=== PATIENT | male | born 1945 | race Caucasian/White ===

== ENCOUNTER → 2020-04-02 12:32 | Outpatient (CLI) | payer MEDICARE, SELFPAY ==
--- NOTE | ~2020-04-02 | CT_ITS ---
EXAMINATION: CT chest wo con DATE: 04/02/2020 12:53 INDICATION: Solitary pulmonary nodule TECHNIQUE: Computed tomography (CT) of the chest was performed without intravenous contrast. The dose -length product (DLP) was 729.65 mGy-cm. Automated exposure control and iterative reconstruction tech nique were employed. COMPARISON: 03/24/2019 FINDINGS: Cystic bronchiectasis involving all lung zones persists without significant change. Chronic tree-in-bud nodules in the posterior segment of the right upper lobe are consistent with infection/i nflammation. No new or suspicious pulmonary nodules are identified. There is no pleural effusion or p neumothorax. There is an unchanged 4 mm subpleural nodule of the left lower lobe. Calcified right hil ar and subcarinal lymph nodes are consistent with old granulomatous disease. Also noted is mild chron ic mediastinal lymphadenopathy, unchanged and likely reactive. The heart size is stable. There is anny cified coronary artery atherosclerosis. There is mild thoracic spondylosis. An intraosseous lipoma i s again noted in the proximal right humerus. IMPRESSION: 1. Stable left lower lobe nodule, consistent with old granulomatous disease. 2. Persistent tree-in-bud opacities in the posterior segment of the right upper lobe, consistent with infection/inflammation. 3. Widespread cystic bronchiectasis, unchanged. Reviewed, dictated and finalized at location A.
== END ==
PROVIDERS: PCP Family Medicine; Visit Provider Internal Medicine Critical Care Medicine
DX: R91.1 Solitary pulmonary nodule (principal)
CPT/HCPCS: 71250

== ENCOUNTER 2021-06-19 12:00 | Outpatient (NON) | payer MEDICARE, SELFPAY | END 2021-06-19 12:01 | disposition home or self-care (01) | LOC: ANHLAB 06-24 12:30 | PROVIDERS: Visit Provider Nurse Practitioner | DX: L02.91 Cutaneous abscess, unspecified (principal) | CPT/HCPCS: 87070; 87075; 87205 ==

== ENCOUNTER 2021-07-03 14:17 | Emergency (ER) | payer MEDICARE, SELFPAY ==
--- NOTE | ~2021-07-03 | XR_ITS ---
EXAMINATION: XR chest 1V portable DATE: 07/03/2021 15:01 INDICATION: Cough. Congestion. Shortness of breath. TECHNIQUE: A single frontal view of the chest was obtained on 2 radiographs. COMPARISON: Chest 2 views 12/12/2015, chest CT 04/02/2020 FINDINGS: There are mild airspace opacities in the mid and lower lung zones. No pleural effusion or p neumothorax. The heart size is normal. IMPRESSION: 1. Mild airspace opacities in the mid and lower lung zones, consistent with atelectasis versus pneumo angie. Reviewed, dictated and finalized at location B. 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 Mild airspace opacities in the mid and lower lung zones, consistent with ate lectasis versus pneumonia.
[2021-07-03 14:37] VITALS: BP 174/71; PULSE 69; RESP 20; TEMP 36.6; O2SAT 97
--- NOTE | 2021-07-03 14:37 | ED.URI ---
HPI - URI/Sore Throat General Chief Complaint: Upper Respiratory Infection Stated Complaint: coughing/possible bronchitis Source: patient and RN notes reviewed Mode of arrival: ambulatory Limitations: no limitations History of Present Illness HPI Narrative: patient states he has been gradually getting worse from coughing. Feels short of breath after coughing and sometimes with more exertion than usual. He has had 2 vaccinations and a booster. He does not recall being around anybody that is positive for COVID. He says he has headaches he thinks from coughing but has no other symptoms. MD elicited complaint: cough and sore throat Onset (ago): week(s) (1) Consistency: constant and progressively worsening Severity: moderate Description of mucous: clear Able to tolerate fluids by mouth: Yes Exacerbating factors: exertion Associated symptoms: headache Treatments prior to arrival: none Related Data Home Medications Medication Instructions Recorded Confirmed amlodipine 5 mg tablet 5 mg PO DAILY 04/28/19 07/03/21 atorvastatin 10 mg tablet 10 mg PO DAILY 04/28/19 07/03/21 latanoprost 0.005 % eye drops 1 drop EACH EYE DAILY 04/28/19 07/03/21 aspirin 81 mg tablet,delayed 81 mg PO DAILY 11/25/19 07/03/21 release cholecalciferol (vitamin D3) 50 50 mcg PO DAILY 04/09/20 07/03/21 mcg (2,000 unit) capsule Allergies Allergy/AdvReac Type Severity Reaction Status Date / Time lanolin Allergy Severe ITCHEY RASH Verified 06/25/21 13:43 gramicidin D Allergy Mild RASH Verified 06/25/21 13:43 lisinopril Allergy Mild renal Verified 06/25/21 13:43 insufficiency Sulfa (Sulfonamide Allergy Mild renal Verified 06/25/21 13:43 Antibiotics) failure bacitracin Allergy Unknown Rash Verified 06/25/21 13:43 polymyxin B Allergy Unknown rash Verified 06/25/21 13:43 BACITRACIN ZINC Allergy Mild RASH Uncoded 04/03/21 17:03 NEOMYCIN SULFATE Allergy Mild RASH Uncoded 04/03/21 17:03 POLYMYXIN B SULFATE Allergy Mild RASH Uncoded 04/03/21 17:03 Review of Systems Review of Systems: All systems reviewed & are unremarkable except as noted in HPI and below Constitutional: Constitutional: Reports chills and Denies fever(s) ENT: Denies sore throat Cardiovascular: Cardiovascular: Denies chest pain Respiratory: Respiratory: Reports as per HPI, Reports cough and Reports dyspnea Gastrointestinal: Gastrointestinal: Denies diarrhea, Denies nausea and Denies vomiting PMFSH Past Medical History Medical History Atrial flutter Chronic renal insufficiency, stage III (moderate) Chronic venous insufficiency Encounter for immunization Glaucoma H/O: gout History of bronchiectasis Hypertension Hypothyroidism Mitral insufficiency Mixed hyperlipidemia Obesity BRAYDEN (obstructive sleep apnea) Skin neoplasm Venous stasis dermatitis of both lower extremities Vitamin D deficiency Surgical History Surgical History H/O cardiac radiofrequency ablation Family History Family History Mother Diabetes mellitus Family history of coronary artery disease Sibling Diabetes mellitus Father Family history of coronary artery disease Social History Social History Smoking status: Never smoker Second hand tobacco smoke exposure: No Alcohol intake: never Substance use: never Substance use type: does not use Gender identity (if verbalized by the patient): Male Exam Const: General: no acute distress, alert and ill appearing acutely Nutritional Appearance: well nourished and obese morbidly obese Orientation/consciousness: patient oriented x3 HENMT: Head: normal to inspection Ears: external ears normal Eyes: Conjunctivae: conjunctivae normal Pupils: Equal, round and reactive pupils present EOM: EOMs intact bilaterally Neck: Neck: normal
[2021-07-03 15:09] LABS: Basophils Absolute Auto 0.04 K/mm3 (0.00-0.10); Basophils Percent Auto 0.2 % (0.0-1.0); Eosinophils Absolute Auto 0.03 K/mm3 (0.02-0.50); Eosinophils Percent Auto 0.2 % (1.0-6.0); Hematocrit 35.3 % (37.0-46.0); Hemoglobin 11.6 g/dL (12.4-15.3); Immature Granulocyte Absolute 0.12 K/mm3 (0.00-0.00); Immature Granulocyte Percent A 0.7 % (0.0-0.0); Lymphocytes Absolute Auto 1.42 K/mm3 (1.10-4.50); Lymphocytes Percent Auto 8.7 % (18.0-42.0); Mean Corpuscular HGB Conc 32.9 g/dL (32.0-36.0); Mean Corpuscular Volume 106.6 fL (78.0-102.0); Mean Platelet Volume 10.3 fl (8.7-11.0); Monocytes Absolute Auto 0.66 K/mm3 (0.10-0.90); Monocytes Percent Auto 4.1 % (2.0-11.0); Neutrophils Percent Auto 86.1 % (50.0-70.0); Platelet Count Result 197 K/mm3 (150-420); Red Blood Count 3.31 M/mm3 (4.70-6.10); Red Cell Distribution Width 13.8 % (11.6-14.4); White Blood Count 16.3 K/mm3 (4.8-10.8)
[2021-07-03 15:22] LABS: Influenza A QL RT-PCR Negative (Negative); Influenza B QL RT-PCR Negative (Negative); SARS-CoV-2 RNA PCR Negative (Negative)
--- NOTE | 2021-07-03 15:23 | PC.NURSE ---
report given to Vickie
[2021-07-03 15:41] LABS: Alanine Aminotransferase 25 U/L (16-63); Albumin Level 3.2 g/dL (3.4-5.0); Alkaline Phosphatase 80 U/L (46-116); Anion Gap 10 mmol/L (8-16); Aspartate Amino Transferase 26 U/L (15-37); Bilirubin,Total 1.7 mg/dL (0.00-1.00); Blood Urea Nitrogen 30 mg/dL (7-18); Carbon Dioxide 27 mmol/L (21-32); Chloride 101 mmol/L (98-108); Estimated CRCL calculation 48 ml/min; Estimated Glomerular Filt Rate 40; Ferritin 903 ng/mL (26-388); Glucose 152 mg/dL (70-99); Magnesium 2.2 mg/dL (1.8-2.4); Osmolality Calculated 295 mOsm/kg (285-295); Potassium 4.3 mmol/L (3.5-5.1); Sodium 138 mmol/L (136-145); Total Protein 7.9 g/dL (6.4-8.2)
[2021-07-03 15:43] LABS: CRP > 25.0 mg/dL (0.0-0.9)
[2021-07-03 16:22] VITALS: BP 136/82; PULSE 79; RESP 18; O2SAT 96
== END 2021-07-03 16:33 | disposition home or self-care (01) ==
PROVIDERS: Emergency Provider Emergency Medicine; PCP Family Medicine
DX: J18.9 Pneumonia, unspecified organism (principal); Z79.899 Other long term (current) drug therapy; I10 Essential (primary) hypertension; E03.9 Hypothyroidism, unspecified; E78.2 Mixed hyperlipidemia; E55.9 Vitamin D deficiency, unspecified
CPT/HCPCS: 36415; 71045; 80053; 82728; 83605; 83735; 85025; 86140; 87502; 96372; 99283; C9803; J1100; U0003; U0005

== ENCOUNTER → 2021-07-16 09:49 | Outpatient (CLI) | payer MEDICARE, SELFPAY ==
--- NOTE | ~2021-07-16 | XR_ITS ---
XR chest 2V 07/16/2021 10:09 Indication: Unspecified acute lower respiratory infection Procedure: 2 view chest Comparison: 07/03/2021 Findings: Heart size normal. Patchy bilateral airspace disease, compatible with pneumonia. No pleural effusion. No pneumothorax. No acute osseous abnormality. Impression: 1: Patchy bilateral airspace disease, compatible with pneumonia. Reviewed, dictated and finalized at location B. AN Impression: 1: Patchy bilateral airspace disease, compatible with pneumonia.
== END ==
PROVIDERS: PCP Family Medicine; Visit Provider Family Medicine
DX: J22 Unspecified acute lower respiratory infection (principal); R91.8 Other nonspecific abnormal finding of lung field
CPT/HCPCS: 71046

== ENCOUNTER 2021-08-07 09:21 | Outpatient (CLI) | payer MEDICARE, SELFPAY ==
--- NOTE | ~2021-08-07 | XR_ITS ---
EXAMINATION: XR chest 2V DATE: 08/07/2021 09:47 INDICATION: Pneumonia, unspecified organism TECHNIQUE: PA and lateral views of the chest are obtained. COMPARISON: 07/16/2021 FINDINGS: Patchy bilateral airspace opacities persist but have decreased. There is no pleural effusio n or pneumothorax. The cardiomediastinal silhouette is normal. There are bridging osteophytes at mult iple levels in the spine, consistent with diffuse idiopathic skeletal hyperostosis (DISH). IMPRESSION: 1. Patchy bilateral airspace opacities with interval improvement, consistent with resolving pneumonia . Reviewed, dictated and finalized at location A. 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 Patchy bilateral airspace opacities with interval improvement, consistent wi th resolving pneumonia.
== END 2021-08-07 09:22 | disposition home or self-care (01) ==
LOC: CHSLAB 09:24 → CHSIMG 09:25
PROVIDERS: PCP Family Medicine; Visit Provider Family Medicine
DX: J18.9 Pneumonia, unspecified organism (principal)
CPT/HCPCS: 71046

== ENCOUNTER → 2021-08-28 12:11 | Outpatient (CLI) | payer MEDICARE, SELFPAY ==
--- NOTE | ~2021-08-28 | XR_ITS ---
EXAMINATION: XR chest 2V DATE: 08/28/2021 12:28 INDICATION: Pneumonia, unspecified organism. TECHNIQUE: Frontal and lateral views of the chest were obtained. COMPARISON: Chest 2 views 08/07/2021, chest CT 04/02/2020 FINDINGS: The chest demonstrates clear lungs without pneumonia, pleural effusion, or pneumothorax. Th e heart size is normal. There are prominent paracardial fat pads. IMPRESSION: 1. No acute cardiopulmonary disease. Reviewed, dictated and finalized at location A. TRUCKER
== END ==
PROVIDERS: PCP Family Medicine; Visit Provider Family Medicine
DX: J18.9 Pneumonia, unspecified organism (principal); M25.561 Pain in right knee
CPT/HCPCS: 71046

== ENCOUNTER 2021-11-16 20:22 | Emergency (ER) | payer MEDICARE, SELFPAY ==
--- NOTE | ~2021-11-16 | XR_ITS ---
XR chest 2V DATE: 11/16/2021 21:50 INDICATION: Chills for 2 days. History of COPD TECHNIQUE: PA and lateral views COMPARISON: 09/07/2021 2 view chest FINDINGS: Normal heart size. No hilar or mediastinal enlargement. No pulmonary infiltrate or consolid ation, pleural effusion or pulmonary vascular congestion or pneumothorax. Diffuse idiopathic skeletal hyperostosis of the thoracic spine. IMPRESSION: No active cardiopulmonary disease Reviewed, dictated and finalized at location A.
--- NOTE | 2021-11-16 20:39 | ED.FEVER ---
HPI - Fever General Chief Complaint: Fever Stated Complaint: chills Time Seen by Provider: 11/16/21 20:23 Source: patient and RN notes reviewed Mode of arrival: ambulatory Limitations: no limitations History of Present Illness MD elicited complaint: fever Onset (ago): hour(s) (1) Measured temperature: 101 C (tympanic) Exacerbating factors: nothing Relieving factors: acetaminophen Associated symptoms: chills, myalgias and headache Treatments prior to arrival fever: acetaminophen Related Data Home Medications Medication Instructions Recorded Confirmed amlodipine 5 mg tablet 5 mg PO DAILY 04/28/19 11/16/21 atorvastatin 10 mg tablet 10 mg PO DAILY 04/28/19 11/16/21 latanoprost 0.005 % eye drops 1 drop ophthalmic (eye) DAILY 04/28/19 11/16/21 (Xalatan) aspirin 81 mg tablet,delayed 81 mg PO DAILY 11/25/19 11/16/21 release (Adult Aspirin Regimen) cholecalciferol (vitamin D3) 50 50 mcg PO DAILY 04/09/20 11/16/21 mcg (2,000 unit) capsule Allergies Allergy/AdvReac Type Severity Reaction Status Date / Time lanolin Allergy Severe ITCHEY RASH Verified 11/16/21 20:56 gramicidin D Allergy Mild RASH Verified 11/16/21 20:56 lisinopril Allergy Mild renal Verified 11/16/21 20:56 insufficiency Sulfa (Sulfonamide Allergy Mild renal Verified 11/16/21 20:56 Antibiotics) failure bacitracin Allergy Unknown Rash Verified 11/16/21 20:56 polymyxin B Allergy Unknown rash Verified 11/16/21 20:56 BACITRACIN ZINC Allergy Mild RASH Uncoded 07/19/21 13:46 NEOMYCIN SULFATE Allergy Mild RASH Uncoded 07/19/21 13:46 POLYMYXIN B SULFATE Allergy Mild RASH Uncoded 07/19/21 13:46 Review of Systems Review of Systems: All systems reviewed & are unremarkable except as noted in HPI and below Constitutional: Constitutional: Reports as per HPI Respiratory: Respiratory: Denies cough and Denies dyspnea Gastrointestinal: Gastrointestinal: Denies constipation, Denies diarrhea, Denies nausea and Denies vomiting Musculoskeletal: Musculoskeletal: Reports myalgias PMFSH Past Medical History Medical History Atrial flutter Chronic renal insufficiency, stage III (moderate) Chronic venous insufficiency Encounter for immunization Glaucoma H/O: gout History of bronchiectasis Hypertension Hypothyroidism Mitral insufficiency Mixed hyperlipidemia Obesity BRAYDEN (obstructive sleep apnea) Skin neoplasm Venous stasis dermatitis of both lower extremities Vitamin D deficiency Surgical History Surgical History H/O cardiac radiofrequency ablation Family History Family History Mother Diabetes mellitus Family history of coronary artery disease Sibling Diabetes mellitus Father Family history of coronary artery disease Social History Social History Second hand tobacco smoke exposure: No Alcohol intake: never Substance use: never Substance use type: does not use Gender identity (if verbalized by the patient): Male Exam Const: General: healthy appearing and ill appearing chronically Nutritional Appearance: well nourished and obese morbidly obese Orientation/consciousness: patient oriented x3 Limitations: no limitations HENMT: Head: normal to inspection Ears: external ears normal General nose exam: Normal external nose present Mouth: Yes moist mucous membranes Eyes: Conjunctivae: conjunctivae normal Pupils: Equal, round and reactive pupils present EOM: EOMs intact bilaterally Neck: Neck: normal visual inspection Resp: Effort & Inspection: normal respiratory effort Auscultation: clear to auscultation bilaterally Cardio: Rate: regular rate Rhythm: regular rhythm GI: GI Palp: Yes Soft to palpation and No Tenderness to palpation present (GI) Auscultation: normal bowel sounds Back/Spine/Pelvis: Cervical Spine: cervi
--- NOTE | 2021-11-16 20:45 | PC.NURSE ---
nasal swab sent to lab
[2021-11-16 20:47] VITALS: BP 164/69; PULSE 94; RESP 22; TEMP 37.2; O2SAT 100
[2021-11-16 21:09] LABS: Basophils Absolute Auto 0.04 K/mm3 (0.00-0.10); Basophils Percent Auto 0.3 % (0.0-1.0); Eosinophils Absolute Auto 0.08 K/mm3 (0.02-0.50); Eosinophils Percent Auto 0.6 % (1.0-6.0); Hematocrit 42.6 % (37.0-46.0); Hemoglobin 14.1 g/dL (12.4-15.3); Immature Granulocyte Absolute 0.07 K/mm3 (0.00-0.00); Immature Granulocyte Percent A 0.5 % (0.0-0.0); Lymphocytes Percent Auto 9.8 % (18.0-42.0); Mean Corpuscular HGB Conc 33.1 g/dL (32.0-36.0); Mean Corpuscular Hemoglobin 32.1 pg (27.0-31.0); Mean Platelet Volume 10.2 fl (8.7-11.0); Monocytes Absolute Auto 0.79 K/mm3 (0.10-0.90); Monocytes Percent Auto 5.5 % (2.0-11.0); Neutrophils Absolute Auto 11.9 K/mm3 (1.7-7.2); Neutrophils Percent Auto 83.3 % (50.0-70.0); Platelet Count Result 197 K/mm3 (150-420); Red Blood Count 4.39 M/mm3 (4.70-6.10); Red Cell Distribution Width 13.7 % (11.6-14.4); White Blood Count 14.3 K/mm3 (4.8-10.8)
[2021-11-16 21:24] LABS: Influenza A QL RT-PCR Negative (Negative); Influenza B QL RT-PCR Negative (Negative); SARS-CoV-2 RNA PCR Negative (Negative)
[2021-11-16 21:35] LABS: Alanine Aminotransferase 28 U/L (16-63); Albumin Level 3.8 g/dL (3.4-5.0); Alkaline Phosphatase 89 U/L (46-116); Anion Gap 8 mmol/L (8-16); Aspartate Amino Transferase 25 U/L (15-37); Bilirubin,Total 1.1 mg/dL (0.00-1.00); Blood Urea Nitrogen 18 mg/dL (7-18); Calcium 10.4 mg/dL (8.5-10.1); Carbon Dioxide 28 mmol/L (21-32); Chloride 98 mmol/L (98-108); Estimated CRCL calculation 66 ml/min; Estimated Glomerular Filt Rate 58; Ferritin 608 ng/mL (26-388); Glucose 112 mg/dL (70-99); Magnesium 2.1 mg/dL (1.8-2.4); Osmolality Calculated 280 mOsm/kg (285-295); Potassium 3.6 mmol/L (3.5-5.1); Sodium 134 mmol/L (136-145); Total Protein 8.2 g/dL (6.4-8.2)
[2021-11-16 21:36] LABS: CRP > 10.6 mg/dL (0.0-0.9)
[2021-11-16 21:44] LABS: Lactic Acid Reflex 1.1 mmol/L (0.4-2.0)
[2021-11-16 22:06] VITALS: TEMP 37.7
[2021-11-16 22:12] LABS: Appearance Urine Clear (Clear); Bilirubin Urine Negative (Negative); Color Urine Light Yellow (Yellow); Glucose Urine UA Negative (Negative); Ketones Urine Negative (Negative); Leukocyte Esterase Ur Negative LEU/UL (Negative); Nitrate Urine Negative (Negative); Protein Urine 1+ (Negative); Urobilinogen Urine 0.2 mg/dL (0.2-1.0)
[2021-11-16 22:17] LABS: Add Urine Microscopic? YES; Blood Urine Trace-Intact (Negative); RBC Urine 0-2 /hpf (0-2)
[2021-11-16 23:03] VITALS: BP 154/67; PULSE 95; RESP 19; TEMP 37.8; O2SAT 100
== END 2021-11-16 23:13 | disposition home or self-care (01) ==
PROVIDERS: Emergency Provider Emergency Medicine; PCP Family Medicine
DX: B34.9 Viral infection, unspecified (principal); Z20.822 Contact with and (suspected) exposure to COVID-19; I10 Essential (primary) hypertension; E78.2 Mixed hyperlipidemia; E55.9 Vitamin D deficiency, unspecified; E03.9 Hypothyroidism, unspecified; I48.92 Unspecified atrial flutter
CPT/HCPCS: 36415; 71046; 80053; 81001; 82728; 83605; 83735; 85025; 86140; 87502; 99283; C9803; U0003; U0005

== ENCOUNTER 2022-04-21 11:00 | Outpatient (RCR) | payer MEDICARE, SELFPAY ==
--- NOTE | 2022-01-21 11:46 | PTOPEVAL ---
Thank you for referring Rigo Talley to [facility].? He scheduled to be seen for therapy? 3 x/week for 7 weeks. Please review, sign, date and return this plan of care JALEESA. I agree with and certify that the following plan of care is medically necessary. Referring Physician Date Attending Provider: Kiesha Reynolds MD Past Medical History Source of Past Medical History Recalled from Previous Visit, Confirmed with Patient/Family Neurological History Hx Neurological Disorders No Significant History Cardiovascular History Hx Atrial Fibrillation Yes: had ablation no issues since Hx Hypercholesterolemia Yes: meds Hx Hypertension Yes: meds Hx Other Cardiac Disorders Yes: ablation Respiratory History Hx Chronic Obstructive Pulmonary Disease Yes (COPD) Hx COVID-19 Yes Hx Sleep Apnea Yes: CPAP Gastrointestinal History Hx Appendectomy Yes Genitourinary History Hx Renal Disease Yes: stage 3 Musculoskeletal History Hx Arthritis Yes: knees and back Hematological History Hx Hematological Disorders No Significant History Endocrine History Hx Hypothyroidism Yes: meds HEENT History Hx HEENT Disorders No Significant History Integumentary History Hx Skin Disorders No Significant History Reproductive History Hx Reproductive Disorders No Significant History Psychosocial History Hx Psychiatric Disorders No Significant History Pain History History of Any Previous or Ongoing No Significant History Instance of Pain Anesthesia History Hx Anesthesia Reactions No Significant History Other History Hx Other Medical Conditions Yes: obesity 303# Evaluation Information Diagnosis B LE lymphedema Onset past few years worse Subjective Information had swelling in legs about 10 Query Text:As Reported By Patient/ yrs; recent ER due to Family cellulitis 5-28-22 Prior Level of Function Home Setting Home Type House Environmental Barriers Stairs, 2-4 Living Situation With Spouse Mobility Assistive Devices (Used Last 3 None Months) Comments Additional Prior Level of Function problems getting up from Comments sitting, especially the couch or lower seats; Pain Assessment Pain Scale Pain Scale Used Numeric (1 - 10) Self Report Pain Assessment Bilateral Leg(s) Reported Pain Level 4 Radicular Pain Location burn bottoms of feet; legs heavy and dull pain Pain Frequency Chronic,Continuous Lowest Pain Intensity 4
--- NOTE | 2022-01-21 11:48 | PCPTNOTE ---
pt signed consent and photo taken of his legs, entered into EMR;
--- NOTE | 2022-03-10 13:30 | PTOPPROG ---
Assessment and note entered by Bernice Ferraro, PT, CLT Evaluation Information Assessment Status Re-evaluation Subjective Information Rigo reports: compression garment is comfortable and was able to get them on OK; tops of his feet stay swollen; swelling of his legs is worse at end of the day; has been doing his leg exercises and is active during the day--walking and doing home things; Assessment PT Clinical Summary Rigo has received 16 PT sessions for B LE lymphedema. The circumferential measurement of his R leg increased by .2 cm and the L by 26.4 cm compared to the initial evaluation. The measurements have decreased during the treatment time frame and when he had the compression wraps applied. At best measurement, R decreased by 24.7 cm and L by 54.4 cm. The tissue has softened and papillomas have decreased, with decreased redness of his skin. He is doing his self MLD, leg exercises, elevating his legs and wearing the compression over the lower legs. He is awaiting insurance authorization for the home intermittent compression pump. Continue PT lymphedema treatment-- reduction of legs and further soften fibrotic tissue; determine appropriate compression garments to manage his lymphedema. Plan of Care Interventions Intermittent Compression,Lymphedema Compression Pump ,Manual Lymph Drainage,Manual Therapy,Patient/ Caregiver Education,Therapeutic Exercise,Self-Care/ Home Management PT Services Indicated Yes Treatment Frequency and 3x/wk for 4 weeks Duration These treatments will address the objective and functional deficits as defined above. The patient will be advanced safely and appropriately in order for the patient to progress towards his/her prior level of function. Additional exercises will be introduced and as well as a comprehensive home exercise program upon discharge, if needed, ?to ensure carryover of functional gains achieved in the clinic. This treatment plan has been reviewed and agreement upon by the patient.
--- NOTE | 2022-03-10 14:52 | PCPTNOTE ---
faxed pt reeval report to Humberto at [facility] for home compression pump insurance auth;
--- NOTE | 2022-03-19 16:41 | PCPTNOTE ---
pt called and gave info for his insurance for fax order for compression garments: [facility] fax [phone] and phone [phone]; faxed order for lower leg compression and foot pieces to them, along with dr skaggs.
--- NOTE | 2022-03-25 07:28 | PCPTNOTE ---
Patient called & cancelled scheduled appointment this date due to having COVID-19.
--- NOTE | 2022-03-31 09:06 | PTOPPROG ---
Assessment and note entered by Bernice Ferraro, PT, CLT Evaluation Information Assessment Status Progress Subjective Information Rigo reports: is using his home pump every day; is still recovering from COVID--weak and tired easily; no pain in legs; still waiting on insurance approval for garments; is doing leg exercises, prop legs up with sitting; Assessment PT Clinical Summary Rigo has received 22 PT sessions for B LE lymphedema. Compared to the last reevaluation: R LE increased by 17 cm and L decreased by 43.7 cm; skin integrity improved over L LE ankle and foot; continues to require more compression to manage his lymphedema. He does not want to use the compression wraps anymore and is going to order compression garments. He now has a home compression pump and compression socks, but needs the velcro for more compression. Continue PT treatment. Plan of Care Interventions Lymphedema Compression Pu,Manual Lymph Drainage, Manual Therapy,Patient/Caregiver Education, Therapeutic Activities,Therapeutic Exercise PT Services Indicated Yes Treatment Frequency and 0-2x/wk for 4 weeks Duration These treatments will address the objective and functional deficits as defined above. The patient will be advanced safely and appropriately in order for the patient to progress towards his/her prior level of function. Additional exercises will be introduced and as well as a comprehensive home exercise program upon discharge, if needed, ?to ensure carryover of functional gains achieved in the clinic. This treatment plan has been reviewed and agreement upon by the patient.
--- NOTE | 2022-04-22 12:42 | PCPTNOTE ---
This treatment is being continued on visit number [id number] Please see documentation on both accounts to view progress. Completed interventions, outcomes, and problems have been marked as Inactive to facilitate the copying of the Care plan routine for recurring accounts.
== END 2022-04-21 23:59 | disposition home or self-care (01) ==
LOC: ANHPT 11:00
PROVIDERS: PCP Family Medicine; Referring Provider Family Medicine; Visit Provider Family Medicine
DX: I89.0 Lymphedema, not elsewhere classified (principal)
CPT/HCPCS: 29581; 97016; 97140; 97161

== ENCOUNTER 2022-04-23 08:41 | Outpatient (RCR) | payer MEDICARE, SELFPAY ==
--- NOTE | 2022-04-24 12:50 | PCPTNOTE ---
PHYSICAL THERAPY DISCHARGE 04-24-22 Attending Provider: Kiesha Reynolds MD Patient:Rigo Talley Date of :1945 Rigo has received a total of 25 PT sessions, for B LE lymphedema. Circumferential measurement of his legs, from the bottom of his foot, up to 72 cm: R is 1034.8 cm, decreased by 37.2 cm compared to the last reevaluation and L is 1049 cm, increased by 11 cm. Skin integrity: he continues to have redness over lower legs and feet,with some fibrotic tissue over lower leg and around malleoli. Compression garments: He has R and L lower leg compression stockings, 30-40 mmHg and velcro garments. He reports they are comfortable and he is using them. Rigo has a home intermittent compression pump, the garments above, and has been educated on self lymph massage and skin care, to assist with managing his chronic condition. The goals have been partially met. Thank you for referring this patient to [facility].
--- NOTE | 2022-04-24 13:00 | PCPTNOTE ---
pt had only one treatment on this new V#; his goals were addressed on the previous V# plan of care; discharge PT services
== END 2022-05-14 12:24 | disposition home or self-care (01) ==
LOC: ANHPT 08:41
PROVIDERS: PCP Family Medicine; Visit Provider Family Medicine
DX: I89.0 Lymphedema, not elsewhere classified (principal)
CPT/HCPCS: 97016; 97140

== ENCOUNTER 2022-04-23 09:11 | Outpatient (CLI) | payer MEDICARE, SELFPAY ==
--- NOTE | 2022-04-23 11:36 | WPDPFTINT ---
PFT Procedure Performed PFT Procedure Performed Spirometry with Pre/Post Bronchodilator Plethysmography (Lung Vol) Diffusing Cap (DLCO) Flow Vol Loop PFT Interpretation Lung volumes were measured with the body plethysmography method. The diminished expiratory reserve volume is related to obesity. The remaining lung volumes are unremarkable. Spirometry showed normal expiratory flow rates and a normal FEV1 to FVC ratio of 88%. Following administration of a bronchodilator there was no significant increase in the expiratory flow rates. Lung diffusion capacity is mildly reduced at 62% predicted. The flow volume loop is unremarkable. In comparison to previous study in 2016, the total lung capacity and lung diffusion capacity are essentially unchanged. impression: Spirometry and lung volumes within normal range. Mild reduction in lung diffusion capacity.
== END 2022-04-23 09:12 | disposition home or self-care (01) ==
LOC: ANHPFT 09:14
PROVIDERS: PCP Family Medicine; Visit Provider Nurse Practitioner Family
DX: R06.09 Other forms of dyspnea (principal); U09.9 Post COVID-19 condition, unspecified
CPT/HCPCS: 94060; 94726; 94729

== ENCOUNTER 2022-05-19 12:57 | Outpatient (CLI) | payer MEDICARE, SELFPAY ==
--- NOTE | ~2022-05-19 | US_ITS ---
US renal BI 05/19/2022 13:51 Procedure: Realtime transabdominal ultrasound of the kidneys and bladder. Indication: Acute renal failure Comparison: No prior studies for comparison. Findings: Renal echotexture is normal bilaterally without hydronephrosis, solid contour deforming mas s or renal calculus. There is a right renal cyst measuring 3.5 cm maximum dimension. The right kidney measures 11.3 cm and left kidney measures 12 cm. Bladder within normal limits. Impression: 1: Right renal cyst measuring 3.5 cm. Reviewed, dictated and finalized at location A. ING SUPERVISOR Impression: 1: Right renal cyst measuring 3.5 cm.
--- NOTE | ~2022-05-19 | XR_ITS ---
XR lumbar spine min 4V 05/19/2022 13:22 Indication: Low back pain Procedure: 5 views lumbar spine Comparison: 04/10/2014 Findings: There is mild levoscoliosis. There is disc narrowing at all lumbar levels. There is moderat e multilevel facet hypertrophy. There is grade 1 degenerative spondylolisthesis at L5-S1. There are b ridging osteophytes at 4 anteriorly. No acute fracture or traumatic malalignment. Pedicles are intact . Sacral foramen are symmetric. Impression: 1: Moderate lumbar spondylosis with levoscoliosis. Reviewed, dictated and finalized at location A. CAL ASSISTANT SECRETARY Impression: 1: Moderate lumbar spondylosis with levoscoliosis.
== END 2022-05-19 12:58 | disposition home or self-care (01) ==
PROVIDERS: PCP Family Medicine; Visit Provider Family Medicine
DX: N17.9 Acute kidney failure, unspecified (principal); N18.9 Chronic kidney disease, unspecified; M47.896 Other spondylosis, lumbar region; N28.1 Cyst of kidney, acquired
CPT/HCPCS: 72110; 76775

== ENCOUNTER 2022-07-29 13:51 | Outpatient (CLI) | payer MEDICARE, SELFPAY ==
--- NOTE | ~2022-07-29 | US_ITS ---
EXAMINATION: US arterial ankle brachial ind DATE: 07/29/2022 15:02 INDICATION: Peripheral vascular disease TECHNIQUE: Segmental pressures and plethysmographic and Doppler waveforms of the brachial and lower e xtremity arteries were obtained. COMPARISON: None. FINDINGS: Right and left brachial artery pressures of 151 mm Hg and 149 mm Hg, respectively, are concordant (no rmal difference <= 30 mmHg). The right ankle-brachial index (DELMAR) is unable to be assessed due to inability to occlude the vessels at the right ankle (normal >= 0.9-1.0). The right great toe-brachial index (TBI) is 0.42 (normal >= 0.65). Arterial Doppler waveforms are biphasic with brisk systolic upstrokes at both right posterior tibial and dorsalis pedis arteries. The left DELMAR is also unable to be obtained due to inability to occlude the vessels at the left ankle. The left TBI is 0.64. Arterial Doppler waveforms are biphasic with brisk systolic upstrokes at both left posterior tibial and dorsalis pedis arteries. IMPRESSION: 1. Arterial occlusive disease to the bilateral lower limbs with mild to moderately decreased right an d minimally decreased left TBIs. Reviewed, dictated and finalized at location A. PADDER IMPRESSION: 1. Arterial occlusive disease to the bilateral lower limbs with mild to moderat luci decreased right and minimally decreased left TBIs.
== END 2022-07-29 13:52 | disposition home or self-care (01) ==
PROVIDERS: PCP Family Medicine; Visit Provider Family Medicine
DX: I73.9 Peripheral vascular disease, unspecified (principal)
CPT/HCPCS: 93922

== ENCOUNTER 2022-08-26 11:17 | Outpatient (CLI) | payer MEDICARE, SELFPAY ==
[2022-08-26 11:39] LABS: Basophils Absolute Auto 0.1 K/mm3 (0.0-0.1); Basophils Percent Auto 0.8 % (0.2-1.2); Eosinophils Absolute Auto 0.2 K/mm3 (0-0.3); Eosinophils Percent Auto 2.8 % (0-4.4); Hematocrit 36.4 % (42.0-52.0); Hemoglobin 12.1 g/dL (14.0-18.0); Immature Granulocyte Absolute 0.02 K/mm3 (0.00-0.031); Immature Granulocyte Percent A 0.3 % (0-0.5); Immature Reticulocyte Fraction 18.3 % (3.0-15.9); Lymphocytes Absolute Auto 1.21 K/mm3 (0.9-3.2); Lymphocytes Percent Auto 18.8 % (18.3-44.2); Mean Corpuscular HGB Conc 33.2 g/dl (32-36); Mean Corpuscular Hemoglobin 34.7 pg (26-34); Mean Corpuscular Volume 104.3 fl (80-100); Mean Platelet Volume 10.6 fl (7.4-10.4); Monocytes Absolute Auto 0.5 K/mm3 (0.1-0.6); Monocytes Percent Auto 7.1 % (2.6-8.5); Neutrophils Absolute Auto 4.5 K/mm3 (1.3-6.7); Neutrophils Percent Auto 70.2 % (45.5-73.1); Platelet Count Result 155 k/mm3 (150-375); Red Blood Count 3.49 M/mm3 (4.6-6.20); Red Cell Distribution Width 15.2 % (11.5-14.5); Reticulocyte Hemoglobin Conten 38.2 pg (28.2-35.7); Reticulocyte Percent 2.31 % (0.7-4.3); Reticulocytes Absolute 0.08 B/L (32.2-175.7); White Blood Count 6.5 K/mm3 (4.5-10.0)
[2022-08-26 16:51] LABS: Iron 64 ug/dL (49-181)
[2022-08-26 17:03] LABS: Percent Iron Saturation 20 % (20-50)
[2022-08-26 17:09] LABS: Alanine Aminotransferase 22 U/L (6-50); Albumin Level 4.8 g/dL (3.5-5.1); Alkaline Phosphatase 129 U/L (38-126); Anion Gap 10 mmol/L (8-16); Aspartate Amino Transferase 31 U/L (17-59); Bilirubin,Total 1.7 mg/dL (0.2-1.3); Blood Urea Nitrogen 33 mg/dL (9-20); Calcium 10.5 mg/dL (8.4-10.2); Carbon Dioxide 28 mmol/L (22-30); Chloride 101 mmol/L (98-107); Estimated Glomerular Filt Rate 59; Glucose 106 mg/dL (65-110); Sodium 139 mmol/L (137-145)
[2022-08-26 18:33] LABS: Folic Acid 13.7 ng/mL (2.76->20)
[2022-08-29 08:37] LABS: Erythropoietin (EPO) 36.9 mIU/mL (2.6-18.5)
[2022-08-29 09:22] LABS: Methylmalonic Acid 351 nmol/L (87-318)
== END 2022-08-26 11:18 | disposition home or self-care (01) ==
LOC: ANHLAB 11:18
PROVIDERS: PCP Family Medicine; Visit Provider Internal Medicine Hematology & Oncology
DX: D64.9 Anemia, unspecified (principal)
CPT/HCPCS: 36415; 80053; 82607; 82668; 82728; 82746; 83540; 83550; 83921; 85025; 85046

== ENCOUNTER 2022-11-08 14:39 | Emergency (ER) | payer MEDICARE, SELFPAY ==
--- NOTE | 2022-11-08 16:11 | PC.NURSE ---
triaged patient due to no beds in ER
[2022-11-08 17:10] VITALS: BP 142/50; PULSE 60; RESP 20; TEMP 36.6
--- NOTE | 2022-11-08 17:20 | ED.SKABFB ---
HPI - Skin/Abscess/Foreign Bdy General Chief complaint: Extremity Injury, Upper Stated complaint: fell yesterday;left arm still bleeding Source: patient Mode of arrival: ambulatory Limitations: no limitations History of Present Illness HPI narrative: 77-year-old male with a history of obesity, bilateral lower extremity lymphedema, BRAYDEN on CPAP, bronchiectasis, CKD, gout, hypertension hypothyroidism, dyslipidemia, venous stasis, BPH, presents to the ER -- skin tear over left posterior forearm. He sustained the Skin tear yesterday. The skin tear is extensive over the back of the left forearm. Patient has oozing from few spots on the skin tear. No other injuries noted. MD complaint: laceration Onset (ago): day(s) ( yesterday) Tetanus up to date: no Location: L hand Severity: mild Quality: aching Relieving factors: none Exacerbating factors: none Context: other ( caused by blunt trauma to left forearm.) Treatments prior to arrival: none Related Data Home Medications Medication Instructions Recorded Confirmed amlodipine 5 mg tablet 5 mg PO DAILY 04/28/19 09/26/22 atorvastatin 10 mg tablet 10 mg PO DAILY 04/28/19 09/26/22 aspirin 81 mg tablet,delayed 81 mg PO DAILY 11/25/19 09/26/22 release (Adult Aspirin Regimen) cholecalciferol (vitamin D3) 50 50 mcg PO DAILY 04/09/20 09/26/22 mcg (2,000 unit) capsule Allergies Allergy/AdvReac Type Severity Reaction Status Date / Time lanolin Allergy Severe ITCHEY RASH Verified 09/26/22 09:51 gramicidin D Allergy Mild RASH Verified 09/26/22 09:51 lisinopril Allergy Mild renal Verified 09/26/22 09:51 insufficiency Sulfa (Sulfonamide Allergy Mild renal Verified 09/26/22 09:51 Antibiotics) failure bacitracin Allergy Unknown Rash Verified 09/26/22 09:51 polymyxin B Allergy Unknown rash Verified 09/26/22 09:51 BACITRACIN ZINC Allergy Mild RASH Uncoded 09/26/22 09:51 NEOMYCIN SULFATE Allergy Mild RASH Uncoded 09/26/22 09:51 POLYMYXIN B SULFATE Allergy Mild RASH Uncoded 09/26/22 09:51 Review of Systems Review of Systems: All systems reviewed & are unremarkable except as noted in HPI and below Constitutional: Constitutional: Reports as per HPI and Reports no additional constitutional complaints Eyes: Eyes: Reports as per HPI and Reports no additional eye complaints ENT: Reports system reviewed and no additional complaints, except as documented and Reports as per HPI Cardiovascular: Cardiovascular: Reports as per HPI and Reports no additional cardiovascular complaints Respiratory: Respiratory: Reports as per HPI, Reports no additional respiratory complaints and Reports dyspnea Gastrointestinal: Gastrointestinal: Reports as per HPI and Reports no additional gastrointestinal complaints Genitourinary: Genitourinary: Reports no additional male genitourinary complaints Musculoskeletal: Musculoskeletal: Reports no additional musculoskeletal complaints and Reports as per HPI Integumentary/Breasts: Comments: Left forearm skin tear with extensive surrounding bruising chronic venous stasis changes lower extremities. Neurologic: Reports system reviewed and no additional complaints, except as documented and Reports as per HPI Psychiatric: Psychiatric: Reports no additional psychiatric complaints and Reports as per HPI Endocrine: Endocrine: Reports no additional endocrine complaints and Reports as per HPI Hematologic/Lymphatic: Hematologic/Lymphatic: Reports no additional hematologic/lymphatic complaints and Reports as per HPI Allergic/Immunologic: Allergic/Immunologic: Reports no additional allergic/immunologic complaints and Reports as per HPI [facility] Past Medical History Medical History Atrial flutter Chronic renal insufficiency, stage III (moderate) Chronic venous insufficiency Encounter for immunization Glaucoma H/O: gout History of bronchiectasis Hypertension Hypothyroidism Lymphedema Mitral insufficiency
[2022-11-08] MEDS: SILVER NITRATE (*SP) STICK 2 EACH TOPICAL (18:04)
[2022-11-08] MEDS: TETANUS,DIPHTHERIA,AC PERTUSSIS ADULT 0.5 ML (ADACEL) IM (18:08)
[2022-11-08 18:19] VITALS: BP 140/90; PULSE 82; RESP 20; TEMP 36.6; O2SAT 95
== END 2022-11-08 18:21 | disposition home or self-care (01) ==
PROVIDERS: Emergency Provider Internal Medicine Critical Care Medicine; PCP Family Medicine
DX: S51.812A Laceration without foreign body of left forearm, initial encounter (principal); W19.XXXA Unspecified fall, initial encounter; I12.9 Hypertensive chronic kidney disease with stage 1 through stage 4 chronic kidney disease, or unspecified chronic kidney disease; N18.30 Chronic kidney disease, stage 3 unspecified; E78.5 Hyperlipidemia, unspecified; E03.9 Hypothyroidism, unspecified; N40.0 Benign prostatic hyperplasia without lower urinary tract symptoms; G47.33 Obstructive sleep apnea (adult) (pediatric); I87.8 Other specified disorders of veins; M10.9 Gout, unspecified; Z23 Encounter for immunization; H40.9 Unspecified glaucoma; I34.0 Nonrheumatic mitral (valve) insufficiency; E78.2 Mixed hyperlipidemia; E55.9 Vitamin D deficiency, unspecified; E66.01 Morbid (severe) obesity due to excess calories; Z68.41 Body mass index [BMI] 40.0-44.9, adult; Z79.82 Long term (current) use of aspirin
CPT/HCPCS: 12005; 90471; 90715; 99283

== ENCOUNTER 2022-11-26 10:48 | Outpatient (CLI) | payer MEDICARE, SELFPAY ==
--- NOTE | ~2022-11-26 | US_ITS ---
US abdomen limited DATE: 11/26/2022 11:16 INDICATION: Limited examination for assessment of ascites. Severe leg edema, increased abdominal girt h, weight gain TECHNIQUE: Real-time imaging of the abdomen COMPARISON: 05/19/2022 bilateral renal ultrasound examination FINDINGS: Free intraperitoneal fluid was identified in the right upper quadrant with the patient in t he right lateral decubitus position. Mild free intraperitoneal fluid was identified in the left upper quadrant with the patient supine. IMPRESSION: Ascites Reviewed, dictated and finalized at Location A. Reviewed, dictated and finalized at location [] IMPRESSION: Ascites
== END 2022-11-26 10:49 | disposition home or self-care (01) ==
LOC: CHSIMG 10:50
PROVIDERS: PCP Family Medicine; Visit Provider Family Medicine
DX: R18.8 Other ascites (principal)
CPT/HCPCS: 76705

== ENCOUNTER 2022-11-28 11:11 | Outpatient (CLI) | payer MEDICARE, SELFPAY ==
[2022-11-28 11:36] LABS: Total Protein Urine Random 21.9 mg/dL (0.0-11.9)
[2022-11-28 12:01] LABS: Total Protein Urine 24 Hr 307 mg/24hr (0-149); Total Volume 24 Hour Urine 1400 ml
== END 2022-11-28 11:12 | disposition home or self-care (01) ==
LOC: CHSLAB 11:12
PROVIDERS: PCP Family Medicine; Visit Provider Family Medicine
DX: R80.9 Proteinuria, unspecified (principal)
CPT/HCPCS: 81050; 84155; 84156; 84165

== ENCOUNTER 2022-12-01 07:25 | Outpatient (CLI) | payer MEDICARE, SELFPAY ==
--- NOTE | ~2022-12-01 | CT_ITS ---
EXAMINATION: CT abdomen pelvis w con INDICATION: Ascites TECHNIQUE: Computed tomographic images of the abdomen and pelvis were obtained after the administrati on of 100 cc of Omnipaque 350 intravenous contrast. The dose-length product (DLP) was 1415.85 mGy-cm. Automated exposure control and iterative reconstruction technique were employed. COMPARISON: 04/02/2020 FINDINGS: There are small pleural effusions. Chronic cystic bronchiectasis is noted in the visualized lung bases. There is diffuse anasarca. There is a moderate volume of abdominal and pelvic ascites. P unctate calcifications in an otherwise normal spleen likely represent healed granulomatous disease. T here is a 17 mm focal area of enhancement in the right hepatic lobe. The pancreas, gallbladder, and a drenal glands are normal. There is mild atrophy of the kidneys. There is a 3.5 cm cyst of the right k idney. No pathologically enlarged abdominal or pelvic lymph nodes are identified. No free intraperito ney gas or evidence of bowel obstruction. Colonic diverticulosis is present without evidence of dive rticulitis. There is mild lumbar spondylosis. IMPRESSION: 1. Moderate volume of abdominal and pelvic ascites. 2. Diffuse anasarca. 3. Subtle area of enhancement in the right hepatic lobe. Follow-up by MRI without and with contrast i s recommended. Reviewed, dictated and finalized at location A. IMPRESSION: 1. Moderate volume of abdominal and pelvic ascites. 2. Diffuse anasarca. 3. Subtle area of enhancement in the right hepatic lobe. Follow-up by MRI witho ut and with contrast is recommended.
[2022-12-01 07:54] LABS: INR 1.1; Prothrombin Time 11.7 Seconds (9.50-12.10)
[2022-12-01 08:04] LABS: Rheumatoid Factor Screen Negative (Negative)
[2022-12-01 08:09] LABS: Alanine Aminotransferase 27 U/L (16-63); Albumin Level 3.8 g/dL (3.4-5.0); Alkaline Phosphatase 164 U/L (46-116); Anion Gap 12 mmol/L (8-16); Aspartate Amino Transferase 26 U/L (15-37); Bilirubin Direct 1.2 mg/dL (0-0.2); Blood Urea Nitrogen 34 mg/dL (7-18); Carbon Dioxide 28 mmol/L (21-32); Chloride 102 mmol/L (98-108); Estimated Glomerular Filt Rate 37; Glucose 107 mg/dL (70-99); Magnesium 2.2 mg/dL (1.8-2.4); Osmolality Calculated 301 mOsm/kg (285-295); Potassium 4.2 mmol/L (3.5-5.1); Sodium 142 mmol/L (136-145)
[2022-12-01 08:42] LABS: Erythrocyte Sedimentation Rate 44 mm/hr (0-20)
[2022-12-04 09:10] LABS: Anti Cyclic Citrullinated Pept <16 Units (<20)
[2022-12-06 03:15] LABS: Hepatitis C Signal to Cutoff 0.03 ratio (<1.00); Hepatitis C Virus Antibody Nonreactive (Nonreactive)
== END 2022-12-01 07:26 | disposition home or self-care (01) ==
LOC: CHSIMG 07:26
PROVIDERS: PCP Family Medicine; Visit Provider Family Medicine
DX: R60.0 Localized edema (principal); R18.8 Other ascites; Z11.59 Encounter for screening for other viral diseases; R79.89 Other specified abnormal findings of blood chemistry; R74.8 Abnormal levels of other serum enzymes; M25.50 Pain in unspecified joint; N18.30 Chronic kidney disease, stage 3 unspecified; R60.1 Generalized edema
CPT/HCPCS: 36415; 74177; 80048; 80076; 83735; 85610; 85652; 86038; 86200; 86430; 86803; Q9967

== ENCOUNTER 2022-12-02 17:02 | Outpatient (CLI) | payer MEDICARE, SELFPAY ==
[2022-12-07 12:56] LABS: Creatinine, Random Urine 73 mg/dL (20-320); Total Protein/Creatinine Ratio 192 mg/g creat (25-148)
== END 2022-12-02 17:03 | disposition home or self-care (01) ==
PROVIDERS: PCP Family Medicine; Visit Provider Family Medicine
DX: R80.9 Proteinuria, unspecified (principal)
CPT/HCPCS: 82570; 84156; 84166

== ENCOUNTER 2023-01-02 12:31 | Outpatient (NON) | payer MEDICARE, SELFPAY ==
[2023-01-02 12:46] LABS: Basophils Absolute Auto 0.06 K/mm3 (0.00-0.10); Basophils Percent Auto 0.9 % (0.0-1.0); Eosinophils Absolute Auto 0.17 K/mm3 (0.02-0.50); Eosinophils Percent Auto 2.6 % (1.0-6.0); Hematocrit 32.8 % (37.0-46.0); Hemoglobin 10.9 g/dL (12.4-15.3); Immature Granulocyte Absolute 0.03 K/mm3 (0.00-0.00); Immature Granulocyte Percent A 0.5 % (0.0-0.0); Lymphocytes Absolute Auto 1.52 K/mm3 (1.10-4.50); Lymphocytes Percent Auto 23.6 % (18.0-42.0); Mean Corpuscular HGB Conc 33.2 g/dL (32.0-36.0); Mean Corpuscular Volume 105.5 fL (78.0-102.0); Mean Platelet Volume 11.4 fl (8.7-11.0); Monocytes Absolute Auto 0.63 K/mm3 (0.10-0.90); Monocytes Percent Auto 9.8 % (2.0-11.0); Neutrophils Percent Auto 62.6 % (50.0-70.0); Platelet Count Result 209 K/mm3 (150-420); Red Blood Count 3.11 M/mm3 (4.70-6.10); Red Cell Distribution Width 15.5 % (11.6-14.4); White Blood Count 6.4 K/mm3 (4.8-10.8)
[2023-01-02 13:06] LABS: Alanine Aminotransferase 29 U/L (16-63); Albumin Level 4.1 g/dL (3.4-5.0); Alkaline Phosphatase 144 U/L (46-116); Anion Gap 11 mmol/L (8-16); Aspartate Amino Transferase 27 U/L (15-37); Bilirubin,Total 2.1 mg/dL (0.00-1.00); Blood Urea Nitrogen 55 mg/dL (7-18); Calcium 11.1 mg/dL (8.5-10.1); Carbon Dioxide 26 mmol/L (21-32); Chloride 98 mmol/L (98-108); Estimated Glomerular Filt Rate 31; Glucose 129 mg/dL (70-99); Magnesium 2.9 mg/dL (1.8-2.4); NT Pro B Type Natriuretic Pept 991 pg/mL (0-450); Osmolality Calculated 297 mOsm/kg (285-295); Phosphorus 3.7 mg/dL (2.6-4.7); Potassium 4.3 mmol/L (3.5-5.1); Sodium 135 mmol/L (136-145); Total Protein 8.8 g/dL (6.4-8.2)
== END 2023-01-02 12:32 | disposition home or self-care (01) ==
LOC: CHSLAB 12:34
DX: R60.9 Edema, unspecified (principal); I48.3 Typical atrial flutter; I34.0 Nonrheumatic mitral (valve) insufficiency; I50.9 Heart failure, unspecified
CPT/HCPCS: 80053; 83735; 83880; 84100; 85025

== ENCOUNTER 2023-01-13 12:14 | Outpatient (NON) | payer MEDICARE, SELFPAY ==
[2023-01-13 12:38] LABS: Anion Gap 8 mmol/L (8-16); Blood Urea Nitrogen 61 mg/dL (7-18); Carbon Dioxide 27 mmol/L (21-32); Chloride 98 mmol/L (98-108); Estimated Glomerular Filt Rate 29; Glucose 101 mg/dL (70-99); Magnesium 2.9 mg/dL (1.8-2.4); Osmolality Calculated 293 mOsm/kg (285-295); Potassium 4.9 mmol/L (3.5-5.1); Sodium 133 mmol/L (136-145)
== END 2023-01-13 12:15 | disposition home or self-care (01) ==
PROVIDERS: Visit Provider Family Medicine
DX: E83.42 Hypomagnesemia (principal); I50.9 Heart failure, unspecified; N18.30 Chronic kidney disease, stage 3 unspecified
CPT/HCPCS: 36415; 80048; 83735

== ENCOUNTER 2023-01-16 14:28 | Outpatient (NON) | payer MEDICARE, SELFPAY ==
[2023-01-16 14:56] LABS: Alanine Aminotransferase 48 U/L (6-50); Alkaline Phosphatase 134 U/L (38-126); Anion Gap 13 mmol/L (8-16); Aspartate Amino Transferase 62 U/L (17-59); Blood Urea Nitrogen 69 mg/dL (9-20); Calcium 10.8 mg/dL (8.4-10.2); Carbon Dioxide 25 mmol/L (22-30); Chloride 94 mmol/L (98-107); Estimated Glomerular Filt Rate 28; Glucose 85 mg/dL (65-110); Potassium 5.1 mmol/L (3.4-5.0); Sodium 132 mmol/L (137-145)
== END 2023-01-16 14:29 | disposition home or self-care (01) ==
PROVIDERS: PCP Family Medicine; Visit Provider Family Medicine
DX: I07.1 Rheumatic tricuspid insufficiency (principal); I12.9 Hypertensive chronic kidney disease with stage 1 through stage 4 chronic kidney disease, or unspecified chronic kidney disease; N18.30 Chronic kidney disease, stage 3 unspecified; R60.9 Edema, unspecified
CPT/HCPCS: 80053

== ENCOUNTER 2023-02-18 12:45 | Outpatient (NON) | payer MEDICARE, SELFPAY ==
[2023-02-18 13:03] LABS: Basophils Absolute Auto 0.04 K/mm3 (0.00-0.10); Basophils Percent Auto 0.6 % (0.0-1.0); Eosinophils Absolute Auto 0.29 K/mm3 (0.02-0.50); Eosinophils Percent Auto 4.7 % (1.0-6.0); Hematocrit 32.6 % (37.0-46.0); Immature Granulocyte Absolute 0.01 K/mm3 (0.00-0.00); Immature Granulocyte Percent A 0.2 % (0.0-0.0); Lymphocytes Absolute Auto 1.62 K/mm3 (1.10-4.50); Lymphocytes Percent Auto 26.3 % (18.0-42.0); Mean Corpuscular HGB Conc 33.7 g/dL (32.0-36.0); Mean Corpuscular Hemoglobin 35.8 pg (27.0-31.0); Mean Corpuscular Volume 106.2 fL (78.0-102.0); Monocytes Absolute Auto 0.48 K/mm3 (0.10-0.90); Monocytes Percent Auto 7.8 % (2.0-11.0); Neutrophils Absolute Auto 3.7 K/mm3 (1.7-7.2); Neutrophils Percent Auto 60.4 % (50.0-70.0); Platelet Count Result 165 K/mm3 (150-420); Red Blood Count 3.07 M/mm3 (4.70-6.10); Red Cell Distribution Width 16.1 % (11.6-14.4); White Blood Count 6.2 K/mm3 (4.8-10.8)
[2023-02-18 13:21] LABS: Alanine Aminotransferase 30 U/L (16-63); Albumin Level 3.7 g/dL (3.4-5.0); Alkaline Phosphatase 104 U/L (46-116); Anion Gap 9 mmol/L (8-16); Aspartate Amino Transferase 25 U/L (15-37); Bilirubin,Total 0.9 mg/dL (0.00-1.00); Blood Urea Nitrogen 65 mg/dL (7-18); Calcium 10.5 mg/dL (8.5-10.1); Carbon Dioxide 26 mmol/L (21-32); Chloride 103 mmol/L (98-108); Estimated Glomerular Filt Rate 26; Glucose 121 mg/dL (70-99); Osmolality Calculated 305 mOsm/kg (285-295); Potassium 4.3 mmol/L (3.5-5.1); Sodium 138 mmol/L (136-145); Total Protein 7.6 g/dL (6.4-8.2)
== END 2023-02-18 12:46 | disposition home or self-care (01) ==
LOC: CHSHH 12:46
PROVIDERS: Visit Provider Family Medicine
DX: R53.83 Other fatigue (principal); N18.30 Chronic kidney disease, stage 3 unspecified
CPT/HCPCS: 36415; 80053; 85025

== ENCOUNTER 2023-03-11 09:40 | Outpatient (CLI) | payer MEDICARE, SELFPAY ==
[2023-03-11 10:21] LABS: Anion Gap 10 mmol/L (8-16); Blood Urea Nitrogen 40 mg/dL (7-18); Calcium 10.5 mg/dL (8.5-10.1); Carbon Dioxide 25 mmol/L (21-32); Chloride 103 mmol/L (98-108); Estimated Glomerular Filt Rate 36; Glucose 84 mg/dL (70-99); Osmolality Calculated 294 mOsm/kg (285-295); Potassium 4.8 mmol/L (3.5-5.1); Sodium 138 mmol/L (136-145)
== END 2023-03-11 09:41 | disposition home or self-care (01) ==
LOC: CHSLAB 09:41
PROVIDERS: PCP Family Medicine; Visit Provider Family Medicine
DX: N18.30 Chronic kidney disease, stage 3 unspecified (principal)
CPT/HCPCS: 36415; 80048

== ENCOUNTER 2023-03-31 09:02 | Outpatient (CLI) | payer MEDICARE, SELFPAY ==
[2023-03-31 10:11] LABS: Anion Gap 13 mmol/L (8-16); Blood Urea Nitrogen 72 mg/dL (7-18); Calcium 10.3 mg/dL (8.5-10.1); Carbon Dioxide 22 mmol/L (21-32); Chloride 100 mmol/L (98-108); Estimated Glomerular Filt Rate 24; Glucose 90 mg/dL (70-99); Osmolality Calculated 301 mOsm/kg (285-295); Potassium 5.1 mmol/L (3.5-5.1); Sodium 135 mmol/L (136-145)
== END 2023-03-31 09:03 | disposition home or self-care (01) ==
LOC: CHSLAB 09:04
PROVIDERS: PCP Family Medicine; Visit Provider Physician Assistant
DX: E87.5 Hyperkalemia (principal)
CPT/HCPCS: 36415; 80048

== ENCOUNTER 2023-04-06 09:49 | Outpatient (CLI) | payer MEDICARE, SELFPAY ==
[2023-04-06 10:13] LABS: Appearance Urine Clear (Clear); Bilirubin Urine Negative (Negative); Blood Urine Negative (Negative); Color Urine Yellow (Yellow); Glucose Urine UA Trace (Negative); Ketones Urine Negative (Negative); Leukocyte Esterase Ur Negative LEU/UL (Negative); Nitrate Urine Negative (Negative); Protein Urine Negative (Negative); Urobilinogen Urine 0.2 mg/dL (0.2-1.0)
[2023-04-06 10:23] LABS: Add Urine Microscopic? YES; Bacteria Urine None seen /hpf; RBC Urine None seen /hpf (0-2); WBC Urine None seen /hpf (0-3)
[2023-04-06 10:38] LABS: Anion Gap 12 mmol/L (8-16); Blood Urea Nitrogen 53 mg/dL (7-18); Calcium 10.7 mg/dL (8.5-10.1); Carbon Dioxide 23 mmol/L (21-32); Chloride 104 mmol/L (98-108); Estimated Glomerular Filt Rate 30; Glucose 87 mg/dL (70-99); Osmolality Calculated 301 mOsm/kg (285-295); Potassium 4.7 mmol/L (3.5-5.1); Sodium 139 mmol/L (136-145)
== END 2023-04-06 09:50 | disposition home or self-care (01) ==
LOC: CHSLAB 09:51
PROVIDERS: PCP Family Medicine; Visit Provider Physician Assistant
DX: N28.9 Disorder of kidney and ureter, unspecified (principal); E87.5 Hyperkalemia
CPT/HCPCS: 36415; 80048; 81001

== ENCOUNTER 2023-04-14 08:21 | Outpatient (CLI) | payer MEDICARE, SELFPAY ==
[2023-04-14 08:39] LABS: Basophils Absolute Auto 0.05 K/mm3 (0.00-0.10); Basophils Percent Auto 0.7 % (0.0-1.0); Eosinophils Absolute Auto 0.38 K/mm3 (0.02-0.50); Eosinophils Percent Auto 5.6 % (1.0-6.0); Hematocrit 32.7 % (37.0-46.0); Hemoglobin 10.8 g/dL (12.4-15.3); Immature Granulocyte Absolute 0.02 K/mm3 (0.00-0.00); Immature Granulocyte Percent A 0.3 % (0.0-0.0); Lymphocytes Absolute Auto 2.49 K/mm3 (1.10-4.50); Lymphocytes Percent Auto 36.5 % (18.0-42.0); Mean Corpuscular Hemoglobin 35.4 pg (27.0-31.0); Mean Corpuscular Volume 107.2 fL (78.0-102.0); Mean Platelet Volume 10.2 fl (8.7-11.0); Monocytes Percent Auto 7.3 % (2.0-11.0); Neutrophils Absolute Auto 3.4 K/mm3 (1.7-7.2); Neutrophils Percent Auto 49.6 % (50.0-70.0); Platelet Count Result 157 K/mm3 (150-420); Red Blood Count 3.05 M/mm3 (4.70-6.10); Red Cell Distribution Width 15.4 % (11.6-14.4); White Blood Count 6.8 K/mm3 (4.8-10.8)
[2023-04-14 09:28] LABS: Alanine Aminotransferase 32 U/L (16-63); Albumin Level 3.8 g/dL (3.4-5.0); Alkaline Phosphatase 105 U/L (46-116); Anion Gap 11 mmol/L (8-16); Aspartate Amino Transferase 24 U/L (15-37); Bilirubin,Total 0.8 mg/dL (0.00-1.00); Blood Urea Nitrogen 42 mg/dL (7-18); Calcium 10.4 mg/dL (8.5-10.1); Carbon Dioxide 25 mmol/L (21-32); Chloride 105 mmol/L (98-108); Estimated Glomerular Filt Rate 32; Glucose 82 mg/dL (70-99); NT Pro B Type Natriuretic Pept 711 pg/mL (0-450); Osmolality Calculated 301 mOsm/kg (285-295); Potassium 4.8 mmol/L (3.5-5.1); Sodium 141 mmol/L (136-145); Total Protein 7.4 g/dL (6.4-8.2); Vitamin B12 1400 pg/mL (193-986)
[2023-04-14 09:33] LABS: Thyroid Stimulating Hormone Reflex 3.58 u/IU/mL (0.36-3.74)
[2023-04-14 09:37] LABS: Erythrocyte Sedimentation Rate 59 mm/hr (0-20)
== END 2023-04-14 08:22 | disposition home or self-care (01) ==
LOC: CHSLAB 08:22
PROVIDERS: PCP Family Medicine; Visit Provider Family Medicine
DX: E03.9 Hypothyroidism, unspecified (principal); S81.802A Unspecified open wound, left lower leg, initial encounter; I50.9 Heart failure, unspecified; E53.8 Deficiency of other specified B group vitamins; D64.9 Anemia, unspecified; R60.9 Edema, unspecified; I10 Essential (primary) hypertension; N18.4 Chronic kidney disease, stage 4 (severe)
CPT/HCPCS: 36415; 80053; 82607; 83880; 84443; 85025; 85652

== ENCOUNTER 2023-06-03 14:50 | Emergency (ER) | payer MEDICARE, SELFPAY ==
[2023-06-03 14:50] VITALS: BP 146/58; PULSE 71; RESP 18; TEMP 36.8; O2SAT 99
--- NOTE | 2023-06-03 14:58 | ED.EPISTAXIS ---
HPI - Epistaxis General Chief complaint: Epistaxis Stated complaint: nose bleed Time Seen by Provider: 06/03/23 14:58 Source: patient Mode of arrival: ambulatory Limitations: no limitations History of Present Illness HPI Narrative: 77-year-old male with a history of obesity, BRAYDEN, hypothyroidism, dyslipidemia, gout, CKD,tricuspid regurgitation, chronic venous insufficiency, atrial flutter started on Eliquis presents to the ER with a 1 day history of -- bleeding right nostril. It started last night with spontaneous resolution. It restarted this afternoon and has continued. The patient presents with ongoing bleeding from the right nostril. No nasal congestion. No recent prior episodes. MD complaint: epistaxis Location: right nostril Onset (ago): minute(s) ( Last night) Duration: intermittent Context: other anticoagulant use Related Data Home Medications Medication Instructions Recorded Confirmed amlodipine 5 mg tablet 5 mg PO DAILY 04/28/19 04/10/23 atorvastatin 10 mg tablet 10 mg PO DAILY 04/28/19 04/10/23 aspirin 81 mg tablet,delayed 81 mg PO DAILY 11/25/19 04/10/23 release (Adult Aspirin Regimen) cholecalciferol (vitamin D3) 50 50 mcg PO DAILY 04/09/20 04/10/23 mcg (2,000 unit) capsule acetaminophen 500 mg capsule 500 mg PO Q6H PRN 12/31/22 04/10/23 cyanocobalamin (vitamin B-12) 500 500 mcg PO BID 12/31/22 04/10/23 mcg tablet latanoprost 0.005 % eye drops 1 drp EACH EYE DAILY 12/31/22 04/10/23 (Xalatan) pregabalin 75 mg capsule 75 mg PO QHS 12/31/22 04/10/23 spironolactone 50 mg tablet 25 mg PO QAM 12/31/22 04/10/23 albuterol sulfate 90 mcg/actuation 1 puff inhalation Q4H PRN 02/19/23 04/10/23 aerosol inhaler Allergies Allergy/AdvReac Type Severity Reaction Status Date / Time lanolin Allergy Severe ITCHEY RASH Verified 04/10/23 20:35 gramicidin D Allergy Mild RASH Verified 04/10/23 20:35 lisinopril Allergy Mild renal Verified 04/10/23 20:35 insufficiency Sulfa (Sulfonamide Allergy Mild renal Verified 04/10/23 20:35 Antibiotics) failure bacitracin Allergy Unknown Rash Verified 04/10/23 20:35 polymyxin B Allergy Unknown rash Verified 04/10/23 20:35 BACITRACIN ZINC Allergy Mild RASH Uncoded 04/10/23 20:35 NEOMYCIN SULFATE Allergy Mild RASH Uncoded 04/10/23 20:35 POLYMYXIN B SULFATE Allergy Mild RASH Uncoded 04/10/23 20:35 Review of Systems Review of Systems: All systems reviewed & are unremarkable except as noted in HPI and below Constitutional: Constitutional: Reports as per HPI and Reports no additional constitutional complaints Eyes: Eyes: Reports as per HPI and Reports no additional eye complaints ENT: Reports system reviewed and no additional complaints, except as documented, Reports as per HPI and Reports epistaxis Comments: epistaxis is from right nostril. Cardiovascular: Cardiovascular: Reports as per HPI and Reports no additional cardiovascular complaints Respiratory: Respiratory: Reports as per HPI and Reports no additional respiratory complaints Gastrointestinal: Gastrointestinal: Reports as per HPI and Reports no additional gastrointestinal complaints Genitourinary: Genitourinary: Reports no additional male genitourinary complaints Musculoskeletal: Musculoskeletal: Reports no additional musculoskeletal complaints Integumentary/Breasts: Skin/Breast: Reports system reviewed and no additional complaints, except as docu Neurologic: Reports system reviewed and no additional complaints, except as documented and Reports as per HPI Psychiatric: Psychiatric: Reports no additional psychiatric complaints and Reports as per HPI Endocrine: Endocrine: Reports no additional endocrine complaints and Reports as per HPI Hematologic/Lymphatic: Hematologic/Lymphatic: Reports no additional hematologic/lymphatic complaints and Reports as per HPI Comments: Bilateral leg swelling Allergic/Immunologic: Allergic/Immunologic: Reports no additional allergic/immunologic complaints a
[2023-06-03] MEDS: PHENYLEPHRINE HCL 0.5% NA SPRAY 15 ML BTL (*BKC) 1 SPRAY EACH NARE (15:12)
[2023-06-03 15:29] LABS: Basophils Absolute Auto 0.05 K/mm3 (0.00-0.10); Basophils Percent Auto 0.3 % (0.0-1.0); Eosinophils Absolute Auto 0.06 K/mm3 (0.02-0.50); Eosinophils Percent Auto 0.3 % (1.0-6.0); Hematocrit 34.4 % (37.0-46.0); Hemoglobin 11.1 g/dL (12.4-15.3); Immature Granulocyte Absolute 0.09 K/mm3 (0.00-0.00); Immature Granulocyte Percent A 0.5 % (0.0-0.0); Lymphocytes Absolute Auto 1.68 K/mm3 (1.10-4.50); Lymphocytes Percent Auto 9.6 % (18.0-42.0); Mean Corpuscular HGB Conc 32.3 g/dL (32.0-36.0); Mean Corpuscular Hemoglobin 35.4 pg (27.0-31.0); Mean Corpuscular Volume 109.6 fL (78.0-102.0); Mean Platelet Volume 9.8 fl (8.7-11.0); Monocytes Absolute Auto 0.88 K/mm3 (0.10-0.90); Neutrophils Absolute Auto 14.8 K/mm3 (1.7-7.2); Neutrophils Percent Auto 84.3 % (50.0-70.0); Platelet Count Result 191 K/mm3 (150-420); Red Blood Count 3.14 M/mm3 (4.70-6.10); Red Cell Distribution Width 14.6 % (11.6-14.4); White Blood Count 17.5 K/mm3 (4.8-10.8)
[2023-06-03 15:43] LABS: INR 1.1; Partial Thromboplastin Time 38.2 SEC (23.90-30.70); Prothrombin Time 12.3 Seconds (9.50-12.10)
[2023-06-03 15:45] LABS: Alanine Aminotransferase 21 U/L (16-63); Albumin Level 3.9 g/dL (3.4-5.0); Alkaline Phosphatase 96 U/L (46-116); Anion Gap 6 mmol/L (8-16); Aspartate Amino Transferase 14 U/L (15-37); Bilirubin,Total 1.3 mg/dL (0.00-1.00); Blood Urea Nitrogen 50 mg/dL (7-18); Calcium 9.8 mg/dL (8.5-10.1); Carbon Dioxide 28 mmol/L (21-32); Chloride 98 mmol/L (98-108); Estimated CRCL calculation 33 ml/min; Estimated Glomerular Filt Rate 31; Glucose 104 mg/dL (70-99); Osmolality Calculated 287 mOsm/kg (285-295); Potassium 3.8 mmol/L (3.5-5.1); Sodium 132 mmol/L (136-145); Total Protein 8.3 g/dL (6.4-8.2); Uric Acid 6.6 mg/dL (3.5-7.2)
--- NOTE | 2023-06-03 16:42 | PC.NURSE ---
1640 rhino rocket to right nares per dr mcpherson. continues bleeding. clamp reapplied.
--- NOTE | 2023-06-03 17:09 | PC.NURSE ---
continues bleeding from right nares.
[2023-06-03 17:12] VITALS: BP 143/64; PULSE 78; RESP 20; TEMP 36.8; O2SAT 100
--- NOTE | 2023-06-03 17:51 | PC.NURSE ---
no blood noted to gauze at this time.
[2023-06-03 18:12] VITALS: BP 140/67; PULSE 81; RESP 20; TEMP 37.1; O2SAT 98
[2023-06-03 18:16] LABS: Glucose Point of Care 103 mg/dl (65-105)
[2023-06-03] MEDS: AMOXICILLIN 500 MG CAPSULE PO (18:17)
--- NOTE | 2023-06-03 18:22 | PC.NURSE ---
CONTINUES WITH NO ACTIVE BLEEDING AT THIS TIME. PT IS DISCHARGED AT 1820
== END 2023-06-03 18:20 | disposition home or self-care (01) ==
PROVIDERS: Emergency Provider Internal Medicine Critical Care Medicine; PCP Family Medicine
DX: R04.0 Epistaxis (principal); D64.9 Anemia, unspecified; E78.5 Hyperlipidemia, unspecified; E03.9 Hypothyroidism, unspecified; I12.9 Hypertensive chronic kidney disease with stage 1 through stage 4 chronic kidney disease, or unspecified chronic kidney disease; N18.4 Chronic kidney disease, stage 4 (severe); E78.2 Mixed hyperlipidemia
CPT/HCPCS: 30901; 36415; 80053; 82948; 84550; 85025; 85610; 85730; 99283; A9270

== ENCOUNTER 2023-06-05 11:41 | Emergency (ER) | payer MEDICARE, SELFPAY ==
[2023-06-05 11:42] VITALS: BP 132/56; PULSE 59; RESP 12; TEMP 35.9; O2SAT 97
--- NOTE | 2023-06-05 12:04 | ED.URI ---
HPI - URI/Sore Throat General Chief Complaint: Epistaxis Stated Complaint: rhino rocket removal Source: patient Mode of arrival: ambulatory Limitations: no limitations History of Present Illness HPI Narrative: Patient is a 67-year-old male with a significant past medical history presents today for a rhino rocket removal. He has had is insensate Thursday. He was having nose bleeding Thursday that would not stop and aching it was not wanting to have this checked out. They tried using nasal spray and a clip and this did not work. Then at 20 a day. He is here today for the removal of this. He also states he is having a bad cough and URI symptoms. Nasal congestion, nasal discharge and a cough. Cough is productive of sputum. They currently stopped his Eliquis because of the bleeding. He was on this for atrial fibrillation. MD elicited complaint: cough, rhinorrhea and other (nasal bleeding) Pertinent past history: other (on blood thinners) Onset (ago): day(s) (2 days) Consistency: constant Description of mucous: watery and yellow Able to tolerate fluids by mouth: Yes Exacerbating factors: nothing Relieving factors: nothing Associated symptoms: denies other symptoms Treatments prior to arrival: none Related Data Home Medications Medication Instructions Recorded Confirmed amlodipine 5 mg tablet 5 mg PO DAILY 04/28/19 04/10/23 atorvastatin 10 mg tablet 10 mg PO DAILY 04/28/19 04/10/23 aspirin 81 mg tablet,delayed 81 mg PO DAILY 11/25/19 04/10/23 release (Adult Aspirin Regimen) cholecalciferol (vitamin D3) 50 50 mcg PO DAILY 04/09/20 04/10/23 mcg (2,000 unit) capsule acetaminophen 500 mg capsule 500 mg PO Q6H PRN 12/31/22 04/10/23 cyanocobalamin (vitamin B-12) 500 500 mcg PO BID 12/31/22 04/10/23 mcg tablet latanoprost 0.005 % eye drops 1 drp EACH EYE DAILY 12/31/22 04/10/23 (Xalatan) pregabalin 75 mg capsule 75 mg PO QHS 12/31/22 04/10/23 spironolactone 50 mg tablet 25 mg PO QAM 12/31/22 04/10/23 albuterol sulfate 90 mcg/actuation 1 puff inhalation Q4H PRN 02/19/23 04/10/23 aerosol inhaler Allergies Allergy/AdvReac Type Severity Reaction Status Date / Time lanolin Allergy Severe ITCHEY RASH Verified 04/10/23 20:35 gramicidin D Allergy Mild RASH Verified 04/10/23 20:35 lisinopril Allergy Mild renal Verified 04/10/23 20:35 insufficiency Sulfa (Sulfonamide Allergy Mild renal Verified 04/10/23 20:35 Antibiotics) failure bacitracin Allergy Unknown Rash Verified 04/10/23 20:35 polymyxin B Allergy Unknown rash Verified 04/10/23 20:35 BACITRACIN ZINC Allergy Mild RASH Uncoded 04/10/23 20:35 NEOMYCIN SULFATE Allergy Mild RASH Uncoded 04/10/23 20:35 POLYMYXIN B SULFATE Allergy Mild RASH Uncoded 04/10/23 20:35 Review of Systems Review of Systems: All systems reviewed & are unremarkable except as noted in HPI and below Constitutional: Constitutional: Reports no additional constitutional complaints Eyes: Eyes: Reports no additional eye complaints ENT: Reports as per HPI Cardiovascular: Cardiovascular: Reports no additional cardiovascular complaints Respiratory: Respiratory: Reports chest congestion and Reports cough Gastrointestinal: Gastrointestinal: Reports no additional gastrointestinal complaints Genitourinary: Genitourinary: Reports no additional male genitourinary complaints Musculoskeletal: Musculoskeletal: Reports no additional musculoskeletal complaints Integumentary/Breasts: Skin/Breast: Reports system reviewed and no additional complaints, except as docu Neurologic: Reports system reviewed and no additional complaints, except as documented Psychiatric: Psychiatric: Reports no additional psychiatric complaints Endocrine: Endocrine: Reports no additional endocrine complaints Hematologic/Lymphatic: Hematologic/Lymphatic: Reports no additional hematologic/lymphatic complaints Allergic/Immunologic: Allergic/Immunologic: Reports no additional allergic/immunologic complaints ON LICENSE OF [facility]
[2023-06-05] MEDS: OXYMETAZOLINE HCL 0.05% NAS 15 ML BTL (*BKC) 1 SPRAY NASAL (12:05)
--- NOTE | 2023-06-05 12:55 | PC.NURSE ---
pt states bleeding continues down back of throat, but has slowed down. continues with nasal clamp
[2023-06-05 13:41] LABS: Influenza A QL RT-PCR Negative (Negative); Influenza B QL RT-PCR Negative (Negative); RSV RNA, RT-PCR Negative (Negative); SARS-CoV-2 RNA PCR Negative (Negative)
--- NOTE | 2023-06-05 13:48 | PC.NURSE ---
no active bleeding at this time. dr scott in with pt.
[2023-06-05 13:58] VITALS: BP 135/64; PULSE 68; RESP 18; TEMP 36.6; O2SAT 100
== END 2023-06-05 14:10 | disposition home or self-care (01) ==
PROVIDERS: Emergency Provider Family Medicine; PCP Family Medicine
DX: R04.0 Epistaxis (principal); J06.9 Acute upper respiratory infection, unspecified; I48.91 Unspecified atrial fibrillation; I12.9 Hypertensive chronic kidney disease with stage 1 through stage 4 chronic kidney disease, or unspecified chronic kidney disease; N18.4 Chronic kidney disease, stage 4 (severe); E03.9 Hypothyroidism, unspecified; E78.2 Mixed hyperlipidemia; Z79.01 Long term (current) use of anticoagulants; Z20.822 Contact with and (suspected) exposure to COVID-19
CPT/HCPCS: 87637; 99283; A9270

== ENCOUNTER 2023-06-10 10:06 | Outpatient (CLI) | payer MEDICARE, SELFPAY ==
[2023-06-10 10:24] LABS: Basophils Absolute Auto 0.08 K/mm3 (0.00-0.10); Basophils Percent Auto 0.7 % (0.0-1.0); Eosinophils Absolute Auto 0.09 K/mm3 (0.02-0.50); Eosinophils Percent Auto 0.8 % (1.0-6.0); Hematocrit 30.6 % (37.0-46.0); Hemoglobin 10.1 g/dL (12.4-15.3); Immature Granulocyte Absolute 0.07 K/mm3 (0.00-0.00); Immature Granulocyte Percent A 0.7 % (0.0-0.0); Lymphocytes Absolute Auto 1.85 K/mm3 (1.10-4.50); Lymphocytes Percent Auto 17.3 % (18.0-42.0); Mean Corpuscular Hemoglobin 35.6 pg (27.0-31.0); Mean Corpuscular Volume 107.7 fL (78.0-102.0); Mean Platelet Volume 9.9 fl (8.7-11.0); Monocytes Absolute Auto 0.55 K/mm3 (0.10-0.90); Monocytes Percent Auto 5.1 % (2.0-11.0); Neutrophils Percent Auto 75.4 % (50.0-70.0); Platelet Count Result 259 K/mm3 (150-420); Red Blood Count 2.84 M/mm3 (4.70-6.10); Red Cell Distribution Width 13.9 % (11.6-14.4); White Blood Count 10.7 K/mm3 (4.8-10.8)
[2023-06-10 11:08] LABS: Alanine Aminotransferase 31 U/L (16-63); Albumin Level 3.3 g/dL (3.4-5.0); Alkaline Phosphatase 127 U/L (46-116); Anion Gap 11 mmol/L (8-16); Aspartate Amino Transferase 27 U/L (15-37); Bilirubin,Total 0.8 mg/dL (0.00-1.00); Blood Urea Nitrogen 72 mg/dL (7-18); Calcium 10.1 mg/dL (8.5-10.1); Carbon Dioxide 23 mmol/L (21-32); Chloride 99 mmol/L (98-108); Estimated Glomerular Filt Rate 24; Ferritin 718 ng/mL (26-388); Glucose 93 mg/dL (70-99); Iron 55 ug/dL (65-175); Osmolality Calculated 297 mOsm/kg (285-295); Percent Iron Saturation 31 % (12-57); Potassium 5.3 mmol/L (3.5-5.1); Sodium 133 mmol/L (136-145); Total Protein 7.2 g/dL (6.4-8.2)
[2023-06-10 11:09] LABS: Thyroid Stimulating Hormone Reflex 2.12 u/IU/mL (0.36-3.74)
[2023-06-10 11:25] LABS: Erythrocyte Sedimentation Rate 59 mm/hr (0-20)
== END 2023-06-10 10:07 | disposition home or self-care (01) ==
PROVIDERS: PCP Family Medicine; Visit Provider Family Medicine
DX: R70.0 Elevated erythrocyte sedimentation rate (principal); E03.9 Hypothyroidism, unspecified; N18.4 Chronic kidney disease, stage 4 (severe); I10 Essential (primary) hypertension; D64.9 Anemia, unspecified; R53.83 Other fatigue
CPT/HCPCS: 36415; 80053; 82728; 83540; 83550; 84443; 85025; 85652

== ENCOUNTER 2023-07-15 19:43 | Emergency (ER) | payer MEDICARE, SELFPAY ==
[2023-07-15] VITALS (30 sets, daily range): BP systolic 66–127; BP diastolic 39–62; PULSE 46–78; RESP 13–26; TEMP 35.9; O2SAT 97–100
--- NOTE | ~2023-07-15 | XR_ITS ---
EXAMINATION: XR pelvis 1-2V DATE: 07/15/2023 20:25 INDICATION: Fall. TECHNIQUE: An anteroposterior view of the pelvis was obtained. COMPARISON: None. FINDINGS: There is lumbar levocurvature and moderate spondylosis. No fracture. There is mild osteoart hritis of the hips. IMPRESSION: 1. Mild osteoarthritis of the hips. Reviewed, dictated and finalized at location E. PROTECTOR
--- NOTE | ~2023-07-15 | XR_ITS ---
EXAMINATION: XR knee RT min 4V DATE: 07/15/2023 20:25 INDICATION: Right knee pain. Fall. TECHNIQUE: 4 views of right knee were obtained. COMPARISON: None. FINDINGS: Bone alignment is normal. No fracture. There is mild tricompartmental osteoarthritis. There is chondrocalcinosis of the menisci. There are loose bodies in the knee joint. There is a small knee joint effusion. There is extensive medial soft tissue swelling. IMPRESSION: 1. Extensive medial soft tissue swelling. 2. Mild right knee osteoarthritis. 3. Small knee joint effusion with loose bodies. Reviewed, dictated and finalized at location E. RVISOR WATERPROOFING
--- NOTE | ~2023-07-15 | XR_ITS ---
EXAMINATION: XR chest 1V portable DATE: 07/15/2023 20:24 INDICATION: Dizziness. Fall. TECHNIQUE: A single frontal view of the chest was obtained. COMPARISON: Chest 2 views 11/16/2021 FINDINGS: There is no pneumonia, pleural effusion, or pneumothorax. The heart size is normal. IMPRESSION: 1. No acute cardiopulmonary disease. Reviewed, dictated and finalized at location E. O PRODUCTION INSTRUCTOR
--- NOTE | ~2023-07-15 | CT_ITS ---
EXAMINATION: CT brain wo con DATE: 07/15/2023 21:42 INDICATION: Syncope. TECHNIQUE: Computed tomography (CT) of the head was performed without intravenous contrast. The mA wa s adjusted according to patient size. Iterative reconstruction technique was employed. The dose-lengt h product was 681.00 mGy-cm. COMPARISON: None FINDINGS: There is no intracranial hemorrhage, acute infarction, or abnormal intracranial mass lesion . There are scattered areas of low attenuation in the cerebral white matter, which is within normal l imits for the patient's age. The ventricles are normal in size. Cavum septum pellucidum is noted. The re are likely changes of right ocular lens replacement surgery. There is mild mucosal thickening in t he paranasal sinuses. The mastoid air cells are normal. IMPRESSION: 1. Normal aging brain. Reviewed, dictated and finalized at location E. OR ESTABLISHMENT MANAGER IMPRESSION: 1. Normal aging brain.
--- NOTE | 2023-07-15 19:55 | ED.FALL ---
HPI - Fall General Chief Complaint: Extremity Injury, Lower Stated Complaint: fell Time Seen by Provider: 07/15/23 19:55 Source: patient Limitations: no limitations History of Present Illness HPI Narrative: 78-year-old male with a history of obesity BRAYDEN, hypothyroidism, dyslipidemia gout, chronic venous insufficiency, atrial flutter off Eliquis, tricuspid regurgitation but fell and sustained -- right knee pain massive soft tissue swelling around the knee with a superficial abrasion on the knee. -- left forearm skin tear. Bruising of upper extremities. No head injury. No loss of consciousness. denied neck or back pain. Denied ENT bleeding MD complaint: fall Onset (ago): hour(s) ( 2 hours ago) Fall from: standing Fall witnessed: no Place fall occurred: street Loss of consciousness: none Prolonged down time: no Symptoms prior to fall: none Context: tripped/slipped Location of injury: other ( right knee and left forearm) Related Data Home Medications Medication Instructions Recorded Confirmed amlodipine 5 mg tablet 5 mg PO DAILY 04/28/19 06/12/23 atorvastatin 10 mg tablet 10 mg PO DAILY 04/28/19 06/12/23 aspirin 81 mg tablet,delayed 81 mg PO DAILY 11/25/19 06/12/23 release (Adult Aspirin Regimen) cholecalciferol (vitamin D3) 50 50 mcg PO DAILY 04/09/20 06/12/23 mcg (2,000 unit) capsule acetaminophen 500 mg capsule 500 mg PO Q6H PRN 12/31/22 06/12/23 cyanocobalamin (vitamin B-12) 500 500 mcg PO BID 12/31/22 06/12/23 mcg tablet latanoprost 0.005 % eye drops 1 drp EACH EYE DAILY 12/31/22 06/12/23 (Xalatan) pregabalin 75 mg capsule 75 mg PO QHS 12/31/22 06/12/23 spironolactone 50 mg tablet 25 mg PO QAM 12/31/22 06/12/23 albuterol sulfate 90 mcg/actuation 1 puff inhalation Q4H PRN 02/19/23 06/12/23 aerosol inhaler Allergies Allergy/AdvReac Type Severity Reaction Status Date / Time lanolin Allergy Severe ITCHEY RASH Verified 07/07/23 13:25 gramicidin D Allergy Mild RASH Verified 07/07/23 13:25 lisinopril Allergy Mild renal Verified 07/07/23 13:25 insufficiency Sulfa (Sulfonamide Allergy Mild renal Verified 07/07/23 13:25 Antibiotics) failure bacitracin Allergy Unknown Rash Verified 07/07/23 13:25 polymyxin B Allergy Unknown rash Verified 07/07/23 13:25 BACITRACIN ZINC Allergy Mild RASH Uncoded 07/07/23 13:25 NEOMYCIN SULFATE Allergy Mild RASH Uncoded 07/07/23 13:25 POLYMYXIN B SULFATE Allergy Mild RASH Uncoded 07/07/23 13:25 Review of Systems Review of Systems: All systems reviewed & are unremarkable except as noted in HPI and below Constitutional: Constitutional: Reports as per HPI and Reports no additional constitutional complaints Eyes: Eyes: Reports as per HPI and Reports no additional eye complaints ENT: Reports system reviewed and no additional complaints, except as documented and Reports as per HPI Cardiovascular: Cardiovascular: Reports as per HPI and Reports no additional cardiovascular complaints Respiratory: Respiratory: Reports as per HPI and Reports no additional respiratory complaints Gastrointestinal: Gastrointestinal: Reports as per HPI and Reports no additional gastrointestinal complaints Genitourinary: Genitourinary: Reports no additional male genitourinary complaints Musculoskeletal: Musculoskeletal: Reports no additional musculoskeletal complaints and Reports as per HPI Comments: right knee pain with massive soft tissue swelling. Integumentary/Breasts: Comments: Extensive bruising of both upper extremities with a skin tear of the left or forearm. Right knee soft tissue swelling Neurologic: Reports system reviewed and no additional complaints, except as documented, Reports as per HPI and Reports focal weakness Psychiatric: Psychiatric: Reports no additional psychiatric complaints, Reports as per HPI and Reports anxiety Endocrine: Endocrine: Reports no additional endocrine complaints and Reports as per HPI Hematologic/Lymphatic: Hematologic/Lym
[2023-07-15 20:32] LABS: Basophils Absolute Auto 0.05 K/mm3 (0.00-0.10); Basophils Percent Auto 0.4 % (0.0-1.0); Eosinophils Absolute Auto 0.29 K/mm3 (0.02-0.50); Eosinophils Percent Auto 2.5 % (1.0-6.0); Hematocrit 31.4 % (37.0-46.0); Immature Granulocyte Absolute 0.07 K/mm3 (0.00-0.00); Immature Granulocyte Percent A 0.6 % (0.0-0.0); Lymphocytes Absolute Auto 1.11 K/mm3 (1.10-4.50); Lymphocytes Percent Auto 9.6 % (18.0-42.0); Mean Corpuscular HGB Conc 31.8 g/dL (32.0-36.0); Mean Corpuscular Hemoglobin 33.9 pg (27.0-31.0); Mean Corpuscular Volume 106.4 fL (78.0-102.0); Mean Platelet Volume 10.2 fl (8.7-11.0); Monocytes Absolute Auto 0.38 K/mm3 (0.10-0.90); Monocytes Percent Auto 3.3 % (2.0-11.0); Neutrophils Absolute Auto 9.7 K/mm3 (1.7-7.2); Neutrophils Percent Auto 83.6 % (50.0-70.0); Platelet Count Result 203 K/mm3 (150-420); Red Blood Count 2.95 M/mm3 (4.70-6.10); Red Cell Distribution Width 14.4 % (11.6-14.4); White Blood Count 11.6 K/mm3 (4.8-10.8)
[2023-07-15 20:43] LABS: Anion Gap 15 mmol/L (8-16); Blood Urea Nitrogen 57 mg/dL (7-18); Calcium 9.8 mg/dL (8.5-10.1); Carbon Dioxide 20 mmol/L (21-32); Chloride 103 mmol/L (98-108); Estimated CRCL calculation 30 ml/min; Estimated Glomerular Filt Rate 29; Glucose 191 mg/dL (70-99); Osmolality Calculated 306 mOsm/kg (285-295); Potassium 4.8 mmol/L (3.5-5.1); Sodium 138 mmol/L (136-145)
--- NOTE | 2023-07-15 21:12 | PC.NURSE ---
THIS RN CALLED TO PATIENT ROOM BY FOR PATIENT MAKING A WEIRD SOUND. UPON ENTRANCE TO ROOM, PATIENT WAS NOT RESPONSIVE, NO BLINK RESPONSE, NOT MUCH RESPONSE TO PAINFUL STIMULI, SKIN COLOR WAS VERY ABEBE AND HAVING APNEIC PERIODS. PATIENT HR DROPPED TO 31 AT THAT TIME. STATED THAT THE PATIENTS HR RATE HAS BEEN DROPPING A LITTLE BIT OVER THE LAST COUPLE WEEKS. AT A DR APPT SHE STATED IT WAS IN THE 50S. PATIENT STATED THAT HE HAS BEEN HAVING DIZZY SPELLS HERE AND THERE, PRIOR TO UNRESPONSIVE EPISODE. PATIENT WAS STERNAL RUBBED, NOT MUCH RESPONSE. FINALLY PATIENT CAME TO AFTER A FEW MINS OF REPOSITIONING AND STERNAL RUBS. PATIENTS BLOOD SUGAR WAS 163. HR HAS RETURNED TO BASELINE AT THIS TIME. EKG WAS ALSO ORDERED AND COMPLETED, DR TAYLOR YADAV.
--- NOTE | 2023-07-15 21:21 | ECG_ITS ---
Measurements Intervals [place] Rate: 43 P: [place]: 0 QRS: 19 QRSD: 109 T: 55 QT: 468 QTc: 398 Interpretive Statements SINUS RHYTHM WITH SECOND DEGREE AV BLOCK, TYPE I CHANGES TO SLOW SINUS BRADYCARDIA WITH NON-CONDUCTED PAC MINIMAL Q WAVES- HIGH LATERAL LEADS BASELINE ARTIFACT- I, II, AVR, AVL, AVF, V1-V3 ABNORMAL ECG NO PREVIOUS ECG AVAILABLE FOR COMPARISON Electronically Signed On 07-16-2023 6:44:26 PHOTOVOLTAIC TESTING TECHNICIAN by Omar Quevedo D.O.
[2023-07-15 21:23] LABS: Glucose Point of Care 163 mg/dl (65-105)
[2023-07-15] MEDS: GLUCAGON FOR INJ 1 MG VIAL IV PUSH (21:30)
[2023-07-15 21:54] LABS: Lipase 99 U/L (16-77)
[2023-07-15 21:59] LABS: Base Excess ABG -4.3 mmol/L (0-2); HCO3 ABG 19.7 mmol/L (23-29); Oxygen Content ABG 12.3 %vol (16.0-22.0); Oxygen Saturation ABG 91.8 % (95-97); Oxyhemoglobin 91.5 % (94-100); PCO2 ABG 32.1 mmHg (35-45); PO2 ABG 63.2 mmHg (75-85); Total Hemoglobin 9.5 g/dL (12.0-18.0); pH ABG 7.41 (7.35-7.45)
[2023-07-15 22:01] LABS: NT Pro B Type Natriuretic Pept 471 pg/mL (0-450)
[2023-07-15 22:15] LABS: Device ROOM AIR; Modified Allen's Test Pass; Site Drawn RIGHT RADIAL
[2023-07-15] MEDS: DOPamine 400 MG/D5W 250 ML 400 MG/250 ML BAG 9.04 MG IV CONT (23:15)
[2023-07-16] VITALS (94 sets, daily range): BP systolic 51–128; BP diastolic 35–70; PULSE 49–94; RESP 13–26; TEMP 36.4; O2SAT 97–100
[2023-07-16] MEDS: ACETAMINOPHEN 325 MG TABLET 650 MG PO (00:05)
--- NOTE | 2023-07-16 01:17 | PC.NURSE ---
AT 00:47, PATIENTS BLOOD PRESSURE DROPPED, THIS RN WENT IN TO CHECK ON PATIENT AND RECHECK BLOOD PRESSURE, PATIENT A/O X4, BLOOD PRESSURE CAME UP SOME, TITRATED DOPAMINE BACK UP TO 2.5. PATIENT ASKED TO STAND BY THE BED TO TRY TO URINATE, RN ASSISTED PATIENT WITH URINAL, PATIENT STATED THAT HE FELT REALLY DIZZY, SAT BACK DOWN REALLY FAST AND WENT ABEBE THEN UNRESPONSIVE AND SLUMPED OVER IN BED. RN STERNAL RUBBED PATIENT AGAIN, TOOK PATIENT A COUPLE MINS TO COME AROUND, BUT FINALLY CAME BACK TO. PATIENT STATED THAT HE FEELS VERY WEAK AND NAUSEOUS. ERP AWARE.
[2023-07-16 05:38] LABS: Hematocrit 25.6 % (37.0-46.0); Hemoglobin 8.1 g/dL (12.4-15.3); Mean Corpuscular HGB Conc 31.6 g/dL (32.0-36.0); Mean Corpuscular Hemoglobin 33.3 pg (27.0-31.0); Mean Corpuscular Volume 105.3 fL (78.0-102.0); Mean Platelet Volume 10.2 fl (8.7-11.0); Platelet Count Result 182 K/mm3 (150-420); Red Blood Count 2.43 M/mm3 (4.70-6.10); Red Cell Distribution Width 14.1 % (11.6-14.4); White Blood Count 9.6 K/mm3 (4.8-10.8)
[2023-07-16 05:57] LABS: Anion Gap 11 mmol/L (8-16); Blood Urea Nitrogen 62 mg/dL (7-18); Calcium 9.9 mg/dL (8.5-10.1); Carbon Dioxide 22 mmol/L (21-32); Chloride 104 mmol/L (98-108); Estimated CRCL calculation 28 ml/min; Estimated Glomerular Filt Rate 27; Glucose 154 mg/dL (70-99); Osmolality Calculated 304 mOsm/kg (285-295); Potassium 5.1 mmol/L (3.5-5.1); Sodium 137 mmol/L (136-145); Troponin I 25.1 ng/L (0.00-60.4)
== END 2023-07-16 10:20 | disposition short-term general hospital (02) ==
PROVIDERS: Internal Medicine Critical Care Medicine; Emergency Provider Emergency Medicine; PCP Family Medicine
DX: S51.812A Laceration without foreign body of left forearm, initial encounter (principal); S80.01XA Contusion of right knee, initial encounter; I12.9 Hypertensive chronic kidney disease with stage 1 through stage 4 chronic kidney disease, or unspecified chronic kidney disease; N18.32 Chronic kidney disease, stage 3b; D63.1 Anemia in chronic kidney disease; I48.91 Unspecified atrial fibrillation; E03.9 Hypothyroidism, unspecified; E78.5 Hyperlipidemia, unspecified; E78.2 Mixed hyperlipidemia; Z79.01 Long term (current) use of anticoagulants; Z79.899 Other long term (current) drug therapy; Y92.410 Unspecified street and highway as the place of occurrence of the external cause; W01.0XXA Fall on same level from slipping, tripping and stumbling without subsequent striking against object, initial encounter
CPT/HCPCS: 36415; 36600; 70450; 71045; 72170; 73564; 80048; 82805; 82948; 83605; 83690; 83880; 84484; 85025; 85027; 85610; 85730; 93005; 96365; 96366; 96375; 99285; A9270; J1265; J1610

== ENCOUNTER 2023-07-25 22:57 | Inpatient (IN) | payer MEDICARE, SELFPAY ==
--- NOTE | ~2023-07-25 | XR_ITS ---
EXAMINATION: XR chest 1V portable INDICATION: Fever TECHNIQUE: Portable AP chest at 0025 hours COMPARISON: 07/15/2023 FINDINGS: There are minimal airspace opacities of the lung bases. No pleural effusion or pneumothorax . The cardiomediastinal silhouette is stable. IMPRESSION: 1. Bibasilar airspace opacities, consistent with atelectasis versus pneumonia. Reviewed, dictated and finalized at location F. S ADVISOR
--- NOTE | ~2023-07-25 | XR_ITS ---
EXAMINATION: [id number] INDICATION: Right knee swelling TECHNIQUE: AP and lateral views of the right knee are obtained on three radiographs. COMPARISON: None available FINDINGS: Bone alignment is normal. There is no fracture. There is moderate tricompartmental osteoart hritis. No knee joint effusion is identified. There is widespread soft tissue swelling surrounding th e knee with possible areas of soft tissue gas, particularly in the medial aspect of the knee and leg. IMPRESSION: 1. Moderate tricompartmental osteoarthritis of the knee without acute osseous abnormality or joint ef fusion. 2. Extensive soft tissue swelling surrounding the knee with possible areas of soft tissue gas in the medial leg. Recommend clinical correlation and consider follow-up CT with contrast. Reviewed, dictated and finalized at location A. PING ORDER CLERK IMPRESSION: 1. Moderate tricompartmental osteoarthritis of the knee without acute osseous a bnormality or joint effusion. 2. Extensive soft tissue swelling surrounding the knee with possible areas of s oft tissue gas in the medial leg. Recommend clinical correlation and consider f ollow-up CT with contrast.
[2023-07-25 22:57] VITALS: BP 131/42; PULSE 96; RESP 18; TEMP 38.1; O2SAT 96
--- NOTE | 2023-07-25 23:24 | ED.GENADULT ---
HPI - General Adult General Chief complaint: Extremity Problem,Nontraumatic Stated complaint: bleeding Time Seen by Provider: 07/25/23 23:00 Source: patient Limitations: no limitations History of Present Illness HPI narrative: 78-year-old male a history of hypertension, dyslipidemia, Hypothyroidism, CKD stage 4, BRAYDEN, hypothyroidism, a flutter status post ablation, TR, MR, chronic venous insufficiency presented to our ER on 06/22/2023 after a fall when he sustained a right knee swelling, left forearm the tear. He had a CT of the head, x-ray of the pelvis, right knee and chest x-ray which did not show any acute findings. Patient had blood work which revealed chronic kidney disease with a creatinine of 2.2, hemoglobin of 10 which are chronic. While in the ER the patient became bradycardic with hypotension and altered mental status. The patient was transferred to [facility] way he was noted to be anemic with a hemoglobin of 8 and received 1 unit of packed red blood cells. The patient was evaluated by ortho for his right knee hematoma and cleared for ambulation. During hospitalization the patient had another episode of symptomatic bradycardia which improved with IV glucagon. The patient's bradycardia was thought to be secondary metoprolol which was discontinued. The patient was discharged from the hospital yesterday. He presents to the ER today with -- bleeding from the right knee hematoma. The hematoma has not increased in size based on the markings made at [facility] surrounding the hematoma. The patient denied any fever or chills. The patient denied any chest pain or shortness of breath. He denied any other episodes of Syncope. MD complaint: Bleeding right knee hematoma. Relieving factors: none Exacerbating factors: none Associated symptoms: denies other symptoms Related Data Home Medications Medication Instructions Recorded Confirmed amlodipine 5 mg tablet 5 mg PO DAILY 04/28/19 07/25/23 atorvastatin 10 mg tablet 10 mg PO DAILY 04/28/19 07/25/23 aspirin 81 mg tablet,delayed 81 mg PO DAILY 11/25/19 07/25/23 release (Adult Aspirin Regimen) cholecalciferol (vitamin D3) 50 50 mcg PO DAILY 04/09/20 07/25/23 mcg (2,000 unit) capsule acetaminophen 500 mg capsule 500 mg PO Q6H PRN Pain (Scale 12/31/22 07/25/23 Score 4-6) cyanocobalamin (vitamin B-12) 500 500 mcg PO BID 12/31/22 07/25/23 mcg tablet latanoprost 0.005 % eye drops 1 drp EACH EYE DAILY 12/31/22 07/25/23 (Xalatan) pregabalin 75 mg capsule 75 mg PO QHS 12/31/22 07/25/23 spironolactone 50 mg tablet 25 mg PO QAM 12/31/22 07/25/23 albuterol sulfate 90 mcg/actuation 1 puff inhalation Q4H 02/19/23 07/25/23 aerosol inhaler Allergies Allergy/AdvReac Type Severity Reaction Status Date / Time lanolin Allergy Severe ITCHEY RASH Verified 07/25/23 23:27 gramicidin D Allergy Mild RASH Verified 07/25/23 23:27 lisinopril Allergy Mild renal Verified 07/25/23 23:27 insufficiency Sulfa (Sulfonamide Allergy Mild renal Verified 07/25/23 23:27 Antibiotics) failure bacitracin Allergy Unknown Rash Verified 07/25/23 23:27 polymyxin B Allergy Unknown rash Verified 07/25/23 23:27 BACITRACIN ZINC Allergy Mild RASH Uncoded 07/07/23 13:25 NEOMYCIN SULFATE Allergy Mild RASH Uncoded 07/07/23 13:25 POLYMYXIN B SULFATE Allergy Mild RASH Uncoded 07/07/23 13:25 Review of Systems Review of Systems: All systems reviewed & are unremarkable except as noted in HPI and below Constitutional: Constitutional: Reports as per HPI, Reports no additional constitutional complaints and Reports weakness Eyes: Eyes: Reports as per HPI and Reports no additional eye complaints ENT: Reports system reviewed and no additional complaints, except as documented and Reports as per HPI Cardiovascular: Cardiovascular: Reports as per HPI and Reports no additional cardiovascular complaints Respiratory: Respiratory: Reports as per HPI and Reports no additional respiratory complaints Gastroin
[2023-07-25 23:36] LABS: Basophils Absolute Auto 0.01 K/mm3 (0.00-0.10); Basophils Percent Auto 0.1 % (0.0-1.0); Eosinophils Absolute Auto 0.03 K/mm3 (0.02-0.50); Eosinophils Percent Auto 0.2 % (1.0-6.0); Hematocrit 24.8 % (37.0-46.0); Hemoglobin 7.8 g/dL (12.4-15.3); Immature Granulocyte Absolute 0.17 K/mm3 (0.00-0.00); Lymphocytes Absolute Auto 0.75 K/mm3 (1.10-4.50); Lymphocytes Percent Auto 4.3 % (18.0-42.0); Mean Corpuscular HGB Conc 31.5 g/dL (32.0-36.0); Mean Corpuscular Hemoglobin 31.6 pg (27.0-31.0); Mean Corpuscular Volume 100.4 fL (78.0-102.0); Mean Platelet Volume 8.9 fl (8.7-11.0); Monocytes Absolute Auto 1.16 K/mm3 (0.10-0.90); Monocytes Percent Auto 6.7 % (2.0-11.0); Neutrophils Absolute Auto 15.2 K/mm3 (1.7-7.2); Neutrophils Percent Auto 87.7 % (50.0-70.0); Platelet Count Result 269 K/mm3 (150-420); Red Blood Count 2.47 M/mm3 (4.70-6.10); Red Cell Distribution Width 15.9 % (11.6-14.4); White Blood Count 17.3 K/mm3 (4.8-10.8)
[2023-07-25 23:46] LABS: Anion Gap 12 mmol/L (8-16); Blood Urea Nitrogen 59 mg/dL (7-18); Calcium 9.6 mg/dL (8.5-10.1); Carbon Dioxide 22 mmol/L (21-32); Chloride 95 mmol/L (98-108); Estimated CRCL calculation 23 ml/min; Estimated Glomerular Filt Rate 24; Glucose 128 mg/dL (70-99); Osmolality Calculated 286 mOsm/kg (285-295); Potassium 4.9 mmol/L (3.5-5.1); Sodium 129 mmol/L (136-145)
[2023-07-25 23:51] LABS: Partial Thromboplastin Time 34.4 SEC (23.90-30.70); Prothrombin Time 11.4 Seconds (9.50-12.10)
[2023-07-26] VITALS (12 sets, daily range): BP systolic 100–129; BP diastolic 37–68; PULSE 41–62; RESP 16–24; TEMP 36.4–36.9; O2SAT 95–100; BMI 31.0
[2023-07-26 00:42] LABS: Lactic Acid Reflex 1.5 mmol/L (0.4-2.0)
[2023-07-26] MEDS: PIPERACILLN/TAZ 3.375GM/NS50ML 3.375 GM/50 ML BAG IVPB (01:10)
[2023-07-26 01:26] LABS: Appearance Urine Clear (Clear); Bilirubin Urine Negative (Negative); Blood Urine 2+ (Negative); Color Urine Yellow (Yellow); Glucose Urine UA Trace (Negative); Ketones Urine Trace (Negative); Leukocyte Esterase Ur Negative LEU/UL (Negative); Nitrate Urine Negative (Negative); Protein Urine Negative (Negative); Urobilinogen Urine 0.2 mg/dL (0.2-1.0); pH Urine 5.5 (5.0-8.0)
[2023-07-26] MEDS: traMADol HCL (*CRX) 50 MG TABLET PO (01:31)
[2023-07-26] MEDS: FUROSEMIDE INJ 20 MG/2 ML VIAL IV PUSH (01:31)
[2023-07-26] MEDS: ACETAMINOPHEN 325 MG TABLET 650 MG PO (01:32)
[2023-07-26 01:40] LABS: Add Urine Microscopic? YES; Amorphous Sediment Urine Few; Bacteria Urine Trace /hpf
--- NOTE | 2023-07-26 02:39 | PCRCNOTE ---
Addendum entered by Maxwell Thomas, DIRECTOR OF REAL ESTATE 07/26/23 02:47: Rt enter pt rm to complete MDI instruct. Pt is refusing MDI medication. Pt was asked if he take other med for COPD, pt states he has other perscriptions for COPD but doesnt take it and doesnt want it. Pt breathing at the time was a little labored. SpO2 95% on RA... HR 49... RR 24. Pt was able to speak in full sentence. Breath sound was clear diminish with diminished fine crackles in bases. Original Note: Rt enter pt rm to complete MDI instruct. Pt is refusing MDI medication. Pt was asked if he take other med for COPD pt states he has perscription but doesnt take it and doersnt want it.
[2023-07-26] MEDS: VANCOMYCIN 1,250 MG/NS 250 ML 1,250 MG/250 ML BAG 166.67 MG IVPB ×2 (03:26→14:02)
[2023-07-26 05:56] LABS: Basophils Absolute Auto 0.02 K/mm3 (0.00-0.10); Basophils Percent Auto 0.1 % (0.0-1.0); Eosinophils Absolute Auto 0.02 K/mm3 (0.02-0.50); Eosinophils Percent Auto 0.1 % (1.0-6.0); Hematocrit 21.5 % (37.0-46.0); Immature Granulocyte Absolute 0.11 K/mm3 (0.00-0.00); Immature Granulocyte Percent A 0.7 % (0.0-0.0); Lymphocytes Absolute Auto 1.35 K/mm3 (1.10-4.50); Lymphocytes Percent Auto 8.7 % (18.0-42.0); Mean Corpuscular HGB Conc 32.1 g/dL (32.0-36.0); Mean Corpuscular Hemoglobin 32.2 pg (27.0-31.0); Mean Corpuscular Volume 100.5 fL (78.0-102.0); Mean Platelet Volume 9.4 fl (8.7-11.0); Monocytes Absolute Auto 1.06 K/mm3 (0.10-0.90); Monocytes Percent Auto 6.8 % (2.0-11.0); Neutrophils Percent Auto 83.6 % (50.0-70.0); Platelet Count Result 245 K/mm3 (150-420); Red Blood Count 2.14 M/mm3 (4.70-6.10); Red Cell Distribution Width 16.2 % (11.6-14.4); White Blood Count 15.5 K/mm3 (4.8-10.8)
[2023-07-26 05:59] LABS: Anion Gap 11 mmol/L (8-16); Blood Urea Nitrogen 64 mg/dL (7-18); Carbon Dioxide 23 mmol/L (21-32); Chloride 97 mmol/L (98-108); Estimated CRCL calculation 25 ml/min; Estimated Glomerular Filt Rate 23; Glucose 115 mg/dL (70-99); Osmolality Calculated 291 mOsm/kg (285-295); Potassium 4.7 mmol/L (3.5-5.1); Sodium 131 mmol/L (136-145)
[2023-07-26 06:02] LABS: Hemoglobin 6.9 g/dL (12.4-15.3)
[2023-07-26] MEDS: LEVOTHYROXINE SODIUM 50 MCG TABLET PO (06:04)
--- NOTE | 2023-07-26 06:37 | PC.NURSE ---
Patient was admitted to the 2nd floor at 0210 this morning. Patient has a hematoma from a recent fall, on his right knee. It was aspirated in the ED. They reported that they removed over 500 mL from the knee area. Drainage was bloody with a foul smell. Drainage and blood was cultured. Pictures were taken before a pressure dressing was applied. Dressing was applied in the ED, so measurements of the wound were not available at this time. The pictures are attached to the patient's chart. Patient went to sleep after admission, and continues to sleep well. Patient's morning labs resulted in a critical value of 6.[address] Brush was notified, and he ordered a type and cross match, with 1 unit of packed red blood cells to be administered.
[2023-07-26] MEDS: EMPAGLIFLOZIN 10 MG TABLET PO (09:15)
[2023-07-26] MEDS: CYANOCOBALAMIN 500 MCG TABLET PO (09:15)
[2023-07-26] MEDS: CHOLECALCIFEROL 1,000 UNITS TABLET 2000 UNITS PO (09:15)
[2023-07-26] MEDS: ASPIRIN 81 MG ENTERIC TABLET PO (09:15)
[2023-07-26] MEDS: LATANOPROST 0.005% OP SOLN 2.5 ML BTL 1 DROP EACH EYE (09:15)
[2023-07-26] MEDS: allopurinoL 300 MG TABLET PO (09:16)
[2023-07-26] MEDS: ATORVASTATIN 10 MG TABLET PO (09:16)
[2023-07-26] MEDS: FUROSEMIDE 20 MG TABLET PO (09:16)
[2023-07-26] MEDS: PIPERACILLIN/TAZ 2.25G/NS 50ML 2.25 GM/50 ML BAG IVPB (09:23)
[2023-07-26] MEDS: SODIUM CHLORIDE 0.9% IV 250 ML 30 ML IV CONT (10:39)
--- NOTE | 2023-07-26 10:40 | PM.IMHP ---
H&P: HPI History of Present Illness Date/Time: 07/26/23 10:40 Chief Complaint: Bleeding from right knee hematoma Narrative: This is a 78-year-old male patient who was just discharged from [facility] after being treated for bradycardia thought to be related to beta-chris use. Patient originally came to our ER July 15 after a fall at home. He was found to have a large traumatic right knee hematoma and also found to be hypotensive and bradycardic. Patient was started on dopamine and transferred to [facility] where he is undergone cardiac workup that actually shows an improved echocardiogram and electrophysiology evaluated for possible pacemaker but stated that this was not necessary because patient was initially in [place] 2 bradycardia with no recurrence of such while at [place]. Upon discharge when patient got home a he had a blister from the knee wound that ruptured and began to bleed. He returned to the ER last night due to bleeding of the right knee. There was foul-smelling odor from the wound. The ED physician performed 3 stab infusions incisions in order to drain collected fluid. This was sent for culture and Gram stain which is pending. Additionally blood cultures were drawn and patient started on IV antibiotics Zosyn and vancomycin. Patient was also found to have worsened renal dysfunction with a history of CKD. His sodium was also decreased to 129 on admission and his hemoglobin was 7.8. Morning labs today show drop in hemoglobin to 6.9 prompting the ordering of 1 g unit of PRBCs. Patient initially refusing this blood transfusion. patient has been drinking large amounts of fruit juice and free water in attempts to improve his renal function which has subsequently led to some fluid overload. Patient denies dyspnea but appears to be mildly tachycardic and mildly labored with clear lung sounds. White blood cell count on admission was over 17,000 and this morning remains 15. This morning blood pressure was decreased reading eating 89/30 on the left arm and 103/35 on the right arm with sinus arrhythmia occasional ectopic narrow complex perfusing beats with a rate ranging from 41 to about 59 per review of telemetry monitoring alarms and live view of such. After discussion with patient's family and the patient we discussed that his condition is concerning for a wound infection that may need further surgical debridement as well as sepsis and a return of significant bradycardia. Transfer to another facility for surgical consult was recommended and the family wanted to stay within the [facility] system. Contacted [facility] transfer line spoke to a plater supervisor who declined the patient to the high risk Cardiology floor due to low blood pressure. Spoke to cardiologists in the cardiac ICU who stated that patient should be retargeted for surgical ICU and we are awaiting phone call at this time to continue transfer process. Dr. Shaw from [facility] ICU accepted transfer. Due to a high probability of clinically significant, life threatening deterioration, the patient required my highest level of preparedness to intervene emergently and I personally spent this critical care time directly and personally managing the patient. This critical care time included obtaining a history; examining the patient; pulse oximetry; ordering and review of studies; arranging urgent treatment with development of a management plan; evaluation of patient's response to treatment; frequent reassessment; and discussions with other providers. It was exclusive of separately billable procedures and treating other patients and teaching time. Please see Assessment and Plan section and the rest of the note for further information on patient assessment and treatment. Critical Care time: [address] Bañuelos, Cardiology at [place] Discussed with Dr. Romaine Shabazz, Cardiac ICU at [place] Discussed with Dr. Shaw, Grain Cleaner at [facility] ICU who accepted transfer
--- NOTE | 2023-07-26 10:49 | PC.NURSE ---
Blood infusion started at 1049.
--- NOTE | 2023-07-26 11:24 | PC.NURSE ---
Increased infusion rate to 125. Patient tolerating well.
--- NOTE | 2023-07-26 11:25 | ECG_ITS ---
Measurements Intervals [place] Rate: 43 P: -61 [place]: 224 QRS: 27 QRSD: 118 T: 56 QT: 455 QTc: 387 Interpretive Statements ECTOPIC ATRIAL BRADYCARDIA WITH FIRST DEGREE AV BLOCK ABNORMAL ECG COMPARED TO ECG 07/15/2023 21:22:57 NO SIGNIFICANT CHANGE Electronically Signed On 07-27-2023 7:47:38 PHOTO MACHINE OPERATOR by Sushant Serrano M.D.
--- NOTE | 2023-07-26 12:05 | PC.NURSE ---
Increased infusion rate to 150. Patient tolerating well.
--- NOTE | 2023-07-26 13:05 | PM.TDS ---
Transfer Discharge Sum: Prov Provider Date of admission: 07/26/23 02:04 Primary care physician: UNKNOWN,DOCTOR Admitting clinician: Stephan Chavez MD Attending physician on admission: Andrew Chavez Attending physician on discharge: Andrew Chavez Discharging clinician: Gaetano Patel Anticipated date of transfer: 07/26/23 Receiving physician/facility: Dr. Shaw at [facility] ICU DS: Admitting Diagnosis Discharge Date 07/26/2023 Admitting Diagnosis sepsis, anemia, bradycardia, abnormal chest x-ray, hyponatremia, volume overload, hematoma of right knee region, hypertension, chronic renal insufficiency DS: Discharge Diagnosis Discharge Diagnosis (1) Sepsis: Qualifiers: Sepsis acute organ dysfunction status: unspecified Sepsis type: sepsis due to unspecified organism Qualified Code(s): A41.9 - Sepsis, unspecified organism Code(s): A41.9 - Sepsis, unspecified organism Status: Acute Assessment and Plan: Elevated WBC 17.3, HR over 90, Fever 38.1, foul smelling drainage from right knee hematoma s/p 3 stab incisions and partial drainage in ER by ER MD overnight. Started on Zosyn, blood cultures obtained, wound cultures also obtained and pending. (2) Anemia: Code(s): D64.9 - Anemia, unspecified Status: Acute Assessment and Plan: Prior HGB 10-11, has been 7-8 since fall with right leg hematoma and worsening CKD. HGB was 7.8 on ER visit, dropped to 6.9 this morning. One unit PRBC ordered but patient initially refusing to receive transfusion. On further education patient accepted transfusion after explaining total situation to patient and family. (3) Bradycardia: Code(s): R00.1 - Bradycardia, unspecified Status: Acute Assessment and Plan: Sinus arrhythmia with periodic ectopic narrow complex beat at bradycardic rated from 41-59 per my interpretation of telemetry alarms and live monitoring. 12 lead obtained showing sinus bradycardia with first degree block rate 43, DC 224, QRSd 118, QTc 401, QRS axis 27. Ectopic beats are perfusing per palpation and auscultation. Prior episode of bradycardia in June 2023 was determined to be Mobitz 2 that corrected after cessation of metoprolol and administration of glucagon. Patient is no longer taking beta blockers and plan for pacemaker placement has been put on hold pending follow up with Cardiology at [place]. We are also working on arranging transfer back to [place], Cardiology refused patient for floor/high risk Cards admit and deferred to ICU. Awaiting call back from ICU. (4) Abnormal chest x-ray: Code(s): R93.89 - Abnormal findings on diagnostic imaging of other specified body structures Status: Acute Assessment and Plan: Bilateral atelectasis versus pneumonia. Patient is saturating well on room air and is already on vancomycin and Zosyn. MRSA PCR nasal swab is pending. (5) Hyponatremia: Code(s): E87.1 - Hypo-osmolality and hyponatremia Status: Acute Assessment and Plan: Sodium 129 on admit, now 131 on morning labs. Review of history shows episodic drops previously but baseline appears normal. Edwards to represent fluid overload and free water/juice ingestion to attempt to fix kidney function. History stage 4 CKD with worsened function on this admission. Cautious diuresis. (6) Volume overload: Qualifiers: Hypervolemia type: unspecified Qualified Code(s): E87.70 - Fluid overload, unspecified Code(s): E87.70 - Fluid overload, unspecified Status: Acute Assessment and Plan: Cautious diuresis due to renal failure and borderline hypotension (7) Hematoma of right knee region: Code(s): S80.01XA - Contusion of right knee, initial encounter Status: Acute Assessment and Plan: Traumatic hematoma right knee from fall 07/15 with bleeding from ruptured skin blister was reason for ER presentation on 07/25. Fo
[2023-07-26] MEDS: ACETAMINOPHEN 500 MG TABLET PO (13:32)
[2023-07-26 14:28] LABS: Hemoglobin 8.5 g/dL (12.4-15.3)
--- NOTE | 2023-07-26 14:50 | PC.NURSE ---
Report called to Solomon at [facility]. Patient being transferred to Room 13 ICU. Solomon voiced understanding of patient's condition and was given our number to call if any questions arise. [facility] has been called to transfer patient and is in route.
--- NOTE | 2023-07-26 15:04 | PC.NURSE ---
Patient's has been given location and phone number that is being transferred to as well as the name of the accepting physician and nurse in charge of patient's care at [facility].
--- NOTE | 2023-07-26 15:26 | PC.NURSE ---
[facility] here to apple picker patient. Patient required 3 assist transfer from bed to stretcher. Report given to EMS and all discharge information sent with patient to Yash GARCIA. Patient in possession of his cell phone, commercial assistant and c-pap in ambulance.
== END 2023-07-26 15:26 | disposition short-term general hospital (02) | DRG 872 ==
LOC: CHSED 07-26 01:09 → CHS2ND 07-26 03:29
PROVIDERS: Admitting Provider Internal Medicine; Emergency Provider Internal Medicine Critical Care Medicine; PCP Family Medicine; Visit Provider Internal Medicine
DX: A41.9 Sepsis, unspecified organism (principal); E87.1 Hypo-osmolality and hyponatremia; I48.92 Unspecified atrial flutter; N18.4 Chronic kidney disease, stage 4 (severe); S80.01XA Contusion of right knee, initial encounter; I12.9 Hypertensive chronic kidney disease with stage 1 through stage 4 chronic kidney disease, or unspecified chronic kidney disease; I34.0 Nonrheumatic mitral (valve) insufficiency; I36.1 Nonrheumatic tricuspid (valve) insufficiency; I87.2 Venous insufficiency (chronic) (peripheral); D64.9 Anemia, unspecified; E03.9 Hypothyroidism, unspecified; E87.70 Fluid overload, unspecified; E78.2 Mixed hyperlipidemia; E55.9 Vitamin D deficiency, unspecified; R00.1 Bradycardia, unspecified; G47.33 Obstructive sleep apnea (adult) (pediatric); H40.9 Unspecified glaucoma; W19.XXXA Unspecified fall, initial encounter; Z79.82 Long term (current) use of aspirin
CPT/HCPCS: 10160; 36415; 36430; 71045; 73560; 80048; 81001; 83605; 85014; 85018; 85025; 85610; 85730; 86850; 86900; 86901; 86920; 87040; 87070; 87075; 87147; 87186; 87205; 93005; 96365; 96366; 96367; 96375; 99285; A9270; G0378; J1940; J2543; J3370; J7050; P9016

== ENCOUNTER 2023-08-28 15:40 | Outpatient (NON) | payer MEDICARE, SELFPAY ==
[2023-08-28 15:52] LABS: Basophils Absolute Auto 0.03 K/mm3 (0.00-0.10); Basophils Percent Auto 0.4 % (0.0-1.0); Eosinophils Absolute Auto 0.34 K/mm3 (0.02-0.50); Eosinophils Percent Auto 4.9 % (1.0-6.0); Hematocrit 32.4 % (37.0-46.0); Hemoglobin 9.8 g/dL (12.4-15.3); Immature Granulocyte Absolute 0.02 K/mm3 (0.00-0.00); Immature Granulocyte Percent A 0.3 % (0.0-0.0); Lymphocytes Absolute Auto 2.12 K/mm3 (1.10-4.50); Lymphocytes Percent Auto 30.7 % (18.0-42.0); Mean Corpuscular HGB Conc 30.2 g/dL (32.0-36.0); Mean Corpuscular Hemoglobin 28.8 pg (27.0-31.0); Mean Corpuscular Volume 95.3 fL (78.0-102.0); Mean Platelet Volume 9.6 fl (8.7-11.0); Monocytes Absolute Auto 0.53 K/mm3 (0.10-0.90); Monocytes Percent Auto 7.7 % (2.0-11.0); Neutrophils Absolute Auto 3.9 K/mm3 (1.7-7.2); Platelet Count Result 197 K/mm3 (150-420); Red Cell Distribution Width 19.1 % (11.6-14.4); White Blood Count 6.9 K/mm3 (4.8-10.8)
[2023-08-28 16:08] LABS: Alanine Aminotransferase 22 U/L (16-63); Albumin Level 3.1 g/dL (3.4-5.0); Alkaline Phosphatase 73 U/L (46-116); Anion Gap 10 mmol/L (8-16); Aspartate Amino Transferase 32 U/L (15-37); Bilirubin,Total 0.5 mg/dL (0.00-1.00); Blood Urea Nitrogen 35 mg/dL (7-18); Calcium 9.7 mg/dL (8.5-10.1); Carbon Dioxide 27 mmol/L (21-32); Chloride 104 mmol/L (98-108); Estimated Glomerular Filt Rate 58; Glucose 81 mg/dL (70-99); Osmolality Calculated 299 mOsm/kg (285-295); Potassium 4.3 mmol/L (3.5-5.1); Sodium 141 mmol/L (136-145); Total Protein 6.9 g/dL (6.4-8.2)
== END 2023-08-28 15:41 | disposition home or self-care (01) ==
LOC: CHSLAB 15:42
PROVIDERS: Visit Provider Family Medicine
DX: I10 Essential (primary) hypertension (principal); D64.9 Anemia, unspecified
CPT/HCPCS: 36415; 80053; 85025

== ENCOUNTER 2023-10-09 10:07 | Outpatient (CLI) | payer MEDICARE, SELFPAY ==
[2023-10-09 10:23] LABS: Basophils Absolute Auto 0.05 K/mm3 (0.00-0.10); Basophils Percent Auto 0.7 % (0.0-1.0); Eosinophils Absolute Auto 0.66 K/mm3 (0.02-0.50); Eosinophils Percent Auto 9.5 % (1.0-6.0); Hematocrit 31.6 % (37.0-46.0); Hemoglobin 9.5 g/dL (12.4-15.3); Immature Granulocyte Absolute 0.02 K/mm3 (0.00-0.00); Immature Granulocyte Percent A 0.3 % (0.0-0.0); Lymphocytes Absolute Auto 2.08 K/mm3 (1.10-4.50); Mean Corpuscular HGB Conc 30.1 g/dL (32-36); Mean Corpuscular Hemoglobin 28.9 pg (27.0-31.0); Mean Platelet Volume 8.8 fl (8.7-11.0); Monocytes Absolute Auto 0.56 K/mm3 (0.10-0.90); Monocytes Percent Auto 8.1 % (2.0-11.0); Neutrophils Absolute Auto 3.56 K/mm3 (1.70-7.20); Neutrophils Percent Auto 51.4 % (50.0-70.0); Platelet Count Result 243 K/mm3 (150-420); Red Blood Count 3.29 M/mm3 (4.70-6.10); Red Cell Distribution Width 17.2 % (11.6-14.4); White Blood Count 6.9 K/mm3 (4.8-10.8)
[2023-10-09 11:29] LABS: Alanine Aminotransferase 33 U/L (16-63); Albumin Level 3.5 g/dL (3.4-5.0); Alkaline Phosphatase 118 U/L (46-116); Anion Gap 9 mmol/L (4-12); Aspartate Amino Transferase 36 U/L (15-37); Bilirubin,Total 0.5 mg/dL (0.00-1.00); Blood Urea Nitrogen 41 mg/dL (7-18); Calcium 9.8 mg/dL (8.5-10.1); Carbon Dioxide 30 mmol/L (21-32); Chloride 103 mmol/L (98-108); Estimated Glomerular Filt Rate 55; Folic Acid 13.3 ng/mL (8.6->20); Glucose 86 mg/dL (70-99); Iron 31 ug/dL (65-175); Osmolality Calculated 303 mOsm/kg (285-295); Percent Iron Saturation 10 % (12-57); Potassium 4.4 mmol/L (3.5-5.1); Sodium 142 mmol/L (136-145); Vitamin B12 1323 pg/mL (193-986)
[2023-10-10 12:58] LABS: Parathyroid Intact 28 pg/mL (16-77)
== END 2023-10-09 10:08 | disposition home or self-care (01) ==
LOC: CHSLAB 10:09
PROVIDERS: PCP Family Medicine; Visit Provider Physician Assistant
DX: N18.2 Chronic kidney disease, stage 2 (mild) (principal)
CPT/HCPCS: 36415; 80053; 82607; 82746; 83540; 83550; 83970; 85025

== ENCOUNTER 2023-10-25 03:17 | Emergency (ER) | payer MEDICARE, SELFPAY ==
--- NOTE | 2023-10-25 03:20 | ED.EPISTAXIS ---
HPI - Epistaxis General Chief complaint: Epistaxis Stated complaint: Nose Bleed Time Seen by Provider: 10/25/23 03:20 Source: patient and family Mode of arrival: ambulatory Limitations: no limitations History of Present Illness HPI Narrative: 78-year-old male with a history of obesity, BRAYDEN, hypothyroidism, dyslipidemia, gout, chronic renal failure, chronic venous insufficiency, AFib/ flutter status post ablation not on anticoagulation secondary to recurrent nose bleeds, MR/ TR, normal EF had a fall in June which was complicated by a right knee hematoma, blood loss anemia and bradycardia secondary to sick sinus syndrome. the patient had drainage of right knee hematoma which was complicated by a nonhealing wound for which he had a skin graft done last month. The patient is being considered for placement of a pacemaker. Patient is currently of anticoagulants and is on aspirin 81 mg. The patient presents to the ER with a 2 hour history of -- right nostril bleeding. The patient could feel the blood trickling down the back of his throat. No history of trauma. The patient was treated with phenylephrine 0.5% nasal squats with resolution of the right nostril bleeding. No history of nasal congestion. MD complaint: epistaxis Location: right nostril Onset (ago): hour(s) ( 2 hours) Duration: constant Context: history of previous and aspirin use Treatment prior to arrival: nose pinching Related Data Home Medications Medication Instructions Recorded Confirmed atorvastatin 10 mg tablet 10 mg PO DAILY 04/28/19 10/25/23 aspirin 81 mg tablet,delayed 81 mg PO DAILY 11/25/19 10/25/23 release (Adult Aspirin Regimen) cholecalciferol (vitamin D3) 50 50 mcg PO DAILY 04/09/20 10/25/23 mcg (2,000 unit) capsule acetaminophen 500 mg capsule 500 mg PO Q6H PRN Pain (Scale 12/31/22 10/25/23 Score 4-6) cyanocobalamin (vitamin B-12) 500 500 mcg PO BID 12/31/22 10/25/23 mcg tablet Allergies Allergy/AdvReac Type Severity Reaction Status Date / Time lanolin Allergy Severe ITCHEY RASH Verified 10/25/23 03:30 gramicidin D Allergy Mild RASH Verified 10/25/23 03:30 lisinopril Allergy Mild renal Verified 10/25/23 03:30 insufficiency Sulfa (Sulfonamide Allergy Mild renal Verified 10/25/23 03:30 Antibiotics) failure bacitracin Allergy Unknown Rash Verified 10/25/23 03:30 polymyxin B Allergy Unknown rash Verified 10/25/23 03:30 BACITRACIN ZINC Allergy Mild RASH Uncoded 10/25/23 03:30 NEOMYCIN SULFATE Allergy Mild RASH Uncoded 10/25/23 03:30 POLYMYXIN B SULFATE Allergy Mild RASH Uncoded 10/25/23 03:30 tape AdvReac Rash Uncoded 10/25/23 03:30 Review of Systems Review of Systems: All systems reviewed & are unremarkable except as noted in HPI and below Constitutional: Constitutional: Reports as per HPI and Reports no additional constitutional complaints Eyes: Eyes: Reports as per HPI and Reports no additional eye complaints ENT: Reports system reviewed and no additional complaints, except as documented, Reports as per HPI and Reports epistaxis Cardiovascular: Cardiovascular: Reports as per HPI and Reports no additional cardiovascular complaints Respiratory: Respiratory: Reports as per HPI and Reports no additional respiratory complaints Gastrointestinal: Gastrointestinal: Reports as per HPI and Reports no additional gastrointestinal complaints Genitourinary: Genitourinary: Reports no additional male genitourinary complaints Musculoskeletal: Musculoskeletal: Reports no additional musculoskeletal complaints Integumentary/Breasts: Skin/Breast: Reports system reviewed and no additional complaints, except as docu Neurologic: Reports system reviewed and no additional complaints, except as documented and Reports as per HPI Psychiatric: Psychiatric: Reports no additional psychiatric complaints and Reports as per HPI Endocrine: Endocrine: Reports no additional endocrine complaints and Reports as per HPI Hematologic/Lymphatic: Hemato
[2023-10-25 03:24] VITALS: BP 153/42; PULSE 56; RESP 20; TEMP 37.4; O2SAT 96
[2023-10-25] MEDS: PHENYLEPHRINE HCL 0.5% NA SPRAY 15 ML BTL (*BKC) 1 SPRAY EACH NARE (03:31)
[2023-10-25 04:01] VITALS: BP 130/40; PULSE 52; RESP 20; TEMP 37.2; O2SAT 98
== END 2023-10-25 04:06 | disposition home or self-care (01) ==
PROVIDERS: Emergency Provider Internal Medicine Critical Care Medicine; PCP Family Medicine
DX: R04.0 Epistaxis (principal); I12.9 Hypertensive chronic kidney disease with stage 1 through stage 4 chronic kidney disease, or unspecified chronic kidney disease; N18.4 Chronic kidney disease, stage 4 (severe); G47.33 Obstructive sleep apnea (adult) (pediatric); E03.9 Hypothyroidism, unspecified; E78.5 Hyperlipidemia, unspecified; Z79.82 Long term (current) use of aspirin; E55.9 Vitamin D deficiency, unspecified
CPT/HCPCS: 99283; A9270

== ENCOUNTER 2023-10-28 09:58 | Emergency (ER) | payer MEDICARE, SELFPAY ==
[2023-10-28 09:58] VITALS: BP 158/86; PULSE 48; RESP 20; TEMP 36.4; O2SAT 100
--- NOTE | 2023-10-28 10:10 | ED.EPISTAXIS ---
HPI - Epistaxis General Chief complaint: Epistaxis Stated complaint: nose bleed Time Seen by Provider: 10/28/23 10:10 Source: patient and family (spouse) Mode of arrival: ambulatory Limitations: no limitations History of Present Illness HPI Narrative: 78 year old male presents to the Emergency Department complaining of epistaxis. Patient was seen here several days ago and seen by ENT (Dr. Gordillo) yesterday. He had packing placed in right nares. He takes ASA 81 mg daily. He complains of continued bleeding. He has packing in right nares. He was told he can remove in 3 days or sooner if it is irritating. He complains of some bleeding running down his throat. He states the bleeding down his throat makes it hard to breathe and he chokes. MD complaint: epistaxis Location: right nostril Onset (ago): day(s) Context: history of previous Related Data Home Medications Medication Instructions Recorded Confirmed atorvastatin 10 mg tablet 10 mg PO DAILY 04/28/19 10/25/23 aspirin 81 mg tablet,delayed 81 mg PO DAILY 11/25/19 10/25/23 release (Adult Aspirin Regimen) cholecalciferol (vitamin D3) 50 50 mcg PO DAILY 04/09/20 10/25/23 mcg (2,000 unit) capsule acetaminophen 500 mg capsule 500 mg PO Q6H PRN Pain (Scale 12/31/22 10/25/23 Score 4-6) cyanocobalamin (vitamin B-12) 500 500 mcg PO BID 12/31/22 10/25/23 mcg tablet empagliflozin 10 mg tablet 10 mg PO DAILY 10/27/23 latanoprost 0.005 % eye drops 1 drp EACH EYE QPM 10/27/23 (Xalatan) Allergies Allergy/AdvReac Type Severity Reaction Status Date / Time lanolin Allergy Severe ITCHEY RASH Verified 10/28/23 10:08 gramicidin D Allergy Mild RASH Verified 10/27/23 14:11 lisinopril Allergy Mild renal Verified 10/28/23 10:08 insufficiency Sulfa (Sulfonamide Allergy Mild renal Verified 10/28/23 10:08 Antibiotics) failure bacitracin Allergy Unknown Rash Verified 10/28/23 10:08 polymyxin B Allergy Unknown rash Verified 10/28/23 10:08 BACITRACIN ZINC Allergy Mild RASH Uncoded 10/27/23 14:11 NEOMYCIN SULFATE Allergy Mild RASH Uncoded 10/27/23 14:11 POLYMYXIN B SULFATE Allergy Mild RASH Uncoded 10/27/23 14:11 tape AdvReac Rash Uncoded 10/27/23 14:11 Review of Systems Review of Systems: All systems reviewed & are unremarkable except as noted in HPI and below Constitutional: Constitutional: Reports as per HPI, Denies chills, Denies fever(s) and Denies weakness Eyes: Eyes: Reports as per HPI ENT: Reports system reviewed and no additional complaints, except as documented and Reports epistaxis Cardiovascular: Cardiovascular: Reports as per HPI Respiratory: Respiratory: Reports as per HPI, Denies chest congestion, Denies cough and Denies dyspnea Gastrointestinal: Gastrointestinal: Reports as per HPI, Denies diarrhea, Denies nausea and Denies vomiting Musculoskeletal: Musculoskeletal: Reports no additional musculoskeletal complaints Neurologic: Reports system reviewed and no additional complaints, except as documented Hematologic/Lymphatic: Hematologic/Lymphatic: Reports no additional hematologic/lymphatic complaints PMFSH Past Medical History Medical History Atrial flutter Bradycardia Chronic renal insufficiency, stage IV (severe) Chronic venous insufficiency Encounter for immunization Glaucoma H/O: gout History of bronchiectasis Hypertension Hypothyroidism Mitral insufficiency Mixed hyperlipidemia Obesity BRAYDEN (obstructive sleep apnea) CPAP Skin neoplasm Tricuspid regurgitation Venous stasis dermatitis of both lower extremities Vitamin D deficiency Surgical History Surgical History H/O cardiac radiofrequency ablation Family History Family History Mother Diabetes mellitus Family history of coronary artery disease Sibling Diabetes mellitus Father Family history of coronary artery d
[2023-10-28 10:44] VITALS: BP 142/60; PULSE 51; RESP 16; TEMP 36.4; O2SAT 100
== END 2023-10-28 10:44 | disposition home or self-care (01) ==
PROVIDERS: Emergency Provider Emergency Medicine; PCP Family Medicine
DX: R04.0 Epistaxis (principal); I48.92 Unspecified atrial flutter; I12.9 Hypertensive chronic kidney disease with stage 1 through stage 4 chronic kidney disease, or unspecified chronic kidney disease; N18.4 Chronic kidney disease, stage 4 (severe); H40.9 Unspecified glaucoma; E03.9 Hypothyroidism, unspecified; E78.2 Mixed hyperlipidemia; G47.33 Obstructive sleep apnea (adult) (pediatric); E55.9 Vitamin D deficiency, unspecified; M10.9 Gout, unspecified; E66.9 Obesity, unspecified; Z68.30 Body mass index [BMI] 30.0-30.9, adult; Z79.82 Long term (current) use of aspirin; Z79.84 Long term (current) use of oral hypoglycemic drugs
CPT/HCPCS: 99281

== ENCOUNTER 2023-10-28 12:42 | Outpatient (CLI) | payer MEDICARE, SELFPAY ==
[2023-10-28 20:54] LABS: Hematocrit 33.2 % (42.0-52.0); Hemoglobin 10.1 g/dL (14.0-18.0)
== END 2023-10-28 12:43 | disposition home or self-care (01) ==
PROVIDERS: PCP Family Medicine; Visit Provider Otolaryngology
DX: R04.0 Epistaxis (principal); D64.9 Anemia, unspecified
CPT/HCPCS: 36415; 85014; 85018

== ENCOUNTER 2023-12-30 08:21 | Outpatient (CLI) | payer MEDICARE, SELFPAY ==
[2023-12-30 08:33] LABS: Basophils Absolute Auto 0.05 K/mm3 (0.00-0.10); Basophils Percent Auto 0.9 % (0.0-1.0); Eosinophils Absolute Auto 0.21 K/mm3 (0.02-0.50); Eosinophils Percent Auto 3.8 % (1.0-6.0); Hematocrit 33.5 % (37.0-46.0); Hemoglobin 10.6 g/dL (12.4-15.3); Immature Granulocyte Absolute 0.01 K/mm3 (0.00-0.00); Immature Granulocyte Percent A 0.2 % (0.0-0.0); Lymphocytes Absolute Auto 2.03 K/mm3 (1.10-4.50); Mean Corpuscular HGB Conc 31.6 g/dL (32-36); Mean Corpuscular Hemoglobin 28.8 pg (27.0-31.0); Mean Platelet Volume 9.3 fl (8.7-11.0); Monocytes Absolute Auto 0.35 K/mm3 (0.10-0.90); Monocytes Percent Auto 6.4 % (2.0-11.0); Neutrophils Absolute Auto 2.84 K/mm3 (1.70-7.20); Neutrophils Percent Auto 51.7 % (50.0-70.0); Platelet Count Result 183 K/mm3 (150-420); Red Blood Count 3.68 M/mm3 (4.70-6.10); Red Cell Distribution Width 18.3 % (11.6-14.4); White Blood Count 5.5 K/mm3 (4.8-10.8)
[2023-12-30 09:13] LABS: Alanine Aminotransferase 23 U/L (16-63); Alkaline Phosphatase 100 U/L (46-116); Anion Gap 11 mmol/L (4-12); Aspartate Amino Transferase 19 U/L (15-37); Bilirubin,Total 0.6 mg/dL (0.00-1.00); Blood Urea Nitrogen 64 mg/dL (7-18); Calcium 10.1 mg/dL (8.5-10.1); Carbon Dioxide 24 mmol/L (21-32); Chloride 103 mmol/L (98-108); Estimated Glomerular Filt Rate 35; Glucose 82 mg/dL (70-99); Osmolality Calculated 303 mOsm/kg (285-295); Sodium 138 mmol/L (136-145); Total Protein 7.2 g/dL (6.4-8.2)
== END 2023-12-30 08:22 | disposition home or self-care (01) ==
PROVIDERS: PCP Family Medicine; Visit Provider Family Medicine
DX: N18.2 Chronic kidney disease, stage 2 (mild) (principal); D50.9 Iron deficiency anemia, unspecified
CPT/HCPCS: 36415; 80053; 85025

== ENCOUNTER 2024-01-14 09:22 | Outpatient (CLI) | payer MEDICARE, SELFPAY ==
[2024-01-14 09:39] LABS: Hematocrit 34.4 % (37.0-46.0); Hemoglobin 11.2 g/dL (12.4-15.3); Mean Corpuscular HGB Conc 32.6 g/dL (32-36); Mean Corpuscular Hemoglobin 29.9 pg (27.0-31.0); Mean Platelet Volume 9.3 fl (8.7-11.0); Platelet Count Result 197 K/mm3 (150-420); Red Blood Count 3.74 M/mm3 (4.70-6.10); Red Cell Distribution Width 19.3 % (11.6-14.4); White Blood Count 5.1 K/mm3 (4.8-10.8)
[2024-01-14 09:47] LABS: Appearance Urine Clear (Clear); Bilirubin Urine Negative (Negative); Blood Urine Negative (Negative); Color Urine Light Yellow (Yellow); Glucose Urine UA 2+ (Negative); Ketones Urine Negative (Negative); Leukocyte Esterase Ur Negative LEU/UL (Negative); Nitrate Urine Negative (Negative); Protein Urine Negative (Negative); Urobilinogen Urine 0.2 mg/dL (0.2-1.0)
[2024-01-14 10:18] LABS: Add Urine Microscopic? YES; RBC Urine None seen /hpf (0-2)
[2024-01-14 10:19] LABS: Bacteria Urine None seen /hpf; WBC Urine None seen /hpf (0-3)
[2024-01-14 10:42] LABS: Alanine Aminotransferase 19 U/L (16-63); Albumin Level 4.1 g/dL (3.4-5.0); Alkaline Phosphatase 103 U/L (46-116); Anion Gap 11 mmol/L (4-12); Aspartate Amino Transferase 18 U/L (15-37); Bilirubin,Total 0.5 mg/dL (0.00-1.00); Blood Urea Nitrogen 48 mg/dL (7-18); Calcium 10.1 mg/dL (8.5-10.1); Carbon Dioxide 23 mmol/L (21-32); Chloride 104 mmol/L (98-108); Estimated Glomerular Filt Rate 44; Ferritin 98 ng/mL (26-388); Glucose 82 mg/dL (70-99); Iron 60 ug/dL (65-175); Osmolality Calculated 297 mOsm/kg (285-295); Percent Iron Saturation 19 % (12-57); Potassium 4.6 mmol/L (3.5-5.1); Sodium 138 mmol/L (136-145); Total Protein 7.3 g/dL (6.4-8.2)
[2024-01-14 10:56] LABS: Thyroid Stimulating Hormone Reflex 2.13 u/IU/mL (0.36-3.74)
[2024-01-16 04:10] LABS: Vitamin D 25 Hydroxy 56 ng/mL (30-100)
== END 2024-01-14 09:23 | disposition home or self-care (01) ==
LOC: CHSLAB 09:24
PROVIDERS: PCP Family Medicine; Visit Provider Family Medicine
DX: E03.9 Hypothyroidism, unspecified (principal); N18.9 Chronic kidney disease, unspecified; E55.9 Vitamin D deficiency, unspecified; D64.9 Anemia, unspecified
CPT/HCPCS: 36415; 80053; 81001; 82306; 82728; 83540; 83550; 84443; 85027

== ENCOUNTER 2024-03-23 07:55 | Outpatient (CLI) | payer MEDICARE, SELFPAY ==
[2024-03-23 08:09] LABS: Hematocrit 37.1 % (37.0-46.0); Hemoglobin 11.9 g/dL (12.4-15.3)
[2024-03-23 08:56] LABS: Iron 112 ug/dL (65-175); Percent Iron Saturation 36 % (12-57)
== END 2024-03-23 07:56 | disposition home or self-care (01) ==
PROVIDERS: PCP Family Medicine; Visit Provider Internal Medicine Nephrology
DX: D50.9 Iron deficiency anemia, unspecified (principal); N18.2 Chronic kidney disease, stage 2 (mild); D63.1 Anemia in chronic kidney disease
CPT/HCPCS: 36415; 83540; 83550; 85014; 85018

== ENCOUNTER 2024-04-11 08:04 | Outpatient (CLI) | payer MEDICARE, SELFPAY ==
[2024-04-11 09:20] LABS: Alanine Aminotransferase 19 U/L (16-63); Albumin Level 3.9 g/dL (3.4-5.0); Alkaline Phosphatase 116 U/L (46-116); Anion Gap 8 mmol/L (4-12); Aspartate Amino Transferase 15 U/L (15-37); Bilirubin,Total 0.6 mg/dL (0.00-1.00); Blood Urea Nitrogen 50 mg/dL (7-18); Calcium 10.1 mg/dL (8.5-10.1); Carbon Dioxide 26 mmol/L (21-32); Chloride 102 mmol/L (98-108); Cholesterol 112 mg/dL (0-200); Estimated Glomerular Filt Rate 39; Glucose 82 mg/dL (70-99); HDL Direct 56 mg/dL (40-60); LDL Cholesterol Calculated 49 mg/dL (<130); Osmolality Calculated 294 mOsm/kg (285-295); Potassium 5.2 mmol/L (3.5-5.1); Sodium 136 mmol/L (136-145); Triglycerides 35 mg/dL (0-150)
== END 2024-04-11 08:05 | disposition home or self-care (01) ==
LOC: CHSLAB 08:07
PROVIDERS: PCP Family Medicine; Visit Provider Family Medicine
DX: E78.2 Mixed hyperlipidemia (principal); N18.4 Chronic kidney disease, stage 4 (severe)
CPT/HCPCS: 36415; 80053; 80061

== ENCOUNTER 2024-04-14 10:26 | Outpatient (CLI) | payer MEDICARE, SELFPAY ==
[2024-04-14 10:55] LABS: Add Urine Microscopic? NO; Appearance Urine Clear (Clear); Bilirubin Urine Negative (Negative); Blood Urine Negative (Negative); Color Urine Light Yellow (Yellow); Glucose Urine UA 2+ (Negative); Ketones Urine Negative (Negative); Leukocyte Esterase Ur Negative LEU/UL (Negative); Nitrate Urine Negative (Negative); Protein Urine Negative (Negative); Urobilinogen Urine 0.2 mg/dL (0.2-1.0); pH Urine 5.5 (5.0-8.0)
[2024-04-14 12:06] LABS: Anion Gap 12 mmol/L (4-12); Blood Urea Nitrogen 50 mg/dL (7-18); Calcium 10.6 mg/dL (8.5-10.1); Carbon Dioxide 26 mmol/L (21-32); Chloride 102 mmol/L (98-108); Estimated Glomerular Filt Rate 38; Glucose 86 mg/dL (70-99); Osmolality Calculated 302 mOsm/kg (285-295); Potassium 4.8 mmol/L (3.5-5.1); Sodium 140 mmol/L (136-145)
== END 2024-04-14 10:27 | disposition home or self-care (01) ==
LOC: CHSLAB 10:27
PROVIDERS: PCP Family Medicine; Visit Provider Student in an Organized Health Care Education/Training Program
DX: E87.6 Hypokalemia (principal); N18.9 Chronic kidney disease, unspecified
CPT/HCPCS: 36415; 80048; 81003

== ENCOUNTER 2024-10-22 07:51 | Outpatient (CLI) | payer MEDICARE, SELFPAY ==
[2024-10-22 08:08] LABS: Basophils Absolute Auto 0.05 K/mm3 (0.00-0.10); Basophils Percent Auto 0.7 % (0.0-1.0); Eosinophils Absolute Auto 0.33 K/mm3 (0.02-0.50); Eosinophils Percent Auto 4.8 % (1.0-6.0); Hematocrit 39.8 % (37.0-46.0); Hemoglobin 12.6 g/dL (12.4-15.3); Immature Granulocyte Absolute 0.01 K/mm3 (0.00-0.00); Immature Granulocyte Percent A 0.1 % (0.0-0.0); Lymphocytes Absolute Auto 1.81 K/mm3 (1.10-4.50); Lymphocytes Percent Auto 26.4 % (18.0-42.0); Mean Corpuscular HGB Conc 31.7 g/dL (32-36); Mean Corpuscular Volume 104.2 fL (78.0-102.0); Mean Platelet Volume 9.8 fl (8.7-11.0); Monocytes Absolute Auto 0.46 K/mm3 (0.10-0.90); Monocytes Percent Auto 6.7 % (2.0-11.0); Neutrophils Absolute Auto 4.19 K/mm3 (1.70-7.20); Neutrophils Percent Auto 61.3 % (50.0-70.0); Platelet Count Result 174 K/mm3 (150-420); Red Blood Count 3.82 M/mm3 (4.70-6.10); Red Cell Distribution Width 14.1 % (11.6-14.4); White Blood Count 6.9 K/mm3 (4.8-10.8)
[2024-10-22 09:28] LABS: Alanine Aminotransferase 18 U/L (16-63); Alkaline Phosphatase 141 U/L (46-116); Anion Gap 6 mmol/L (4-12); Aspartate Amino Transferase 13 U/L (15-37); Bilirubin,Total 0.5 mg/dL (0.00-1.00); Blood Urea Nitrogen 39 mg/dL (7-18); Calcium 9.4 mg/dL (8.5-10.1); Carbon Dioxide 27 mmol/L (21-32); Chloride 107 mmol/L (98-108); Cholesterol 103 mg/dL (0-200); Estimated Glomerular Filt Rate 43; Ferritin 139 ng/mL (26-388); Folic Acid 17.5 ng/mL (8.6->20); Free T4 Free Thyroxine 1.25 ng/dL (0.76-1.46); Glucose 87 mg/dL (70-99); HDL Direct 57 mg/dL (40-60); Iron 66 ug/dL (65-175); LDL Cholesterol Calculated 42 mg/dL (<130); Osmolality Calculated 298 mOsm/kg (285-295); Percent Iron Saturation 24 % (12-57); Potassium 5.3 mmol/L (3.5-5.1); Prostate Specific Antigen 1.3 ng/mL (< OR = 4.0); Sodium 140 mmol/L (136-145); Thyroid Stimulating Hormone 3.24 uIU/mL (0.36-3.74); Total Protein 7.1 g/dL (6.4-8.2); Triglycerides < 22 mg/dL (0-150); Vitamin B12 875 pg/mL (193-986)
--- OUTSIDE RECORDS SUMMARY | 2024-10-22 15:51 | XMS_ITS | Clinical Summary ---
Author Organization [facility] [address] Address [address] [place] [address] Care Team Providers Care Medical Social Worker Name Role Phone Kurtis Castellanos MD Unavailable Kiesha Reynolds MD Primary Care Provider Hoda Oconnor MD Unavailable Rohith Flores MD Unavailable Allergies Active Allergy Reactions Criticality Noted Date Comments Adhesive Tape-Silicones Rash Medium Lanolin Rash Medium Lisinopril Other (See comments) Medium Reaction: hyperkalemia, Tskjovyu-Xxzreztafp-Cq lymyxin Rash Medium Sulfa (Sulfonamide Antibiotics) Unknown 09/05/2022 Medications latanoprost (XALATAN) 0.005 % ophthalmic solution One drop to the affected eye(s) one time per day 0 0 7 Active cholecalciferol (VITAMIN D-3) 2,000 unit tablet Take 1 tablet (2,000 Units total) by mouth daily Active tamsulosin (FLOMAX) 0.4 mg extended release capsule Take 1 capsule (0.4 mg total) by mouth president and cmo before breakfast 3 Active cyanocobalamin (Vitamin B-12) 500 mcg tablet Take 2 tablets (1,000 mcg total) by mouth daily Active allopurinoL (ZYLOPRIM) 300 mg tablet Take 1 tablet (300 mg total) by mouth daily 30 tablet 11 3 Active levothyroxine (SYNTHROID) 50 mcg tablet Take 1 tablet (50 mcg total) by mouth president and cmo before breakfast 30 tablet 2 3 Active acetaminophen (TYLENOL) 500 mg tablet Take 1 tablet (500 mg total) by mouth every 6 (six) hours as needed for pain Active spironolactone (ALDACTONE) 25 mg tablet Take 1 tablet (25 mg total) by mouth daily 30 tablet 11 4 11/25/19 25 Active furosemide (LASIX) 20 mg tabletIndications: Chronic systolic heart failure (HCC),Nonrheumatic tricuspid valve regurgitation,Non- rheumatic mitral regurgitation Take 1 tablet (20 mg total) by mouth daily 4 Active empagliflozin (JARDIANCE) 10 mg tablet Take 1 tablet (10 mg total) by mouth daily 30 tablet 11 4 04/27/20 25 Active atorvastatin (LIPITOR) 10 mg tabletIndications: Hypercholesterolem ia TAKE ONE TABLET BY MOUTH DAILY 90 tablet 3 5 Active mupirocin (BACTROBAN) 2 % ointment 5 Active aspirin 81 mg enteric coated tablet Take 1 tablet (81 mg total) by mouth daily Active amLODIPine (NORVASC) 5 mg tablet TAKE ONE TABLET BY MOUTH DAILY 90 tablet 5 Active Active Problems Problem Noted Date Diagnosed Date Second degree AV block 02/26/2024 Assessment & Plan (02/26/2024 11:55 AM CDT): Bradycardia due to second degree AV block Type 1 and 2:1 AV block Recent Holter without evidence of high grade AV block or progression of his conduction diease He continues to have ongoing fatigue, no symptoms of near syncope or syncope Will continue to monitor If pacemaker indicated, a leadless system would likely be the best option given that a lead across the tricuspid valve could worsen Mr. Talley's TR Mixed hyperlipidemia 11/26/2023 Moderate protein-calorie malnutrition 09/11/2023 Wound, open 09/10/2023 Non-healing wound of right lower extremity 09/07 Severe malnutrition 07/30/2023 Wound infection 07/28/2023 Bradycardia 07/26/2023 Atrial fibrillation 07/16/2023 Systolic heart failure 01/05/2023 Heart failure with preserved ejection fraction 0 01/05/2023 Chronic edema 12/11/2022 History of bradycardia 10/03/2022 Nonrheumatic tricuspid valve regurgitation 10/01 Sinus bradycardia 06/11/2020 Chronic venous insufficiency 05/31/2019 Coronary artery calcification seen on CAT scan 1 08/01/2018 Hypercholesterolemia 05/31/2019 H/O cardiac radiofrequency ablation 06/09/2018 Morbid obesity with BMI of 40.0-44.9, adult 10/2016 Hyperkalemia 11/27/2015 Overview (09/26/2016): Hyperkalemia Non-rheumatic mitral regurgitation 07/20/2015 Overview (09/26/2016): Non-rheumatic mitral regurgitation Stage 3 chronic kidney disease 07/20/2015 Overview (09/26/2016): Stage III chronic kidney disease Family history of coronary artery disease 2014 Overview (09/26/2016): Family history of coronary artery disease Hypertensive heart disease without congestive he art failure 09/12/2014 Overview (09/26/2016): Hypertensive heart disease without CHF Hypertension 11/05/2013 Overview (09/25/2016): HYPERTENSION NOS Obstructive sleep apnea syndrome 11/05/2013 Overview (09/26/2016): OBSTRUCTIVE SLEEP APNEA Atrial flutter 11/05/2013 Overview (09/27/2016): ATRIAL FLUTTER Assessment & Plan (02/26/2024 11:56 AM CDT): Atrial flutter and reportedly underwent an atrial flutter ablation at [facility] in 10/2015 Mr. Talley is no longer maintained on OAC for stroke risk reduction, likely due to his significant fall risk Recent monitor showed no evidence of sustained atrial flutter or atrial fibrillation If anticoagulation indicated in the future, we would plan to discuss percutaneous left atrial appendage occlusion as a means of long-term stroke risk reduction CKD (chronic kidney disease) stage 2, GFR 60-89 ml/min 09/19/2013 Overview (09/26/2016): Chronic kidney disease, stage II (mild) Resolved Problems Problem Noted Date Diagnosed Date Resolved Date Malignant hypertension 06/03/201605/26 Overview (09/26/2016): Malignant hypertension with heart disease, w/o CHF, w/o renal disease History of open heart surgery 11/27/2015 06/09/2018 Overview (09/26/2016): S/P ablation of atrial flutter Mitral valve disease 11/05/2013 017 Overview (09/25/2016): MITRAL VALVE DISORDER Morbid obesity 11/05/2013 05/26/2017 Overview (09/25/2016): MORBID OBESITY Encounters Date Type Department Care Team Description 09/26/2024 Telephone [facility] Cardiology [address] [place] [address] [place] [address] [place] [address] Kurtis Castellanos MD 09/12/[address] [place] [address] [place] [address] Lynsey Coronado MD 08/30/2024 10:50 AM CDT Ancillary Procedure [address] [place] [address] [place] [address] Typical atrial flutter (HCC); Second degree AV block 08/30/2024 9:45 AM CDT Office Visit [address] [place] [address] [place] [address] Lynsey Coronado MD Typical atrial flutter (HCC) (Primary Dx); Second degree AV block 08/30/2024 Results Follow-Up [facility] Cardiology [address] [place] [address] Medical Office Building [address] [place] [address] Lynsey Coronado MD 08/01/2024 3:40 PM PINSETTER MECHANIC HELPER Lab [facility] Endocrinology Metabolism and Lipid [address] [facility] [address] [place] [address] [place] [address] Nonrheumatic tricuspid valve regurgitation 08/01/2024 3:32 PM PINSETTER MECHANIC HELPER - 08/01/2024 11:59 PM PINSETTER MECHANIC HELPER Hospital Encounter [address] [address] Nonrheumatic tricuspid valve regurgitation Discharge Disposition: Discharge to home or self care 08/01/2024 2:45 PM PINSETTER MECHANIC HELPER Office Visit [facility] Cardiology [address] [facility] [address] [place] [address] [place] [address] Nonrheumatic tricuspid valve regurgitation (Primary Dx); Non-rheumatic mitral regurgitation 08/01/2024 1:05 PM PINSETTER MECHANIC HELPER - 08/01/2024 11:59 PM PINSETTER MECHANIC HELPER Hospital Encounter [facility] Cardiac Diagnostic Lab [address] [address] Nonrheumatic tricuspid valve regurgitation Discharge Disposition: Discharge to home or self care from Last 3 Months Immunizations Immunization Administration Dates Next Due Influenza, Unspecified 03/22/2023 Surgical History Surgery Date Site/Laterality Comments OTHER SURGICAL HISTORY Sleep Apnea uses CPAP irregularly: APPENDECTOMY Appendectomy CARPAL TUNNEL RELEASE Left Surgery for Carpal Tunnel CATARACT EXTRACTION Right SKIN GRAFT 07/15/2023 in his knee Medical History Medical History Date Comments Hx Other Medical 2006 Sleep Apnea use s CPAP irregularly Hx Other Medical Morbid Obesity Gout Gout Hx Other Medical DJD Glaucoma Glaucoma Hypothyroidism 2012 Hypothyroidism Sleep apnea Hypertension Arrhythmia Lung disease Chronic kidney disease Family History Medical History Relation Name Comments atrial flutter, s/p ablation Brother 1 Devendra Coronary artery disease Brother 2 Suhas fowler Artery Bypass Graft; of heart diseae 66 y.o. Diabetes type II Brother 3 Lorenzo Coronary artery disease Father Aleida nary Artery Bypass Graft; Coronary artery disease Mother Aleida nary Artery Bypass Graft; Relation Name Status Comments Brother 1 Devendra Alive Brother 2 Suhas Alive Brother 3 Lorenzo Alive Father Mother Social History Tobacco Use Types Packs/Day Years Used Date Smoking Tobacco: Never Smokeless Tobacco: Never Tobacco Cessation:Counseling Given: Not Answered Alcohol Use Standard Drinks/Week Comments No 0 (1 standard drink = 0.6 oz pur e alcohol) [facility] Utilities Answer Date Recorded In the past 12 months has th e electric, gas, oil, or water company threatened to shut off services in your home? No 09/11/2023 Social Connection and Isolat ion Panel [NHANES] Answer Date Recorded In a typical week, how many times do you talk on the phone with family, friends, or neighbors? More than three times a week 09/11/2023 How often do you get togethe r with friends or relatives? More than three times a week 09/11/2023 How often do you attend chur ch or sikh services? Never 09/11/2023 Do you belong to any clubs o r organizations such as mormon groups, unions, fraternal or athletic groups, or school groups? No 09/11/2023 How often do you attend meet ings of the clubs or organizations you belong to? Never 09/11/2023 Are you , , di vorced, , never , or living with a partner? 09/11/2023 AUDIT-C Answer Date Recorded Q1: How often do you have a drink containing alc ohol? Never 03/28/2024 Average Number of Drinks Not on file 024 Frequency of Binge Drinking Not on file 12/2023 Overall Financial Resource Strain (CARDIA) Answe r Date Recorded How hard is it for you to pa y for the very basics like food, housing, medical care, and heating? Not hard at all 09/11/2023 Hunger Vital Sign Answer Date Recorded Within the past 12 months, y ou worried that your food would run out before you got the money to buy more. Never true 09/11/19 24 Within the past 12 months, t he food you bought just didn't last and you didn't have money to get more. Never true 09/11/2023 PRAPARE - Transportation Answer Date Re corded In the past 12 months, has l ack of transportation kept you from medical appointments or from getting medications? No 08/21 In the past 12 months, has l ack of transportation kept you from meetings, work, or from getting things needed for daily living? No 09/11/2023 Housing Stability Vital Sign Answer Harmeet e Recorded In the last 12 months, was t here a time when you were not able to pay the mortgage or rent on time? No 09/11/2023 In the last 12 months, how many places have you lived? 1 09/11/2023 In the last 12 months, was t here a time when you did not have a steady place to sleep or slept in a fpc (including now)? No 09/11/2023 Personal Safety Answer Date Recorded Have you ever been in or are you currently in a harmful physical or emotional relationship or is someone making you feel afraid or unsafe? Denies 09/10/2023 Sex and Gender Information Value Date Recorded Sex Assigned at Not on file Legal Sex Male 11:00 AM PINSETTER MECHANIC HELPER Gender Identity Not on file Sexual Orientation Not on file Obstetrics History Last Filed Vital Signs Vital Sign Reading Time Taken Comments Blood Pressure 161/75 08/30/2024 9:46 AM CDT Pulse 49 08/30/2024 9:46 AM CDT Temperature 36.5 C (97.7 F) 04/27/2024 8:49 AM PINSETTER MECHANIC HELPER Respiratory Rate 16 04/27/2024 8:49 AM PINSETTER MECHANIC HELPER Oxygen Saturation 98% 08/30/2024 9:46 AM CDT Inhaled Oxygen Concentration - - Weight 99.7 kg (219 lb 12.8 oz) 08/30/2024 9:46 AM CDT Height 177.8 cm (5' 10 ) 08/30/2024 9:46 AM CDT Body Mass Index 31.54 08/30/2024 9:46 AM CDT Plan of Treatment Health Maintenance Due Date Last Done Comments Depression Screening 1945 DTaP/Tdap/Td Vaccine (1 - Tdap) 1958 Hepatitis B Screening 1965 Zoster Vaccine (1 of 2) 1997 Well Visit 65+ 2012 Pneumococcal vaccine 65+ (2 of 2 - PPSV23) 04/25/2016 02/29/2016 Fall Risk Assessment 09/13/2024 09/14/2023 Influenza Vaccine (Season Ended) 2025 03/22/20, 03/31/2018 Hepatitis C Screening Completed 12/12/2022 Medical Devices Implanted Type Area Operations Assistant Device Identifier Shelf Expiration Date Model / Serial / Lot [employer] Cytal [id number] Fenestrate Matrix 6 Layer Graft Skin [id number] - [id number] - [id number] Implanted:Qty: 1 on 08/06/2023 by Rohith Flores MD at [facility] Right: Leg [employer] 04/21/2024 [id number] / [id number] / [id number] [employer] Cytal [id number] Fenestrate Matrix 6 Layer Graft Skin [id number] - [id number] - [id number] Implanted:Qty: 1 on 08/06/2023 by Rohith Flores MD at [facility] Right: Leg [employer] 04/21/2024 [id number] / [id number] / [id number] Procedures Procedure Name Priority Date/Time Associated Diagnosis Comments EXTENDED/[facility] HOLTER PATCH (>48 HOURS UP TO 7 DAYS) Routine 08/30/2024 12:58 PM CDT Typical atrial flutter (HCC) Second degree AV block ECG 12-LEAD Routine 08/30/2024 9:48 AM CDT Typical atrial flutter (HCC) PRO B-TYPE NATRIURETIC PEPTIDE Routine 08/01/2024 3:32 PM PINSETTER MECHANIC HELPER Nonrheumatic tricuspid valve regurgitation CBC WITH AUTO DIFFERENTIAL Routine 08/01/2024 3:32 PM PINSETTER MECHANIC HELPER Nonrheumatic tricuspid valve regurgitation BASIC METABOLIC PANEL Routine 08/01/2024 3:32 PM PINSETTER MECHANIC HELPER Nonrheumatic tricuspid valve regurgitation TRANSTHORACIC ECHO (TTE) COMPLETE W DOPPLER/CF WO CONTRAST Routine 08/01/2024 2:13 PM PINSETTER MECHANIC HELPER Nonrheumatic tricuspid valve regurgitation HEPATITIS PANEL, ACUTE Routine 12/12/2022 7:19 PM CDT from Last 3 Months or Most Recently Relevant to Health Maintenance Results * Extended/Residential Holter Patch (>48 hours up to 7 days) (08/30/2024 12:58 PM CDT) Anatomical Region Laterality Modality Electrocardiogra phy 08/30/2024 10:4 5 AM CDT Narrative 09/11/2024 1:53 PM CDT [facility] [place] [address] HOLTER MONITOR Patient Name: RIGO TALLEY D : 1945 (79y 2m) Gender: M Study Date: 08/30/2024 10:45:46 AM Ht(Inch): Wt(Lb): BSA: Tech: Location: [facility] Order Provider: LYNSEY CORONADO BMI: Ref Provider: LYNSEY CORONADO PROCEDURES: Holter Report: EXTENDED/[facility] HOLTER PATCH (>48 HOURS UP TO 7 DAYS) [[id number]]. Enrollment Period: 08/30/24-09/02/24. Monitor Number: [id number]. Location: [facility]. INDICATIONS: I48.3 Typical atrial flutter and I44.1 Atrioventricular block, second degree. FINDINGS: Holter Data: Min Rate: 30 BPM Min Rate Timestamp: 2024-09-02 01:01:50 Max Rate: 119 BPM Max Rate Timestamp: 2024-08-31 18:52:24 Mean Rate: 57 BPM Singlets (PACs): 0 events Couplets (PACs): 0 events Total (SVE): 0 events Singlets (PVCs): 1580 events Couplets (PVCs): 3 events Runs (VT): 3 events Total (VE): 1589 events Total beats: 898172 Protocol: Recording Duration (Actual): 508444.45 Total QRS: 328174 SUMMARY: *The predominant rhythm was AV Block. *The Maximum Heart Rate recorded was 119 bpm, 08/31 18:52:24, the Minimum Heart Rate recorded was 30 bpm, 09/02 01:01:50, and the Average Heart Rate was 57 bpm. *There were 1,589 VE beats with a burden of <1 %. There was 1 occurrence of Ventricular Tachycardia with the Fastest episode 102 bpm, 08/31 12:06:13, and the Longest episode 3 beats, 08/31 12:06:13. *Other rhythms in this study include: 2:1 AV Block, Second Degree AV Block Type I. *There were 0 Patient Triggers. CONCLUSIONS: 1. *The predominant rhythm was AV Block. *The Maximum Heart Rate recorded was 119 bpm, 08/31 18:52:24, the Minimum Heart Rate recorded was 30 bpm, 09/02 01:01:50, and the Average Heart Rate was 57 bpm. *There were 1,589 VE beats with a burden of <1 %. There was 1 occurrence of Ventricular Tachycardia with the Fastest episode 102 bpm, 08/31 12:06:13, and the Longest episode 3 beats, 09/01 11:06:13. *Other rhythms in this study include: 2:1 AV Block, Second Degree AV Block Type I. *There were 0 Patient Triggers. 2. I have reviewed the PDF and all the ECG strips. I agree with the interpretations as detailed in the report 3. The PDF can be found in the Epic Patient chart. Please go to the Cardiology tab, click on the holter or event exam. Scroll to bottom where the ORDER LEVEL Documents reside and click the blue link to the pdf. Electronically Signed By: Evangelist Schwab Jr., M.D. 09/11/2024 1:10:11 PM CDT Electronically Signed By: Evangelist Schwab Jr., M.D. 09/11/2024 1:10:11 PM CDT Procedure Note Evangelist Schwab MD PhD - 09/11/2024 [facility] [place] [address] [place] [address] HOLTER MONITOR Patient Name: RIGO TALLEYDeacon : 1945 (79y 2m) Gender: M Study Date: 08/30/2024 10:45:46 AM Ht(Inch): Wt(Lb): BSA: Tech: Location: [facility] Order Provider: LYNSEY CORONADO BMI: Ref Provider: LYNSEY CORONADO PROCEDURES: Holter Report: EXTENDED/[facility] HOLTER PATCH (>48 HOURS UP TO 7 DAYS)[[id number]]. Enrollment Period: 08/30/24-09/02/24. Monitor Number: [id number]. Location: [facility]. INDICATIONS: I48.3 Typical atrial flutter and I44.1 Atrioventricular block, seconddegree. FINDINGS: Holter Data: Min Rate: 30 BPM Min Rate Timestamp: 2024-09-02 01:01:50 Max Rate: 119 BPM Max Rate Timestamp: 2024-08-31 18:52:24 Mean Rate: 57 BPM Singlets (PACs): 0 events Couplets (PACs): 0 events Total (SVE): 0 events Singlets (PVCs): 1580 events Couplets (PVCs): 3 events Runs (VT): 3 events Total (VE): 1589 events Total beats: 642353 Protocol: Recording Duration (Actual): 079346.45 Total QRS: 450599 SUMMARY: *The predominant rhythm was AV Block. *The Maximum Heart Rate recorded was 119 bpm, 08/31 18:52:24, the MinimumHeart Rate recorded was 30 bpm, 09/02 01:01:50, and the Average Heart Rate was 57bpm. *There were 1,589 VE beats with a burden of <1 %. There was 1 occurrenceof Ventricular Tachycardia with the Fastest episode 102 bpm, 08/31 12:06:13, and the Longest episode3 beats, 08/31 12:06:13. *Other rhythms in this study include: 2:1 AV Block, Second Degree AV BlockType I. *There were 0 Patient Triggers. CONCLUSIONS: 1. *The predominant rhythm was AV Block. *The Maximum Heart Rate recorded was 119 bpm, 08/31 18:52:24, the MinimumHeart Rate recorded was 30 bpm, 09/02 01:01:50, and the Average Heart Rate was 57bpm. *There were 1,589 VE beats with a burden of <1 %. There was 1 occurrenceof Ventricular Tachycardia with the Fastest episode 102 bpm, 08/31 12:06:13, and the Longest episode3 beats, 08/31 12:06:13. *Other rhythms in this study include: 2:1 AV Block, Second Degree AV BlockType I. *There were 0 Patient Triggers. 2. I have reviewed the PDF and all the ECG strips. I agree with theinterpretations as detailed in the report 3. The PDF can be found in the Epic Patient chart. Please go to theCardiology tab, click on the holter or event exam. Scroll to bottom where the ORDER LEVELDocuments reside and click the blue link to the pdf. Electronically Signed By: Evangelist Schwab Jr., M.D. 09/11/2024 1:10:11 PM CDT Electronically Signed By: Evangelist Schwab Jr., M.D. 09/11/2024 1:10:11 PM CDT us Lynsey Coronado MD [facility] CARDIAC SERVICES PROCE DURES Final Result * ECG 12 lead (08/30/2024 9:48 AM CDT) Lynsey Coronado MD ECG ORDERABLES Edited Re sult - Final * Pro B-type natriuretic peptide (08/01/2024 3:32 PM PINSETTER MECHANIC HELPER) NT-proBNP 401 <=450 pg/mL Comment: Interpretive Comments: A. Dyspnea in Acute Care Setting All Ages: < 300 pg/ml, acute heart failure unlikely. < 50 yrs: 300 - 450 pg/ml, further investigation warranted. > 450 pg/ml, acute heart failure likely. 50 - 74 yrs: 300 - 900 pg/ml, further investigation warranted. > 900 pg/ml, acute heart failure likely . > or = 75 yrs: 450 - 1800 pg/ml, further investigation warranted. > 1800 pg/ml, acute heart failure likely. B. Non-acute Setting < 75 yrs < 125 pg/ml, rules out heart failure. > or = 125 pg/ml, further investigation warranted. > or = 75 yrs < 450 pg/ml, rules out heart failure. > or = 450 pg/ml, further investigation warranted. - Knowledge of each individual patient's NT-proBNP range may be more useful than using similar cut-points for every patient. Please note that marked elevations in NT-proBNP levels may be observed in state other than Left Ventricular Congestive Failure, including: acute coronary syndromes, right heart strain/failure (including pulmonary embolism and cor pulmonale), critical illness, renal failure, as well as advanced age. - References: 1. Mateus CHUA et.al. Eur Heart J. 2006:27:330-337. 2. Rosa Elena RW, Roxann PANDEY. J. AM Ilya Cardiol: Cardiovasc Imag. 2009;2: 216- 225. Interpretive Data Last Revised Date: 2018. Blood 08/01/2024 3:32 PM PINSETTER MECHANIC HELPER 08/01/2024 5:48 PM PINSETTER MECHANIC HELPER us Vasu Barry MD LAB BLOOD ORDERABLES Final Resu lt [facility] Department [place] [address] * (ABNORMAL) CBC with auto differential (08/01/2024 3:32 PM PINSETTER MECHANIC HELPER) White Blood Count 8.3 3.6 - 11.2 K/uL [facility] RBC 4.19 4.06 - 5.63 M/uL [facility] Hemoglobin 14.2 13.0 - 17.5 g/dL [facility] Comment:Repeated and Verifie d Hematocrit 42.0 40.7 - 50.3 % [facility] Comment:Repeated and Verifie d MCV 100.3(H) 80.0 - 97.6 fL [facility] MCH 34.0(H) 26.7 - 33.7 pg [facility] MCHC 33.8 32.7 - 35.5 g/dL [facility] RBC Dist Width 15.4 12.3 - 17.0 % [facility] Platelet Count 220 140 - 440 K/uL [facility] MPV 8.1 6.8 - 10.4 fL [facility] Neutrophils % 72.2 38.7 - 74.5 % [facility] Lymphocyte % 21.3 20.0 - 54.3 % [facility] Monocytes % 4.7 4.3 - 13.5 % [facility] Eosinophils % 1.2 0.0 - 6.0 % [facility] Basophil % 0.6 0.0 - 3.0 % [facility] Absolute Neutrophil 6.0 1.8 - 6.6 K/uL [facility] Absolute Lymphocyte 1.8 0.8 - 3.3 K/uL [facility] Absolute Monocyte 0.4 0.2 - 1.2 K/uL [facility] Absolute Eosinophil 0.1 0.0 - 0.5 K/uL [facility] Absolute Basophil 0.1 0.0 - 0.2 K/uL [facility] Nucleated RBC % 0.0 0.0 - 0.4 /100 WBC [facility] Blood 08/01/2024 3:32 PM PINSETTER MECHANIC HELPER 08/01/2024 4:11 PM PINSETTER MECHANIC HELPER us Vasu Barry MD LAB BLOOD ORDERABLES Final Resu lt [facility] * (ABNORMAL) Basic metabolic panel (08/01/2024 3:32 PM PINSETTER MECHANIC HELPER) Pathologist [facility] Glucose 88 64 - 99 mg/dL [facility] Comment: NONFASTING GLUCOSE RANGE = 64-199 mg/dL FASTING GLUCOSE 64 - 99 = NORMAL FASTING GLUCOSE 100 - 125 = IMPAIRED FASTING GLUCOSE FASTING GLUCOSE >=126 = PROVISIONAL DIAGNOSIS OF DIABETES Potassium 4.7 3.3 - 5.1 mmol/L [facility] Creatinine 1.41(H) 0.70 - 1.30 mg/dL [facility] BUN 44(H) 7 - 23 mg/dL [facility] Sodium 136 135 - 145 mmol/L [facility] Chloride 98 95 - 107 mmol/L [facility] CO2 Content 23 21 - 29 mmol/L [facility] Calcium 10.8(H) 8.6 - 10.3 mg/dL [facility] eGFR 51.3(L) >60.0 mL/min/1.7 3 m2 [facility] Blood 08/01/2024 3:32 PM PINSETTER MECHANIC HELPER 08/01/2024 4:11 PM PINSETTER MECHANIC HELPER us Vasu Barry MD LAB BLOOD ORDERABLES Final Resu lt [facility] * TRANSTHORACIC ECHO (TTE) COMPLETE W DOPPLER/CF WO CONTRAST (08/01/2024 2:13 PM PINSETTER MECHANIC HELPER) LV EF % CONS SCIMAGE Anatomical Region Laterality Modality Ultrasound 08/01/2024 1:26 PM PINSETTER MECHANIC HELPER Narrative 08/04/2024 7:08 AM PINSETTER MECHANIC HELPER [facility] [place] [address] Transthoracic Echocardiographic Report Patient Name: RIGO TALLEY D : 1945 (79y 1m) Gender: M Study Date: 08/01/2024 01:26:39 PM Ht(Inch): 70 Wt(Lb): 218.03 BSA: 2.21 Wrist Hemmer: Marilyn Bui RDCS Location: [facility] Order Provider: VASU BARRY Heart Rate: 57 BMI: 31.28 BP: 144 / 72 Quality: The study images were of technically good quality. Ref Provider: VASU BARRY PROCEDURES: Echocardiographic Report: [id number]) Transthoracic complete echo with strain imaging, 2D, spectral and tissue Doppler, color flow Doppler, M-mode. INDICATIONS: I36.1 Nonrheumatic tricuspid (valve) insufficiency. FINDINGS: Left Ventricle: Mildly dilated left ventricle based on volume index. Normal LV wall thickness. Normal left ventricular systolic function. The Ejection Fraction (Nelson's) is measured at 60 %. The LV global strain is: -18.8 %. Right Ventricle: Right ventricular dilatation. Normal right ventricular systolic function. Left Atrium: Mildly dilated left atrium. Right Atrium: Right atrial dilatation. Mitral Valve: Normal mitral valve leaflet structure. Mild mitral annular calcification. No mitral regurgitation seen. Aortic Valve: Trileaflet aortic valve. No aortic valve stenosis. The mean transaortic gradient is 4.19 mmHg. The aortic valve area by the continuity equation (using VTI) is 3.34 cm2. Tricuspid Valve: The tricuspid valve demonstrates normal leaflet structure. Dilated tricuspid valve annulus, 5.0 cm; Moderate to severe Tricuspid Regurgitation;. Pulmonic Valve: The pulmonic valve demonstrates normal leaflet structure. No evidence of pulmonic regurgitation. Aorta: The aortic root is normal in size. The aortic root is normal in size when indexed. There is dilation of the ascending aorta when indexed. Rhythm: The rhythm during the study was atrial fibrillation. CONCLUSIONS: 1. Normal LV wall thickness. Normal left ventricular systolic function. The Ejection Fraction (Nelson's) is measured at 60 %. 2. Right ventricular dilatation. Normal right ventricular systolic function. Moderate to severe Tricuspid valve Regurgitation. MEASUREMENTS: 2D/MM Value Range Doppler Value Range LVIDd 2D 6.85 cm [ 4.20 - 5.80 ] AV Peak Daniel 1.26 m/s [ 1.00 - 1.70 ] LVIDs 2D 4.41 cm [ 2.50 - 4.00 ] AV Peak PG 6.35 IVSd 2D 0.70 cm [ 0.60 - 1.00 ] AV Mean PG 4.19 mmHg LVPWd 2D 0.59 cm [ 0.60 - 1.00 ] AV VTI 32.92 cm LV Thickness Ratio 1.19 [ 1.50 - 3.00 ] LVOT Peak Daniel 1.24 m/s [ 0.70 - 1.10 ] LV FS 2D 35.66 % [ 25.00 - 43.00 ] LVOT Peak PG 6.15 LV Mass 2D 192.21 g LVOT Mean PG 3.86 mmHg LV Mass Index 2D 86.97 g/m2 LVOT VTI 30.34 cm RWT 0.17 LVOT Diam 2.15 cm EDV Mod BP 161.33 ml [ 62.00 - 150.00 ] ILIANA VTI 3.34 cm2 LV EDV Index 73.00 ml/m2 LVOT/AV VTI 0.92 - Dimensionless index (DVI) ESV Mod BP 63.98 ml [ 21.00 - 61.00 ] RV S` 10.56 cm/sec EF Mod BP 60 % [ 52 - 72 ] TR Peak Daniel 2.91 m/s [ 1.00 - 2.80 ] LV GLS -18.8 % [ -18.0 - -16.0 ] TR Peak PG 33.9 LA Length 2C 7.35 cm PV Peak Daniel 1.03 m/s [ 0.40 - 0.80 ] LA Length 4C 7.59 cm PV Peak PG 4.24 LA Volume BP 90.61 ml LA Volume Index 41.00 ml/m2 [ 16.00 - 34.00 ] RV Base Dimen 2D 5.0 cm [ 2.5 - 4.2 ] RA Volume 71.16 ml RA Volume Index 32.20 ml/m2 AoR Diam 2D 3.36 cm [ 3.10 - 3.70 ] Ao Root Index 1.52 cm/m2 [ 1.00 - 2.00 ] Asc Ao Diam 2D 3.98 cm Asc Ao Index 1.80 cm/m2 - ATTESTATION: I have reviewed and interpreted the pertinent images and measurements of this study. I attest to the conclusions in the final report that is provided above. DISCLAIMER: The study images and the final report will be retained in the patient chart by the [facility] for the legally required time period. This chart constitutes the legal record of any testing performed. Electronically Signed By: Franklin Schmitt MD 08/04/2024 7:07:40 AM PINSETTER MECHANIC HELPER Electronically Signed By: Franklin Schmitt MD 08/04/2024 7:07:40 AM PINSETTER MECHANIC HELPER Procedure Note Franklin Schmitt MD - 08/04/2024 [facility] Cardiac [place] [address] Transthoracic Echocardiographic Report Patient Name: RIGO TALLEY D : 1945 (79y 1m) Gender: M Study Date: 08/01/2024 01:26:39 PM Ht(Inch): 70 Wt(Lb): 218.03 BSA: 2.21 Wrist Hemmer: Marilyn Bui RDCS Location: [facility] Order Provider:VASU BARRY Heart Rate: 57 BMI: 31.28 BP: 144 / 72 Quality: The study images were oftechnically good quality. Ref Provider: VASU BARRY PROCEDURES: Echocardiographic Report: ([id number]) Transthoracic complete echo withstrain imaging, 2D, spectral and tissue Doppler, color flow Doppler, M-mode. INDICATIONS: I36.1 Nonrheumatic tricuspid (valve) insufficiency. FINDINGS: Left Ventricle: Mildly dilated left ventricle based on volume index.Normal LV wall thickness. Normal left ventricular systolic function. The EjectionFraction (Nelson's) is measured at 60 %. The LV global strain is: -18.8 %. Right Ventricle: Right ventricular dilatation. Normal right ventricularsystolic function. Left Atrium: Mildly dilated left atrium. Right Atrium: Right atrial dilatation. Mitral Valve: Normal mitral valve leaflet structure. Mild mitral annularcalcification. No mitral regurgitation seen. Aortic Valve: Trileaflet aortic valve. No aortic valve stenosis. The meantransaortic gradient is 4.19 mmHg. The aortic valve area by the continuity equation(using VTI) is 3.34 cm2. Tricuspid Valve: The tricuspid valve demonstrates normal leafletstructure. Dilated tricuspid valve annulus, 5.0 cm; Moderate to severe TricuspidRegurgitation;. Pulmonic Valve: The pulmonic valve demonstrates normal leaflet structure.No evidence of pulmonic regurgitation. Aorta: The aortic root is normal in size. The aortic root is normal insize when indexed. There is dilation of the ascending aorta when indexed. Rhythm: The rhythm during the study was atrial fibrillation. CONCLUSIONS: 1. Normal LV wall thickness. Normal left ventricular systolic function.The Ejection Fraction (Nelson's) is measured at 60 %. 2. Right ventricular dilatation. Normal right ventricular systolicfunction. Moderate to severe Tricuspid valve Regurgitation. MEASUREMENTS: 2D/MM Value Range DopplerValue Range LVIDd 2D 6.85 cm [ 4.20 - 5.80 ] AV Peak Vel1.26 m/s [ 1.00 - 1.70 ] LVIDs 2D 4.41 cm [ 2.50 - 4.00 ] AV Peak PG6.35 IVSd 2D 0.70 cm [ 0.60 - 1.00 ] AV Mean PG4.19 mmHg LVPWd 2D 0.59 cm [ 0.60 - 1.00 ] AV VTI32.92 cm LV Thickness Ratio 1.19 [ 1.50 - 3.00 ] LVOT Peak Vel1.24 m/s [ 0.70 - 1.10 ] LV FS 2D 35.66 % [ 25.00 - 43.00 ] LVOT Peak PG6.15 LV Mass 2D 192.21 g LVOT Mean PG3.86 mmHg LV Mass Index 2D 86.97 g/m2 LVOT VTI30.34 cm RWT 0.17 LVOT Diam2.15 cm EDV Mod BP 161.33 ml [ 62.00 - 150.00 ] ILIANA VTI3.34 cm2 LV EDV Index 73.00 ml/m2 LVOT/AV VTI0.92 - Dimensionless index (DVI) ESV Mod BP 63.98 ml [ 21.00 - 61.00 ] RV S`10.56 cm/sec EF Mod BP 60 % [ 52 - 72 ] TR Peak Vel2.91 m/s [ 1.00 - 2.80 ] LV GLS -18.8 % [ -18.0 - -16.0 ] TR Peak PG33.9 LA Length 2C 7.35 cm PV Peak Vel1.03 m/s [ 0.40 - 0.80 ] LA Length 4C 7.59 cm PV Peak PG4.24 LA Volume BP90.61 ml LA Volume Index 41.00 ml/m2 [ 16.00 - 34.00 ] RV Base Dimen 2D 5.0 cm [ 2.5 - 4.2 ] RA Kmlnfr87.16 ml RA Volume Index32.20 ml/m2 AoR Diam 2D 3.36 cm [ 3.10 - 3.70 ] Ao Root Index 1.52 cm/m2 [ 1.00 - 2.00 ] Asc Ao Diam 2D3.98 cm Asc Ao Index1.80 cm/m2 - ATTESTATION: I have reviewed and interpreted the pertinent images and measurements ofthis study. I attest to the conclusions in the final report that is provided above. DISCLAIMER: The study images and the final report will be retained in the patientchart by the [facility] Laboratory for the legally required time period. This chart constitutesthe legal record of any testing performed. Electronically Signed By: Franklin Schmitt MD 08/04/2024 7:07:40 AM PINSETTER MECHANIC HELPER Electronically Signed By: Franklin Schmitt MD 08/04/2024 7:07:40 AM PINSETTER MECHANIC HELPER Vasu Barry MD CV ECHO PROCEDURES Final Result * Hepatitis panel, acute (12/12/2022 7:19 PM CDT) Hep A IgM Nonreactive Nonreactive [facility] Hep B core IgM Nonreactive Nonreactive [facility] Hep C Ab Nonreactive Nonreactive [facility] Comment:Antibodies to HCV no t detected. Does NOT exclude the possibility of recent exposure to HCV. Current interpretive data was last revised on 22 HepBsAg Nonreactive Nonreactive [facility] Blood 12/12/2022 7:19 PM CDT 12/12/2022 7:28 PM CDT Kurtis Castellanos MD LAB MICROBIOLOGY - GENERAL OR DERABLES Final Result [facility] Department [place] [address] from Last 3 Months or Most Recently Relevant to Health Maintenance Insurance [id number] UHC MEDICARE ADV[facility]AGE [facility] MED[facility]ARE Address: [facility] [address] [place] [address] [facility] MEDICARE AD[facility]ANT[facility] MEDICARE Address: [address] [address] [place] [address] [facility] MEDICARE AD[facility]ANTAGE 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 DIRECTIVE 08/17/2023 11:27 AM YOMI R OF BACK TENDER [employer] PR[employer]ING-MEDICAL ADVANCE DIRECTIVE 07/20/2023 10:18 AM YOMI R OF BACK TENDER [employer] PRINTING-MEDICAL ADVANCE DIRECTIVE 07/17/2023 3:00 PM POWER OF BACK TENDER CLOTH PRINTING-MEDICAL * Full Code (Latest Code Status on File) Date Activated Date Inactivated Comments 09/10/2023 7:37 PM 09/14/2023 6:45 PM * Full Code Date Activated Date Inactivated Comments 07/26/2023 5:02 PM 08/14/2023 6:33 PM * Full Code Date Activated Date Inactivated Comments 07/16/2023 11:41 AM 07/19/2023 9:03 PM * Full Code Date Activated Date Inactivated Comments 12/11/2022 8:18 PM 12/26/2022 8:20 PM Care Teams Medical Social Worker Relationship Specialty Start Date End Date Kiesha Reynolds MD PCP - General Family Medicine 02/13/23 Kurtis Castellanos MD Referring Physician Cardiology 01/06/23 [place] [id number] [place] [address] Consulting Physician Internal Medicine 08/14/23 [place] [id number] [facility] [address] [address] Surgeon Trauma Surgery 08/14/23
--- OUTSIDE RECORDS SUMMARY | 2024-10-22 15:51 | XMS_ITS | CONTINUITY OF CARE DOCUMENT ---
Author Name jonathan castillo Address Unknown Organization [facility] Address [address] [facility] [address] [place] [address] Phone [phone] Care Team Providers Care Potato Grader Name Role Phone Hien Espinal MD Unavailable [phone] Hien Espinal MD Unavailable [phone] INSURANCE PROVIDERS Payer name Policy type / Coverage type [place] red democrat ID UHC MEDICARE COMPLETE HMO Other [id number]
--- OUTSIDE RECORDS SUMMARY | 2024-10-22 15:51 | XMS_ITS | Continuity of Care Document ---
Author Organization [facility] Address [address] [facility] utive [facility] [[email or web address]] [address] [place] [address] Phone Care Team Providers Care Galley Hand Name Role Phone Delmy Beauchamp Unavailable Unavailable [...] Copied on Encounter Office/outpat ient Visit, [facility], [address] [place] [address] [address], [place], [place], [id number], [place] tel:[phone] [facility] No Information Oct-2 2-201 0 Quyn[address] Brock. [address], [place], [address], [place]. tel:[phone] Referring Provider: [address], [place], [address]. tel:[phone] Office/outpat ient Visit, [facility], [id number] [place] [address] [address], [place], [place], [id number], [place] tel:[phone] [facility] No Information 0 Quynh Brock. [address] [facility] , [address], [place], [place], [facility], . tel:[phone] Referring Provider: Delmy Rivera, [address], [place], [facility]. tel:[phone] [facility], [address] [place] [address] [address], [place], [place], [id number], tel:[phone] [facility] No Information 0 Quynh Brock. [address] [facility] , [address], [place], [facility], . tel:[phone] Referring Provider: Delmy Rivera, [address], [place], [facility]. tel:[phone] Office/outpat ient Visit, [facility], [address] [place] [address] [address], [place], [place], [id number], [place] tel:[phone] [facility] No Information Feb-0 200 9 Quynh Miguel [address] [facility] , [address], [place], [place], [facility], [place]. tel:[phone] Office/outpat ient Visit, [facility], [address] [place] [address] [address], [place], [place], [id number], [place] tel:[phone] [facility] No Information Sep-2 8-200 9 Quynh Brock. [address] , [address], [place], [facility], . tel:[phone] Referring Provider: Delmy Rivera, [address], [place], [facility]. tel:[phone] [facility], [address] [place] [address] [address], [place], [place], [id number], tel:[phone] [facility] No Information 8 Quynh Brock. [facility] , [address], [place], [facility], . tel:[phone] Referring Provider: Delmy Rivera, [address], [place], [facility]. tel:[phone] Office/outpat ient Visit, [facility], [address] [place] [address] [address], [place], [place], [id number], tel:[phone] [facility] No Information 8 Quynh Brock. [facility] [address], [address], [place], [facility], . tel:[phone] Referring Provider: Nancy Meraz [facility] [address], [place], [facility]. tel:[phone] Office/outpat ient Visit, [facility], [address] [place] [address] [address], [place], [place], [id number], tel:[phone] [facility] No Information 7 Quynh Cruz [facility] [address], [address], [place], [facility], . tel:[phone] Referring Provider: Nancy Meraz [facility] [address], [place], [facility]. tel:[phone] Family History Family Member Type Diagnosis Age At Onset No Information Payers Payer name Insurance type Covered republican ID Authoraroldoa caitlin(s) [facility] [id number] Social History Type Description Quantity Date Captured [...]
--- OUTSIDE RECORDS SUMMARY | 2024-10-22 15:51 | XMS_ITS | Referral Summary ---
Author Organization [facility] [address] Address [address] [place] [address] Care Team Providers Care Fishing Line Winding Machine Operator Name Role Phone Kurtis Castellanos MD Unavailable [phone] Kiesha Reynolds MD Primary Care Provider Hoda Oconnor MD Unavailable Rohith Flores MD Unavailable Encounters Date Type Department Care Team Description 09/26/2024 Telephone [facility] Cardiology [address] [place] [address] 8th [place] [address] [place] [address] Kurtis Castellanos MD 09/12/2024 Telephone [facility] Cardiology [address] [place] [address] 8th [place] [address] [place] [address] Lynsey Coronado MD 08/30/2024 10:50 AM CDT Ancillary Procedure [facility] Cardiology [address] [place] [address] 8th [place] [address] [place] [address] Typical atrial flutter (HCC); Second degree AV block 08/30/2024 Results Follow-Up [facility] Cardiology [employer] Medical Office Building [address] [place] [address] Lynsey Coronado MD 08/30/2024 9:45 AM CDT Office Visit [facility] Cardiology [address] 8th [place] [address] [place] [address] Lynsey Coronado MD Typical atrial flutter (HCC) (Primary Dx); Second degree AV block 08/01/2024 3:32 PM SENIOR ACCOUNTANT - 08/01/2024 11:59 PM SENIOR ACCOUNTANT Hospital Encounter [address] [address] Nonrheumatic tricuspid valve regurgitation Discharge Disposition: Discharge to home or self care 08/01/2024 3:40 PM SENIOR ACCOUNTANT Lab [facility] Endocrinology Metabolism and Lipid [address] 8th [place] [address] [place] [address] Nonrheumatic tricuspid valve regurgitation 08/01/2024 1:05 PM SENIOR ACCOUNTANT - 08/01/2024 11:59 PM SENIOR ACCOUNTANT Hospital Encounter [facility] [address] [address] Nonrheumatic tricuspid valve regurgitation Discharge Disposition: Discharge to home or self care 08/01/2024 2:45 PM SENIOR ACCOUNTANT Office Visit [facility] Cardiology [address] [place] [address] 8th [place] [address] [place] [address] Nonrheumatic tricuspid valve regurgitation (Primary Dx); Non-rheumatic mitral regurgitation from Last 3 Months Allergies Active Allergy Reactions Criticality Noted Date Comments Adhesive Tape-Silicones Rash Medium Lanolin Rash Medium Lisinopril Other (See comments) Medium Reaction: hyperkalemia, Exqlfdiz-Okefujwgtx-Ks lymyxin Rash Medium Sulfa (Sulfonamide Antibiotics) Unknown 09/05/2022 Medications latanoprost (XALATAN) 0.005 % ophthalmic solution One drop to the affected eye(s) one time per day 0 0 7 Active cholecalciferol (VITAMIN D-3) 2,000 unit tablet Take 1 tablet (2,000 Units total) by mouth daily Active tamsulosin (FLOMAX) 0.4 mg extended release capsule Take 1 capsule (0.4 mg total) by mouth glass mold repairer before breakfast 3 Active cyanocobalamin (Vitamin B-12) 500 mcg tablet Take 2 tablets (1,000 mcg total) by mouth daily Active allopurinoL (ZYLOPRIM) 300 mg tablet Take 1 tablet (300 mg total) by mouth daily 30 tablet 11 3 Active levothyroxine (SYNTHROID) 50 mcg tablet Take 1 tablet (50 mcg total) by mouth glass mold repairer before breakfast 30 tablet 2 3 Active [...] across the tricuspid valve could worsen Mr. Hendricks's TR Mixed hyperlipidemia 11/26/2023 Moderate protein-calorie malnutrition [...] reportedly underwent an atrial flutter ablation at [facility] in 10/2015 Mr. Hendricks is no longer maintained on OAC for [...] obesity 11/05/2013 05/26/2017 Overview (09/25/2016): MORBID OBESITY Immunizations Immunization Administration Dates Next Due Influenza, Unspecified 03/22/2023 Social History Tobacco Use Types Packs/Day Years Used Date Smoking Tobacco: Never Smokeless Tobacco: Never Tobacco Cessation:Counseling Given: Not Answered Alcohol Use Standard Drinks/Week Comments No 0 (1 standard drink = 0.6 oz pur e alcohol) [facility] Utilities Answer Date Recorded In the past 12 months has [employer], [employer], or water [email or web address] threatened to shut off services in your [...] often do you attend chur ch or latter day services? Never 09/11/2023 Do you belong to any clubs o r organizations such as mandaen groups, unions, fraternal or athletic groups, or [...] on file Legal Sex Male 11:00 AM SENIOR ACCOUNTANT Gender Identity Not on file Sexual Orientation Not on file Last Filed Vital Signs Vital Sign Reading Time Taken Comments Blood Pressure 161/75 08/30/2024 9:46 AM CDT Pulse 49 08/30/2024 9:46 AM CDT Temperature 36.5 C (97.7 F) 04/27/2024 8:49 AM SENIOR ACCOUNTANT Respiratory Rate 16 04/27/2024 8:49 AM SENIOR ACCOUNTANT Oxygen Saturation 98% 08/30/2024 9:46 AM CDT Inhaled Oxygen Concentration - - Weight 99.7 kg (219 lb 12.8 oz) 08/30/2024 9:46 AM CDT Height 177.8 cm (5' 10 ) 08/30/2024 9:46 AM CDT Body Mass Index 31.54 08/30/2024 9:46 AM CDT Plan of Treatment Not on file Medical Devices Implanted Type Area Auditor In Charge Device Identifier Shelf Expiration Date Model / Serial / Lot [employer] Cytal [id number] Fenestrate Matrix 6 Layer Graft Skin [id number] - [id number] - [id number] Implanted:Qty: 1 on 08/06/2023 by Rohith Flores MD at [facility] Right: Leg [employer] 04/21/2024 [id number] / [id number] / [id number] [employer] Cytal [id number] Fenestrate Matrix 6 Layer Graft Skin [id number] - [id number] - [id number] Implanted:Qty: 1 on 08/06/2023 by Rohith Flores MD at [facility] Right: Leg [employer] 04/21/2024 [id number] / [id number] / [id number] Procedures Procedure Name Priority Date/Time Associated Diagnosis Comments EXTENDED/JAIL HOLTER PATCH (>48 HOURS UP TO 7 DAYS) Routine 08/30/2024 12:58 PM CDT Typical atrial flutter (HCC) Second degree AV block ECG 12-LEAD Routine 08/30/2024 9:48 AM CDT Typical atrial flutter (HCC) PRO B-TYPE NATRIURETIC PEPTIDE Routine 08/01/2024 3:32 PM SENIOR ACCOUNTANT Nonrheumatic tricuspid valve regurgitation CBC WITH AUTO DIFFERENTIAL Routine 08/01/2024 3:32 PM SENIOR ACCOUNTANT Nonrheumatic tricuspid valve regurgitation BASIC METABOLIC PANEL Routine 08/01/2024 3:32 PM SENIOR ACCOUNTANT Nonrheumatic tricuspid valve regurgitation TRANSTHORACIC ECHO (TTE) COMPLETE W DOPPLER/CF WO CONTRAST Routine 08/01/2024 2:13 PM SENIOR ACCOUNTANT Nonrheumatic tricuspid valve regurgitation HEPATITIS PANEL, ACUTE Routine 12/12/2022 7:19 PM CDT from Last 3 Months or Most Recently Relevant to Health Maintenance Results * Extended/Mcc Holter Patch (>48 hours up to 7 days) (08/30/2024 12:58 PM CDT) Anatomical Region Laterality Modality Electrocardiogra phy 08/30/2024 10:4 5 AM CDT Narrative 09/11/2024 1:53 PM CDT [facility] [place] [address] HOLTER MONITOR Patient Name: RIGO HENDRICKS Deacon : 1945 (79y 2m) Gender: M Study Date: 08/30/2024 10:45:46 AM Ht(Inch): Wt(Lb): BSA: Tech: Location: [facility] Order Provider: LYNSEY CORONADO BMI: Ref Provider: LYNSEY CORONADO PROCEDURES: Holter Report: EXTENDED/JAIL HOLTER PATCH (>48 HOURS UP TO 7 DAYS) [CAR79]. Enrollment Period: 08/30/24-09/02/24. Monitor Number: [id number]. Location: [facility]. INDICATIONS: I48.3 Typical atrial flutter and I44.1 [...] events Total (VE): 1589 events Total beats: 765009 Protocol: Recording Duration (Actual): 745568.45 Total QRS: 004892 SUMMARY: *The predominant rhythm was AV Block. [...] Note Evangelist Schwab MD PhD - 09/11/2024 [facility] [place] [address] [place] [address] HOLTER MONITOR Patient Name: RIGO HENDRICKS Deacon : 1945 (79y 2m) Gender: M Study Date: 08/30/2024 10:45:46 AM Ht(Inch): Wt(Lb): BSA: Tech: Location: [facility] Order Provider: LYNSEY CORONADO BMI: Ref Provider: LYNSEY CORONADO PROCEDURES: Holter Report: EXTENDED/JAIL HOLTER PATCH (>48 HOURS UP TO 7 DAYS)[[id number]]. Enrollment Period: 08/30/24-09/02/24. Monitor Number: [id number]. Location: [facility]. INDICATIONS: I48.3 Typical atrial flutter and I44.1 [...] events Total (VE): 1589 events Total beats: 719713 Protocol: Recording Duration (Actual): 259436.45 Total QRS: 025822 SUMMARY: *The predominant rhythm was AV Block. [...] Schwab Jr., M.D. 09/11/2024 1:10:11 PM CDT Lynsey Coronado MD CV CARDIAC SERVICES PROCE [facility] Final Result * ECG 12 lead (08/30/2024 9:48 AM CDT) us Lynsey Coronado MD ECG ORDERABLES Edited Re sult - Final * Pro B-type natriuretic peptide (08/01/2024 3:32 PM SENIOR ACCOUNTANT) NT-proBNP 401 <=450 pg/mL Comment: Interpretive Comments: [...] Revised Date: 2018. Blood 08/01/2024 3:32 PM SENIOR ACCOUNTANT 08/01/2024 5:48 PM SENIOR ACCOUNTANT us Vasu Hernandez MD LAB BLOOD ORDERABLES Final Resu lt [facility] One [facility] Department [place] [address] * (ABNORMAL) CBC with auto differential (08/01/2024 3:32 PM SENIOR ACCOUNTANT) [facility] White Blood Count 8.3 3.6 - 11.2 [...] [facility] Blood 08/01/2024 3:32 PM SENIOR ACCOUNTANT 08/01/2024 4:11 PM SENIOR ACCOUNTANT Vasu Hernandez MD LAB BLOOD ORDERABLES Final Resu lt Performing Organization Address [facility] Co de Phone Number [facility] * (ABNORMAL) Basic metabolic panel (08/01/2024 3:32 PM SENIOR ACCOUNTANT) Glucose 88 64 - 99 mg/dL [facility] [...] [facility] Blood 08/01/2024 3:32 PM SENIOR ACCOUNTANT 08/01/2024 4:11 PM SENIOR ACCOUNTANT Vasu Hernandez MD LAB BLOOD ORDERABLES Final Resu lt Performing Organization Address [facility] Co de Phone Number [facility] * TRANSTHORACIC ECHO (TTE) COMPLETE W DOPPLER/CF WO CONTRAST (08/01/2024 2:13 PM SENIOR ACCOUNTANT) LV EF % CONS SCIMAGE Anatomical Region Laterality Modality Ultrasound 08/01/2024 1:26 PM SENIOR ACCOUNTANT Narrative 08/04/2024 7:08 AM SENIOR ACCOUNTANT [facility] [place] [address] Transthoracic Echocardiographic Report Patient Name: RIGO HENDRICKS D : 1945 (79y 1m) Gender: M Study Date: 08/01/2024 01:26:39 PM Ht(Inch): 70 Wt(Lb): 218.03 BSA: 2.21 Dental Ceramist Helper: Marilyn Bui RDCS Location: [facility] Order Provider: VASU HERNANDEZ Heart Rate: 57 BMI: 31.28 BP: 144 / 72 Quality: The study images were of technically good quality. Ref Provider: VASU HERNANDEZ PROCEDURES: Echocardiographic Report: ([id number], [id number]) Transthoracic complete echo with strain imaging, 2D, [...] By: Franklin Schmitt MD 08/04/2024 7:07:40 AM SENIOR ACCOUNTANT Electronically Signed By: Franklin Schmitt MD 08/04/2024 7:07:40 AM SENIOR ACCOUNTANT Procedure Note Franklin Schmitt MD - 08/04/2024 [facility] [place] [address] Transthoracic Echocardiographic Report Patient Name: RIGO HENDRICKS D : 1945 (79y 1m) Gender: M Study Date: 08/01/2024 01:26:39 PM Ht(Inch): 70 Wt(Lb): 218.03 BSA: 2.21 Dental Ceramist Helper: Marilyn Bui RDCS Location: [facility] Order Provider:VASU HERNANDEZ Heart Rate: 57 BMI: 31.28 BP: 144 / 72 Quality: The study images were oftechnically good quality. Ref Provider: VASU HERNANDEZ PROCEDURES: Echocardiographic Report: ([id number], [id number]) Transthoracic complete echo withstrain imaging, 2D, spectral [...] cm [ 2.5 - 4.2 ] RA Suwqye60.16 ml RA Volume Index32.20 ml/m2 AoR Diam [...] By: Franklin Schmitt MD 08/04/2024 7:07:40 AM SENIOR ACCOUNTANT Electronically Signed By: Franklin Schmitt MD 08/04/2024 7:07:40 AM SENIOR ACCOUNTANT us Vasu Hernandez MD CV ECHO PROCEDURES Final Result * Hepatitis panel, acute (12/12/2022 7:19 PM CDT) Hep A IgM Nonreactive Nonreactive [facility] Hep B core IgM Nonreactive Nonreactive [facility] Hep C Ab Nonreactive Nonreactive [facility] Comment:Antibodies to HCV no t detected. Does NOT exclude the possibility of recent exposure to HCV. Current interpretive data was last revised on 22 HepBsAg Nonreactive Nonreactive [facility] Blood 12/12/2022 7:19 PM CDT 12/12/2022 7:28 PM CDT us Kurtis Castellanos MD LAB MICROBIOLOGY - GENERAL OR DERABLES Final Result [facility] One [facility] Department of Laboratories [place], [place] [id number] from Last 3 Months or Most Recently Relevant to Health Maintenance Insurance [facility] MEDICARE ADVANTAGE [facility] Address: [facility] [address] [place] [address] [facility] Address: [address] [address] [place] [address] [facility] Address: [address] [address] [place] [address] Advance Directives For more information, please contact: [phone] Documents on File Type Date Recorded Patient Power Manager Expl anation ADVANCE DIRECTIVE 08/17/2023 11:27 AM YOMI R OF LIGHT EQUIPMENT OPERATOR-MEDICAL ADVANCE DIRECTIVE 07/20/2023 10:18 AM YOMI R OF LIGHT EQUIPMENT OPERATOR-MEDICAL ADVANCE DIRECTIVE 07/17/2023 3:00 PM POWER OF LIGHT EQUIPMENT OPERATOR-MEDICAL * Full Code (Latest Code Status on File) Date Activated Date Inactivated Comments 09/10/2023 7:37 PM 09/14/2023 6:45 PM * Full Code Date Activated Date Inactivated Comments 07/26/2023 5:02 PM 08/14/2023 6:33 PM * Full Code Date Activated Date Inactivated Comments 07/16/2023 11:41 AM 07/19/2023 9:03 PM * Full Code Date Activated Date Inactivated Comments 12/11/2022 8:18 PM 12/26/2022 8:20 PM Care Teams Fishing Line Winding Machine Operator Relationship Specialty Start Date End Date Kiesha Reynolds MD PCP - General Family Medicine 02/13/23 Kurtis Castellanos MD Referring Physician Cardiology 01/06/23 [place] [address] [place] [address] Consulting Physician Internal Medicine 08/14/23 [place] [address] [address] Surgeon Trauma Surgery 08/14/23
--- OUTSIDE RECORDS SUMMARY | 2024-10-22 15:51 | XMS_ITS ---
Author Organization [facility] Address [address] [place], [place] [id number] Care Team Providers Care Executive Chef Name Role Phone DI PEPPER Unavailable [phone] Kiesha Reynolds Unavailable Unavailable Allergies Allergen (clinical drug ingredient) Drug/Non Drug Allergy documented on EMR Reaction Allergy Type Onset Date Status lanolin Lanolin Unknown Drug Allergy Active lisinopril Lisinopril Unknown Drug Allergy Activ e neomycin Neomycin Unknown Drug Allergy Active Tape Unknown Allergy Active REASON FOR VISIT Patient presents for at-risk foot care . The patient has painful toenails and calluses that are causing difficulty with ambulation and shoegear. The onset is gradual Medications Medication SIG (Take, Route, Frequency, Duration) Notes Start Date End Date Status Pregabalin 75 MG Oral for 30 Days Active Furosemide 20 MG Oral for 30 Days Active Levothyroxine Sodium 50 MCG Oral for 30 Days Active Jardiance 10 MG Oral for 90 Days Active Cephalexin 500 MG Oral for 10 Days Active Atorvastatin Calcium 10 MG Oral for 30 Days Active Latanoprost 0.005 % Ophthalmic for 25 Days Active Spironolactone 25 MG Oral for 30 Days Active Metoprolol Succinate ER 50 MG Oral for 30 Days Active Tamsulosin HCl 0.4 MG Oral for 30 Days Active Allopurinol 300 MG Oral for 90 Days Active amLODIPine Besylate 5 MG Oral for 90 Days Active Encounters Encounter Location Date Provider Diagnosis [address] [id number] 09/08/2024 DI PEPPER Tinea unguium B35.1 ; Acquired keratosis [keratoderma] palmaris et plantaris L85.1 ; Atherosclerosis of [place] arteries of extremities with intermittent claudication, bilateral legs I70.213 ; Pain in right foot M79.671 and Pain in left foot M79.672 Assessments Encounter Date Diagnosis (ICD Code) Assessment Notes Treatment Notes Treatment Clinical Notes Section Notes 09/08/2024 Tinea unguium (ICD-10 - B35.1) Nails 1-5 Bilateral were debrided extensively with nail nippers and emery board, reducing length and girth to pink healthy tissue with any subungual debris and necrotic tissue removed 09/08/2024 Acquired keratosis [keratoderma] palmaris et plantaris (ICD-10 - L85.1) A total of 4 corns or calluses, as described in the note above, were cut and pared utilizing a #15 blade 09/08/2024 Atherosclerosis of [place] arteries of extremities with intermittent claudication, bilateral legs (ICD-10 - I70.213) 09/08/2024 Pain in right foot (ICD-10 - M79.671) 09/08/2024 Pain in left foot (ICD-10 - M79.672) Plan Of Treatment Treatment Notes Assessment Notes Tinea unguium Nails 1-5 Bilateral were debrided extensively with nail nippers and emery board, reducing length and girth to pink healthy tissue with any subungual debris and necrotic tissue removed Acquired keratosis [keratode rma] palmaris et plantaris A total of 4 corns or calluses, as described in the note above, were cut and pared utilizing a #15 blade Next Appt Details Follow Up: 10 - 12 weeks, Re ason: At-Risk Foot care, sooner if problems develop. Provider Name:GUERLINE PABON, 11/10/2024 01:30:00 PM, [address] [place] [address], [phone], Progress Notes * Janeen HENDRICKS:1945 ( 79 yo M)Acc No.[id number]:09/08/2024 Patient: Nathalie YODERRigo Provider: Raven Pepper DPM :1945 A ge:79 Y S ex:Male Date:09/08/2024 Address:[address] [facility] Subjective: * Chief Complaints: * 1 . Patient presents for at-risk foot care . The patient has painful toenails and calluses that are causing difficulty with ambulation and shoegear. The onset is gradual. * HPI: H PI: General care P brenda presents to the office for at risk foot care. Patient states that their nails are thickened, elongated and painful. Patient states that it is aggravated by shoe gear. Onset is gradual. Patient denies being diabetic., Patient denies taking prescription blood thinners but does take a daily aspirin., Date last seen by Dr. Reynolds was 05/2024., Initials [facility]. * ROS: G eneral / Constitutional: Patient denies c hills, fever, weight loss. ? M usculoskeletal: Patient denies w eakness, broken foot bone. ? P eripheral Vascular: Patient denies p ain / cramping in legs after exertion, ulceration of feet. S kin: Patient complains of f ungal nails, nail changes, calluses and corns. N eurologic: Patient denies b alance difficulty, confusion, difficulty speaking, dizziness. * Medical History: E saritha, Heart problems, Hypertension. * Surgical History: a ppendectomy , Carpal Tunnel release . * Family History: F ather: gout, heart disease. M other: Diabetic, heart disease. * Social History: D rugs/Alcohol: D o you drink alcohol?: No. * Medications: T aking Allopurinol 300 MG Tablet Oral , Taking amLODIPine Besylate 5 MG Tablet Oral , Taking Atorvastatin Calcium 10 MG Tablet Oral , Taking Metoprolol Succinate ER 50 MG Tablet Extended Release 24 Hour Oral , Taking Tamsulosin HCl 0.4 MG Capsule Oral , Taking Spironolactone 25 MG Tablet Oral , Taking Latanoprost 0.005 % Solution Ophthalmic , Taking Levothyroxine Sodium 50 MCG Tablet Oral , Taking Jardiance 10 MG Tablet Oral , Taking Cephalexin 500 MG Capsule Oral , Taking Pregabalin 75 MG Capsule Oral , Taking Furosemide 20 MG Tablet Oral , Medication List reviewed and reconciled with the patient * Allergies: T ape, Lisinopril, Lanolin, Neomycin. Objective: * Vitals: * Examination: P hysical Examination: General appearance: A lert, pleasant, well-nourished and in no acute distress. D ermatologic: Skin findings: S kin is thin, atrophic and lacking pedal hair. Hypertrophic / hyperkeratotic lesion: p lantar aspect of the 1st and 5th metatarsal heads of the left and right foot. Nail pathology: N ails 1, 2, 3, 4, and 5 bilateral are elongated, thick, discolored, and dystrophic with subungual debris. They are painful to palpation. ? V ascular: Dorsalis pedis pulse: 1 /4 b ilateral. Posterior tibial pulse: 0 /4 bilateral. Capillary refill: g reater than 3 seconds. Edema: N o edema bilateral. N eurologic: Gross sensation G rossly intact to light touch. There is negative Tinel's sign. M usculoskeletal: Muscle Strength M uscle strength is 5/5 in regards to dorsiflexion, plantarflexion, inversion, and eversion in bilateral lower extremities. ? Assessment: * Assessment: 1. T inea unguium - B35.1 (Primary) 2 . A cquired keratosis [keratoderma] palmaris et plantaris - L85.1 3 . A therosclerosis of upper [place] arteries of extremities with intermittent claudication, bilateral legs - I70.213 4 . P ain in right foot - M79.671 5 . P ain in left foot - M79.672 Plan: * Treatment: 2. A cquired keratosis [keratoderma] palmaris et plantaris Notes: A total of 4 corns or calluses, as described in the note above, were cut and pared utilizing a #15 blade * Follow Up: 1 0 - 12 weeks (Reason: At-Risk Foot care, sooner if problems develop.) * Billing Information: * Visit Code: 38239 Office Visit, Est Pt., Level 3. * Procedure Codes: * Electronic signature of DI PEPPER DPM on 10/22/2024 at 03:51 PM CDT Sign off status: Pending * Provider: Raven Pepper DPM Date: 0 09/08/2024 Generated for Sumit blankenship/Aly/Regina on: 0 10/22/2024 03:51 PM CDT History and Physical Notes * HPI (History of Present Illness) Category Sub-Category Detail Notes Category Not es HPI General care Patient presents to the office for at risk foot care. Patient states that their nails are thickened, elongated and painful. Patient states that it is aggravated by shoe gear. Onset is gradual. Patient denies being diabetic., Patient denies taking prescription blood thinners but does take a daily aspirin., Date last seen by Dr. Reynlods was 05/2024., Initials [facility] Examination Category Sub-Category Detail Notes Category Not es Dermatologic Skin findings: Skin is thin, at rophic and lacking pedal hair Nail pathology: Nails 1, 2, 3, 4, an d 5 bilateral are elongated, thick, discolored, and dystrophic with subungual debris. They are painful to palpation Hypertrophic / hyperkeratotic lesion: pl geovani aspect of the 1st and 5th metatarsal heads of the left and right foot Neurologic Gross sensation Grossly intact t o light touch. There is negative Tinel's sign Vascular Dorsalis pedis pulse: 1/4 bilateral Edema: No edema bilateral Capillary refill: greater than 3 secon ds Posterior tibial pulse: 0/4 bilateral Physical Examination General appearance: Alert, pleasant, well-nourished and in no acute distress Musculoskeletal Muscle Strength Muscle strength is 5/5 in regards to dorsiflexion, plantarflexion, inversion, and eversion in bilateral lower extremities
--- OUTSIDE RECORDS SUMMARY | 2024-10-22 15:51 | XMS_ITS | Encounter Summary ---
Author Organization [facility] Address [address] [place] [address] Phone Care Team Providers Care It Infrastructure Manager Name Role Phone Kurtis Castellanos MD Unavailable [phone] Kiesha Reynolds MD Primary Care Provider [phone] Hoda Oconnor MD Unavailable Rohith Flores MD Unavailable [phone] Encounter Details Date Type Department Care Team (Late st Contact Info) Description 08/30/2024 Results Follow-Up [facility] Cardiology [address] [facility] Medical Office Building [address] [place] [address] Shubham Coronado MD [address] [place] [id number] Social History Tobacco Use Types Packs/Day Years Used Date Smoking Tobacco: Never Smokeless Tobacco: Never Alcohol Use Standard Drinks/Week Comments No 0 (1 standard drink = 0.6 oz pur e alcohol) [facility] Utilities Answer Date Recorded In the past 12 months has e electric, gas, oil, or water company [...] often do you attend chur ch or orthodox services? Never 09/11/2023 Do you belong to any clubs o r organizations such as protestant groups, unions, fraternal or athletic groups, or [...] place to sleep or slept in a mcc (including now)? No 09/11/2023 Personal Safety Answer Date Recorded Have you ever been in or are you currently in a harmful physical or emotional relationship or is someone making you feel afraid or unsafe? Denies 09/10/2023 Sex and Gender Information Value Date Recorded Sex Assigned at Not on file Legal Sex Male 11:00 AM RELIABILITY MANAGER Gender Identity Not on file Sexual Orientation Not on file documented as of this encounter Plan of Treatment Not on file documented as of this encounter Visit Diagnoses Not on filedocumented in this encounter Care Teams It Infrastructure Manager Relationship Specialty Start Date End Date Kiesha Reynolds MD PCP - General Family Medicine 02/13/23 Kurtis Castellanos MD Referring Physician Cardiology 01/06/23 [place] [address] [place] [address] Consulting Physician Internal Medicine 08/14/23 [place] [address] [address] [facility] [address] [address] Surgeon Trauma Surgery 08/14/23 documented as of this encounter
--- OUTSIDE RECORDS SUMMARY | 2024-10-22 15:51 | XMS_ITS | Encounter Summary ---
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 Name Role Phone Kurtis Castellanos MD Unavailable Kiesha Reynolds MD Primary Care Provider [phone] Hoda Oconnor MD Unavailable Rohith Flores MD Unavailable [phone] Encounter Details Date Type Department Care Team (Late st Contact Info) Description 09/26/2024 Telephone [facility] Cardiology [address] [facility] Medicine 8th [place] [address] [place] [id number] Kurtis Castellanos MD [address] [facility] [address] [place] [address] Social History Tobacco Use Types Packs/Day Years Used Date Smoking Tobacco: Never Smokeless Tobacco: Never Alcohol Use Standard Drinks/Week Comments No 0 (1 standard drink = 0.6 oz pur e alcohol) [facility] Utilities Answer Date Recorded In the [...] often do you attend chur ch or anabaptist services? Never 09/11/2023 Do you belong to any clubs o r organizations such as christian groups, unions, fraternal or athletic groups, or [...] place to sleep or slept in a nursing home (including now)? No 09/11/2023 Personal Safety Answer Date Recorded Have you ever been in or are you currently in a harmful physical or emotional relationship or is someone making you feel afraid or unsafe? 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 No other questions @ this time * Telephone Encounter - Jesenia Wu - 09/26/2024 10:50 AM CDT [place] Pt has a couple medications he wants to know if he needs to continue taking. Pls call. documented in this encounter Plan of Treatment Not on file documented as of this encounter Visit Diagnoses Not on filedocumented in this encounter Care Teams Rotary Rock Drilling Machine Operator Relationship Specialty Start Date End Date Kiesha Reynolds MD PCP - General Family Medicine 02/13/23 Kurtis Castellanos MD Referring Physician Cardiology 01/06/23 [place] [address] [facility] [place] [address] Consulting Physician Internal Medicine 08/14/23 [place] [address] [address] [place] [address] Surgeon Trauma Surgery 08/14/23 documented as of this encounter
--- OUTSIDE RECORDS SUMMARY | 2024-10-22 15:51 | XMS_ITS | Clinical Summary ---
Author Organization [facility] Vandana Crooks Address [address] [place] [address] Care Team Providers Care Moving Worker Name Role Phone Kiesha Reynolds MD Primary Care Provider [phone] Allergies Active Allergy Reactions Criticality Noted Date Comments Adhes. Gtta-Kell-Hdbgfjzwnxfj Rash Low 2022 Lanolin Rash Low 08/26/2022 Medications allopurinoL (ZYLOPRIM) 300 mg tablet 08/18/2022 Active tamsulosin (FLOMAX) 0.4 mg capsule 08/18/2022 Active amLODIPine (NORVASC) 5 mg tablet 08/18/2022 Active levothyroxine 50 mcg tablet 08/07/2022 Active atorvastatin (LIPITOR) 10 mg tablet 06/18/2022 Active metoprolol succinate (TOPROL XL) 50 mg Extended Release 24 hour tablet 06/18/2022 Active potassium chloride (MICRO-K EXTENCAPS) 10 mEq Extended Release capsule 07/22/2022 Act abdirahman furosemide (LASIX) 20 mg tablet 07/22/2022 Active latanoprost (XALATAN) 0.005 % solution 08/08/2022 Active cholecalciferol, Vitamin D3, 50 mcg (2,000 unit) Tablet Take by mouth. Active aspirin (ECOTRIN EC) 81 mg Tablet, Delayed Release (E.C.) Take 81 mg by mouth daily. Active Active Problems No known active problems Family History Medical History Relation Name Comments No Known Problems Brother 1 Heart Disease Brother 2 Heart Disease Brother 3 No Known Problems Daughter Heart Disease Father Heart Disease Mother No Known Problems Sister No Known Problems Son Relation Name Status Comments Brother 1 Alive Brother 2 Alive Brother 3 Daughter Alive Father Mother Sister Alive Son Alive Social History Tobacco Use Types Packs/Day Years Used Date Smoking Tobacco: Never Smokeless Tobacco: Never Alcohol Use Standard Drinks/Week Comments Not Currently 0 (1 standard drink = 0.6 oz pur e alcohol) Sex and Gender Information Value Date Recorded Sex Assigned at Not on file 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 Gender Identity Not on file Sexual Orientation Not on file Last Filed Vital Signs Vital Sign Reading Time Taken Comments Blood Pressure 126/47 09/29/2022 3:46 PM CDT Pulse 69 09/29/2022 3:46 PM CDT Temperature 36.3 C (97.4 F) 09/29/2022 3:46 PM CDT Respiratory Rate 10 09/29/2022 3:46 PM CDT Oxygen Saturation 100% 09/29/2022 3:46 PM CDT Inhaled Oxygen Concentration - - Weight 131.5 kg (290 lb) 09/29/2022 3:46 PM CDT Height 155.4 cm (5' 1.2 ) 08/26/2022 10:24 AM CS T Body Mass Index 54.44 08/26/2022 10:24 AM EXTERMINATOR HELPER Plan of Treatment Health Maintenance Due Date Last Done Comments DTAP/TDAP/TD VACCINES (1 - Tdap) 1966 PNEUMOCOCCAL VACCINE 50+ YEARS (1 of 1 - PCV) 06/17/19 97 ZOSTER VACCINE (1 of 2) 1997 RSV VACCINE (60+ or ) (1 - 1-dose 75+ series) 2022 INFLUENZA VACCINE (#1) 2024 Insurance [facility] [address] [address] Care Teams Moving Worker Relationship Specialty Start Date End Date Kiesha Reynolds MD [address] [place] [address] PCP - General Family Practice 08/26/22
--- OUTSIDE RECORDS SUMMARY | 2024-10-22 15:52 | XMS_ITS | Patient Health Record ---
Author Organization [facility] Address [address] [place], [place] [address] Care Team Providers Care Scrap Kettle Tender Name Role Phone DI PEPPER Unavailable [phone] Kiesha Reynolds Unavailable Unavailable FRANCIS ALONSO Unavailable [phone] Allergies Allergen (clinical drug ingredient) Drug/Non Drug Allergy documented on EMR Reaction Allergy Type Onset Date Status lanolin Lanolin Unknown Drug Allergy Active lisinopril Lisinopril Unknown Drug Allergy Activ e neomycin Neomycin Unknown Drug Allergy Active Tape Unknown Allergy Active Reason For Referral No Information Medications Medication SIG (Take, Route, Frequency, Duration) Notes Start Date End Date Status Pregabalin 75 MG Oral for 30 Days Active Allopurinol 300 MG Oral for 90 Days Active Furosemide 20 MG Oral for 30 Days Active amLODIPine Besylate 5 MG Oral for 90 Days Active Atorvastatin Calcium 10 MG Oral for 30 Days Active Latanoprost 0.005 % Ophthalmic for 25 Days Active Levothyroxine Sodium 50 MCG Oral for 30 Days Active Jardiance 10 MG Oral for 90 Days Active Cephalexin 500 MG Oral for 10 Days Active Spironolactone 25 MG Oral for 30 Days Active Metoprolol Succinate ER 50 MG Oral for 30 Days Active Tamsulosin HCl 0.4 MG Oral for 30 Days Active Immunizations Vaccine Route Administration Date Status Comme nts Influenza, high dose seasonal Unknown 03/26/2023 Admini stered Encounters Encounter Location Date Provider Diagnosis [address] [id number] 09/08/2024 DI PEPPER Tinea unguium B35.1 ; Acquired keratosis [keratoderma] palmaris et plantaris L85.1 ; Atherosclerosis of [place] arteries of extremities with intermittent claudication, bilateral legs I70.213 ; Pain in right foot M79.671 and Pain in left foot M79.[address] [id number] 12/10/2023 FRANCIS ALONSO Unspecified atherosclerosis of [place] arteries of extremities, bilateral legs I70.203 ; Tinea unguium B35.1 ; Other hammer toe(s) (acquired), right foot M20.41 ; Other hammer toe(s) (acquired), left foot M20.42 ; Pain in right toe(s) M79.674 ; Pain in left toe(s) M79.675 and Acquired keratosis [keratoderma] palmaris et plantaris L85.[address] [id number] 02/11/2024 FRANCIS ALONSO Unspecified atherosclerosis of [place] arteries of extremities, bilateral legs I70.203 ; Tinea unguium B35.1 ; Other hammer toe(s) (acquired), right foot M20.41 ; Other hammer toe(s) (acquired), left foot M20.42 ; Pain in right toe(s) M79.674 ; Pain in left toe(s) M79.675 and Acquired keratosis [keratoderma] palmaris et plantaris L85.[address] [id number] 04/14/2024 FRANCIS ALONSO Tinea unguium B35.1 ; Other hammer toe(s) (acquired), right foot M20.41 ; Other hammer toe(s) (acquired), left foot M20.42 ; Pain in right toe(s) M79.674 ; Pain in left toe(s) M79.675 ; Unspecified atherosclerosis of [place] arteries of extremities, bilateral legs I70.203 and Acquired keratosis [keratoderma] palmaris et plantaris L85.[address] [id number] 07/07/2024 DI PEPPER Tinea unguium B35.1 ; Acquired keratosis [keratoderma] palmaris et plantaris L85.1 ; Atherosclerosis of [place] arteries of extremities with intermittent claudication, bilateral legs I70.213 ; Pain in right foot M79.671 and Pain in left foot M79.672 Assessments Encounter Date Diagnosis (ICD Code) Assessment Notes Treatment Notes Treatment Clinical Notes Section Notes 12/10/2023 Tinea unguium (ICD-10 - B35.1) Aseptic debridement of elongated thickened nails x 10 using sterile nippers, nails were debrided in length and thickness by 30% utilizing a nail nipper without incident. The patient was educated regarding all treatment options that include topical and oral antifungal treatments. I discussed the options of taking a sample of the nail to confirm diagnosis. Nail clippings were not sent for pathology analysis. The patient was educated why and how the fungal infection evolved in their feet and the patient was given information regarding how to prevent further infection. The patient was told to keep feet dry and change socks. The patient was told to be careful with old shoes and excessive sweating. The patient was educated regarding both OTC and prescription treatments. 12/10/2023 Unspecified atherosclerosis of [place] arteries of extremities, bilateral legs (ICD-10 - I70.203) Patient educated on risks and aggravating factors of PVD, including conservative treatment options such as a diet and exercise regimen to aid in slowing progression of vascular disease 02/11/2024 Tinea unguium (ICD-10 - B35.1) Aseptic debridement of elongated thickened nails x 10 using sterile nippers, nails were debrided in length and thickness by 30% utilizing a nail nipper without incident. The patient was educated regarding all treatment options that include topical and oral antifungal treatments. I discussed the options of taking a sample of the nail to confirm diagnosis. Nail clippings were not sent for pathology analysis. The patient was educated why and how the fungal infection evolved in their feet and the patient was given information regarding how to prevent further infection. The patient was told to keep feet dry and change socks. The patient was told to be careful with old shoes and excessive sweating. The patient was educated regarding both OTC and prescription treatments. 02/11/2024 Unspecified atherosclerosis of [place] arteries of extremities, bilateral legs (ICD-10 - I70.203) Patient educated on risks and aggravating factors of PVD, including conservative treatment options such as a diet and exercise regimen to aid in slowing progression of vascular disease 04/14/2024 Tinea unguium (ICD-10 - B35.1) Aseptic debridement of elongated thickened nails x 10 using sterile nippers, nails were debrided in length and thickness by 30% utilizing a nail nipper without incident. The patient was educated regarding all treatment options that include topical and oral antifungal treatments. I discussed the options of taking a sample of the nail to confirm diagnosis. Nail clippings were not sent for pathology analysis. The patient was educated why and how the fungal infection evolved in their feet and the patient was given information regarding how to prevent further infection. The patient was told to keep feet dry and change socks. The patient was told to be careful with old shoes and excessive sweating. The patient was educated regarding both OTC and prescription treatments. 04/14/2024 Other hammer toe(s) (acquired), right foot (ICD-10 - M20.41) The patient was educated regarding how to mechanically stabilize their deformity. The patient was given education about shoe recommendations specific for the condition. The patient was educated about custom orthotics and how appropriate shoes and orthotics can prevent further worsening of the deformity. The patient was educated about how bad shoe habits can worsen the condition. NSAIDS, P.T., injections and other conservative treatments were discussed. Both surgical and non surgical treatments were discussed, but conservative options were emphasized. 07/07/2024 Tinea unguium (ICD-10 - B35.1) Nails 1-5 Bilateral were debrided extensively with nail nippers and emery board, reducing length and girth to pink healthy tissue with any subungual debris and necrotic tissue removed 07/07/2024 Acquired keratosis [keratoderma] palmaris et plantaris (ICD-10 - L85.1) A total of 4 corns or calluses, as described in the note above, were cut and pared utilizing a #15 blade 09/08/2024 Tinea unguium (ICD-10 - B35.1) Nails [...] utilizing a #15 blade 09/08/2024 Atherosclerosis of [place] arteries of extremities with intermittent claudication, bilateral legs (ICD-10 - I70.213) 07/07/2024 Atherosclerosis of [place] arteries of extremities with intermittent claudication, bilateral legs (ICD-10 - I70.213) 04/14/2024 Other hammer toe(s) (acquired), left foot (ICD-10 - M20.42) 12/10/2023 Other hammer toe(s) (acquired), right foot (ICD-10 - M20.41) The patient was educated regarding how to mechanically stabilize their deformity. The patient was given education about shoe recommendations specific for the condition. The patient was educated about custom orthotics and how appropriate shoes and orthotics can prevent further worsening of the deformity. The patient was educated about how bad shoe habits can worsen the condition. NSAIDS, P.T., injections and other conservative treatments were discussed. Both surgical and non surgical treatments were discussed, but conservative options were emphasized. 02/11/2024 Other hammer toe(s) (acquired), right foot (ICD-10 - M20.41) The patient was educated regarding how to mechanically stabilize their deformity. The patient was given education about shoe recommendations specific for the condition. The patient was educated about custom orthotics and how appropriate shoes and orthotics can prevent further worsening of the deformity. The patient was educated about how bad shoe habits can worsen the condition. NSAIDS, P.T., injections and other conservative treatments were discussed. Both surgical and non surgical treatments were discussed, but conservative options were emphasized. 02/11/2024 Other hammer toe(s) (acquired), left foot (ICD-10 - M20.42) 12/10/2023 Other hammer toe(s) (acquired), left foot (ICD-10 - M20.42) 04/14/2024 Pain in right toe(s) (ICD-10 - M79.674) 07/07/2024 Pain in right foot (ICD-10 - M79.671) 09/08/2024 Pain in right foot (ICD-10 - M79.671) 09/08/2024 Pain in left foot (ICD-10 - M79.672) 07/07/2024 Pain in left foot (ICD-10 - M79.672) 04/14/2024 Pain in left toe(s) (ICD-10 - M79.675) 12/10/2023 Pain in right toe(s) (ICD-10 - M79.674) 02/11/2024 Pain in right toe(s) (ICD-10 - M79.674) 02/11/2024 Pain in left toe(s) (ICD-10 - M79.675) 12/10/2023 Pain in left toe(s) (ICD-10 - M79.675) 04/14/2024 Unspecified atherosclerosis of [place] arteries of extremities, bilateral legs (ICD-10 - I70.203) Patient educated on risks and aggravating factors of PVD, including conservative treatment options such as a diet and exercise regimen to aid in slowing progression of vascular disease 04/14/2024 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 After removal of overlying extensive hyperkeratosis, healthy tissue was noted and care was taken to assure that no undermining or probing was present. It should be noted that no probing was noted and no infection or drainage was noted. 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 After removal of overlying extensive hyperkeratosis, healthy tissue was noted and care was taken to assure that no undermining or probing was present. It should be noted that no probing was noted and no infection or drainage was noted. 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 After removal of overlying extensive hyperkeratosis, healthy tissue was noted and care was taken to assure that no undermining or probing was present. It should be noted that no probing was noted and no infection or drainage was noted. Plan Of Treatment Next Appt Details Provider Name:GUERLINE PABON, 11/10/2024 01:30:00 PM, [address] [place] [address], [phone], Insurance Providers Payer Name Payer Address Payer Phone Subscriber Number Group Number Insured Name Patient Relationship to Insured Coverage Start Date Coverage End Date [facility] [address] [address] [place] [address] [id number] Rigo Talley Self - patient is the insured Medical (General) History Medical History History ICD Code edema heart problems hypertension Surgical History Surgery Date(Month/Year) appendectomy Carpal Tunnel release
--- OUTSIDE RECORDS SUMMARY | 2024-10-22 15:52 | XMS_ITS ---
Author Organization [facility] Address [address] [place], [place] [address] Care Team Providers Care Diploma Maker Name Role Phone DI PEPPER Unavailable [phone] Kiesha Reynolds Unavailable Unavailable FRANCIS ALONSO Unavailable [phone] REASON FOR VISIT *General care Medications Medication SIG (Take, Route, Frequency, Duration) Notes Start Date End Date Status Jardiance 10 MG Oral for 90 Days Active Spironolactone 25 MG Oral for 30 Days Active Tamsulosin HCl 0.4 MG Oral for 30 Days Active Levothyroxine Sodium 50 MCG Oral for 30 Days Active Latanoprost 0.005 % Ophthalmic for 25 Days Active Allopurinol 300 MG Oral for 90 Days Active amLODIPine Besylate 5 MG Oral for 90 Days Active Furosemide 20 MG Oral for 30 Days Active Metoprolol Succinate ER 50 MG Oral for 30 Days Active Atorvastatin Calcium 10 MG Oral for 30 Days Active Cephalexin 500 MG Oral for 10 Days Active Pregabalin 75 MG Oral for 30 Days Active Encounters Encounter Location Date Provider Diagnosis [address] [id number] 04/14/2024 FRANCIS ALONSO Tinea unguium B35.1 ; Other hammer toe(s) (acquired), right foot M20.41 ; Other hammer toe(s) (acquired), left foot M20.42 ; Pain in right toe(s) M79.674 ; Pain in left toe(s) M79.675 ; Unspecified atherosclerosis of [place] arteries of extremities, bilateral legs I70.203 and Acquired keratosis [keratoderma] palmaris et plantaris L85.1 Assessments Encounter Date Diagnosis (ICD Code) Assessment Notes Treatment Notes Treatment Clinical Notes Section Notes 04/14/2024 Tinea unguium (ICD-10 - B35.1) Aseptic [...] were discussed, but conservative options were emphasized. 04/14/2024 Other hammer toe(s) (acquired), left foot (ICD-10 - M20.42) 04/14/2024 Pain in right toe(s) (ICD-10 - M79.674) 04/14/2024 Pain in left toe(s) (ICD-10 - M79.675) 04/14/2024 Unspecified atherosclerosis of [place] arteries of extremities, bilateral legs (ICD-10 - [...] or drainage was noted. Plan Of Treatment Treatment Notes Assessment Notes Tinea unguium Aseptic debridement of elongated thickened nails x [...] educated regarding both OTC and prescription treatments. Other hammer toe(s) (acquired), right fo ot The patient was educated regarding how to [...] were discussed, but conservative options were emphasized. Unspecified atherosclerosis of [place] arteries of extremities, bilateral legs Patient educated on risks and aggravating factors of PVD, including conservative treatment options such as a diet and exercise regimen to aid in slowing progression of vascular disease Acquired keratosis [keratode rma] palmaris et plantaris Pre-ulcerative keratoderma debrided sharply down to the level of healthy tissue using a 15 blade. After removal of overlying extensive hyperkeratosis, healthy tissue was noted and care was taken to assure that no undermining or probing was present. It should be noted that no probing was noted and no infection or drainage was noted. Next Appt Details Follow Up: 3 Months, Reason: Provider Name:GUERLINE PABON, 11/10/2024 01:30:00 PM, [address] [place] [address], [id number], Progress Notes * Rigo HENDRICKSDOB:1945 ( 78 yo M)Acc No.[id number]:04/14/2024 Patient: Rigo LAMA Provider: Rufino ALONSO :1945 A ge:78 Y S ex:Male Date:04/14/2024 Address:[address] [place], [place] [id number] Subjective: * Chief Complaints: * 1 . *General care. * HPI: H PI: General care P atient presents to the office for at risk foot care. Patient states that their nails are thickened, elongated and painful. Patient states that it is aggravated by shoe gear. Onset is gradual. Patient denies being diabetic., Patient denies taking prescription blood thinners but does take a daily aspirin., Date last seen by Dr. Reynolds was 12/2023., Initials [facility]. * ROS: G eneral / Constitutional: Patient denies w eakness. R espiratory: Patient denies c hronic cough, shortness of breath, sputum production. C ardiovascular: Patient denies c hest pain, history of OR, irregular heartbeat. M usculoskeletal: Patient complains of h ammertoes. P eripheral Vascular: Patient denies b lanching of skin, cold extremities, decreased sensation in extremities. S kin: Patient complains of f ungal nails, nail changes. ? N eurologic: Patient denies d izziness, gait abnormality, headache. * Medical History: * Medications: T albertog Allopurinol 300 MG Tablet Oral , Taking [...] , Taking Furosemide 20 MG Tablet Oral Objective: * Vitals: * Examination: P hysical Examination: V ascular: Dorsalis Pedis pulse noted at 1/4 right foot and 1/4 left foot and Posterior Tibial pulse noted at 1/4 right foot and 1/4 left foot, Capillary refill times noted to be less than three seconds x ten, Temperature gradient noted to be warm to cool to bilateral foot, pedal hair present to bilateral foot and no varicosities are noted Dermatologic: there are no open lesions, no signs of active clinical infection, no erythema noted, no ecchymoses, nails are elongated thickened and dystrophic with subungual debris x ten, hyperkeratotic lesion noted plantar medial hallux bilateral foot Musculoskeletal: there is pain to palpation onto nail plate x ten, no calf pain noted bilaterally, arch height noted at 2/5 non-weight bearing bilaterally, first metatarsophalangeal joint range of motion 30 deg non-weight bearing bilaterally, flexible fifth digit hammer toe deformity noted to bilateral foot reducible with kelikian push up test, pain to palpation hyperkeratotic lesion plantar medial hallux bilateral foot Neurology: protective sensation intact to light touch bilateral digits one through five, vibratory sensation intact to first metatarsophalangeal joint bilaterally. Assessment: * Assessment: 1. T inea unguium - B35.1 (Primary) 2 . O ther hammer toe(s) (acquired), right foot - M20.41 3 . O ther hammer toe(s) (acquired), left foot - M20.42 ? 4 . P ain in right toe(s) - M79.674 5 . P ain in left toe(s) - M79.675 6 . U nspecified atherosclerosis of [place] arteries of extremities, bilateral legs - I70.203 7 . A cquired keratosis [keratoderma] palmaris et plantaris - L85.1 Plan: * Treatment: 2. O ther hammer toe(s) (acquired), right foot Notes: The patient was educated regarding how to [...] were discussed, but conservative options were emphasized. 3. U nspecified atherosclerosis of [place] arteries of extremities, bilateral legs Notes: Patient educated on risks and aggravating factors of PVD, including conservative treatment options such as a diet and exercise regimen to aid in slowing progression of vascular disease ? 4. A cquired keratosis [keratoderma] palmaris et plantaris Notes: Pre-ulcerative keratoderma debrided sharply down to the level of healthy tissue using a 15 blade. After removal of overlying extensive hyperkeratosis, healthy tissue was noted and care was taken to assure that no undermining or probing was present. It should be noted that no probing was noted and no infection or drainage was noted. * Procedure Codes: 1 1056 TRIM SKIN LESIONS, 2 TO 4, Modifiers: Q8 , 77107 DEBRIDE NAIL, 6 OR MORE, Modifiers: Q8 , 59 * Follow Up: 3 Months * Billing Information: * Visit Code: * Procedure Codes: 91636 TRIM SKIN LESIONS, 2 TO 4. Modifiers: Q8 25470 DEBRIDE NAIL, 6 OR MORE. Modifiers: Q8, 59 * NT WORKER Sign off status: Completed true * Provider: Rufino ALONSO Date: 1 Generated for Sumit blankenship/Aly/Regina on: 0 10/22/2024 [...] Date last seen by Dr. Reynolds was 12/2023., Initials [facility] Examination Category Sub-Category Detail Notes Category Not es Physical Examination Vascular: Dorsalis Pedis pulse noted at 1/4 right foot and 1/4 left foot and Posterior Tibial pulse noted at 1/4 right foot and 1/4 left foot, Capillary refill times noted to be less than three seconds x ten, Temperature gradient noted to be warm to cool to bilateral foot, pedal hair present to bilateral foot and no varicosities are noted Dermatologic: there are no open lesions, no signs of active clinical infection, no erythema noted, no ecchymoses, nails are elongated thickened and dystrophic with subungual debris x ten, hyperkeratotic lesion noted plantar medial hallux bilateral foot Musculoskeletal: there is pain to palpation onto nail plate x ten, no calf pain noted bilaterally, arch height noted at 2/5 non-weight bearing bilaterally, first metatarsophalangeal joint range of motion 30 deg non-weight bearing bilaterally, flexible fifth digit hammer toe deformity noted to bilateral foot reducible with kelikian push up test, pain to palpation hyperkeratotic lesion plantar medial hallux bilateral foot Neurology: protective sensation intact to light touch bilateral digits one through five, vibratory sensation intact to first metatarsophalangeal joint bilaterally
--- OUTSIDE RECORDS SUMMARY | 2024-10-22 15:52 | XMS_ITS ---
Author Organization [facility] Address [address] [place], [place] [address] Care Team Providers Care Resident Care Provider Name Role Phone DI PEPEPR Unavailable [phone] Kiesha Reynolds Unavailable Unavailable Allergies Allergen (clinical [...] Duration) Notes Start Date End Date Status Tamsulosin HCl 0.4 MG Oral for 30 Days Active Allopurinol 300 MG Oral for 90 Days Active amLODIPine Besylate 5 MG Oral for 90 Days Active Metoprolol Succinate ER 50 MG Oral for 30 Days Active Atorvastatin Calcium 10 MG Oral for 30 Days Active Levothyroxine Sodium 50 MCG Oral for 30 Days Active Cephalexin 500 MG Oral for 10 Days Active Jardiance 10 MG Oral for 90 Days Active Furosemide 20 MG Oral for 30 Days Active Pregabalin 75 MG Oral for 30 Days Active Spironolactone 25 MG Oral for 30 Days Active Latanoprost 0.005 % Ophthalmic for 25 Days Active Encounters Encounter Location Date Provider Diagnosis [address] [id number] 07/07/2024 DI PEPPER Tinea unguium B35.1 ; Acquired keratosis [keratoderma] palmaris et plantaris L85.1 ; Atherosclerosis of [place] arteries of extremities with intermittent claudication, bilateral legs I70.213 ; Pain in right foot M79.671 and Pain in left foot M79.672 Assessments Encounter Date Diagnosis (ICD Code) Assessment Notes Treatment Notes Treatment Clinical Notes Section Notes 07/07/2024 Tinea unguium (ICD-10 - B35.1) Nails [...] cut and pared utilizing a #15 blade 07/07/2024 Atherosclerosis of [place] arteries of extremities with intermittent claudication, bilateral legs (ICD-10 - I70.213) 07/07/2024 Pain in right foot (ICD-10 - M79.671) 07/07/2024 Pain in left foot (ICD-10 - [...] develop. Provider Name:GUERLINE PABON, 11/10/2024 01:30:00 PM, [address] [place] [address], [id number], Progress Notes * Janeen HENDRICKS:1945 ( 79 yo M)Acc No.[id number]:07/07/2024 Patient: Nathalie YODERRigo Provider: Raven Pepper DPM :1945 A ge:79 Y S ex:Male Date:07/07/2024 [address] [facility] Subjective: * Chief Complaints: * Pritesh gutierrez presents for at-risk foot care . The patient has painful toenails and calluses that are causing difficulty with ambulation and shoegear. The onset is gradual * HPI: H PI: General care Pritesh gutierrez presents to the office for at risk foot care. Patient states that their nails are thickened, elongated and painful. Patient states that it is aggravated by shoe gear. Onset is gradual. Patient denies being diabetic., Patient denies taking blood thinners., Date last seen by Dr. Reynolds was May 2024., Initials [facility]. * ROS: G eneral / Constitutional: Patient [...] confusion, difficulty speaking, dizziness. * Medical History: * Surgical History: a ppendectomy Carpal Tunnel release * Hospitalization/Major Diagno stic Procedure: * Family History: F ather: gout, heart disease. M other: Diabetic, heart disease. * Social History: D rugs/Alcohol: D o you drink alcohol?: No. * Medications: T akingAllopurinol 300 MG Tablet Oral amLODIPine Besylate 5 MG Tablet Oral Atorvastatin Calcium 10 MG Tablet Oral Metoprolol Succinate ER 50 MG Tablet Extended Release 24 Hour Oral Tamsulosin HCl 0.4 MG Capsule Oral Spironolactone 25 MG Tablet Oral Latanoprost 0.005 % Solution Ophthalmic Levothyroxine Sodium 50 MCG Tablet Oral Jardiance 10 MG Tablet Oral Cephalexin 500 MG Capsule Oral Pregabalin 75 MG Capsule Oral Furosemide 20 MG Tablet Oral Medication List reviewed and reconciled with the patientTaking Allopurinol 300 MG Tablet Oral Taking amLODIPine Besylate 5 MG Tablet Oral Taking Atorvastatin Calcium 10 MG Tablet Oral Taking Metoprolol Succinate ER 50 MG Tablet Extended Release 24 Hour Oral Taking Tamsulosin HCl 0.4 MG Capsule Oral Taking Spironolactone 25 MG Tablet Oral Taking Latanoprost 0.005 % Solution Ophthalmic Taking Levothyroxine Sodium 50 MCG Tablet Oral Taking Jardiance 10 MG Tablet Oral Taking Cephalexin 500 MG Capsule Oral Taking Pregabalin 75 MG Capsule Oral Taking Furosemide 20 MG Tablet Oral Medication List reviewed and reconciled with the patient * Allergies: T apeLisinoprilLanolinNeomycinno[Allergies Verified] Objective: * Vitals: * Examination: P hysical [...] - L85.1 3 . A therosclerosis of [place] arteries of extremities with intermittent claudication, bilateral legs - I70.213 4 . P ain in right foot - M79.671 5 . P ain in left foot - M79.672 Plan: * Treatment: 2. A cquired keratosis [keratoderma] palmaris et plantaris Notes: A total of 4 corns or calluses, as described in the note above, were cut and pared utilizing a #15 blade * Procedure Codes: * Follow Up: 1 0 - 12 weeks (Reason: At-Risk Foot care, sooner if problems develop.) * Billing Information: * Visit Code: 04042 Office Visit, Est Pt., Level 3. * Procedure Codes: * H SHEARING SUPERVISOR Sign off status: Completed true * Provider: Raven Pepper DPM Date: 0 07/07/2024 Generated for Sumit blankenship/Aly/Tritting on: 0 10/22/2024 03:51 PM CDT History [...] Patient denies being diabetic., Patient denies taking blood thinners., Date last seen by Dr. Reynolds was May 2024., Initials [facility] Examination Category Sub-Category Detail Notes Category Not [...]
[2024-10-23 06:52] LABS: Vitamin D 25 Hydroxy 52 ng/mL (30-100)
== END 2024-10-22 07:52 | disposition home or self-care (01) ==
LOC: CHSLAB 07:53
PROVIDERS: PCP Family Medicine; Visit Provider Student in an Organized Health Care Education/Training Program
DX: I10 Essential (primary) hypertension (principal); E78.2 Mixed hyperlipidemia; E03.9 Hypothyroidism, unspecified; E55.9 Vitamin D deficiency, unspecified; N18.4 Chronic kidney disease, stage 4 (severe); D64.9 Anemia, unspecified; R53.83 Other fatigue; Z12.5 Encounter for screening for malignant neoplasm of prostate
CPT/HCPCS: 36415; 80053; 80061; 82306; 82607; 82728; 82746; 83540; 83550; 84153; 84439; 84443; 85025; G0103

== ENCOUNTER 2024-11-09 07:59 | Outpatient (CLI) | payer MEDICARE, SELFPAY ==
--- OUTSIDE RECORDS SUMMARY | 2024-11-09 08:45 | XMS_ITS | Patient Health Record ---
Author Organization [facility] Address [address] [place], [place] [address] Care Team Providers Care Package Sorter Name Role Phone DI PEPPER Unavailable [phone] Kiesha Reynolds Unavailable Unavailable FRANCIS ALONSO Unavailable [phone] Allergies Allergen (clinical drug ingredient) Drug/Non Drug [...] stered Encounters Encounter Location Date Provider Diagnosis [address] [id number] 09/08/2024 DI PEPPER Tinea unguium B35.1 ; Acquired keratosis [keratoderma] palmaris et plantaris L85.1 ; Atherosclerosis of [place] arteries of extremities with intermittent claudication, bilateral legs I70.213 ; Pain in right foot M79.671 and Pain in left foot M79.[address] [id number] 12/10/2023 FRANCIS ALONSO Unspecified atherosclerosis of [place] arteries of extremities, bilateral legs I70.203 ; Tinea unguium B35.1 ; Other hammer toe(s) (acquired), right foot M20.41 ; Other hammer toe(s) (acquired), left foot M20.42 ; Pain in right toe(s) M79.674 ; Pain in left toe(s) M79.675 and Acquired keratosis [keratoderma] palmaris et plantaris L85.[address] [id number] 02/11/2024 FRANCIS ALONSO Unspecified atherosclerosis of [place] arteries of extremities, bilateral legs I70.203 ; Tinea unguium B35.1 ; Other hammer toe(s) (acquired), right foot M20.41 ; Other hammer toe(s) (acquired), left foot M20.42 ; Pain in right toe(s) M79.674 ; Pain in left toe(s) M79.675 and Acquired keratosis [keratoderma] palmaris et plantaris L85.[address] [id number] 04/14/2024 FRANCIS ALONSO Tinea unguium B35.1 ; Other hammer toe(s) (acquired), right foot M20.41 ; Other hammer toe(s) (acquired), left foot M20.42 ; Pain in right toe(s) M79.674 ; Pain in left toe(s) M79.675 ; Unspecified atherosclerosis of [place] arteries of extremities, bilateral legs I70.203 and Acquired keratosis [keratoderma] palmaris et plantaris L85.[address] [id number] 07/07/2024 DI PEPPER Tinea unguium B35.1 ; Acquired keratosis [keratoderma] palmaris et plantaris L85.1 ; Atherosclerosis of [place] arteries of extremities with intermittent claudication, bilateral [...] and prescription treatments. 12/10/2023 Unspecified atherosclerosis of [place] arteries of extremities, bilateral legs (ICD-10 - [...] and prescription treatments. 02/11/2024 Unspecified atherosclerosis of [place] arteries of extremities, bilateral legs (ICD-10 - [...] utilizing a #15 blade 09/08/2024 Atherosclerosis of [place] arteries of extremities with intermittent claudication, bilateral legs (ICD-10 - I70.213) 07/07/2024 Atherosclerosis of [place] arteries of extremities with intermittent claudication, bilateral [...] (ICD-10 - M79.675) 04/14/2024 Unspecified atherosclerosis of [place] arteries of extremities, bilateral legs (ICD-10 - [...] Details Provider Name:GUERLINE PABON, 11/10/2024 01:30:00 PM, [address] [place] [address], [id number], Insurance Providers Payer Name Payer Address Payer Phone Subscriber Number Group Number Insured Name Patient Relationship to Insured Coverage Start Date Coverage End Date [facility] [address] [address] [place] [id number] Rigo Talley Self - patient is the insured Medical (General) History Medical History History ICD Code edema heart problems hypertension Surgical History Surgery Date(Month/Year) appendectomy Carpal Tunnel release
--- OUTSIDE RECORDS SUMMARY | 2024-11-09 08:45 | XMS_ITS ---
Author Organization [facility] Address [address] [place], [place] [address] Care Team Providers Care Percussion Welding Machine Operator Name Role Phone DI PEPPER Unavailable [phone] Kiesha Reynolds Unavailable Unavailable Allergies Allergen (clinical [...] Active Encounters Encounter Location Date Provider Diagnosis [address] [id number] 09/08/2024 DI PEPPER Tinea unguium B35.1 ; Acquired keratosis [keratoderma] palmaris et plantaris L85.1 ; Atherosclerosis of [place] arteries of extremities with intermittent claudication, bilateral [...] utilizing a #15 blade 09/08/2024 Atherosclerosis of [place] arteries of extremities with intermittent claudication, bilateral [...] develop. Provider Name:GUERLINE PABON, 11/10/2024 01:30:00 PM, [address] [place] [address], [id number], Progress Notes * Janeen HENDRICKS:1945 ( 79 yo M)Acc No.[id number]:09/08/2024 Patient: Nathalie YODERRigo Provider: Raven Pepper DPM :1945 A ge:79 Y S ex:Male Date:09/08/2024 Address[place] [id number] Subjective: * Chief Complaints: * 1 . [...] seen by Dr. Reynolds was 05/2024., Initials [facility]. * ROS: G eneral / Constitutional: Patient [...] - L85.1 3 . A therosclerosis of [place] arteries of extremities with intermittent claudication, bilateral [...] develop.) * Billing Information: * Visit Code: 84724 Office Visit, Est Pt., Level 3. * Procedure Codes: * Electronic signature of DI PEPPER DPM on 11/09/2024 at 08:45 AM CDT Sign off status: Pending * Provider: Raven Pepper DPM Date: 0 09/08/2024 Generated for Sumit blankneship/Aly/Regina on: 0 11/09/2024 08:45 AM CDT History and Physical Notes * HPI [...] seen by Dr. Reynolds was 05/2024., Initials [facility] Examination Category Sub-Category [...]
--- OUTSIDE RECORDS SUMMARY | 2024-11-09 08:45 | XMS_ITS | CONTINUITY OF CARE DOCUMENT ---
Author Name jonathan castillo Address Unknown Organization [facility] Address [address] [address] [facility] [address] [place] [address] Phone [phone] Care Team Providers Care Aircraft Fuselage Framer Name Role Phone Hien Espinal MD Unavailable [phone] Hien Espinal MD Unavailable [phone] INSURANCE PROVIDERS Payer name Policy type / Coverage type [place] [employer] party ID [id number] MEDICARE COMPLETE HMO Other [id number]
--- OUTSIDE RECORDS SUMMARY | 2024-11-09 08:45 | XMS_ITS | Clinical Summary ---
Author Organization [facility] Vandana Crooks Address [address] [place] [address] Care Team Providers Care Application Support Consultant Name Role Phone Kiesha Reynolds MD Primary Care Provider [phone] Allergies Active Allergy Reactions Criticality Noted Date Comments Adhes. 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
--- OUTSIDE RECORDS SUMMARY | 2024-11-09 08:45 | XMS_ITS | Continuity of Care Document ---
Author Organization [facility] Address [address] [facility] ut[address] [facility] [address] [place] [address] Phone Care Team Providers Care Precision Inspector Name Role Phone Delmy Beauchamp Unavailable Unavailable [...] Copied on Encounter Office/outpat ient Visit, Est [facility], [address] [place] [address] [address], [place], [place], [id number], [place] tel:[phone] [facility] No Information Oct-2 2-201 0 Quynh Brock. [address], [place], [address], [place]. tel:[phone] Referring Provider: Nancy [address], [place], [address]. tel:[phone] Office/outpat ient Visit, [facility], [address] [place] [address] [address], [place], [place], [id number], [place] tel:[phone] [facility] No Information 0 Quynh Brock. [address] [facility] , [address], [place], [place], [facility], . tel:[phone] Referring Provider: Delmy Rivera, [address], [place], [facility]. tel:[phone] [facility], [address] [place] [address] [address], [place], [place], [id number], tel:[phone] [facility] No Information 0 Quynh Brock. [address] [facility] , [address], [place], [facility], . tel:[phone] Referring Provider: Delmy Rivera, [address], [place], [facility]. tel:[phone] Office/outpat ient Visit, [facility], [address] [place] [address] [address], [place], [place], [id number], [place] tel:[phone] [facility] No Information Feb-0 200 9 Quynh Miguel [address] [facility] , [address], [place], [facility], [place]. tel:[phone] Office/outpat ient Visit, [facility], [address] [place] [address] [address], [place], [place], [id number], [place] tel:[phone] [facility] No Information Sep-2 8-200 9 Quynh Brock. [address] [facility] , [address], [place], [facility], . tel:[phone] Referring Provider: Delmy Rivera, [address], [place], [facility]. tel:[phone] [facility], [address] [place] [address] [address], [place], [place], [id number], tel:[phone] [facility] No Information 8 Quynh Brock. Nancy [facility] , [address], [place], [facility], . tel:[phone] Referring Provider: Delmy Rivera, Nancy [address], [place], [facility]. tel:[phone] Office/outpat ient Visit, [facility], [address] [place] [address] [address], [place], [place], [id number], tel:[phone] [facility] No Information 8 Quynh Brock. Nancy [facility], [address], [place], [facility], . tel:[phone] Referring Provider: Nancy Meraz [facility] [address], [place], [facility]. tel:[phone] Office/outpat ient Visit, [facility], [address] [place] [address] [address], [place], [place], [id number], tel:[phone] [facility] No Information 7 Quynh Cruz [facility] [address], [address], [place], [facility], . tel:[phone] Referring Provider: Nancy Meraz [facility] [address], [place], [facility]. tel:[phone] Family History Family Member Type Diagnosis Age At Onset No Information Payers Payer name Insurance type Covered alliance party ID Authoraroldoa caitlin(s) [facility] [id number] Social History Type Description Quantity Date Captured [...]
[2024-11-09 08:57] LABS: Anion Gap 8 mmol/L (4-12); Blood Urea Nitrogen 50 mg/dL (9-20); Calcium 9.5 mg/dL (8.4-10.2); Carbon Dioxide 22 mmol/L (22-30); Chloride 109 mmol/L (98-107); Estimated Glomerular Filt Rate 51; Glucose 80 mg/dL (65-110); Osmolality Calculated 300 mOsm/kg (285-295); Sodium 139 mmol/L (137-145)
== END 2024-11-09 08:00 | disposition home or self-care (01) ==
LOC: CHSLAB 08:00
PROVIDERS: PCP Family Medicine; Visit Provider Family Medicine
DX: E87.5 Hyperkalemia (principal)
CPT/HCPCS: 36415; 80048

== ENCOUNTER 2024-12-04 02:37 | Observation (INO) | payer MEDICARE, SELFPAY ==
[2024-12-04] VITALS (17 sets, daily range): BP systolic 121–176; BP diastolic 43–81; PULSE 52–96; RESP 13–21; TEMP 36.6–38.8; O2SAT 94–99; BMI 33.1
--- NOTE | ~2024-12-04 | XR_ITS ---
Portable chest x-ray Comparison: 07/26/2023 Clinical History: Cough, fever Findings: Questionable minimal central congestive change. No consolidation or pleural effusion other watts. Cardiomediastinal silhouette is stable. Bones and soft tissues are unremarkable. Impression: Possible minimal central congestive change. Reviewed, dictated and finalized at location . Impression: Possible minimal central congestive change.
--- NOTE | ~2024-12-04 | CT_ITS ---
Clinical Indication: Fever, pneumonia CT Scan of the Chest, Abdomen, and Pelvis with Contrast: Technique: Contiguous sections were acquired throughout the chest, abdomen, and pelvis after intraven ous administration of 100 cc of Omnipaque 350. Dose reduction technique was used on this scan by gus mcconnell automated exposure control and iterative reconstruction technique. The dose-length product (DL P) was 1252.37 mGy-cm. Findings: There is no evidence of any significant mediastinal, hilar or axillary lymphadenopathy. The mediastin al soft tissues appear normal. No aortic aneurysm or dissection. There is no evidence of pleural or pericardial effusion. There is extensive cystic bronchiectasis throughout the lungs. There may be a few minimal scattered t ree-in-bud opacities peripherally in the right lung.. The liver, spleen, pancreas, gallbladder, adrenals and right kidney are within normal limits. 18 mm e xophytic mass in the left kidney (axial image 146) is mildly increased from prior exam. No evidence o f aortic aneurysm. No lymphadenopathy. No bowel obstruction or bowel wall thickening. There is no evidence to suggest acute appendicitis. Urinary bladder is unremarkable. No pelvic mass seen. No ascites. Impression: Extensive cystic bronchiectatic change in the lungs. A few minimal tree-in-bud opacities in the right lung, which could reflect mild small airways infecti ous process. 18 mm indeterminate exophytic mass in the left kidney is mildly increased in size from prior exam. Gi yusra relatively minimal ion exchange operator a 2 year interval, this is most likely benign lesion. Pre and post contrast MR could be considered for further evaluation as indicated. Reviewed, dictated and finalized at location M. Impression: Extensive cystic bronchiectatic change in the lungs. A few minimal tree-in-bud opacities in the right lung, which could reflect mild small airways infectious process. 18 mm indeterminate exophytic mass in the left kidney is mildly increased in si ze from prior exam. Given relatively minimal ion exchange operator a 2 year interval, thi s is most likely benign lesion. Pre and postcontrast MR could be considered for further evaluation as indicated.
--- OUTSIDE RECORDS SUMMARY | 2024-12-04 02:39 | XMS_ITS | CONTINUITY OF CARE DOCUMENT ---
Author Name jonathan castillo Address Unknown Organization [facility] Address [address] [facility] [address] [place] [address] Phone [phone] Care Team Providers Care Drag Out Man Name Role Phone Hien Espinal MD Unavailable [phone] Hien Espinal MD Unavailable [phone] INSURANCE PROVIDERS Payer name Policy type / Coverage type Elnora red constitution party ID UHC MEDICARE COMPLETE HMO Other [id number]
--- OUTSIDE RECORDS SUMMARY | 2024-12-04 02:39 | XMS_ITS ---
Author Organization [facility] Address [address] [place], [place] [id number] Care Team Providers Care Pot Holder Binder Name Role Phone DI PEPPER Unavailable [phone] Kiesha Reynolds Unavailable Unavailable GUERLINE ALEXIS Unavailable [phone] Allergies Allergen (clinical drug ingredient) Drug/Non Drug Allergy documented on EMR Reaction Allergy Type Onset Date Status lanolin Lanolin Unknown Drug Allergy Active lisinopril Lisinopril Unknown Drug Allergy Activ e neomycin Neomycin Unknown Drug Allergy Active Tape Unknown Allergy Active REASON FOR VISIT *General care Medications Medication SIG (Take, Route, Frequency, Duration) Notes Start Date End Date Status Allopurinol 300 MG Oral for 90 Days Active amLODIPine Besylate 5 MG Oral for 90 Days Active Atorvastatin Calcium 10 MG Oral for 30 Days Active Metoprolol Succinate ER 50 MG Oral for 30 Days Active Tamsulosin HCl 0.4 MG Oral for 30 Days Active Cephalexin 500 MG Oral for 10 Days Active Pregabalin 75 MG Oral for 30 Days Active Furosemide 20 MG Oral for 30 Days Active Levothyroxine Sodium 50 MCG Oral for 30 Days Active Jardiance 10 MG Oral for 90 Days Active Spironolactone 25 MG Oral for 30 Days Active Latanoprost 0.005 % Ophthalmic for 25 Days Active Vital Signs Height 71 in 11/10/2024 Weight 214 lbs 11/10/2024 BMI 29.84 kg/m2 11/10/2024 Height-cm 180.34 cm 11/10/2024 Weight-kg 97.07 kg 11/10/2024 Encounters Encounter Location Date Provider Diagnosis [address] [id number] 11/10/2024 GUERLINE JARRETTFORD Tinea unguium B35.1 ; Acquired keratosis [keratoderma] palmaris et plantaris L85.1 ; Atherosclerosis of [place] arteries of extremities with intermittent claudication, bilateral [...] utilizing a #15 blade 11/10/2024 Atherosclerosis of [place] arteries of extremities with intermittent claudication, bilateral [...] sooner if problems develop. Provider Name:GUERLINE PABON, 01/12/2025 01:50:00 PM, [address] [place] [address], [id number], Progress Notes * Meena HENDRICKSB:1945 ( 79 yo M)Acc No.[id number]:11/10/2024 Patient: Rigo LAMA Provider: Deacon ALEXIS :1945 A ge:79 Y S ex:Male Date:11/10/2024 [facility] Subjective: * Chief Complaints: * 1 . [...] seen by Dr. Reynolds was 09/2024., Initials [facility]. * ROS: G eneral / Constitutional: Patient [...] - L85.1 3 . A therosclerosis of [place] arteries of extremities with intermittent claudication, bilateral [...] develop.) * Billing Information: * Visit Code: 21343 Office Visit, Est Pt., Level 3. * Procedure Codes: * Electronic signature of JAVIER ALEXIS DPM on 12/04/2024 at 02:39 AM CDT Sign off status: Pending * Provider: Deacon ALEXIS Date: 0 11/10/2024 Generated for Sumit Angel/Regina on: 0 12/04/2024 02:39 AM CDT History and Physical Notes * [...]
--- OUTSIDE RECORDS SUMMARY | 2024-12-04 02:39 | XMS_ITS | Referral Summary ---
Author Organization [facility] [address] [facility] [address] Address [address] [place] [address] Care Team Providers Care Assistant News Director Name Role Phone Kurtis Castellanos MD Unavailable [phone] Kiesha Reynolds MD Primary Care Provider [phone] Hoda Oconnor MD Unavailable [phone] Rohith Flores MD Unavailable Encounters Date Type Department Care Team Description 11/09/2024 Orders Only [facility] Scanning, Provider 11/04/2024 Telephone [facility] Cardiology [address] [place] [address] Advanced Medicine 8th [place] [address] [place] [address] Kurtis Castellanos MD 11/02/2024 11:45 AM CDT Office Visit [facility] Cardiology [address] [facility] Floor 1, [address] [place] [address] Kurtis Castellanos MD Primary hypertension (Primary Dx); Hypercholesterolemia; Coronary artery calcification seen on CAT scan; Chronic systolic heart failure (HCC); CKD (chronic kidney disease) stage 2, GFR 60-89 ml/min; Nonrheumatic tricuspid valve regurgitation; Chronic venous insufficiency; Non-rheumatic mitral regurgitation; Sinus bradycardia; Chronic heart failure with preserved ejection fraction (HCC); Mixed hyperlipidemia; Second degree AV block; Stage 3b chronic kidney disease (HCC); Chronic edema; Obstructive sleep apnea syndrome 09/26/2024 Telephone [facility] Cardiology [address] [facility] Advanced Medicine 8th [place] [address] [place] [address] Kurtis Castellanos MD 09/12/2024 Telephone [facility] Cardiology [address] [facility] 8th [place] [address] [place] [address] Shubham Coronado MD from Last 3 Months Allergies Active Allergy Reactions Criticality Noted Date Comments Adhesive Tape-Silicones Rash Medium Lanolin Rash Medium Lisinopril Other (See comments) Medium Reaction: hyperkalemia, Aclcsoye-Djeuggsgvv-Qs lymyxin Rash Medium Sulfa (Sulfonamide Antibiotics) Unknown 09/05/2022 Medications latanoprost (XALATAN) 0.005 % ophthalmic solution One drop to the affected eye(s) one time per day 0 0 7 Active cholecalciferol (VITAMIN D-3) 2,000 unit tablet Take 1 tablet (2,000 Units total) by mouth daily Active tamsulosin (FLOMAX) 0.4 mg extended release capsule Take 1 capsule (0.4 mg total) by mouth early childhood teacher assistant before breakfast 3 Active cyanocobalamin (Vitamin B-12) 500 mcg tablet Take 2 tablets (1,000 mcg total) by mouth daily Active levothyroxine (SYNTHROID) 50 mcg tablet Take 1 tablet (50 mcg total) by mouth early childhood teacher assistant before breakfast 30 tablet 2 3 Active acetaminophen (TYLENOL) 500 mg tablet Take 1 tablet (500 mg total) by mouth every 6 (six) hours as needed for pain Active spironolactone (ALDACTONE) 25 mg tablet Take 1 tablet (25 mg total) by mouth daily 30 tablet 11 4 Active empagliflozin (JARDIANCE) 10 mg tablet [...] BY MOUTH DAILY 90 tablet 5 Active allopurinoL (ZYLOPRIM) 100 mg tablet Take 0.5 tablets (50 mg total) by mouth daily Active furosemide (LASIX) 20 mg tabletIndications: Chronic systolic heart failure (HCC),Nonrheumatic tricuspid valve regurgitation,Non- rheumatic mitral regurgitation Take 1 tablet (20 mg total) by mouth daily 90 tablet 3 5 Active Active Problems Problem Noted Date [...] underwent an atrial flutter ablation at [facility] in 10/2015 Mr. Talley is no longer [...] = 0.6 oz pur e alcohol) [facility] Utilities Answer Date Recorded In the past 12 months has th e electric, gas, oil, or water [employer] threatened to shut off services in your [...] often do you attend chur ch or jehovah's witness services? Never 09/11/2023 Do you belong to any clubs o r organizations such as spiritism groups, unions, fraternal or athletic groups, or [...] place to sleep or slept in a senior care (including now)? No 09/11/2023 Personal Safety Answer Date Recorded Have you ever been in or are you currently in a harmful physical or emotional relationship or is someone making you feel afraid or unsafe? 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 Gender Identity Not on file Sexual Orientation Not on file Last Filed Vital Signs Vital Sign Reading Time Taken Comments Blood Pressure 159/69 11/02/2024 11:30 AM CDT Pulse 39 11/02/2024 11:30 AM CDT Temperature 36.5 C (97.7 F) 11/02/2024 11:30 AM CDT Respiratory Rate 19 11/02/2024 11:30 AM CDT Oxygen Saturation 98% 08/30/2024 9:46 AM CDT Inhaled Oxygen Concentration - - Weight 102.5 kg (226 lb) 11/02/2024 11:30 AM CDT Height 177.8 cm (5' 10) 11/02/2024 11:30 AM CDT Body Mass Index 32.43 11/02/2024 11:30 AM CDT Plan of Treatment Not on file Medical Devices Implanted Type Area Crew Car Driver Device Identifier Shelf Expiration Date Model / Serial / Lot [employer] Cytal [id number] Fenestrate Matrix 6 Layer Graft Skin [id number] - [id number] - [id number] Implanted:Qty: 1 on 08/06/2023 by Rohith Flores MD at [facility] Right: Leg [employer] 04/21/2024 [id number] / [id number] / [id number] [employer] Cytal [id number] Fenestrate Matrix 6 Layer Graft Skin [id number] - [id number] - [id number] Implanted:Qty: 1 on 08/06/2023 by Rohith Flores MD at [facility] Right: Leg [employer] 04/21/2024 [id number] / [id number] / [id number] Procedures Procedure Name Priority Date/Time Associated Diagnosis Comments SCAN - LABS 11/09/2024 HEPATITIS PANEL, ACUTE Routine 12/12/2022 7:19 PM CDT from Last 3 Months or Most Recently Relevant to Health Maintenance Results * SCAN - LABS (11/09/2024) us Provider Scanning Final Result * Hepatitis panel, acute (12/12/2022 7:19 PM CDT) Hep A IgM Nonreactive Nonreactive [facility] Hep B core IgM Nonreactive Nonreactive [facility] Hep C Ab Nonreactive Nonreactive [facility] Comment:Antibodies to HCV no t detected. Does NOT exclude the possibility of recent exposure to HCV. Current interpretive data was last revised on 22 HepBsAg Nonreactive Nonreactive [facility] Blood 12/12/2022 7:19 PM CDT 12/12/2022 7:28 PM CDT Kurtis Castellanos MD LAB MICROBIOLOGY - GENERAL OR DERABLES Final Result [facility] Department of Laboratories [place], [place] [id number] from Last 3 Months or Most Recently Relevant to Health Maintenance Insurance [id number] [place] [address] MEDICARE ADVANTAGE UHC MEDICARE ADVANTAGE Advance Directives For more information, please contact: [phone] Documents on File Type Date Recorded Patient Cigarette Tipper Expl anation ADVANCE DIRECTIVE 08/17/2023 11:27 AM YOMI R OF RETORT LOADER-MEDICAL ADVANCE DIRECTIVE 07/20/2023 10:18 AM YOMI R OF RETORT LOADER-MEDICAL ADVANCE DIRECTIVE 07/17/2023 3:00 PM POWER OF RETORT LOADER-MEDICAL * Full Code (Latest Code Status on File) Date Activated Date Inactivated Comments 09/10/2023 7:37 PM 09/14/2023 6:45 PM * Full Code Date Activated Date Inactivated Comments 07/26/2023 5:02 PM 08/14/2023 6:33 PM * Full Code Date Activated Date Inactivated Comments 07/16/2023 11:41 AM 07/19/2023 9:03 PM * Full Code Date Activated Date Inactivated Comments 12/11/2022 8:18 PM 12/26/2022 8:20 PM Care Teams Assistant News Director Relationship Specialty Start Date End Date Kiesha Reynolds MD PCP - General Family Medicine 02/13/23 Kurtis Castellanos MD Referring Physician Cardiology 01/06/23 [place] [address] [place] [address] Consulting Physician Internal Medicine 08/14/23 [place] [address] [place] [address] Surgeon Trauma Surgery 08/14/23
--- OUTSIDE RECORDS SUMMARY | 2024-12-04 02:39 | XMS_ITS | Clinical Summary ---
Author Organization [facility] [place] [address] Address [address] [place] [address] Care Team Providers Care Acute Coordinator Name Role Phone Kurtis Castellanos MD Unavailable Kiesha Reynolds MD Primary Care Provider [phone] Hoda Oconnor MD Unavailable Rohith Flores MD Unavailable Allergies Active Allergy Reactions Criticality Noted Date Comments Adhesive Tape-Silicones Rash Medium Lanolin Rash Medium Lisinopril Other (See comments) Medium Reaction: hyperkalemia, Hbefmgil-Seiiacoacu-Pf lymyxin Rash Medium Sulfa (Sulfonamide Antibiotics) Unknown 09/05/2022 Medications latanoprost (XALATAN) 0.005 % ophthalmic solution One drop to the affected eye(s) one time per day 0 0 7 Active cholecalciferol (VITAMIN D-3) 2,000 unit tablet Take 1 tablet (2,000 Units total) by mouth daily Active tamsulosin (FLOMAX) 0.4 mg extended release capsule Take 1 capsule (0.4 mg total) by mouth senior investment manager before breakfast 3 Active cyanocobalamin (Vitamin B-12) 500 mcg tablet Take 2 tablets (1,000 mcg total) by mouth daily Active levothyroxine (SYNTHROID) 50 mcg tablet Take 1 tablet (50 mcg total) by mouth senior investment manager before breakfast 30 tablet 2 3 Active [...] reportedly underwent an atrial flutter ablation at [facility] in 10/2015 Mr. Talley is no longer [...] [facility] Scanning, Provider 11/04/2024 Telephone [facility] Cardiology [address] [place] [address] 8th [place] [address] [place] [address] Kurtis Castellanos MD 11/02/2024 11:45 AM CDT Office Visit [facility] Cardiology [address] [facility] Floor 1, [address] [place] [address] Kurtis Castellanos MD Primary hypertension (Primary Dx); [...] edema; Obstructive sleep apnea syndrome 09/26/2024 Telephone [facility] Cardiology [facility] 8th [place] [address] [place] [address] Kurtis Castellanos MD 09/12/2024 Telephone [facility] Cardiology [address] [facility] 8th [place] [address] [place] [address] Shubham Coronado MD from Last 3 Months Immunizations Immunization Administration [...] Bypass Graft; Coronary artery disease Mother Aleida fowler Artery Bypass Graft; Relation Name Status Comments Brother 1 Devendra Alive Brother 2 Suhas Alive Brother 3 Lorenzo Alive Father Mother Social History Tobacco Use Types Packs/Day Years Used Date Smoking Tobacco: Never Smokeless Tobacco: Never Tobacco Cessation:Counseling Given: Not Answered Alcohol Use Standard Drinks/Week Comments No 0 (1 standard drink = 0.6 oz pur e alcohol) [facility] Utilities Answer Date Recorded In the past 12 months has [employer] electric, gas, oil, or water [employer] threatened to shut off services in your [...] often do you attend chur ch or jewish services? Never 09/11/2023 Do you belong to any clubs o r organizations such as catholic groups, unions, fraternal or athletic groups, or [...] place to sleep or slept in a chcf (including now)? No 09/11/2023 Personal Safety Answer Date Recorded Have you ever been in or are you currently in a harmful physical or emotional relationship or is someone making you feel afraid or unsafe? 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 Gender Identity Not on file Sexual Orientation [...] 11/02/2024 11:30 AM CDT Plan of Treatment Health Maintenance [...] Completed 12/12/2022 Medical Devices Implanted Type Area Chandelier Maker Device Identifier Shelf Expiration Date Model / Serial / Lot [employer] Cytal [id number] Fenestrate Matrix 6 Layer Graft Skin [id number] - [id number] - [id number] Implanted:Qty: 1 on 08/06/2023 by Rohith Flores MD at [facility] Right: Leg [employer] 04/21/2024 [id number] / [id number] / [id number] [employer] Cytal [id number] Fenestrate Matrix 6 Layer Graft Skin [id number] - [id number] - [id number] Implanted:Qty: 1 on 08/06/2023 by Rohith Flores MD at [facility] Right: Leg [employer] 04/21/2024 [id number] / [id number] / [id number] Procedures Procedure Name Priority Date/Time Associated Diagnosis Comments SCAN - LABS 11/09/2024 HEPATITIS PANEL, ACUTE Routine 12/12/2022 7:19 PM CDT from Last 3 Months or Most Recently Relevant to Health Maintenance Results * SCAN - LABS (11/09/2024) us Provider Scanning Final Result * Hepatitis panel, acute (12/12/2022 7:19 PM CDT) Hep A IgM Nonreactive Nonreactive [facility] Hep B core IgM Nonreactive Nonreactive [facility] Hep C Ab Nonreactive Nonreactive [facility] Comment:Antibodies to HCV no t detected. Does NOT exclude the possibility of recent exposure to HCV. Current interpretive data was last revised on 22 HepBsAg Nonreactive Nonreactive [facility] Blood 12/12/2022 7:19 PM CDT 12/12/2022 7:28 PM CDT Kurtis Castellanos MD LAB MICROBIOLOGY - GENERAL OR DERABLES Final Result [facility] Department [place] [address] from Last 3 Months or Most Recently Relevant to Health Maintenance Insurance [facility] MEDICARE ADVANTAGE [facility] MEDICARE ADVANTAGE Member Subscriber Plan / Payer (Ef fective 2019-Present) Name:Rigo Talley Relation to Subscriber:Self Name:Rigo Talley Payer ID:[id number] (NAIC) Type:[facility] MEDICARE Address: [place] [id number] [facility] MEDICARE ADVANTAGE Advance Directives For more information, please contact: [phone] Documents on File Type Date Recorded Patient Business Librarian Expl anation ADVANCE DIRECTIVE 08/17/2023 11:27 AM YOMI R OF VEHICLE DELIVERY WORKER-MEDICAL ADVANCE DIRECTIVE 07/20/2023 10:18 AM YOMI R OF VEHICLE DELIVERY WORKER-MEDICAL ADVANCE DIRECTIVE 07/17/2023 3:00 PM POWER OF VEHICLE DELIVERY WORKER-MEDICAL * Full Code (Latest Code Status on File) Date Activated Date Inactivated Comments 09/10/2023 7:37 PM 09/14/2023 6:45 PM * Full Code Date Activated Date Inactivated Comments 07/26/2023 5:02 PM 08/14/2023 6:33 PM * Full Code Date Activated Date Inactivated Comments 07/16/2023 11:41 AM 07/19/2023 9:03 PM * Full Code Date Activated Date Inactivated Comments 12/11/2022 8:18 PM 12/26/2022 8:20 PM Care Teams Acute Coordinator Relationship Specialty Start Date End Date Kiesha Reynolds MD PCP - General Family Medicine 02/13/23 Kurtis Castellanos MD Referring Physician Cardiology 01/06/23 [place] [address] [place] [address] Consulting Physician Internal Medicine 08/14/23 [place] [address] [facility] [address] [address] Surgeon Trauma Surgery 08/14/23
--- OUTSIDE RECORDS SUMMARY | 2024-12-04 02:39 | XMS_ITS | Clinical Summary ---
Author Organization [facility] Vandana Crooks Address [address] [place] [address] Care Team Providers Care Pound Keeper Name Role Phone Kiesha Reynolds MD Primary Care Provider [phone] Allergies Active Allergy Reactions Criticality Noted Date Comments Adhes. 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 Gender Identity Not on file Sexual Orientation [...] 3:46 PM CDT Height 155.4 cm (5' 1.2) 08/26/2022 10:24 AM CS T Body Mass Index 54.44 08/26/2022 10:24 AM DENTAL ASSISTANT MEDICAL ASSISTANT Plan of Treatment Health Maintenance Due Date Last Done Comments DTAP/TDAP/TD VACCINES (1 - Tdap) 1966 PNEUMOCOCCAL VACCINE 50+ YEARS (1 of 1 - PCV) 06/17/19 97 ZOSTER VACCINE (1 of 2) 1997 RSV VACCINE (60+ or ) (1 - 1-dose 75+ series) 2022 INFLUENZA VACCINE (#1) 2024 Insurance [facility] [address] [address] Care Teams Pound Keeper Relationship Specialty Start Date End Date Kiesha Reynolds MD [address] [place] [address] PCP - General Family Practice 08/26/22
--- OUTSIDE RECORDS SUMMARY | 2024-12-04 02:39 | XMS_ITS | Continuity of Care Document ---
Author Organization [facility] Address [address] [facility] [address] [place] [address] Phone Care Team Providers Care Family Preservation Caseworker Name Role Phone Delmy Beauchamp Unavailable Unavailable [...] Copied on Encounter Office/outpat ient Visit, [facility], [address] [place] [address] [address], [place], [place], [id number], [place] tel:[phone] [facility] No Information Oct-2 2-201 0 Quynh Brock. [address], [place], [address], [place]. tel:[phone] Referring Provider: [address], [place], [address]. tel:[phone] [place]pat [place], [facility] [place] [address] [place] [address] [address], [place], [place], [id number], [place] tel:[phone] [facility] No Information 0 Quynh Brock. [address] [facility] , [address], [place], [place], [facility], . tel:[phone] Referring Provider: Delmy Rivera, [address], [place], [facility]. tel:[phone] [facility], [address] [place] [address] [address], [place], [place], [id number], tel:[phone] [facility] No Information 0 Quynh Brock. [address] [facility] , [address], [place], [facility], . tel:[phone] Referring Provider: Delmy Rivera, [address], [place], [facility]. tel:[phone] Office/outpat ient Visit, [facility], [address] [place] [address] [address], [place], [place], [id number], [place] tel:[phone] [facility] No Information Feb-0 200 9 Quynh Miguel [address] [facility] , [address], [place], [facility], [place]. tel:[phone] Office/outpat ient Visit, [facility], [address] [place] [address] [address], [place], [place], [id number], [place] tel:[phone] [facility] No Information Sep-2 8-200 9 Quynh Brock. [address] [facility] , [address], [place], [facility], . tel:[phone] Referring Provider: Delmy Rivera, [address], [place], [facility]. tel:[phone] [facility], [address] [place] [address] [address], [place], [place], [id number], tel:[phone] [facility] No Information 8 Quynh Brock. [facility] , [address], [place], [facility], . tel:[phone] Referring Provider: Delmy Rivera, Nancy [address], [place], [facility]. tel:[phone] Office/outpat ient Visit, [facility], [address] [place] [address] [address], [place], [place], [id number], tel:[phone] [facility] No Information 8 Quynh Brock. [facility] [address], [address], [place], [facility], . tel:[phone] Referring Provider: Nancy Meraz [facility] [address], [place], [facility]. tel:[phone] Office/outpat ient Visit, [facility] [address] [place] [address] [address], [place], [place], [id number], tel:[phone] [facility] No Information 7 Quynh Cruz [facility] [address], [address], [place], [facility], . tel:[phone] Referring Provider: Nancy Meraz [facility] [address], [place], [facility]. tel:[phone] Family History Family Member Type Diagnosis Age At Onset No Information Payers Payer name Insurance type Covered alliance party ID Authoraroldoa caitlin(s) [facility] [id number] Social History Type Description Quantity Date Captured [...]
--- OUTSIDE RECORDS SUMMARY | 2024-12-04 02:39 | XMS_ITS | Patient Health Record ---
Author Organization [facility] Address [address] [place], [place] [address] Care Team Providers Care Ride Mechanic Name Role Phone DI PEPPER Unavailable [phone] Kiesha Reynolds Unavailable Unavailable FRANCIS ALONSO Unavailable [phone] GUERLINE ALEXIS Unavailable [phone] Allergies Allergen (clinical drug ingredient) Drug/Non Drug Allergy documented on EMR Reaction Allergy Type Onset Date Status lanolin Lanolin Unknown Drug Allergy Active lisinopril Lisinopril Unknown Drug Allergy Activ e neomycin Neomycin Unknown Drug Allergy Active Tape Unknown Allergy Active Reason For Referral No Information Medications Medication SIG (Take, Route, Frequency, Duration) Notes Start Date End Date Status Cephalexin 500 MG Oral for 10 Days [...] 0.4 MG Oral for 30 Days Active Spironolactone 25 MG Oral for 30 Days Active Latanoprost 0.005 % Ophthalmic for 25 Days Active Levothyroxine Sodium 50 MCG Oral for 30 Days Active Jardiance 10 MG Oral for 90 Days Active Immunizations Vaccine Route Administration Date Status Comme nts Influenza, unspecified formulation Unknown 03/22/2023 A dministered Influenza, high dose seasonal Unknown 03/26/2023 Admini stered Vital Signs Height-cm 180.34 cm 11/10/2024 Weight-kg 97.07 kg 11/10/2024 Height 71 in 11/10/2024 Weight 214 lbs 11/10/2024 BMI 29.84 kg/m2 11/10/2024 Encounters Encounter Location Date Provider Diagnosis [address] [id number] 11/10/2024 GUERLINE ALEXIS Tinea unguium B35.1 ; Acquired keratosis [keratoderma] palmaris et plantaris L85.1 ; Atherosclerosis of [place] arteries of extremities with intermittent claudication, bilateral legs I70.213 ; Pain in right foot M79.671 and Pain in left foot M79.[address] [id number] 12/10/2023 FRANCIS ALONSO Unspecified atherosclerosis of [place] arteries of extremities, bilateral legs I70.203 ; Tinea unguium B35.1 ; Other hammer toe(s) (acquired), right foot M20.41 ; Other hammer toe(s) (acquired), left foot M20.42 ; Pain in right toe(s) M79.674 ; Pain in left toe(s) M79.675 and Acquired keratosis [keratoderma] palmaris et plantaris L85.[address] [id number] 02/11/2024 FRANCIS ALONSO Unspecified atherosclerosis of [place] arteries of extremities, bilateral legs I70.203 ; Tinea unguium B35.1 ; Other hammer toe(s) (acquired), right foot M20.41 ; Other hammer toe(s) (acquired), left foot M20.42 ; Pain in right toe(s) M79.674 ; Pain in left toe(s) M79.675 and Acquired keratosis [keratoderma] palmaris et plantaris L85.[address] [id number] 04/14/2024 FRANCIS ALONSO Tinea unguium B35.1 ; Other hammer toe(s) (acquired), right foot M20.41 ; Other hammer toe(s) (acquired), left foot M20.42 ; Pain in right toe(s) M79.674 ; Pain in left toe(s) M79.675 ; Unspecified atherosclerosis of [place] arteries of extremities, bilateral legs I70.203 and Acquired keratosis [keratoderma] palmaris et plantaris L85.[address] [id number] 07/07/2024 DI SNOOK Tinea unguium B35.1 ; Acquired keratosis [keratoderma] palmaris et plantaris L85.1 ; Atherosclerosis of [place] arteries of extremities with intermittent claudication, bilateral legs I70.213 ; Pain in right foot M79.671 and Pain in left foot M79.[address] [id number] 09/08/2024 DI SNOOK Tinea unguium B35.1 ; Acquired keratosis [keratoderma] palmaris et plantaris L85.1 ; Atherosclerosis of [place] arteries of extremities with intermittent claudication, [...] and prescription treatments. 12/10/2023 Unspecified atherosclerosis of [place] arteries of extremities, bilateral legs (ICD-10 - [...] and prescription treatments. 02/11/2024 Unspecified atherosclerosis of [place] arteries of extremities, bilateral legs (ICD-10 - [...] and pared utilizing a #15 blade 11/10/2024 Tinea unguium (ICD-10 - B35.1) Nails [...] utilizing a #15 blade 11/10/2024 Atherosclerosis of [place] arteries of extremities with intermittent claudication, bilateral legs (ICD-10 - I70.213) 09/08/2024 Atherosclerosis of [place] arteries of extremities with intermittent claudication, bilateral legs (ICD-10 - I70.213) 07/07/2024 Atherosclerosis of [place]ak[place] arteries of extremities with intermittent claudication, [...] foot (ICD-10 - M79.671) 11/10/2024 Pain in right foot (ICD-10 - M79.671) 11/10/2024 Pain in left foot (ICD-10 - M79.672) 09/08/2024 Pain in left foot (ICD-10 - M79.672) 07/07/2024 Pain in left foot (ICD-10 - M79.672) 04/14/2024 Pain in left toe(s) (ICD-10 - M79.675) 12/10/2023 Pain in right toe(s) (ICD-10 - M79.674) 02/11/2024 Pain in right toe(s) (ICD-10 - M79.674) 02/11/2024 Pain in left toe(s) (ICD-10 - M79.675) 12/10/2023 Pain in left toe(s) (ICD-10 - M79.675) 04/14/2024 Unspecified atherosclerosis of [place] arteries of extremities, bilateral legs (ICD-10 - [...] Treatment Next Appt Details Provider Name:GUERLINE PABON, 01/12/2025 01:50:00 PM, [address] [place] [address], [id number], Insurance Providers Payer Name Payer Address Payer Phone Subscriber Number Group Number Insured Name Patient Relationship to Insured Coverage Start Date Coverage End Date [facility] [address] [place] [address] [id number] Rigo Talley Self - patient is the insured Medical (General) History Medical History History ICD Code edema heart problems hypertension Surgical History Surgery Date(Month/Year) appendectomy Carpal Tunnel release
--- NOTE | 2024-12-04 02:48 | PC.NURSE ---
DR VALADEZ AT THE BEDSIDE
--- NOTE | 2024-12-04 02:50 | PC.NURSE ---
PATIENT BEING CHANGED OUT INTO A GOWN
--- OUTSIDE RECORDS SUMMARY | 2024-12-04 02:50 | XMS_ITS | Continuity of Care Document ---
Author Organization [facility] Address [address] [facility] [address] [place] [address] Phone Care Team Providers Care Laborer Stores Name Role Phone Delmy Beauchamp Unavailable Unavailable [...] Copied on Encounter Office/outpat ient Visit, [facility], [address] [place] [address] [address], [place], [place], [address], [place] tel:[phone] [facility] No Information Oct-2 2-201 0 Quynh Brock. [address], [place], [address], [place]. tel:[phone] Referring Provider: [address], [place], [address]. tel:[phone] Office/outpat ient Visit, [facility], [address] [place] [address] [address], [place], [place], [address], [place] tel:[phone] [facility] No Information 0 Quynh Brock. [address] [facility] , [address], [place], [place], [facility], . tel:[phone] Referring Provider: Delmy Rivera, [address], [place], [place], [facility]. tel:[phone] [facility], [address] [place] [address] [address], [place], [place], [address], tel:[phone] [facility] No Information 0 Quynh Brock. [address] [facility] , [address], [place], [place], [facility], . tel:[phone] Referring Provider: Delmy Rivera, [address], [place], [place], [facility]. tel:[phone] Office/outpat ient Visit, [facility], [address] [place] [address] [address], [place], [place], [address], [place] tel:[phone] [facility] No Information Feb-0 200 9 Quynh Miguel [address] [facility] , [address], [place], [place], [facility], [place]. tel:[phone] Office/outpat ient Visit, [facility], [address] [place] [address] [address], [place], [place], [address], [place] tel:[phone] [facility] No Information Sep-2 8-200 9 Quynh Brock. [address] [facility] , [address], [place], [place], [facility], . tel:[phone] Referring Provider: Delmy Rivera, [address], [place], [facility]. tel:[phone] [facility], [address] [place] [address] [address], [place], [place], [address], tel:[phone] [facility] No Information 8 Quynh Brock. Nancy [facility] , [address], [place], [place], [facility], . tel:[phone] Referring Provider: Delmy Rivera, Nancy [address], [place], [facility]. tel:[phone] Office/outpat ient Visit, [facility], [address] [place] [address] [address], [place], [place], [id number], tel:[phone] [facility] No Information 8 Quynh Brock. Nancy [facility] [address], [address], [place], [place], [facility], . tel:[phone] Referring Provider: Nancy Meraz [facility] [address], [place], [place], [facility]. tel:[phone] Office/outpat ient Visit, [facility], [address] [place] [address] [address], [place], [place], [id number], tel:[phone] [facility] No Information 7 Quynh Cruz [facility] [address] [address], [address], [place], [place], [facility], . tel:[phone] Referring Provider: Nancy Meraz [facility] [address], [place], [place], [facility]. tel:[phone] Family History Family Member Type Diagnosis Age At Onset No Information Payers Payer name Insurance type Covered constitution party ID Authoraroldoa caitlin(s) [facility] [id number] Social History Type Description Quantity Date Captured [...]
--- OUTSIDE RECORDS SUMMARY | 2024-12-04 02:50 | XMS_ITS | CONTINUITY OF CARE DOCUMENT ---
Author Name jonathan castillo Address Unknown Organization [facility] Address [address] [facility] [address] [place] [address] Phone [phone] Care Team Providers Care News Internship Name Role Phone Hien Espinal MD Unavailable [phone] Hien Espinal MD Unavailable [phone] INSURANCE PROVIDERS Payer name Policy type / Coverage type [place] red constitution party ID UHC MEDICARE COMPLETE HMO Other [id number]
--- NOTE | 2024-12-04 02:51 | ED_ITS ---
HPI - Fever General Chief Complaint: Fever Stated Complaint: Chills/fever Source: patient Mode of arrival: ambulatory Limitations: no limitations History of Present Illness HPI Narrative: 79 year old white male came from home with chills started 4 hour prior to arrival Patient received 1 g of Tylenol to hour prior to arrival. History of hypertension, hyperlipidemia, obstructive sleep apnea, gout, chronic venous insufficiency, atrial flutter, tricuspid regurgitation, chronic renal failure, bronchiectasis,hypothyroidism And appendectomy. Patient denies any headache, coughing, sneezing, sore throat, runny nose, chest pain, back pain, abdominal pain. Notice increased frequent of urination over the last few hours. Related Data Home Medications ?Medication ?Instructions ?Recorded ?Confirmed ?Last Taken ?Type atorvastatin 10 mg tablet 10 mg PO DAILY 04/28/19 12/04/24 07/25/23 History cholecalciferol (vitamin D3) 50 50 mcg PO DAILY 04/09/20 12/04/24 07/25/23 History mcg (2,000 unit) capsule acetaminophen 500 mg capsule 500 mg PO Q6H PRN Pain (Scale 12/31/22 12/04/24 07/25/23 History Score 4-6) latanoprost 0.005 % eye drops 1 drp EACH EYE QPM 10/27/23 12/04/24 Unknown History (Xalatan) cyanocobalamin (vitamin B-12) 500 500 mcg PO .COMPLEX 01/12/24 12/04/24 Unknown History mcg tablet amlodipine 5 mg tablet 5 mg PO DAILY 12/04/24 12/04/24 Unknown History aspirin 81 mg capsule 81 mg PO DAILY 12/04/24 12/04/24 Unknown History spironolactone 25 mg tablet 25 mg PO DAILY 12/04/24 12/04/24 Unknown History Allergies Allergy/AdvReac Type Severity Reaction Status Date / Time lanolin Allergy Severe ITCHEY RASH Verified 12/04/24 02:45 gramicidin D Allergy Mild RASH Verified 12/04/24 02:45 lisinopril Allergy Mild renal Verified 12/04/24 02:45 insufficiency Sulfa (Sulfonamide Allergy Mild renal Verified 12/04/24 02:45 Antibiotics) failure bacitracin Allergy Unknown Rash Verified 12/04/24 02:45 polymyxin B Allergy Unknown rash Verified 12/04/24 02:45 BACITRACIN ZINC Allergy Mild RASH Uncoded 12/04/24 02:45 NEOMYCIN SULFATE Allergy Mild RASH Uncoded 12/04/24 02:45 POLYMYXIN B SULFATE Allergy Mild RASH Uncoded 12/04/24 02:45 tape AdvReac Rash Uncoded 12/04/24 02:45 Review of Systems 2 Review of Systems: All systems reviewed & are unremarkable except as noted in HPI and below PMFSH Past Medical History Medical History Bradycardia Chronic renal insufficiency, stage IV (severe) Tricuspid regurgitation Obesity Encounter for immunization Glaucoma Mitral insufficiency Chronic venous insufficiency H/O: gout History of bronchiectasis Mixed hyperlipidemia BRAYDEN (obstructive sleep apnea) CPAP Skin neoplasm Venous stasis dermatitis of both lower extremities Vitamin D deficiency Hypothyroidism Hypertension Atrial flutter Surgical History Surgical History H/O cardiac radiofrequency ablation Family History Family History Mother Diabetes mellitus Family history of coronary artery disease Sibling Diabetes mellitus Father Family history of coronary artery disease Social History Social History Social History: Caffeine-coffee/soda Smoking status: Never smoker Second hand tobacco smoke exposure: No Alcohol intake: former Substance use: never Substance use type: does not use Do You Feel Safe in your Home?: Yes Lack of Transportation: No Lack of Food: Never True Current Housing: I Have Housing Concerned About Future Housing: No Difficulty Paying Gas/Electric Bills: No Difficulty Paying for Meds: No Currently Unemployed: No Education: Associate Degree Difficulty w/ Childcare or Family Care: No Living arrangements: with family Occupation/Education: retired Gender identity (if verbalized by the patient): Male Sexual Orientation (if Verbalized by the Patient): Straight or Heterosexual Spiritual care concerns: No Agree to blood products: Yes Exam 2 Narrative: General appearance: Well-developed, well-nourished , shaking Skin: hot skin Head: Normocephalic, nontraumatic Eyes: Clear conjunctiva ENT: Oropharynx normal, ears normal, nose normal Neck: Supple, nontender Chest and respiratory: Airway patent, no respiratory distress, no accessory muscle use Heart: Regular rate/rhythm Abdomen: Soft, nontender, no organomegaly, quiet bowel sounds Vascular: Normal peripheral pulses, normal capillary refill. Musculoskeletal: Normal range of motion, nontender back Neurologic: Alert and oriented ?3, [employer] is normal as tested, no gross motor deficit Course Vital Signs Vital signs: Vital Signs Temperature 38.8 C H 12/04/24 02:37 Pulse Rate 96 12/04/24 02:37 Respiratory Rate 16 12/04/24 02:37 Blood Pressure 176/81 H 12/04/24 02:37 Pulse Oximetry 98 12/04/24 02:37 Oxygen Delivery Room Air 12/04/24 02:37 Temperature 37.5 C 12/04/24 04:34 Pulse Rate 60 12/04/24 05:02 Respiratory Rate 17 12/04/24 05:02 Blood Pressure 133/43 L 12/04/24 05:02 Pulse Oximetry 96 12/04/24 05:02 Oxygen Delivery Room Air 12/04/24 05:02 MDM - Fever MDM Narrative Medical decision making narrative: patient present with chills and fever, Vital signs showing blood pressure 176/81, temperature 38.8? otherwise insignificant Physical examination Showing patient with chillsOtherwise insignificant physical findings Differential diagnosis include viral infection, pneumonia, urinary tract infection Blood workup today includes CBC, CMP, blood culture, lactic acid, CRP, coags showed WBC of 15.5, potassium 5.1, creatinine 1.3, Patient tested negative for COVID, flu and RSV and strep throat urinalysis showed no evidence of infection Chest x-ray showed pulmonary edema and or atypical infection Admit to hospitalist on Levaquin, albuterol nebulizer treatment Differential Diagnosis Differential diagnosis: Likely fever of unknown origin, community acquired pneumonia, pyelonephritis, viral infection, sepsis and influenza Medical Records Attestation: I reviewed the patient's medical records. Lab Data Attestation: I reviewed the patient's lab results. 12/04/24 03:52 12/04/24 03:52 Labs: Lab Results 12/04/24 Range/Units 03:52 WBC 15.5 H (4.8-10.8) K/mm3 RBC 3.55 L (4.70-6.10) M/mm3 Hgb 12.0 L (12.4-15.3) g/dL Hct 36.9 L (37.0-46.0) % MCV 103.9 H (78.0-102.0) fL MCH 33.8 H (27.0-31.0) pg MCHC 32.5 (32-36) g/dL RDW 13.9 (11.6-14.4) % Plt Count 176 (150-420) K/mm3 MPV 9.8 (8.7-11.0) fl Immature Gran % (Auto) 0.6 H (0.0-0.0) % Neut % (Auto) 90.3 H (50.0-70.0) % Lymph % (Auto) 4.3 L (18.0-42.0) % Gordon % (Auto) 4.3 (2.0-11.0) % Eos % (Auto) 0.3 L (1.0-6.0) % Baso % (Auto) 0.2 (0.0-1.0) % Lymph # (Auto) 0.67 L (1.10-4.50) K/mm3 Gordon # (Auto) 0.66 (0.10-0.90) K/mm3 Eos # (Auto) 0.05 (0.02-0.50) K/mm3 Baso # (Auto) 0.03 (0.00-0.10) K/mm3 Abs Immat Gran (auto) 0.09 H (0.00-0.00) K/mm3 Absolute Neuts (auto) 13.98 H (1.70-7.20) K/mm3 Absolute Nucleated RBC 0.00 (0.00-0.00) K/mm3 Nucleated RBC % 0.0 (0-0.0) % PT 10.8 (9.50-12.1) Seconds INR 1.0 APTT 24.2 (23.9-30.70) Sec Sodium 137 (137-145) mmol/L Potassium 5.1 H (3.4-5.0) mmol/L Chloride 108 H (98-107) mmol/L Carbon Dioxide 20 L (22-30) mmol/L Anion Gap 9 (4-12) mmol/L BUN 45 H (9-20) mg/dL Creatinine 1.36 H (0.7-1.3) mg/dL Estim Creat Clear Calc 50 ml/min Estimated GFR 51 L (59 - ) Glucose 103 (65-110) mg/dL Calculated Osmolality 295 (285-295) mOsm/kg Lactic Acid 0.6 (0.4-2.0) mmol/L Calcium 9.1 (8.4-10.2) mg/dL Total Bilirubin 1.0 (0.2-1.3) mg/dL AST 42 (17-59) U/L ALT 21 (6-50) U/L Alkaline Phosphatase 74 (38-126) U/L C-Reactive Protein 1.2 H (<1.0) mg/dL Total Protein 6.9 (6.3-8.2) g/dL Albumin 4.1 (3.5-5.1) g/dL Urine Color Light yellow (Yellow) Urine Appearance Clear (Clear) Urine pH 7.0 (5.0-8.0) Ur Specific [place] 1.015 (1.010-1.020) Urine Protein Trace H (Negative) Urine Glucose (UA) 3+ H (Negative) Urine Ketones Negative (Negative) Ur Blood (Man) Negative (Negative) Urine Nitrate Negative (Negative) Urine Bilirubin Negative (Negative) Urine Urobilinogen 0.2 (0.2-1.0) mg/dL Leukocyte Esterase Rfl Negative (Negative) AMELIA/UL Urine RBC None seen (0-2) /hpf Urine WBC None seen (0-3) /hpf Ur Squamous Epith Cells None seen (Few) /hpf Urine Mucus None seen /lpf Influenza A (RT-PCR) Negative (Negative) Influenza B (RT-PCR) Negative (Negative) RSV (RT-PCR) Negative (Negative) SARS-CoV-2 RNA (RT-PCR) Negative (Negative) Group A Strep (PCR) Not detected (Negative) Critical Care Time Critical Care Time Critical Care Time: Yes Total Critical Care Time: 30 Discharge Plan Discharge Clinical Impression: Pneumonia Patient Disposition: Still a Patient Condition: Stable Additional Instructions: admit to hospitalist Patient Language: Taiwanese Prescriptions: No Action amlodipine 5 mg tablet 5 mg PO DAILY spironolactone 25 mg tablet 25 mg PO DAILY aspirin 81 mg capsule 81 mg PO DAILY cholecalciferol (vitamin D3) 50 mcg (2,000 unit) capsule 50 mcg PO DAILY acetaminophen 500 mg capsule 500 mg PO Q6H PRN (Reason: Pain (Scale Score 4-6)) cyanocobalamin (vitamin B-12) 500 mcg tablet 500 mcg PO .COMPLEX Rx Instructions: 500 mcg orally every other day; latanoprost [Xalatan] 0.005 % drops 1 drp EACH EYE QPM atorvastatin 10 mg tablet 10 mg PO DAILY empagliflozin 10 mg tablet 10 mg PO DAILY Qty: 90 1RF mupirocin 2 % ointment 1 applic topical .COMPLEX Qty: 22 5RF Rx Instructions: 3-4x per day ascorbate calcium (vitamin C) 500 mg tablet 500 mg PO DAILY Qty: 100 0RF Rx Instructions: Take with iron to assist with absorption of iron. furosemide 20 mg tablet 20 mg PO BID Qty: 180 0RF tamsulosin [Flomax] 0.4 mg capsule 0.4 mg PO QHS Qty: 30 5RF allopurinol 100 mg tablet 50 mg PO DAILY Qty: 90 0RF levothyroxine 50 mcg tablet 50 mcg PO DAILY Qty: 135 5RF Rx Instructions: Take 1.5 tab Thursday and 1 tab daily other days.
--- NOTE | 2024-12-04 03:03 | WPCNBHO ---
Situation Room: Bed: Age: 79 Sex: M Registration Status: REG ER Current Level of Care: Dough Mixer Helper Required: Admitting: Primary: Kiesha Reynolds MD Infant Provider at NH: Background Reason for Visit: Chills/fever Assessment New observations/notes/concerns this shift: Recommendations Specimens to Collect: Planned/Potential Procedures: Consents Needed: Other follow-up needed: 1st Urine: 1st Stool: UDS: Mec Drug Screen: Void after Circ: Amp: mg every ____hrs Dose#1 Dose#2 Dose#3 Dose#4 Gent: mg every ____hrs Dose#1 Dose#2 Dose#3 Dose#4 Pre-Discharge Checklist: Discharge Order: Rooming In: D/C Bili: Fedding History: Outcomes: Care Team Kiesha Reynolds Role: Primary Care Provider Type: Physician Weights Weight 105.2 kg 12/04/24 02:37
--- NOTE | 2024-12-04 03:04 | PC.NURSE ---
Took COVID,STREP and URINE down to [facility] @3AM
--- NOTE | 2024-12-04 03:14 | PC.NURSE ---
JONNIE WITH LAB WAS NOTIFIED THAT BLOOD WORK COULD NOT BE OBTAINED VIA IV START
[2024-12-04] MEDS: SODIUM CHLORIDE 0.9% IV 1,000 ML 999 ML IV CONT (03:17)
[2024-12-04] MEDS: KETOROLAC 15 MG/ML VIAL (*BKC) IV PUSH (03:17)
--- NOTE | 2024-12-04 03:52 | PC.NURSE ---
BLOOD WORK OBTAINED BY DR VALADEZ FROM [facility]. BLOOD WORK GIVEN TO JONNIE IN LAB.
[2024-12-04 04:00] LABS: Basophils Absolute Auto 0.03 K/mm3 (0.00-0.10); Basophils Percent Auto 0.2 % (0.0-1.0); Eosinophils Absolute Auto 0.05 K/mm3 (0.02-0.50); Eosinophils Percent Auto 0.3 % (1.0-6.0); Hematocrit 36.9 % (37.0-46.0); Immature Granulocyte Absolute 0.09 K/mm3 (0.00-0.00); Immature Granulocyte Percent A 0.6 % (0.0-0.0); Lymphocytes Absolute Auto 0.67 K/mm3 (1.10-4.50); Lymphocytes Percent Auto 4.3 % (18.0-42.0); Mean Corpuscular HGB Conc 32.5 g/dL (32-36); Mean Corpuscular Hemoglobin 33.8 pg (27.0-31.0); Mean Corpuscular Volume 103.9 fL (78.0-102.0); Mean Platelet Volume 9.8 fl (8.7-11.0); Monocytes Absolute Auto 0.66 K/mm3 (0.10-0.90); Monocytes Percent Auto 4.3 % (2.0-11.0); Neutrophils Absolute Auto 13.98 K/mm3 (1.70-7.20); Neutrophils Percent Auto 90.3 % (50.0-70.0); Platelet Count Result 176 K/mm3 (150-420); Red Blood Count 3.55 M/mm3 (4.70-6.10); Red Cell Distribution Width 13.9 % (11.6-14.4); White Blood Count 15.5 K/mm3 (4.8-10.8)
--- NOTE | 2024-12-04 04:00 | PC.NURSE ---
RESTING ON STRETCHER. AT HIS SIDE. CALL LIGHT IN REACH
[2024-12-04 04:13] LABS: Partial Thromboplastin Time 24.2 Sec (23.9-30.70); Prothrombin Time 10.8 Seconds (9.50-12.1)
[2024-12-04 04:23] LABS: Add Urine Microscopic? YES; Appearance Urine Clear (Clear); Bilirubin Urine Negative (Negative); Blood Urine Negative (Negative); Color Urine Light Yellow (Yellow); Glucose Urine UA 3+ (Negative); Ketones Urine Negative (Negative); Leukocyte Esterase Ur Negative LEU/UL (Negative); Nitrate Urine Negative (Negative); Protein Urine Trace (Negative); Specific Grav Ur 1.015 (1.010-1.020); Urobilinogen Urine 0.2 mg/dL (0.2-1.0)
[2024-12-04 04:28] LABS: Strep Group A RT-PCR NOT DETECTED (Negative)
[2024-12-04] MEDS: levoFLOXacin 750 MG/D5W 150 ML 750 MG/150 ML BAG 100 MG IVPB (04:29)
[2024-12-04 04:32] LABS: Mucus Urine None seen /lpf; RBC Urine None seen /hpf (0-2); Squamous Epithelial Cell Urine None Seen /hpf (Few); WBC Urine None seen /hpf (0-3)
[2024-12-04 04:40] LABS: Alanine Aminotransferase 21 U/L (6-50); Albumin Level 4.1 g/dL (3.5-5.1); Alkaline Phosphatase 74 U/L (38-126); Anion Gap 9 mmol/L (4-12); Aspartate Amino Transferase 42 U/L (17-59); Blood Urea Nitrogen 45 mg/dL (9-20); CRP 1.2 mg/dL (<1.0); Calcium 9.1 mg/dL (8.4-10.2); Carbon Dioxide 20 mmol/L (22-30); Chloride 108 mmol/L (98-107); Estimated CRCL calculation 50 ml/min; Estimated Glomerular Filt Rate 51; Glucose 103 mg/dL (65-110); Influenza A QL RT-PCR Negative (Negative); Influenza B QL RT-PCR Negative (Negative); Osmolality Calculated 295 mOsm/kg (285-295); Potassium 5.1 mmol/L (3.4-5.0); RSV RNA, RT-PCR Negative (Negative); SARS-CoV-2 RNA PCR Negative (Negative); Sodium 137 mmol/L (137-145); Total Protein 6.9 g/dL (6.3-8.2)
[2024-12-04 04:41] LABS: Lactic Acid Reflex 0.6 mmol/L (0.4-2.0)
--- NOTE | 2024-12-04 05:00 | PC.NURSE ---
PATIENT IS RESTING ON STRETCHER. ANTIBIOTICS AND NS INFUSING TO RIGHT UPPER ARM. SITE WITHOUT REDNESS OR IRRITATION. AT THE BEDSIDE. CALL LIGHT IN REACH
--- NOTE | 2024-12-04 08:00 | ADMGEN ---
This patient, Rigo Talley, was admitted to 2nd Floor Room 204-2. Patient/family oriented to hospital policies and general routines including ID bracelet, bed and alarms, visiting hours, pain management, procedures, bathroom and other care routines, personal items, smoking policy, room service/diet, and visiting hours. Information on how to activate the Rapid Response Team has been discussed. Patient/Family are encouraged to report perceived risks to care and to ask questions if they do not understand what they are told or what they should do.
--- NOTE | 2024-12-04 08:56 | PM.IMHP ---
H&P: HPI History of Present Illness Date/Time: 12/04/24 08:56 Chief Complaint: Chills with Fever Narrative: This is a 79 year old male patient with history as listed below who is admitted to the hospital due to Fever, chills, elevated WBCs and concern for pneumonia. Patient received Tylenol and ketorolac for fever and is now afebrile this morning. Patient reported symptom onset of chills last night after taking a shower and going to bed around 2300. By 0130 patient was having chills/shaking and elevated blood pressure so he came to ER. In ER workup showed fever 38.8 and he had taken Tylenol at home about 4 hours prior to ER arrival. Patient denied any other major symptoms. CXR with pulmonary vascular congestion. ER provider was concerned for pneumonia since urine did not appear infected. Patient received IV Levaquin and admitted to the floor. This morning patient states his legs are swollen and he needs to take his water pill. 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 CT scan of chest abdomen pelvis and repeat labs obtained. CT scan shows a chronic cyst in right kidney and chronic bronchiectasis with possible mild right lower lobe tree in bud infectious changes. Flu/Covid/RSV was negative. Sent MRSA PCR of nares which patient states may come back positive since he had MRSA in a skin wound of his right knee/leg that required skin grafting a couple years ago. He denies any current skin wounds. Patient has known prior atrial rhythm and was on blood thinners for about a week and a half but had severe nosebleeds and stated he would not take anticoagulants again. Review of Systems Review of Systems: All systems reviewed & are unremarkable except as noted in HPI and below PMFSH Past Medical History Medical History Pneumonia of left lower lobe due to infectious organism Other chronic pain Hyperkalemia Hypercalcemia Chronic pain of left knee Acute on chronic diastolic heart failure Bradycardia Chronic renal insufficiency, stage IV (severe) Tricuspid regurgitation Obesity Encounter for immunization Glaucoma Mitral insufficiency Chronic venous insufficiency H/O: gout History of bronchiectasis Mixed hyperlipidemia BRAYDEN (obstructive sleep apnea) CPAP Skin neoplasm Venous stasis dermatitis of both lower extremities Vitamin D deficiency Hypothyroidism Hypertension Atrial flutter Surgical History Surgical History H/O cardiac radiofrequency ablation Family History Family History Mother Diabetes mellitus Family history of coronary artery disease Sibling Diabetes mellitus Father Family history of coronary artery disease Social History Social History Social History: Caffeine-coffee/soda Smoking status: Never smoker Second hand tobacco smoke exposure: No Alcohol intake: former Substance use: never Substance use type: does not use Do You Feel Safe in your Home?: Yes Lack of Transportation: No Lack of Food: Never True Current Housing: I Have Housing Concerned About Future Housing: No Difficulty Paying Gas/Electric Bills: No Difficulty Paying for Meds: No Currently Unemployed: No Education: Associate Degree Difficulty w/ Childcare or Family Care: No Living arrangements: with family Occupation/Education: retired Gender identity (if verbalized by the patient): Male Sexual Orientation (if Verbalized by the Patient): Straight or Heterosexual Spiritual care concerns: No Agree to blood products: Yes Meds Home Medications and Allergies Home Medications ?Medication ?Instructions ?Recorded ?Confirmed ?Type atorvastatin 10 mg tablet 10 mg PO DAILY 04/28/19 12/04/24 History cholecalciferol (vitamin D3) 50 50 mcg PO DAILY 04/09/20 12/04/24 History mcg (2,000 unit) capsule acetaminophen 500 mg capsule 500 mg PO Q6H PRN Pain (Scale 12/31/22 12/04/24 History Score 4-6) latanoprost 0.005 % eye drops 1 drp EACH EYE QPM 10/27/23 12/04/24 History (Xalatan) empagliflozin 10 mg tablet 10 mg PO DAILY #90 tabs 11/18/23 12/04/24 Rx cyanocobalamin (vitamin B-12) 500 500 mcg PO .COMPLEX 01/12/24 12/04/24 History mcg tablet ascorbate calcium (vitamin C) 500 500 mg PO DAILY #100 tabs 01/18/24 12/04/24 Rx mg tablet furosemide 20 mg tablet 20 mg PO BID #180 tabs 03/03/24 12/04/24 Rx tamsulosin 0.4 mg capsule (Flomax) 0.4 mg PO QHS #30 caps 06/01/24 12/04/24 Rx allopurinol 100 mg tablet 50 mg (1/2 x 100 mg) PO DAILY #90 09/21/24 12/04/24 Rx tabs levothyroxine 50 mcg tablet 50 mcg PO DAILY #135 tabs 11/17/24 12/04/24 Rx amlodipine 5 mg tablet 5 mg PO DAILY 12/04/24 12/04/24 History aspirin 81 mg capsule 81 mg PO DAILY 12/04/24 12/04/24 History spironolactone 25 mg tablet 25 mg PO DAILY 12/04/24 12/04/24 History Allergies Allergy/AdvReac Type Severity Reaction Status Date / Time lanolin Allergy Severe ITCHEY RASH Verified 12/04/24 02:45 gramicidin D Allergy Mild RASH Verified 12/04/24 02:45 lisinopril Allergy Mild renal Verified 12/04/24 02:45 insufficiency Sulfa (Sulfonamide Allergy Mild renal Verified 12/04/24 02:45 Antibiotics) failure bacitracin Allergy Unknown Rash Verified 12/04/24 02:45 polymyxin B Allergy Unknown rash Verified 12/04/24 02:45 BACITRACIN ZINC Allergy Mild RASH Uncoded 12/04/24 02:45 NEOMYCIN SULFATE Allergy Mild RASH Uncoded 12/04/24 02:45 POLYMYXIN B SULFATE Allergy Mild RASH Uncoded 12/04/24 02:45 tape AdvReac Rash Uncoded 12/04/24 02:45 Vital Signs Vital Signs - 24 hr 12/04/24 02:37 12/04/24 04:34 12/04/24 05:02 Temperature 38.8 C H 37.5 C Pulse Rate 96 66 60 Respiratory Rate 16 16 17 Blood Pressure 176/81 H 137/51 L 133/43 L Pulse Oximetry 98 97 96 Oxygen Delivery Room Air Room Air Room Air 12/04/24 05:32 12/04/24 06:02 12/04/24 06:24 Temperature 37.6 C Pulse Rate 67 71 71 Respiratory Rate 13 21 H 21 H Blood Pressure 132/62 135/64 135/65 Pulse Oximetry 97 99 99 Oxygen Delivery Room Air Room Air Room Air 12/04/24 06:45 Temperature 36.6 C Pulse Rate 88 Respiratory Rate 18 Blood Pressure 141/68 H Pulse Oximetry 98 Oxygen Delivery Room Air Exam Narrative: General appearance: Well-developed, well-nourished, mildly labored breathing Skin: hot skin Head: Normocephalic, nontraumatic Eyes: Clear conjunctiva ENT: Oropharynx normal, ears normal, nose normal Neck: Supple, nontender Chest and respiratory: Airway patent, mild tachypnea with heavy breathing Heart: Regular rate, irregular rhythm Abdomen: Soft, nontender, no organomegaly Vascular: Normal peripheral pulses, normal capillary refill, bilateral lower extremity edema, no wounds noted Musculoskeletal: Normal range of motion, nontender back Neurologic: Alert and oriented ?3, 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 is normal as tested, no gross motor deficit H&P: Results Labs Labs: Short CBC 12/04/24 Range/Units 03:52 WBC 15.5 H (4.8-10.8) K/mm3 Hgb 12.0 L (12.4-15.3) g/dL Hct 36.9 L (37.0-46.0) % Plt Count 176 (150-420) K/mm3 BMP 12/04/24 03:52 Sodium 137 Potassium 5.1 H Chloride 108 H Carbon Dioxide 20 L BUN 45 H Creatinine 1.36 H Glucose 103 Calcium 9.1 Liver Function 12/04/24 Range/Units 03:52 Total Bilirubin 1.0 (0.2-1.3) mg/dL AST 42 (17-59) U/L ALT 21 (6-50) U/L Alkaline Phosphatase 74 (38-126) U/L Albumin 4.1 (3.5-5.1) g/dL Urine 12/04/24 Range/Units 03:52 Urine Color Light yellow (Yellow) Urine Appearance Clear (Clear) Urine pH 7.0 (5.0-8.0) Ur Specific [place] 1.015 (1.010-1.020) Urine Protein Trace H (Negative) Urine Glucose (UA) 3+ H (Negative) Pulse Oximetry SpO2 results: 97-99% on room air Attestation: I personally reviewed and interpreted this pulse oximetry as follows: Interpretation: No need for supplemental oxygenation at this time ECG Attestation: I personally reviewed and interpreted this ECG as follows: ECG completion date: 12/04/24 ECG completion time: 10:49 Prior ECG tracings: available for review Interpretation: Sinus bradycardia with first degree block with perfusing supraventricular complexes in bigeminy pattern that matches heart sounds. Rate 55, MI 309, QRSd 169 with right bundle branch block, QTC 443, R axis 74, no STEMI First degree block is longer than prior EKG and new RBBB noted. Prior atrial rhythm on record. Imaging Chest x-ray: My impression: Mild pulmonary vascular congestion without evidence of consolidative pneumonia and no large pleural effusion per my independent interpretation. Radiologist's impression: Portable chest x-ray Comparison: 07/26/2023 Clinical History: Cough, fever Findings: Questionable minimal central congestive change. No consolidation or pleural effusion otherwise. Cardiomediastinal silhouette is stable. Bones and soft tissues are unremarkable. Impression: Possible minimal central congestive change. Reviewed, dictated and finalized at location . CT Chest Abdomen Pelvis: My impression: Right kidney cyst, large caliber IVC noted, borderline enlarged heart noted, bronchiectasis throughout both lungs consistent with history, mild inflammatory vs fluid changes in right lower lobe, no pleural effusion or noted intraabdominal inflammatory process per my independent interpretation. Radiologist's impression: Clinical Indication: Fever, pneumonia CT Scan of the Chest, Abdomen, and Pelvis with Contrast: Technique: Contiguous sections were acquired throughout the chest, abdomen, and pelvis after intravenous administration of 100 cc of Omnipaque 350. Dose reduction technique was used on this scan by utilizing automated exposure control and iterative reconstruction technique. The dose-length product (DLP) was 1252.37 mGy-cm. Findings: There is no evidence of any significant mediastinal, hilar or axillary lymphadenopathy. The mediastinal soft tissues appear normal. No aortic aneurysm or dissection. There is no evidence of pleural or pericardial effusion. There is extensive cystic bronchiectasis throughout the lungs. There may be a few minimal scattered tree-in-bud opacities peripherally in the right lung.. The liver, spleen, pancreas, gallbladder, adrenals and right kidney are within normal limits. 18 mm exophytic mass in the left kidney (axial image 146) is mildly increased from prior exam. No evidence of aortic aneurysm. No lymphadenopathy. No bowel obstruction or bowel wall thickening. There is no evidence to suggest acute appendicitis. Urinary bladder is unremarkable. No pelvic mass seen. No ascites. Impression: Extensive cystic bronchiectatic change in the lungs. A few minimal tree-in-bud opacities in the right lung, which could reflect mild small airways infectious process. 18 mm indeterminate exophytic mass in the left kidney is mildly increased in size from prior exam. Given relatively minimal change coordinator a 2 year interval, this is most likely benign lesion. Pre and postcontrast MR could be considered for further evaluation as indicated. Reviewed, dictated and finalized at [facility]. Assessment and Plan Assessment and plan (1) Pneumonia: Code(s): J18.9 - Pneumonia, unspecified organism Status: Suspected Assessment and Plan: -Fever and chills with elevated WBC noted -WBC increased on repeat labs -Cultures drawn in ER -IV Levaquin started in ER, will continue, monitor for renal adjustment if needed -No hypoxia -Mildly labored breathing and scattered crackles on auscultation -CXR not convincing -CT scan chest abdomen pelvis with evidence of tree in bud findings right lower lobe (2) Fever and chills: Code(s): R50.9 - Fever, unspecified Status: Acute Assessment and Plan: -Tylenol as needed for fever -See above (3) Acute on chronic diastolic heart failure: Code(s): I50.33 - Acute on chronic diastolic (congestive) heart failure Status: Acute Assessment and Plan: -Prior ELIGIO from 2022 with noted diastolic dysfunction as well as mitral valve and tricuspid valve regurgitation -Bilateral lower extremity pitting edema noted -Large caliber IVC noted on CT scan -Mildly labored/heavy respirations with scattered crackles on auscultation -Possible mild pulmonary edema with slightly elevated BNP of 823 -Resume home medications and give one time dose of IV furosemide 40 mg 12/04/24 (4) CKD (chronic kidney disease): Qualifiers: Chronic kidney disease stage: stage 4 (severe) Qualified Code(s): N18.4 - Chronic kidney disease, stage 4 (severe) Code(s): N18.9 - Chronic kidney disease, unspecified Status: Chronic Assessment and Plan: -Chronic with prior stage 4, current eGFR is better than baseline -Watch cautiously since patient received IV furosemide and CT scan with contrast on 12/04 -Check daily labs (5) BRAYDEN (obstructive sleep apnea): Code(s): G47.33 - Obstructive sleep apnea (adult) (pediatric) Status: Acute Assessment and Plan: - to bring in home unit (6) Hypertension: Code(s): I10 - Essential (primary) hypertension Status: Acute Assessment and Plan: -Continue home medications, stable on review (7) Mixed hyperlipidemia: Code(s): E78.2 - Mixed hyperlipidemia Status: Chronic Assessment and Plan: -Continue home medications Quality VTE Prophylaxis VTE prophylaxis: mechanical ordered If No VTE Prophylaxis Answer both mechanical and pharmacologic: Reason no pharmacologic proph: patient/caregiver refusal (patient refuses due to prior severe nosebleeds) Total time spent on this patient 120 minutes Hospitalist MIPS Advance Care Plan I have confirmed that the patient's Advanced Care Plan is present, code status is documented, or surrogate decision maker is listed in patient medical record.: Yes Medication Reconciliation I have utilized all available resources to obtain, update and review the patients current medications (includes all prescriptions, OTC, herbals, cannabis, and nutritional supplements).: Yes
[2024-12-04 09:54] LABS: Basophils Absolute Auto 0.02 K/mm3 (0.00-0.10); Basophils Percent Auto 0.1 % (0.0-1.0); Eosinophils Absolute Auto 0.02 K/mm3 (0.02-0.50); Eosinophils Percent Auto 0.1 % (1.0-6.0); Hematocrit 35.3 % (37.0-46.0); Hemoglobin 11.4 g/dL (12.4-15.3); Immature Granulocyte Absolute 0.17 K/mm3 (0.00-0.00); Immature Granulocyte Percent A 0.9 % (0.0-0.0); Lymphocytes Percent Auto 2.7 % (18.0-42.0); Mean Corpuscular HGB Conc 32.3 g/dL (32-36); Mean Corpuscular Hemoglobin 33.7 pg (27.0-31.0); Mean Corpuscular Volume 104.4 fL (78.0-102.0); Mean Platelet Volume 9.6 fl (8.7-11.0); Monocytes Absolute Auto 0.77 K/mm3 (0.10-0.90); Monocytes Percent Auto 4.1 % (2.0-11.0); Neutrophils Absolute Auto 17.18 K/mm3 (1.70-7.20); Neutrophils Percent Auto 92.1 % (50.0-70.0); Platelet Count Result 157 K/mm3 (150-420); Red Blood Count 3.38 M/mm3 (4.70-6.10); White Blood Count 18.7 K/mm3 (4.8-10.8)
[2024-12-04 10:07] LABS: Anion Gap 6 mmol/L (4-12); Blood Urea Nitrogen 39 mg/dL (9-20); Calcium 8.8 mg/dL (8.4-10.2); Carbon Dioxide 19 mmol/L (22-30); Chloride 109 mmol/L (98-107); Estimated CRCL calculation 52 ml/min; Estimated Glomerular Filt Rate 54; Glucose 138 mg/dL (65-110); Lactic Acid Reflex 1.9 mmol/L (0.4-2.0); Osmolality Calculated 289 mOsm/kg (285-295); Potassium 4.5 mmol/L (3.4-5.0); Sodium 134 mmol/L (137-145)
[2024-12-04 10:16] LABS: NT Pro B Type Natriuretic Pept 823 pg/mL (19.9-100)
[2024-12-04] MEDS: EMPAGLIFLOZIN 10 MG TABLET PO (10:28)
[2024-12-04] MEDS: ATORVASTATIN 10 MG TABLET PO (10:28)
[2024-12-04] MEDS: CYANOCOBALAMIN 500 MCG TABLET PO (10:28)
[2024-12-04] MEDS: CHOLECALCIFEROL (VITAMIN D3) 25 MCG (1,000 UNITS) TABLET 50 MCG PO (10:28)
[2024-12-04] MEDS: SPIRONOLACTONE 25 MG TABLET PO (10:28)
[2024-12-04] MEDS: LEVOTHYROXINE SODIUM 75 MCG TABLET PO (10:28)
[2024-12-04] MEDS: amLODIPine BESYLATE 5 MG TABLET PO (10:28)
[2024-12-04] MEDS: ASCORBIC ACID 500 MG TABLET PO (10:28)
[2024-12-04] MEDS: FUROSEMIDE INJ 40 MG/4 ML VIAL IV PUSH (10:37)
--- NOTE | 2024-12-04 10:37 | ECG_ITS ---
Test Date: 2024-12-04 10:49:35 Measurements Intervals [place] Rate: 55 P: -60 HI: 309 QRS: 74 QRSD: 169 T: 65 QT: 455 QTc: 436 Interpretive Statements SINUS BRADYCARDIA WITH FIRST DEGREE AV BLOCK WITH FREQUENT SUPRAVENTRICULAR PREMATURE COMPLEXES IN A BIGEMINAL PATTERN RIGHT BUNDLE BRANCH BLOCK BASELINE ARTIFACT- I, III, AVL, V1-V6 ABNORMAL ECG No previous ECG available for comparison Electronically Signed On 12-04-2024 11:00:03 CDT by Omar Quevedo D.O.
[2024-12-04 12:03] LABS: MRSA (PCR) NOT DETECTED (NOT DETECTE)
[2024-12-04] MEDS: ACETAMINOPHEN 325 MG TABLET 650 MG PO ×3 (13:18→23:47)
--- NOTE | 2024-12-04 17:27 | PC.NURSE ---
Estela Patel, DICTATING MACHINE MECHANIC/Hospitalist, notified that patient refused his 1700 Lasix. DICTATING MACHINE MECHANIC ackowledged and changed the times on his Lasix starting 12/05/24 to 0700 and 1400.
[2024-12-04] MEDS: TAMSULOSIN HCL 0.4 MG CAPSULE PO (20:56)
[2024-12-04] MEDS: LATANOPROST 0.005% OP SOLN 2.5 ML BTL 1 DROP EACH EYE (20:56)
--- NOTE | 2024-12-04 21:44 | PC.NURSE ---
Patient able to take HS med without difficulty. Cpap machine from home set up and patient able to put on himself. Call light within reach.
--- NOTE | 2024-12-05 | PC.NURSE ---
Pt resting quietly in bed and said he felt his temperature was coming back and requested tylenol. Temperature was 98.9 and pt was given tylenol 650 mg PO per his request.
--- NOTE | 2024-12-05 02:05 | PC.NURSE ---
Pt asleep and no signs of discomfort noted.
--- NOTE | 2024-12-05 04:11 | PC.NURSE ---
Pt asleep with C-pap in place. No signs of shortness of breath noted.
[2024-12-05 04:51] VITALS: TEMP 36.7
[2024-12-05] MEDS: levoFLOXacin 750 MG/D5W 150 ML 750 MG/150 ML BAG 100 MG IVPB (05:00)
--- NOTE | 2024-12-05 05:00 | PC.NURSE ---
New IV started to the right hand with a #22 gauge catheter. IV antibiotic infusing as ordered.
[2024-12-05] MEDS: LEVOTHYROXINE SODIUM 50 MCG TABLET PO (06:23)
[2024-12-05] MEDS: FUROSEMIDE 20 MG TABLET PO ×2 (06:32→13:30)
--- NOTE | 2024-12-05 06:35 | PC.NURSE ---
Pt given lasix 20 mg po and synthroid 50 mcg po as ordered.
[2024-12-05 07:02] LABS: Basophils Absolute Auto 0.02 K/mm3 (0.00-0.10); Basophils Percent Auto 0.2 % (0.0-1.0); Eosinophils Absolute Auto 0.03 K/mm3 (0.02-0.50); Eosinophils Percent Auto 0.3 % (1.0-6.0); Hematocrit 34.8 % (37.0-46.0); Hemoglobin 11.3 g/dL (12.4-15.3); Immature Granulocyte Absolute 0.05 K/mm3 (0.00-0.00); Immature Granulocyte Percent A 0.5 % (0.0-0.0); Lymphocytes Absolute Auto 1.39 K/mm3 (1.10-4.50); Lymphocytes Percent Auto 14.2 % (18.0-42.0); Mean Corpuscular HGB Conc 32.5 g/dL (32-36); Mean Corpuscular Hemoglobin 33.4 pg (27.0-31.0); Monocytes Percent Auto 8.1 % (2.0-11.0); Neutrophils Absolute Auto 7.53 K/mm3 (1.70-7.20); Neutrophils Percent Auto 76.7 % (50.0-70.0); Platelet Count Result 144 K/mm3 (150-420); Red Blood Count 3.38 M/mm3 (4.70-6.10); Red Cell Distribution Width 13.9 % (11.6-14.4); White Blood Count 9.8 K/mm3 (4.8-10.8)
--- OUTSIDE RECORDS SUMMARY | 2024-12-05 07:54 | XMS_ITS | CONTINUITY OF CARE DOCUMENT ---
Author Name jonathan castillo Address Unknown Organization [facility] Address [address] [address] [facility] [address] [place] [address] Phone [phone] Care Team Providers Care Box Coverer Hand Name Role Phone Hien Espinal MD Unavailable [phone] Hien Espinal MD Unavailable [phone] INSURANCE PROVIDERS Payer name Policy type / Coverage type [place] red democrat ID [employer] MEDICARE COMPLETE HMO Other [id number]
--- OUTSIDE RECORDS SUMMARY | 2024-12-05 07:54 | XMS_ITS | Referral Summary ---
Author Organization [facility] [place] [address] [facility] [address] Address [address] [place] [address] Care Team Providers Care Orthopedics Teacher Name Role Phone Kurtis Castellanos MD Unavailable Kiesha Reynolds MD Primary Care Provider [phone] Hoda Oconnor MD Unavailable Rohith Flores MD Unavailable Encounters Date Type Department Care Team Description 11/09/2024 Orders Only [facility] Scanning, Provider 11/04/2024 Telephone [facility] Cardiology [address] [place] [address] Advanced Medicine 8th [place] [address] [place] [address] Kurtis Castellanos MD 11/02/2024 11:45 AM CDT Office Visit [facility] Cardiology [address] [facility] Floor 1, [address] [place] [address] Kurtis Castellanos MD Primary hypertension [...] edema; Obstructive sleep apnea syndrome 09/26/2024 Telephone [facility] Cardiology [address] [facility] Advanced Medicine 8th [place] [address] [place] [address] Kurtis Castellanos MD 09/12/2024 Telephone [facility] Cardiology [address] [facility] 8th [place] [address] [place] [address] Shubham Coronado MD from Last 3 Months Allergies Active Allergy Reactions Criticality Noted Date Comments Adhesive Tape-Silicones Rash Medium Lanolin Rash Medium Lisinopril Other (See comments) Medium Reaction: hyperkalemia, Zcykvpxh-Vqmotbycuz-Od lymyxin Rash Medium Sulfa (Sulfonamide Antibiotics) Unknown 09/05/2022 Medications latanoprost (XALATAN) 0.005 % ophthalmic solution One drop to the affected eye(s) one time per day 0 0 7 Active cholecalciferol (VITAMIN D-3) 2,000 unit tablet Take 1 tablet (2,000 Units total) by mouth daily Active tamsulosin (FLOMAX) 0.4 mg extended release capsule Take 1 capsule (0.4 mg total) by mouth early head start teacher before breakfast 3 Active cyanocobalamin (Vitamin B-12) 500 mcg tablet Take 2 tablets (1,000 mcg total) by mouth daily Active levothyroxine (SYNTHROID) 50 mcg tablet Take 1 tablet (50 mcg total) by mouth early head start teacher before breakfast 30 tablet 2 3 Active [...] reportedly underwent an atrial flutter ablation at [facility] in 10/2015 Mr. Talley is no longer [...] drink = 0.6 oz pur e alcohol) [facility] Utilities Answer Date Recorded In the past 12 months has th e electric, gas, oil, or water Science threatened to shut off services in your [...] often do you attend chur ch or judaism services? Never 09/11/2023 Do you belong to any clubs o r organizations such as scientology groups, unions, fraternal or athletic groups, or [...] place to sleep or slept in a alf (including now)? No 09/11/2023 Personal Safety Answer Date Recorded Have you ever been in or are you currently in a harmful physical or emotional relationship or is someone making you feel afraid or unsafe? 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 Right: Leg [employer] 04/21/2024 [id number] / [id number] / [id number] [employer] Cytal [id number] Fenestrate Matrix 6 Layer Graft Skin [id number] - [id number] - [id number] Implanted:Qty: 1 on 08/06/2023 by Rohith Flores MD at [facility] Right: Leg [employer] 04/21/2024 [id number] / [id number] / [id number] Procedures Procedure Name Priority Date/Time Associated Diagnosis Comments SCAN - LABS 11/09/2024 HEPATITIS PANEL, ACUTE Routine 12/12/2022 7:19 PM CDT from Last 3 Months or Most Recently Relevant to Health Maintenance Results * SCAN - LABS (11/09/2024) us Provider Scanning Final Result * Hepatitis panel, acute (12/12/2022 7:19 PM CDT) Hep A IgM Nonreactive Nonreactive [facility] Hep B core IgM Nonreactive Nonreactive [facility] Hep C Ab Nonreactive Nonreactive [facility] Comment:Antibodies to HCV no t detected. Does NOT exclude the possibility of recent exposure to HCV. Current interpretive data was last revised on 22 HepBsAg Nonreactive Nonreactive [facility] Blood 12/12/2022 7:19 PM CDT 12/12/2022 7:28 PM CDT Kurtis Castellanos MD LAB MICROBIOLOGY - GENERAL OR DERABLES Final Result [facility] One [facility] Department of Laboratories [place], [place] [id number] from Last 3 Months or Most Recently Relevant to Health Maintenance Insurance [id number] [place] [address] MEDICARE ADVANTAGE UHC MEDICARE ADVANTAGE Advance Directives For more information, please contact: [phone] Documents on File Type Date Recorded 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 [place] Laborer Expl anation ADVANCE DIRECTIVE 08/17/2023 11:27 AM YOMI R OF BASTING MARKER-MEDICAL ADVANCE DIRECTIVE 07/20/2023 10:18 AM YOMI R OF BASTING MARKER-MEDICAL ADVANCE DIRECTIVE 07/17/2023 3:00 PM POWER OF BASTING MARKER-MEDICAL * Full Code (Latest Code Status on File) Date Activated Date Inactivated Comments 09/10/2023 7:37 PM 09/14/2023 6:45 PM * Full Code Date Activated Date Inactivated Comments 07/26/2023 5:02 PM 08/14/2023 6:33 PM * Full Code Date Activated Date Inactivated Comments 07/16/2023 11:41 AM 07/19/2023 9:03 PM * Full Code Date Activated Date Inactivated Comments 12/11/2022 8:18 PM 12/26/2022 8:20 PM Care Teams Orthopedics Teacher Relationship Specialty Start Date End Date Kiesha Reynolds MD PCP - General Family Medicine 02/13/23 Kurtis Castellanos MD Referring Physician Cardiology 01/06/23 [place] [address] [place] [address] Consulting Physician Internal Medicine 08/14/23 [place] [address] [address] [place] [address] Surgeon Trauma Surgery 08/14/23
--- OUTSIDE RECORDS SUMMARY | 2024-12-05 07:54 | XMS_ITS | Clinical Summary ---
Author Organization [facility] Vandana Crooks Address [address] [place] [address] Care Team Providers Care Industrial Safety And Health Technician Name Role Phone Kiesha Reynolds MD Primary Care Provider [phone] Allergies Active Allergy Reactions Criticality Noted Date Comments Adhes. 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 Gender Identity Not on file Sexual [...] Body Mass Index 54.44 08/26/2022 10:24 AM BUSINESS MANAGER Plan of Treatment Health Maintenance Due Date Last Done Comments DTAP/TDAP/TD VACCINES (1 - Tdap) 1966 PNEUMOCOCCAL VACCINE 50+ YEARS (1 of 1 - PCV) 06/17/19 97 ZOSTER VACCINE (1 of 2) 1997 RSV VACCINE (60+ or ) (1 - 1-dose 75+ series) 2022 INFLUENZA VACCINE (#1) 2024 Insurance [facility] [address] [address] Care Teams Industrial Safety And Health Technician Relationship Specialty Start Date End Date Kiesha Reynolds MD [address] [place] [address] PCP - General Family Practice 08/26/22
--- OUTSIDE RECORDS SUMMARY | 2024-12-05 07:54 | XMS_ITS | Clinical Summary ---
Author Organization [facility] [address] Address [address] [place] [address] Care Team Providers Care Client Service Coordinator Name Role Phone Kurtis Castellanos MD Unavailable Kiesha Reynolds MD Primary Care Provider Hoda Oconnor MD Unavailable Rohith Flores MD Unavailable Allergies Active Allergy Reactions Criticality Noted Date Comments Adhesive Tape-Silicones Rash Medium Lanolin Rash Medium Lisinopril Other (See comments) Medium Reaction: hyperkalemia, Psghborb-Hgssnnwghs-Me lymyxin Rash Medium Sulfa (Sulfonamide Antibiotics) Unknown 09/05/2022 Medications latanoprost (XALATAN) 0.005 % ophthalmic solution One drop to the affected eye(s) one time per day 0 0 7 Active cholecalciferol (VITAMIN D-3) 2,000 unit tablet Take 1 tablet (2,000 Units total) by mouth daily Active tamsulosin (FLOMAX) 0.4 mg extended release capsule Take 1 capsule (0.4 mg total) by mouth early childhood education coordinator before breakfast 3 Active cyanocobalamin (Vitamin B-12) 500 mcg tablet Take 2 tablets (1,000 mcg total) by mouth daily Active levothyroxine (SYNTHROID) 50 mcg tablet Take 1 tablet (50 mcg total) by mouth early childhood education coordinator before breakfast 30 tablet 2 3 Active [...] reportedly underwent an atrial flutter ablation at [facility] in 10/2015 Mr. Talley is no longer [...] [facility] Scanning, Provider 11/04/2024 Telephone [facility] Cardiology [address] [place] [address] 8th [place] [address] [place] [address] Kurtis Castellanos MD 11/02/2024 11:45 AM CDT Office Visit [facility] Cardiology [address] [facility] Floor 1, [address] [place] [address] Kurtis Castellanos MD Primary hypertension (Primary Dx); [...] edema; Obstructive sleep apnea syndrome 09/26/2024 Telephone [facility] Cardiology [facility] Medicine 8th [place] [address] [place] [address] Kurtis Castellanos MD 09/12/2024 Telephone [facility] Cardiology [address] [facility] 8th [place] [address] [place] [address] Shubham Coronado MD from Last [...] drink = 0.6 oz pur e alcohol) [facility] Utilities Answer Date Recorded In the past 12 months has [employer] electric, gas, oil, or water [employer] threatened to shut off services in your [...] any clubs o r organizations such as druze groups, unions, fraternal or athletic groups, or [...] place to sleep or slept in a group home (including now)? No 09/11/2023 Personal Safety Answer Date Recorded Have you ever been in or are you currently in a harmful physical or emotional relationship or is someone making you feel afraid or unsafe? 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 Gender Identity Not on file Sexual Orientation [...] Completed 12/12/2022 Medical Devices Implanted Type Area Slide Attendant Device Identifier Shelf Expiration Date Model / Serial / Lot [employer] Cytal [id number] Fenestrate Matrix 6 Layer Graft Skin [id number] - [id number] - [id number] Implanted:Qty: 1 on 08/06/2023 by Rohith Flores MD at [facility] Right: Leg [employer] 04/21/2024 [id number] / [id number] / [id number] [employer] Cytal [id number] Fenestrate Matrix 6 Layer Graft Skin [id number] - [id number] - [id number] Implanted:Qty: 1 on 08/06/2023 by Rohith Flores MD at [facility] Right: Leg [employer] 04/21/2024 [id number] / [id number] / [id number] Procedures Procedure Name Priority Date/Time Associated Diagnosis Comments SCAN - LABS 11/09/2024 HEPATITIS PANEL, ACUTE Routine 12/12/2022 7:19 PM CDT from Last 3 Months or Most Recently Relevant to Health Maintenance Results * SCAN - LABS (11/09/2024) us Provider Scanning Final Result * Hepatitis panel, acute (12/12/2022 7:19 PM CDT) Hep A IgM Nonreactive Nonreactive [facility] Hep B core IgM Nonreactive Nonreactive [facility] Hep C Ab Nonreactive Nonreactive [facility] Comment:Antibodies to HCV no t detected. Does NOT exclude the possibility of recent exposure to HCV. Current interpretive data was last revised on 22 HepBsAg Nonreactive Nonreactive [facility] Blood 12/12/2022 7:19 PM CDT 12/12/2022 7:28 PM CDT Kurtis Castellanos MD LAB MICROBIOLOGY - GENERAL OR DERABLES Final Result [facility] One [facility] [place] [address] from Last 3 Months or Most Recently Relevant to Health Maintenance Insurance [facility] MEDICARE ADVANTAGE [facility] MEDICARE Address: [facility] [address] [place] [address] [facility] MEDICARE ADVANTAGE [facility]ICARE Address: [place] [id number] [facility] MEDICARE ADVANTAGE [facility] MEDICARE Address: [address] [address] Advance Directives For more information, please contact: [phone] Documents on File Type Date Recorded Patient Friend Of The Court Expl anation ADVANCE DIRECTIVE 08/17/2023 11:27 AM YOMI R OF CLINICAL ATHLETIC INSTRUCTOR-MEDICAL ADVANCE DIRECTIVE 07/20/2023 10:18 AM YOMI R OF CLINICAL ATHLETIC INSTRUCTOR-MEDICAL ADVANCE DIRECTIVE 07/17/2023 3:00 PM POWER OF CLINICAL ATHLETIC INSTRUCTOR-MEDICAL * Full Code (Latest Code Status on File) Date Activated Date Inactivated Comments 09/10/2023 7:37 PM 09/14/2023 6:45 PM * Full Code Date Activated Date Inactivated Comments 07/26/2023 5:02 PM 08/14/2023 6:33 PM * Full Code Date Activated Date Inactivated Comments 07/16/2023 11:41 AM 07/19/2023 9:03 PM * Full Code Date Activated Date Inactivated Comments 12/11/2022 8:18 PM 12/26/2022 8:20 PM Care Teams Client Service Coordinator Relationship Specialty Start Date End Date Kiesha Reynolds MD PCP - General Family Medicine 02/13/23 Kurtis Castellanos MD Referring Physician Cardiology 01/06/23 [place] [address] [place] [address] Consulting Physician Internal Medicine 08/14/23 [place] [address] [address] [facility] [address] [address] Surgeon Trauma Surgery 08/14/23
--- OUTSIDE RECORDS SUMMARY | 2024-12-05 07:55 | XMS_ITS ---
Author Organization [facility] Address [address] [place], [place] [address] Care Team Providers Care Ferryboat Deckhand Name Role Phone DI PEPPER Unavailable [phone] Kiesha Reynolds Unavailable Unavailable GUERLINE ALEXIS Unavailable [phone] Allergies Allergen (clinical drug ingredient) Drug/Non Drug [...] 11/10/2024 Encounters Encounter Location Date Provider Diagnosis [address] [id number] 11/10/2024 GUERLINE JARRETTFORD Tinea unguium B35.1 ; Acquired keratosis [keratoderma] palmaris et plantaris L85.1 ; Atherosclerosis of [place] arteries of extremities with intermittent claudication, bilateral [...] utilizing a #15 blade 11/10/2024 Atherosclerosis of [place] arteries of extremities with intermittent claudication, bilateral [...] develop. Provider Name:GUERLINE PABON, 01/12/2025 01:50:00 PM, [address] [place] [address], [id number], Progress Notes * Meena HENDRICKSB:1945 ( 79 yo M)Acc No.[id number]:11/10/2024 Patient: Rigo LAMA Provider: Deacon ALEXIS :1945 A ge:79 Y S ex:Male Date:11/10/2024 Address:[facility] Subjective: * Chief Complaints: * 1 [...] seen by Dr. Reynolds was 09/2024., Initials [facility]. * ROS: G eneral / Constitutional: Patient [...] - L85.1 3 . A therosclerosis of [place] arteries of extremities with intermittent claudication, bilateral [...] develop.) * Billing Information: * Visit Code: 85693 Office Visit, Est Pt., Level 3. * Procedure Codes: * Electronic signature of JAVIER ALEXIS DPM on 12/05/2024 at 07:54 AM CDT Sign off status: Pending * Provider: Deacon ALEXIS Date: 0 11/10/2024 Generated for Sumit Angel/Regina on: 0 12/05/2024 07:54 AM CDT History and Physical Notes * [...]
--- OUTSIDE RECORDS SUMMARY | 2024-12-05 07:55 | XMS_ITS | Patient Health Record ---
Author Organization [facility] Address [address] [place], [place] [address] Care Team Providers Care Bond Broker Name Role Phone DI PEPPER Unavailable [phone] Kiesha Reynolds Unavailable Unavailable FRANCIS ALONSO Unavailable [phone] GUERLINE ALEXIS Unavailable [phone] Allergies Allergen (clinical drug ingredient) Drug/Non Drug [...] high dose seasonal Unknown 03/26/2023 Admini stered Influenza, unspecified formulation Unknown 03/22/2023 A dministered Vital Signs Height-cm 180.34 cm 11/10/2024 Weight-kg 97.07 kg 11/10/2024 Height 71 in 11/10/2024 Weight 214 lbs 11/10/2024 BMI 29.84 kg/m2 11/10/2024 Encounters Encounter Location Date Provider Diagnosis [address] [id number] 11/10/2024 GUERLINE ALEXIS Tinea unguium B35.1 ; Acquired keratosis [keratoderma] palmaris et plantaris L85.1 ; Atherosclerosis of [place] arteries of extremities with intermittent claudication, bilateral legs I70.213 ; Pain in right foot M79.671 and Pain in left foot M79.[address] [id number] 12/10/2023 FRANCIS ALONSO Unspecified atherosclerosis of [place] arteries of extremities, bilateral legs I70.203 ; Tinea unguium B35.1 ; Other hammer toe(s) (acquired), right foot M20.41 ; Other hammer toe(s) (acquired), left foot M20.42 ; Pain in right toe(s) M79.674 ; Pain in left toe(s) M79.675 and Acquired keratosis [keratoderma] palmaris et plantaris L85.[address] [id number] 02/11/2024 FRANCIS ALONSO Unspecified atherosclerosis of [place] arteries of extremities, bilateral legs I70.203 ; Tinea unguium B35.1 ; Other hammer toe(s) (acquired), right foot M20.41 ; Other hammer toe(s) (acquired), left foot M20.42 ; Pain in right toe(s) M79.674 ; Pain in left toe(s) M79.675 and Acquired keratosis [keratoderma] palmaris et plantaris L85.[address] [id number] 04/14/2024 FRANCIS ALONSO Tinea unguium B35.1 ; Other hammer toe(s) (acquired), right foot M20.41 ; Other hammer toe(s) (acquired), left foot M20.42 ; Pain in right toe(s) M79.674 ; Pain in left toe(s) M79.675 ; Unspecified atherosclerosis of [place] arteries of extremities, bilateral legs I70.203 and Acquired keratosis [keratoderma] palmaris et plantaris L85.[address] [id number] 07/07/2024 DI SNOOK Tinea unguium B35.1 ; Acquired keratosis [keratoderma] palmaris et plantaris L85.1 ; Atherosclerosis of [place] arteries of extremities with intermittent claudication, bilateral legs I70.213 ; Pain in right foot M79.671 and Pain in left foot M79.[address] [id number] 09/08/2024 DI SNOOK Tinea unguium B35.1 ; Acquired keratosis [keratoderma] palmaris et plantaris L85.1 ; Atherosclerosis of [place] arteries of extremities with intermittent claudication, bilateral [...] and prescription treatments. 12/10/2023 Unspecified atherosclerosis of [place] arteries of extremities, bilateral legs (ICD-10 - [...] and prescription treatments. 02/11/2024 Unspecified atherosclerosis of [place] arteries of extremities, bilateral legs (ICD-10 - [...] utilizing a #15 blade 11/10/2024 Atherosclerosis of [place] arteries of extremities with intermittent claudication, bilateral legs (ICD-10 - I70.213) 09/08/2024 Atherosclerosis of [place] arteries of extremities with intermittent claudication, bilateral legs (ICD-10 - I70.213) 07/07/2024 Atherosclerosis of [place] arteries of extremities with intermittent claudication, bilateral [...] (ICD-10 - M79.675) 04/14/2024 Unspecified atherosclerosis of [place] arteries of extremities, bilateral legs (ICD-10 - [...] Details Provider Name:GUERLINE PABON, 01/12/2025 01:50:00 PM, [address] [place] [address], [id number], Insurance Providers Payer Name Payer Address Payer Phone Subscriber Number Group Number Insured Name Patient Relationship to Insured Coverage Start Date Coverage End Date [facility] [address] [place] [address] [id number] Rigo Talley Self - patient is the insured Medical (General) History Medical History History ICD Code edema heart problems hypertension Surgical History Surgery Date(Month/Year) appendectomy Carpal Tunnel release
[2024-12-05] MEDS: ALBUTEROL SULFATE NEB 2.5 MG/3 ML INH INHALATION (07:56)
[2024-12-05 08:00] VITALS: BP 124/53; PULSE 52; RESP 18; TEMP 36.6; O2SAT 96
[2024-12-05] MEDS: ASCORBIC ACID 500 MG TABLET PO (09:00)
[2024-12-05] MEDS: EMPAGLIFLOZIN 10 MG TABLET PO (09:00)
[2024-12-05] MEDS: ASPIRIN 81 MG CHEWABLE TABLET PO (09:00)
[2024-12-05] MEDS: amLODIPine BESYLATE 5 MG TABLET PO (09:00)
[2024-12-05] MEDS: CHOLECALCIFEROL (VITAMIN D3) 25 MCG (1,000 UNITS) TABLET 50 MCG PO (09:00)
[2024-12-05] MEDS: SPIRONOLACTONE 25 MG TABLET PO (09:01)
[2024-12-05] MEDS: ATORVASTATIN 10 MG TABLET PO (09:01)
[2024-12-05 09:48] LABS: Alanine Aminotransferase 17 U/L (6-50); Albumin Level 3.4 g/dL (3.5-5.1); Alkaline Phosphatase 74 U/L (38-126); Anion Gap 5 mmol/L (4-12); Aspartate Amino Transferase 26 U/L (17-59); Bilirubin,Total 0.7 mg/dL (0.2-1.3); Blood Urea Nitrogen 36 mg/dL (9-20); Calcium 9.1 mg/dL (8.4-10.2); Carbon Dioxide 22 mmol/L (22-30); Chloride 107 mmol/L (98-107); Estimated CRCL calculation 44 ml/min; Estimated Glomerular Filt Rate 45; Glucose 87 mg/dL (65-110); Magnesium 2.1 mg/dL (1.6-2.3); Osmolality Calculated 285 mOsm/kg (285-295); Potassium 4.3 mmol/L (3.4-5.0); Sodium 134 mmol/L (137-145); Total Protein 6.1 g/dL (6.3-8.2)
--- NOTE | 2024-12-05 10:58 | PM.DS ---
DS: Admitting Diagnosis Discharge Date 12/05/2024 Admitting Diagnosis pneumonia, fever and chills, acute on chronic diastolic heart failure, CKD, BRAYDEN, HTN, mixed hyperlipidemia DS: Discharge Diagnosis Discharge Diagnosis (1) Positive blood culture: Code(s): R78.81 - Bacteremia Status: Acute Assessment and Plan: -Uncertain if contaminant vs concerning pathogen, patient on Levaquin for 2 days already with prescription for 3 more doses Q48H due to renal dosing modifications. One bottle growing gram positive cocci in clusters positive right before patient was discharged. WBC improved, no fever in over 24 hours. Redraw cultures and start Zyvox as well. Will contact patient to check on status and either stop Zyvox or extend prescription based on results or have patient return to be admitted for IV antibiotics if symptoms not improving. (2) Pneumonia: Code(s): J18.9 - Pneumonia, unspecified organism Status: Suspected (3) Fever and chills: Code(s): R50.9 - Fever, unspecified Status: Acute (4) Acute on chronic diastolic heart failure: Code(s): I50.33 - Acute on chronic diastolic (congestive) heart failure Status: Acute (5) CKD (chronic kidney disease): Qualifiers: Chronic kidney disease stage: stage 4 (severe) Qualified Code(s): N18.4 - Chronic kidney disease, stage 4 (severe) Code(s): N18.9 - Chronic kidney disease, unspecified Status: Chronic (6) BRAYDEN (obstructive sleep apnea): Code(s): G47.33 - Obstructive sleep apnea (adult) (pediatric) Status: Acute (7) Hypertension: Code(s): I10 - Essential (primary) hypertension Status: Acute (8) Mixed hyperlipidemia: Code(s): E78.2 - Mixed hyperlipidemia Status: Chronic DS: Summary Hospital Course Reason for hospitalization: Fever/chills Hospital Course: This is a 79 year old male patient who was admitted to the hospital for fever and chills that started suddenly overnight on 12/03 going into 12/04. He was given Levaquin in ER for suspected pneumonia. I saw patient yesterday and CT scan further supported tree in bud findings in right lower lobe as well as pulmonary edema. Continued Levaquin treatment and gave IV Lasix. Patient responded well with decrease in WBCs, no further fever/chills as well as improvement in lung sounds, work of breathing and peripheral edema. Patient really impatient to be discharged home. He stated he just didn't want to lay around in the hospital anymore. As patient was preparing to eat lunch then discharge, a single bottle from a single set of blood cultures resulted positive. Uncertain if this is a contaminant vs concerning pathogen, patient on Levaquin for 2 days already with prescription for 3 more doses Q48H due to renal dosing modifications. One bottle growing gram positive cocci in clusters positive right before patient was discharged. WBC improved, no fever in over 24 hours. Redraw cultures and start Zyvox as well. Will contact patient to check on status and either stop Zyvox or extend prescription based on results or have patient return to be admitted for IV antibiotics if symptoms not improving. This plan of care was discussed with ID Pharmacist Compa Friedman. Status at Discharge Cognitive/behavioral status at discharge: Awake, alert, oriented and pleasant Functional status at discharge: independent ambulation Overall status at discharge: patient is progressing back to baseline Time Spent with Patient Time attestation: Total time spent providing and/or coordinating discharge services: 65 minutes Exam Narrative: General appearance: Well-developed, awake, alert, no distress Skin: hot skin Head: Normocephalic, nontraumatic Eyes: Clear conjunctiva ENT: Oropharynx normal, ears normal, nose normal Neck: Supple, nontender Chest and respiratory: Airway patent, scattered crackles but improved lung sounds Heart: Slightly bradycardic rate, irregular rhythm Abdomen: Soft, nontender, no organomegaly Vascular: Normal peripheral pulses, normal capillary refill, improved leg swelling, feet remain swollen Musculoskeletal: Normal range of motion, nontender back Neurologic: Alert and oriented ?3, GREETING CARD EDITOR is normal as tested, no gross motor deficit DS: Data Data Completed and Pending Pending studies at discharge: Blood cultures still processing, repeat cultures drawn due to possible initial contamination positive (1 bottle of 1 set so far) Labs on day of discharge: Labs from last 24 hours 12/05/24 12/04/24 06:43 10:31 WBC 9.8 RBC 3.38 L Hgb 11.3 L Hct 34.8 L MCV 103.0 H MCH 33.4 H MCHC 32.5 RDW 13.9 Plt Count 144 L MPV 10.0 Immature Gran % (Auto) 0.5 H Neut % (Auto) 76.7 H Lymph % (Auto) 14.2 L Clay % (Auto) 8.1 Eos % (Auto) 0.3 L Baso % (Auto) 0.2 Lymph # (Auto) 1.39 Clay # (Auto) 0.80 Eos # (Auto) 0.03 Baso # (Auto) 0.02 Abs Immat Gran (auto) 0.05 H Absolute Neuts (auto) 7.53 H Absolute Nucleated RBC 0.00 Nucleated RBC % 0.0 Sodium 134 L Potassium 4.3 Chloride 107 Carbon Dioxide 22 Anion Gap 5 BUN 36 H Creatinine 1.52 H Estim Creat Clear Calc 44 Estimated GFR 45 L Glucose 87 Calculated Osmolality 285 Calcium 9.1 Magnesium 2.1 Total Bilirubin 0.7 AST 26 ALT 17 Alkaline Phosphatase 74 Total Protein 6.1 L Albumin 3.4 L Nasal MRSA (PCR) Not detected Preliminary micro results at discharge 12/04/24 03:53 Blood Culture - Preliminary Blood 12/04/24 03:52 Blood Culture - Preliminary Blood Discharge Plan Discharge Discharging Clinician: Gaetano Patel Anticipated Discharge Date/Time: 12/05/24 11:02 Patient Disposition: Home Activity: as tolerated Diet: heart healthy and low sodium Discharge Instructions: Take Levofloxacin EVERY OTHER DAY for 3 more doses. You got the dose today by IV so please take on Thursday (12/07) morning, Thursday (12/09) morning, and Thursday (12/11) morning. Start Linezolid TWICE A DAY starting at bedtime tonight. Once blood cultures come back completely we will call and have you take this medication longer or stop it before the prescription runs out. A single bottle of your ER blood cultures returned positive today for a likely version of Staph, some strains are skin contaminants and other strains are more concerning (like MRSA.) We also tim additional bottles of cultures before discharge to see if the first positive set was contamination or not. If multiple bottles come back positive for MRSA or your symptoms do not get better, you may need to return for admission for further IV antibiotics. Tylenol if you experience fever/chills Call 911 or return to ER for new/worsening symptoms of a medical emergency. Patient Instructions: Antibiotic Form Patient Language: Armenian Stand Alone Forms: General Discharge Information Follow-up/Referrals: Kiesha Reynolds MD [Primary Care Provider] - Discharge Medications: New levofloxacin 750 mg tablet 750 mg PO Q48H 6 Days Qty: 3 0RF Rx Instructions: Take on 12/07, 12/09, 12/11 mornings linezolid [Zyvox] 600 mg tablet 600 mg PO Q12H Qty: 7 0RF Continued amlodipine 5 mg tablet 5 mg PO DAILY spironolactone 25 mg tablet 25 mg PO DAILY aspirin 81 mg capsule 81 mg PO DAILY cholecalciferol (vitamin D3) 50 mcg (2,000 unit) capsule 50 mcg PO DAILY acetaminophen 500 mg capsule 500 mg PO Q6H PRN (Reason: Pain (Scale Score 4-6)) cyanocobalamin (vitamin B-12) 500 mcg tablet 500 mcg PO .COMPLEX Rx Instructions: 500 mcg orally every other day; latanoprost [Xalatan] 0.005 % drops 1 drp EACH EYE QPM atorvastatin 10 mg tablet 10 mg PO DAILY empagliflozin 10 mg tablet 10 mg PO DAILY Qty: 90 1RF ascorbate calcium (vitamin C) 500 mg tablet 500 mg PO DAILY Qty: 100 0RF Rx Instructions: Take with iron to assist with absorption of iron. furosemide 20 mg tablet 20 mg PO BID Qty: 180 0RF tamsulosin [Flomax] 0.4 mg capsule 0.4 mg PO QHS Qty: 30 5RF allopurinol 100 mg tablet 50 mg PO DAILY Qty: 90 0RF levothyroxine 50 mcg tablet 50 mcg PO DAILY Qty: 135 5RF Rx Instructions: Take 1.5 tab Thursday and 1 tab daily other days. Date of admission: 12/04/24 05:56 Primary Care Provider: Kiesha Reynolds Admitting Provider: Andrew Chavez Attending physician on admission: Andrew Chavez Condition: Improved Quality VTE Prophylaxis VTE prophylaxis: mechanical ordered Hospitalist MIPS Heart Failure (Exclusion) Patient has history of Heart Transplant or Left Ventricular Assistive Device?: No IF YES, STOP HERE Heart Failure (Qualifier) Patient has current or prior documentation of LVEF less than or equal to 40%, or mod/servere depressed LVSF?: No IF NO, STOP HERE
[2024-12-05] MEDS: LINEZOLID 600 MG TABLET PO (12:26)
--- NOTE | 2024-12-05 13:45 | PC.NURSE ---
Discharge instructions reviewed with patient and spouse. Patient taken off floor per wheelchair
== END 2024-12-05 13:45 | disposition home or self-care (01) ==
LOC: CHSED 02:48 → CHS2ND 06:03
PROVIDERS: Nurse Practitioner; Admitting Provider Internal Medicine; Emergency Provider Emergency Medicine; PCP Family Medicine; Visit Provider Internal Medicine
DX: J18.9 Pneumonia, unspecified organism (principal); J44.0 Chronic obstructive pulmonary disease with (acute) lower respiratory infection; J47.9 Bronchiectasis, uncomplicated; R78.81 Bacteremia; I13.0 Hypertensive heart and chronic kidney disease with heart failure and stage 1 through stage 4 chronic kidney disease, or unspecified chronic kidney disease; I50.33 Acute on chronic diastolic (congestive) heart failure; N18.4 Chronic kidney disease, stage 4 (severe); I08.1 Rheumatic disorders of both mitral and tricuspid valves; E78.2 Mixed hyperlipidemia; G47.33 Obstructive sleep apnea (adult) (pediatric); E03.9 Hypothyroidism, unspecified; N28.1 Cyst of kidney, acquired; I87.2 Venous insufficiency (chronic) (peripheral); M10.9 Gout, unspecified; Z20.822 Contact with and (suspected) exposure to COVID-19; Z79.899 Other long term (current) drug therapy; Z99.89 Dependence on other enabling machines and devices
CPT/HCPCS: 36415; 71045; 71260; 74177; 80048; 80053; 81001; 83605; 83735; 83880; 84443; 85025; 85610; 85730; 86140; 87040; 87637; 87641; 87651; 93005; 96361; 96365; 96366; 96375; 99285; A9270; G0378; J1885; J1938; J1956; J7030; Q9967

== ENCOUNTER 2024-12-15 11:27 | Outpatient (CLI) | payer MEDICARE, SELFPAY ==
--- NOTE | ~2024-12-15 | XR_ITS ---
XR chest 2V Ordering provider: Halina Segal PA-C History: 79 years Male with . J18.9 - Pneumonia, unspecified organism . Comparison: December 04, 2024 FINDINGS: MEDIASTINUM: The cardiac silhouette is not enlarged. LUNGS: No infiltrates, effusions or pneumothorax. OTHER: No free air under the diaphragm. Degenerative changes of the spine. Dextroscoliosis. IMPRESSION: No acute cardiopulmonary pathology. Reviewed, dictated and finalized at location A.
[2024-12-15 12:46] LABS: Basophils Absolute Auto 0.03 K/mm3 (0.00-0.10); Basophils Percent Auto 0.4 % (0.0-1.0); Eosinophils Absolute Auto 0.18 K/mm3 (0.02-0.50); Eosinophils Percent Auto 2.5 % (1.0-6.0); Hematocrit 38.4 % (37.0-46.0); Hemoglobin 12.8 g/dL (12.4-15.3); Immature Granulocyte Absolute 0.02 K/mm3 (0.00-0.00); Immature Granulocyte Percent A 0.3 % (0.0-0.0); Lymphocytes Absolute Auto 2.21 K/mm3 (1.10-4.50); Lymphocytes Percent Auto 31.2 % (18.0-42.0); Mean Corpuscular HGB Conc 33.3 g/dL (32-36); Mean Corpuscular Hemoglobin 33.4 pg (27.0-31.0); Mean Corpuscular Volume 100.3 fL (78.0-102.0); Mean Platelet Volume 9.3 fl (8.7-11.0); Monocytes Absolute Auto 0.53 K/mm3 (0.10-0.90); Monocytes Percent Auto 7.5 % (2.0-11.0); Neutrophils Absolute Auto 4.11 K/mm3 (1.70-7.20); Neutrophils Percent Auto 58.1 % (50.0-70.0); Platelet Count Result 167 K/mm3 (150-420); Red Blood Count 3.83 M/mm3 (4.70-6.10); Red Cell Distribution Width 13.1 % (11.6-14.4); White Blood Count 7.1 K/mm3 (4.8-10.8)
[2024-12-15 12:53] LABS: Alanine Aminotransferase 23 U/L (6-50); Albumin Level 4.7 g/dL (3.5-5.1); Alkaline Phosphatase 130 U/L (38-126); Anion Gap 7 mmol/L (4-12); Aspartate Amino Transferase 37 U/L (17-59); Bilirubin,Total 0.7 mg/dL (0.2-1.3); Blood Urea Nitrogen 52 mg/dL (9-20); Calcium 9.9 mg/dL (8.4-10.2); Carbon Dioxide 26 mmol/L (22-30); Chloride 104 mmol/L (98-107); Estimated Glomerular Filt Rate 53; Glucose 82 mg/dL (65-110); Osmolality Calculated 297 mOsm/kg (285-295); Potassium 5.3 mmol/L (3.4-5.0); Sodium 137 mmol/L (137-145); Total Protein 7.4 g/dL (6.3-8.2)
== END 2024-12-15 11:28 | disposition home or self-care (01) ==
PROVIDERS: PCP Family Medicine; Visit Provider Student in an Organized Health Care Education/Training Program
DX: D64.9 Anemia, unspecified (principal); N18.4 Chronic kidney disease, stage 4 (severe); J18.9 Pneumonia, unspecified organism; I12.9 Hypertensive chronic kidney disease with stage 1 through stage 4 chronic kidney disease, or unspecified chronic kidney disease
CPT/HCPCS: 36415; 71046; 80053; 85025

== ENCOUNTER 2025-03-14 07:59 | Outpatient (CLI) | payer MEDICARE, SELFPAY ==
--- OUTSIDE RECORDS SUMMARY | 2010-04-12 04:45 | XMS_ITS | Continuity of Care Document ---
Author Organization [facility] Address [address] [place] [address] Phone Care Team Providers Care Production Director Name Role Phone Delmy Beauchamp Unavailable Unavailable Procedures Procedure Date Office/outpatient Visit, Est Fundus Photography W/ Report Office/outpatient Visit, Est Visual Field Examination(s) Office/outpatient Visit, Est Office/outpatient Visit, Est Fundus Photography W/ Report Visual Field Examination(s) Office/outpatient Visit, Est Corneal Pachymetry Office/outpatient Visit, Est Fundus Photography W/ Report Advance Directives Directive Yes / No Effective Date File Name No Information Encounters Encounter Description Practice Location Reason(s) For Visit Diagnoses Date Provider Providers Copied on Encounter Office/outpat ient Visit, [facility], [address] [place] [address] [address], [place], [place], [id number], [place] tel:[phone] [facility] No Information Oct-2 2-201 0 Quynh Brock. [address], [place], [address], [place]. tel:[phone] Referring Provider: Nancy [address], [place], [address]. tel:[phone] Office/outpat ient Visit, [facility], [id number] [place] [address] [address], [place], [place], [id number], [place] tel:[phone] [facility] No Information 0 Quynh Brock. [address] [facility] , [address], [place], [place], [facility], . tel:[phone] Referring Provider: Delmy Rivera, [address], [place], [facility]. tel:[phone] [facility], [address] [place] [address] [address], [place], [place], [id number], tel:[phone] [facility] No Information 0 Quynh Brock. [address] [facility] , [address], [place], [facility], . tel:[phone] Referring Provider: Delmy Rivera, [address], [place], [facility]. tel:[phone] Office/outpat ient Visit, [facility], [address] [place] [address] [address], [place], [place], [id number], [place] tel:[phone] [facility] No Information Feb-0 200 9 Quynh Miguel [address] [facility] , [address], [place], [facility], [place]. tel:[phone] Office/outpat ient Visit, [facility], [address] [place] [address] [address], [place], [place], [id number], [place] tel:[phone] [facility] No Information Sep-2 8-200 9 Quynh Brock. [address] [facility] , [address], [place], [facility], . tel:[phone] Referring Provider: Delmy Rivera, [address], [place], [facility]. tel:[phone] [facility], [address] [place] [address] [address], [place], [place], [id number], tel:[phone] [facility] No Information 8 Quynh Brock. [facility] , [address], [place], [facility], . tel:[phone] Referring Provider: Delmy Rivera, [address], [place], [facility]. tel:[phone] Office/outpat ient Visit, [facility], [address] [place] [address] [address], [place], [place], [id number], tel:[phone] [facility] No Information 8 Quynh Brock. [facility] [address], [address], [place], [facility], . tel:[phone] Referring Provider: Nancy [facility]az [facility] [address], [place], [facility]. tel:[phone] Office/outpat ient Visit, [facility], [address] [place] [address] [address], [place], [place], [id number], tel:[phone] [facility] No Information 7 Quynh Cruz [facility] [address], [address], [place], [facility], . tel:[phone] Referring Provider: Nancy Meraz [facility] [address], [place], [facility]. tel:[phone] Family History Family Member Type Diagnosis Age At Onset No Information Payers Payer name Insurance type Covered green party ID Authoraroldoa caitlin(s) [facility] [id number] Social History Type Description Quantity Date Captured Comments Sex Male Smoking Status No Information Chief Complaint And Reason For Visit No Information Reason For Referral Reason For Referral No Information History Of Present Illness Encounter Date Complaint History Of Prese nt Illness No Information Functional Status Date Functional Assessmen t No Information Instructions Date Instruction Additional Infor mation No Information Assessments Type Assessment Date No Information Patient Care Teams Name Effective Dates (start - stop) Status Members No Information
--- OUTSIDE RECORDS SUMMARY | 2024-11-10 08:30 | XMS_ITS ---
Author Organization [facility] Address [address] [place], [place] [id number] Care Team Providers Care Manager Hris Name Role Phone DI PEPPER Unavailable [phone] Kiesha Reynolds Unavailable Unavailable GUERLINE ALEXIS Unavailable [phone] Allergies Allergen (clinical drug ingredient) Drug/Non Drug Allergy documented on EMR Reaction Allergy Type Onset Date Status lanolin Lanolin Unknown Drug Allergy Active lisinopril Lisinopril Unknown Drug Allergy Activ e neomycin Neomycin Unknown Drug Allergy Active Tape Unknown Allergy Active REASON FOR VISIT *General care Medications Medication SIG (Take, Route, Frequency, Duration) Notes Start Date End Date Status Allopurinol 300 MG Oral; Duration: 90 Days Active amLODIPine Besylate 5 MG Oral; Duration: 90 Days Active Atorvastatin Calcium 10 MG Oral; Duration: 30 Days Active Metoprolol Succinate ER 50 MG Oral; Duration: 30 Days Acti ve Tamsulosin HCl 0.4 MG Oral; Duration: 30 Days Active Cephalexin 500 MG Oral; Duration: 10 Days Active Pregabalin 75 MG Oral; Duration: 30 Days Active Furosemide 20 MG Oral; Duration: 30 Days Active Levothyroxine Sodium 50 MCG Oral; Duration: 30 Days Active Jardiance 10 MG Oral; Duration: 90 Days Active Spironolactone 25 MG Oral; Duration: 30 Days Active Latanoprost 0.005 % Ophthalmic; Duration : 25 Days Active Vital Signs Height 71 in 11/10/2024 Weight 214 lbs 11/10/2024 BMI 29.84 kg/m2 11/10/2024 Height-cm 180.34 cm 11/10/2024 Weight-kg 97.07 kg 11/10/2024 Encounters Encounter Location Date Provider Diagnosis [address] [id number] 11/10/2024 GUERLINE ALEXIS Tinea unguium B35.1 ; Acquired keratosis [keratoderma] palmaris et plantaris L85.1 ; Atherosclerosis of [place] arteries of extremities with intermittent claudication, bilateral legs I70.213 ; Pain in right foot M79.671 and Pain in left foot M79.672 Assessments Encounter Date Diagnosis (ICD Code) Assessment Notes Treatment Notes Treatment Clinical Notes Section Notes 11/10/2024 Tinea unguium (ICD-10 - B35.1) Nails 1-5 Bilateral were debrided extensively with nail nippers and emery board, reducing length and girth to pink healthy tissue with any subungual debris and necrotic tissue removed 11/10/2024 Acquired keratosis [keratoderma] palmaris et plantaris (ICD-10 - L85.1) A total of 4 corns or calluses, as described in the note above, were cut and pared utilizing a #15 blade 11/10/2024 Atherosclerosis of hughes arteries of extremities with intermittent claudication, bilateral legs (ICD-10 - I70.213) 11/10/2024 Pain in right foot (ICD-10 - M79.671) 11/10/2024 Pain in left foot (ICD-10 - M79.672) [...] sooner if problems develop. Provider Name:GUERLINE PABON, 03/16/2025 01:30:00 PM, [address] [place] [address], [id number], Progress Notes * Janeen HENDRICKS:1945 ( 79 yo M)Acc No.[id number]:11/10/2024 Patient: Rigo LAMA Provider: Deacon ALEXIS :1945 A ge:79 Y S ex:Male Date:11/10/2024 Address:[address] [place], [place] [id number] Subjective: * Chief Complaints: * 1 . [...] Date last seen by Dr. Reynolds was 09/2024., Initials mca. * ROS: G eneral / Constitutional: Patient [...] ape, Lisinopril, Lanolin, Neomycin. Objective: * Vitals: S hoe Size: 11, Wt: 214 lbs, Wt-k.07 kg, Ht: 71 in, Ht-cm: 180.34 cm, BMI: 29.84 Index, Body Surface Area: 2.2. * Examination: P hysical Examination: General appearance: [...] - L85.1 3 . A therosclerosis of hughes arteries of extremities with intermittent claudication, bilateral legs - I70.213 4 . P ain in right foot - M79.671 5 . P ain in left foot - M79.672 Plan: * Treatment: 2. A cquired keratosis [keratoderma] palmaris et plantaris Notes: A total of 4 corns or calluses, as described in the note above, were cut and pared utilizing a #15 blade * Immunizations: Immunization record has been reviewed and updated. * Follow Up: 1 0 - 12 weeks (Reason: At-Risk Foot care, sooner if problems develop.) * Billing Information: * Visit Code: 38864 Office Visit, Est Pt., Level 3. * Procedure Codes: * Electronic signature of JAVIER ALEXIS DPM on 03/14/2025 at 08:15 AM CDT Sign off status: Pending * Provider: Deacon ALEXIS Date: 0 11/10/2024 Generated for Sumit blankenship/Aly/Regina on: 0 03/14/2025 08:15 AM CDT History and Physical Notes * [...] Date last seen by Dr. Reynolds was 09/2024., Initials mca Examination Category Sub-Category Detail Notes [...]
--- OUTSIDE RECORDS SUMMARY | 2025-01-12 08:50 | XMS_ITS ---
Author Organization [facility] Address [address] [place], [place] [id number] Care Team Providers Care Lamp Mechanic Name Role Phone DI PEPPER Unavailable [phone] Kiesha Reynolds Unavailable Unavailable GUERLINE ALEXIS Unavailable [phone] Allergies Allergen (clinical drug ingredient) Drug/Non Drug Allergy documented on EMR Reaction Allergy Type Onset Date Status lanolin Lanolin Unknown Drug Allergy Active lisinopril Lisinopril Unknown Drug Allergy Activ e neomycin Neomycin Unknown Drug Allergy Active Tape Unknown Allergy Active REASON FOR VISIT *General care Medications Medication SIG (Take, Route, Frequency, Duration) Notes Start Date End Date Status Cephalexin 500 MG Oral; Duration: 10 Days Active Jardiance 10 MG Oral; Duration: 90 Days Active Levothyroxine Sodium 50 MCG Oral; Duration: 30 Days Active Latanoprost 0.005 % Ophthalmic; Duration : 25 Days Active Spironolactone 25 MG Oral; Duration: 30 Days Active Metoprolol Succinate ER 50 MG Oral; Duration: 30 Days Acti ve Atorvastatin Calcium 10 MG Oral; Duration: 30 Days Active amLODIPine Besylate 5 MG Oral; Duration: 90 Days Active Allopurinol 300 MG Oral; Duration: 90 Days Active Tamsulosin HCl 0.4 MG Oral; Duration: 30 Days Active Furosemide 20 MG Oral; Duration: 30 Days Active Pregabalin 75 MG Oral; Duration: 30 Days Active Vital Signs Height 71 in 01/12/2025 Weight 214 lbs 01/12/2025 BMI 29.84 kg/m2 01/12/2025 Height-cm 180.34 cm 01/12/2025 Weight-kg 97.07 kg 01/12/2025 Encounters Encounter Location Date Provider Diagnosis [address] [id number] 01/12/2025 GUERLINE ALEXIS Tinea unguium B35.1 ; Acquired keratosis [keratoderma] palmaris et plantaris L85.1 ; Atherosclerosis of samish arteries of extremities with intermittent claudication, bilateral legs I70.213 ; Pain in right foot M79.671 and Pain in left foot M79.672 Assessments Encounter Date Diagnosis (ICD Code) Assessment Notes Treatment Notes Treatment Clinical Notes Section Notes 01/12/2025 Tinea unguium (ICD-10 - B35.1) Nails 1-5 Bilateral were debrided extensively with nail nippers and emery board, reducing length and girth to pink healthy tissue with any subungual debris and necrotic tissue removed 01/12/2025 Acquired keratosis [keratoderma] palmaris et plantaris (ICD-10 - L85.1) A total of 4 corns or calluses, as described in the note above, were cut and pared utilizing a #15 blade 01/12/2025 Atherosclerosis of samish arteries of extremities with intermittent claudication, bilateral legs (ICD-10 - I70.213) Patient educated on risks and aggravating factors of PVD, including conservative treatment options such as a diet and exercise regimen to aid in slowing progression of vascular disease. Check and protect LE bilateral daily. Call if any changes or concerns. 01/12/2025 Pain in right foot (ICD-10 - M79.671) 01/12/2025 Pain in left foot (ICD-10 - M79.672) [...] cut and pared utilizing a #15 blade Atherosclerosis of samish ar teries of extremities with intermittent claudication, bilateral legs Patient educated on risks and aggravatin g factors of PVD, including conservative treatment options such as a diet and exercise regimen to aid in slowing progression of vascular disease. Check and protect LE bilateral daily. Call if any changes or concerns. Next Appt Details Follow Up: 10 - 12 weeks, Re ason: At-Risk Foot care, sooner if problems develop. Provider Name:GUERLINE Zelaya ENRRIQUE PABON, 03/16/2025 01:30:00 PM, [address] [place] [address], [phone], Progress Notes * Rigo HENDRICKSDOB:1945 ( 79 yo M)Acc No.[id number]:01/12/2025 Patient: Rigo LAMA Provider: Deacon ALEXIS :1945 A ge:79 Y S ex:Male Date:01/12/2025 Address:[address] [place], [place] [id number] Subjective: * Chief Complaints: * 1 . [...] Date last seen by Dr. Reynolds was 11/2024., Initials nd. * ROS: G eneral / Constitutional: Patient [...] ppendectomy , Carpal Tunnel release . * Hospitalization/Major Diagno stic Procedure: D enies Past Hospitalization. * Family History: F ather: gout, heart disease. M other: Diabetic, heart disease. * Medications: T aking Allopurinol 300 MG [...] - L85.1 3 . A therosclerosis of samish arteries of extremities with intermittent claudication, bilateral legs - I70.213 4 . P ain in right foot - M79.671 5 . P ain in left foot - M79.672 Plan: * Treatment: 2. A cquired keratosis [keratoderma] palmaris et plantaris Notes: A total of 4 corns or calluses, as described in the note above, were cut and pared utilizing a #15 blade 3. A therosclerosis of samish arteries of extremities with intermittent claudication, bilateral legs Notes: Patient educated on risks and aggravating factors of PVD, including conservative treatment options such as a diet and exercise regimen to aid in slowing progression of vascular disease. Check and protect LE bilateral daily. Call if any changes or concerns. * Follow Up: 1 0 - 12 weeks (Reason: At-Risk Foot care, sooner if problems develop.) * Billing Information: * Visit Code: 85501 Office Visit, Est Pt., Level 3. * Procedure Codes: * Electronic signature of JAVIER ALEXIS DPM on 03/14/2025 at 08:15 AM CDT Sign off status: Pending * Provider: Deacon ALEXIS Date: 0 01/12/2025 Generated for Sumit blankenship/Aly/Regina on: 0 03/14/2025 [...] Date last seen by Dr. Reynolds was 11/2024., Initials nd Examination Category Sub-Category Detail Notes Category Not [...]
[2025-03-14 08:12] LABS: Hematocrit 42.4 % (37.0-46.0); Hemoglobin 13.8 g/dL (12.4-15.3); Immature Granulocyte Percent A 0.3 % (0.0-0.0); Lymphocytes Absolute Auto 2.31 K/mm3 (1.10-4.50); Mean Corpuscular HGB Conc 32.5 g/dL (32-36); Mean Corpuscular Hemoglobin 32.9 pg (27.0-31.0); Mean Corpuscular Volume 101.0 fL (78.0-102.0); Nucleated Red Blood Cells Absolute Auto 0.00 K/mm3 (0.00-0.00); Nucleated Red Blood Cells Perc 0.0 % (0-0.0); Platelet Count Result 188 K/mm3 (150-420); Red Blood Count 4.20 M/mm3 (4.70-6.10); White Blood Count 7.7 K/mm3 (4.8-10.8)
--- OUTSIDE RECORDS SUMMARY | 2025-03-14 08:15 | XMS_ITS | Clinical Summary ---
Author Organization [facility] [address] Address [address] [place] [address] Care Team Providers Care Security Control Center Operator Name Role Phone Kurtis Castellanos MD Unavailable Kiesha Reynolds MD Primary Care Provider Hoda Oconnor MD Unavailable Rohith Flores MD Unavailable Allergies Active Allergy Reactions Criticality Noted Date Comments Adhesive Tape-Silicones Rash Medium Lanolin Rash Medium Lisinopril Other (See comments) Medium Reaction: hyperkalemia, Glqpqmbz-Cjakakmnoq-Qg lymyxin Rash Medium Sulfa (Sulfonamide Antibiotics) Unknown 09/05/2022 Medications latanoprost (XALATAN) 0.005 % ophthalmic solution One drop to the affected eye(s) one time per day 0 0 7 Active cholecalciferol (VITAMIN D-3) 2,000 unit tablet Take 1 tablet (2,000 Units total) by mouth daily Active tamsulosin (FLOMAX) 0.4 mg extended release capsule Take 1 capsule (0.4 mg total) by mouth dish network installer before breakfast 3 Active cyanocobalamin (Vitamin B-12) 500 mcg tablet Take 2 tablets (1,000 mcg total) by mouth daily Active levothyroxine (SYNTHROID) 50 mcg tablet Take 1 tablet (50 mcg total) by mouth dish network installer before breakfast 30 tablet 2 3 Active acetaminophen (TYLENOL) 500 mg tablet Take 1 tablet (500 mg total) by mouth every 6 (six) hours as needed for pain Active empagliflozin (JARDIANCE) 10 mg tablet Take 1 tablet (10 mg total) by mouth daily 30 tablet 11 4 04/27/20 25 Active atorvastatin (LIPITOR) 10 mg tabletIndications: Hypercholesterolem ia TAKE ONE TABLET BY MOUTH DAILY 90 tablet 3 5 Active mupirocin (BACTROBAN) 2 % ointment 5 Active aspirin 81 mg enteric coated tablet Take 1 tablet (81 mg total) by mouth daily Active allopurinoL (ZYLOPRIM) 100 mg tablet Take 0.5 tablets (50 mg total) by mouth daily Active furosemide (LASIX) 20 mg tabletIndications: Chronic systolic heart failure (HCC),Nonrheumatic tricuspid valve regurgitation,Non- rheumatic mitral regurgitation Take 1 tablet (20 mg total) by mouth daily 90 tablet 3 5 Active amLODIPine (NORVASC) 5 mg tablet TAKE ONE TABLET BY MOUTH DAILY 90 tablet 3 5 Active spironolactone (ALDACTONE) 25 mg tablet TAKE ONE TABLET BY MOUTH DAILY 30 tablet 11 5 Active Active Problems Problem Noted Date [...] reportedly underwent an atrial flutter ablation at [facility] in 10/2015 Mr. Talley is no [...] Encounters Date Type Department Care Team Description 03/07/2025 11:30 AM CDT Office Visit [facility] Medicine Cardiology [address] [facility] Medicine [address]th [place] [address] [place] [address] Janice Coello NP Chronic systolic heart failure (HCC) (Primary Dx); Second degree AV block; Sinus bradycardia 03/07/2025 Results Follow-Up [facility] Cardiology [address] [facility] 8[address] [place] [address] [place] [address] Janice Coello NP ECG 12 lead from Last 3 Months Immunizations Immunization Administration [...] Devendra Coronary artery disease Brother 2 Suhas Aleida nary Artery Bypass Graft; of heart diseae 66 y.o. Diabetes type II Brother 3 Lorenzo Coronary artery disease Father Aleida fowler Artery Bypass Graft; Coronary artery disease Mother [...] drink = 0.6 oz pur e alcohol) [facility] Utilities Answer Date Recorded In the past 12 months has e electric, gas, oil, or water [employer] threatened to shut off services in your home? 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 Gender Identity Not on file Sexual Orientation Not on file Obstetrics History Last Filed Vital Signs Vital Sign Reading Time Taken Comments Blood Pressure 158/62 03/07/2025 11:11 AM CDT Pulse 43 03/07/2025 11:11 AM CDT Temperature 36.5 C (97.7 F) 11/02/2024 11:30 AM CDT Respiratory Rate 19 11/02/2024 11:30 AM CDT Oxygen Saturation 99% 03/07/2025 11:11 AM CDT Inhaled Oxygen Concentration - - Weight 99.3 kg (219 lb) 03/07/2025 11:11 AM CDT Height 177.8 cm (5' 10) 03/07/2025 11:11 AM CDT Body Mass Index 31.42 03/07/2025 11:11 AM CDT Plan of Treatment Health Maintenance Due Date Last Done Comments Depression Screening 1945 Hepatitis B Screening 1965 Zoster Vaccine (1 of 2) 1997 Well Visit 65+ 2012 Pneumococcal vaccine 65+ (2 of 2 - PPSV23, PCV20, or PCV21) 04/25/2016 02/29/2016 Fall Risk Assessment 09/13/2024 09/14/2023 Influenza Vaccine (#1) 2025 , 04/10/2023, 03/22/2023, Additional history exists DTaP/Tdap/Td Vaccine (2 - Td or Tdap) 11/08/2032 11/08/2022 Hepatitis C Screening Completed 12/12/2022 Medical Devices Implanted Type Area Database Technician Device Identifier Shelf Expiration Date Model / Serial / Lot [employer] Cytal [id number] Fenestrate Matrix 6 Layer Graft Skin [id number] - [id number] - [id number] Implanted:Qty: 1 on 08/06/2023 by Rohith Flores MD at [facility] Right: Leg [employer] 04/21/2024 [id number] / [id number] / [id number] [employer] Cytal [id number] Fenestrate Matrix 6 Layer Graft Skin [id number] - [id number] - [id number] Implanted:Qty: 1 on 08/06/2023 by Rohith Flores MD at [facility] Right: Leg [employer] 04/21/2024 [id number] / [id number] / [id number] Procedures Procedure Name Priority Date/Time Associated Diagnosis Comments ECG 12-LEAD Routine 03/07/2025 11:14 AM CDT Chronic systolic heart failure (HCC) HEPATITIS PANEL, ACUTE Routine 12/12/2022 7:19 PM CDT from Last 3 Months or Most Recently Relevant to Health Maintenance Results * ECG 12 lead (03/07/2025 11:14 AM CDT) us Janice Coello NP ECG ORDERABLES Edited R esult - Final * Hepatitis panel, acute (12/12/2022 7:19 PM CDT) Hep A IgM Nonreactive Nonreactive [facility] Hep B core IgM Nonreactive Nonreactive [facility] Hep C Ab Nonreactive Nonreactive [facility] Comment:Antibodies to HCV no t detected. Does NOT exclude the possibility of recent exposure to HCV. Current interpretive data was last revised on 22 HepBsAg Nonreactive Nonreactive [facility] Blood 12/12/2022 7:19 PM CDT 12/12/2022 7:28 PM CDT Kurtis Castellanos MD LAB MICROBIOLOGY - GENERAL OR DERABLES Final Result Performing Organization Address City/State/[facility] Co de Phone Number [facility] Department [place] [address] from Last 3 Months or Most Recently Relevant to Health Maintenance Insurance [place] [address] [facility] MEDICARE ADVANTAGE [facility] MEDICARE ADVANTAGE Advance Directives For more information, please contact: [phone] Documents on File Type Date Recorded Patient Neurosurgery Physician Expl anation ADVANCE DIRECTIVE 08/17/2023 11:27 AM YOMI R OF MAT MACHINE TENDER-MEDICAL ADVANCE DIRECTIVE 07/20/2023 10:18 AM YOMI R OF MAT MACHINE TENDER-MEDICAL ADVANCE DIRECTIVE 07/17/2023 3:00 PM POWER OF MAT MACHINE TENDER-MEDICAL * Full Code (Latest Code Status on File) Date Activated Date Inactivated Comments 09/10/2023 7:37 PM 09/14/2023 6:45 PM * Full Code Date Activated Date Inactivated Comments 07/26/2023 5:02 PM 08/14/2023 6:33 PM * Full Code Date Activated Date Inactivated Comments 07/16/2023 11:41 AM 07/19/2023 9:03 PM * Full Code Date Activated Date Inactivated Comments 12/11/2022 8:18 PM 12/26/2022 8:20 PM Care Teams Security Control Center Operator Relationship Specialty Start Date End Date Kiesha Reynolds MD PCP - General Family Medicine 02/13/23 Kurtis Castellanos MD Referring Physician Cardiology 01/06/23 [place] [address] [place] [address] Consulting Physician Internal Medicine 08/14/23 [place] [address] [address] [address] Surgeon Trauma Surgery 08/14/23
--- OUTSIDE RECORDS SUMMARY | 2025-03-14 08:15 | XMS_ITS | Encounter Summary ---
Author Organization [facility] Address [address] [place] [address] Phone Care Team Providers Care Virtual Customer Assistant Name Role Phone Kurtis Castellanos MD Unavailable [phone] Kiesha Reynolds MD Primary Care Provider [phone] Hoda Oconnor MD Unavailable [phone] Rohith Flores MD Unavailable [phone] Encounter Details Date Type Department Care Team (Late st Contact Info) Description 03/07/2025 Results Follow-Up [facility] Medicine Cardiology [address] [place] [address] [place] [phone] Janice oCello, GULSHAN [address] [facility] [address] [place] [address] ECG 12 lead Social History Tobacco Use Types Packs/Day Years Used Date Smoking Tobacco: Never Smokeless Tobacco: Never Alcohol Use Standard Drinks/Week Comments No 0 (1 standard drink = 0.6 oz pur e alcohol) [facility] Utilities Answer Date Recorded In the [...] often do you attend chur ch or yazidism services? 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 Gender Identity Not on file Sexual Orientation Not on file documented as of this encounter Plan of Treatment Not on file documented as of this encounter Visit Diagnoses Not on filedocumented in this encounter Care Teams Virtual Customer Assistant Relationship Specialty Start Date End Date Kiesha Reynolds MD PCP - General Family Medicine 02/13/23 Kurtis Castellanos MD Referring Physician Cardiology 01/06/23 [place] [address] [place] [address] Consulting Physician Internal Medicine 08/14/23 [place] [address] [facility] [address] [address] Surgeon Trauma Surgery 08/14/23 documented as of this encounter
--- OUTSIDE RECORDS SUMMARY | 2025-03-14 08:15 | XMS_ITS | Clinical Summary ---
Author Organization [facility] Vandana Crooks Address [address] [place] [address] Care Team Providers Care Franchise Field Consultant Name Role Phone Kiesha Reynolds MD Primary Care Provider [phone] Allergies Active Allergy Reactions Criticality Noted Date Comments Adhes. 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 Gender Identity Not on file Sexual Orientation [...] Body Mass Index 54.44 08/26/2022 10:24 AM ENVIRONMENTAL EDUCATION SPECIALIST Plan of Treatment Health Maintenance Due Date Last Done Comments DTAP/TDAP/TD VACCINES (1 - Tdap) 1966 PNEUMOCOCCAL VACCINE 50+ YEARS (1 of 1 - PCV) 06/17/19 97 ZOSTER VACCINE (1 of 2) 1997 RSV VACCINE (60+ or ) (1 - 1-dose 75+ series) 2022 INFLUENZA VACCINE (#1) 2025 Insurance [facility] [address] [address] Care Teams Franchise Field Consultant Relationship Specialty Start Date End Date Kiesha Reynolds MD [address] [place] [address] PCP - General Family Practice 08/26/22
--- OUTSIDE RECORDS SUMMARY | 2025-03-14 08:15 | XMS_ITS | Patient Health Record ---
Author Organization [facility] Address [address] [place], [place] [address] Care Team Providers Care Systems Support Officer Name Role Phone DI PEPPER Unavailable [phone] Kiesha Reynolds Unavailable Unavailable FRANCIS ALONSO Unavailable [phone] GUERLINE ALEXIS Unavailable [phone] Allergies Allergen (clinical drug ingredient) Drug/Non Drug Allergy documented on EMR Reaction Allergy Type Onset Date Status lanolin Lanolin Unknown Drug Allergy Active lisinopril Lisinopril Unknown Drug Allergy Activ e neomycin Neomycin Unknown Drug Allergy Active Tape Unknown Allergy Active Reason For Referral No Information Medications Medication SIG (Take, Route, Frequency, Duration) Notes Start Date End Date Status Metoprolol Succinate ER 50 MG Oral; Duration: 30 Days Acti ve Atorvastatin Calcium 10 MG Oral; Duration: 30 Days Active amLODIPine Besylate 5 MG Oral; Duration: 90 Days Active Allopurinol 300 MG Oral; Duration: 90 Days Active Furosemide 20 MG Oral; Duration: 30 Days Active Pregabalin 75 MG Oral; Duration: 30 Days Active Cephalexin 500 MG Oral; Duration: 10 Days Active Jardiance 10 MG Oral; Duration: 90 Days Active Levothyroxine Sodium 50 MCG Oral; Duration: 30 Days Active Latanoprost 0.005 % Ophthalmic; Duration : 25 Days Active Spironolactone 25 MG Oral; Duration: 30 Days Active Tamsulosin HCl 0.4 MG Oral; Duration: 30 Days Active Immunizations Vaccine Route Administration Date Status Comme nts Influenza, high dose seasonal Unknown 03/26/2023 Admini stered Influenza, unspecified formulation Unknown 03/22/2023 A dministered Vital Signs Height-cm 180.34 cm 01/12/2025 Weight-kg 97.07 kg 01/12/2025 Height 71 in 01/12/2025 Weight 214 lbs 01/12/2025 BMI 29.84 kg/m2 01/12/2025 Encounters Encounter Location Date Provider Diagnosis [address] [id number] 11/10/2024 GUERLINE ALEXIS Tinea unguium B35.1 ; Acquired keratosis [keratoderma] palmaris et plantaris L85.1 ; Atherosclerosis of comanche arteries of extremities with intermittent claudication, bilateral legs I70.213 ; Pain in right foot M79.671 and Pain in left foot M79.[address] [id number] 01/12/2025 GUERLINE ALEXIS Tinea unguium B35.1 ; Acquired keratosis [keratoderma] palmaris et plantaris L85.1 ; Atherosclerosis of comanche arteries of extremities with intermittent claudication, bilateral legs I70.213 ; Pain in right foot M79.671 and Pain in left foot M79.[address] [id number] 04/14/2024 FRANCIS ALONSO Tinea unguium B35.1 ; Other hammer toe(s) (acquired), right foot M20.41 ; Other hammer toe(s) (acquired), left foot M20.42 ; Pain in right toe(s) M79.674 ; Pain in left toe(s) M79.675 ; Unspecified atherosclerosis of comanche arteries of extremities, bilateral legs I70.203 and Acquired keratosis [keratoderma] palmaris et plantaris L85.[address] [id number] 07/07/2024 DI PEPPER Tinea unguium B35.1 ; Acquired keratosis [keratoderma] palmaris et plantaris L85.1 ; Atherosclerosis of comanche arteries of extremities with intermittent claudication, bilateral legs I70.213 ; Pain in right foot M79.671 and Pain in left foot M79.[address] [id number] 09/08/2024 DI PEPPER Tinea unguium B35.1 ; Acquired keratosis [keratoderma] palmaris et plantaris L85.1 ; Atherosclerosis of comanche arteries of extremities with intermittent claudication, bilateral [...] and pared utilizing a #15 blade 01/12/2025 Tinea unguium (ICD-10 - B35.1) Nails [...] utilizing a #15 blade 01/12/2025 Atherosclerosis of comanche arteries of extremities with intermittent claudication, bilateral legs (ICD-10 - I70.213) Patient educated on risks and aggravating factors of PVD, including conservative treatment options such as a diet and exercise regimen to aid in slowing progression of vascular disease. Check and protect LE bilateral daily. Call if any changes or concerns. 11/10/2024 Atherosclerosis of comanche arteries of extremities with intermittent claudication, bilateral legs (ICD-10 - I70.213) 09/08/2024 Atherosclerosis of comanche arteries of extremities with intermittent claudication, bilateral legs (ICD-10 - I70.213) 07/07/2024 Atherosclerosis of comanche arteries of extremities with intermittent claudication, bilateral legs (ICD-10 - I70.213) 04/14/2024 Other hammer toe(s) (acquired), left foot (ICD-10 - M20.42) 04/14/2024 Pain in right toe(s) (ICD-10 - M79.674) 07/07/2024 Pain in right foot (ICD-10 - M79.671) 09/08/2024 Pain in right foot (ICD-10 - M79.671) 11/10/2024 Pain in right foot (ICD-10 - M79.671) 01/12/2025 Pain in right foot (ICD-10 - M79.671) 01/12/2025 Pain in left foot (ICD-10 - M79.672) 11/10/2024 Pain in left foot (ICD-10 - M79.672) 09/08/2024 Pain in left foot (ICD-10 - M79.672) 07/07/2024 Pain in left foot (ICD-10 - M79.672) 04/14/2024 Pain in left toe(s) (ICD-10 - M79.675) 04/14/2024 Unspecified atherosclerosis of comanche arteries of extremities, bilateral legs (ICD-10 - [...] Treatment Next Appt Details Provider Name:GUERLINE PABON, 03/16/2025 01:30:00 PM, [address] [place] [address], [id number], Insurance Providers Payer Name Payer Address Payer Phone Subscriber Number Group Number Insured Name Patient Relationship to Insured Coverage Start Date Coverage End Date [facility] [address] [place] [address] [id number] Rigo Talley Self - patient is the insured Medical (General) History Medical History History ICD Code edema heart problems hypertension Surgical History Surgery Date(Month/Year) appendectomy Carpal Tunnel release
--- OUTSIDE RECORDS SUMMARY | 2025-03-14 08:15 | XMS_ITS | Encounter Summary ---
Author Organization [facility] Healthcare Address [address] [place] [address] Care Team Providers Care Bus Driver/Monitor Name Role Phone Kiesha Reynolds MD Primary Care Provider [phone] Kurtis Castellanos MD Unavailable [phone] Kiesha Reynolds MD Primary Care Provider [phone] Karol Aparicio RN Unavailable [phone] Hoda Oconnor MD Unavailable [phone] Rohith Flores MD Unavailable [phone] Encounter Details Date Type Department Care Team (Late st Contact Info) Description 03/25/2018 Orders Only [facility] Health Information Management [address] [place] [address] Scanning, Provider Social History Tobacco Use Types Packs/Day Years Used Date Smoking Tobacco: Never Smokeless Tobacco: Never Alcohol Use Standard Drinks/Week Comments No 0 (1 standard drink = 0.6 oz pur e alcohol) Sex and Gender Information Value Date Recorded Sex Assigned at Not on file Legal Sex Male 11:00 AM FIRST HELPER Gender Identity Not on file Sexual Orientation Not on file documented as of this encounter Plan of Treatment Not on file documented as of this encounter Procedures Procedure Name Priority Date/Time Associated Diagnosis Comments SCAN - LABS 03/25/2018 documented in this encounter Results * SCAN - LABS (03/25/2018) us Provider Scanning Final Result documented in this encounter Visit Diagnoses Not on filedocumented in this encounter Additional Health Concerns Infection Onset Date Last Indicated Resolved Time COVID: Suspected 07/26/2023 07/26/2023 07/26/2023 8:45 PM FIRST HELPER MRSA Comment:Nares 07/26/23 Wound from R leg - 07/28/2023 07/26/2023 07/28/2023 01/24/2024 3:05 AM CDT documented as of this encounter Care Teams Bus Driver/Monitor Relationship Specialty Start Date End Date Kiesha Reynolds MD PCP - General 08/22/15 02/12/23 Kiesha Reynolds MD PCP - General Family Medicine 02/13/23 Kurtis Castellanos MD Referring Physician Cardiology 01/06/23 Karol Aparicio, JESSICA [address] [facility] [address] [place] [address] SHOP Outpatient Corporate Receptionist 07/20/23 08/16/23 [place] [address] [place] [address] Consulting Physician Internal Medicine 08/14/23 [place] [address] [place] [address] Surgeon Trauma Surgery 08/14/23 documented as of this encounter
[2025-03-14 09:06] LABS: Alanine Aminotransferase 17 U/L (6-50); Albumin Level 4.7 g/dL (3.5-5.1); Alkaline Phosphatase 96 U/L (38-126); Anion Gap 11 mmol/L (4-12); Aspartate Amino Transferase 26 U/L (17-59); Bilirubin,Total 0.7 mg/dL (0.2-1.3); Blood Urea Nitrogen 47 mg/dL (9-20); Calcium 10.7 mg/dL (8.4-10.2); Carbon Dioxide 27 mmol/L (22-30); Chloride 102 mmol/L (98-107); Estimated Glomerular Filt Rate 46; Glucose 87 mg/dL (65-110); Osmolality Calculated 301 mOsm/kg (285-295); Potassium 5.5 mmol/L (3.4-5.0); Sodium 140 mmol/L (137-145); Total Protein 8.4 g/dL (6.3-8.2)
[2025-03-14 09:37] LABS: Thyroid Stimulating Hormone Reflex 3.490 uIU/mL (0.465-4.68)
== END 2025-03-14 08:00 ==
PROVIDERS: PCP Family Medicine; Visit Provider Family Medicine
DX: E03.9 Hypothyroidism, unspecified (principal); N18.4 Chronic kidney disease, stage 4 (severe); R53.83 Other fatigue; I12.9 Hypertensive chronic kidney disease with stage 1 through stage 4 chronic kidney disease, or unspecified chronic kidney disease
CPT/HCPCS: 36415; 80053; 84443; 85025

== ENCOUNTER 2025-03-29 14:07 | Outpatient (CLI) | payer MEDICARE, SELFPAY ==
[2025-03-29 14:47] LABS: Hematocrit 32.1 % (37.0-46.0); Hemoglobin 9.9 g/dL (12.4-15.3); Immature Granulocyte Percent A 0.5 % (0.0-0.0); Lymphocytes Absolute Auto 1.57 K/mm3 (1.10-4.50); Mean Corpuscular HGB Conc 30.8 g/dL (32-36); Mean Corpuscular Hemoglobin 31.1 pg (27.0-31.0); Mean Corpuscular Volume 100.9 fL (78.0-102.0); Nucleated Red Blood Cells Absolute Auto 0.00 K/mm3 (0.00-0.00); Nucleated Red Blood Cells Perc 0.0 % (0-0.0); Platelet Count Result 244 K/mm3 (150-420); Red Blood Count 3.18 M/mm3 (4.70-6.10); White Blood Count 8.3 K/mm3 (4.8-10.8)
[2025-03-29 15:55] LABS: Alanine Aminotransferase 21 U/L (6-50); Albumin Level 4.3 g/dL (3.5-5.1); Alkaline Phosphatase 105 U/L (38-126); Anion Gap 12 mmol/L (4-12); Aspartate Amino Transferase 40 U/L (17-59); Bilirubin,Total 1.7 mg/dL (0.2-1.3); Blood Urea Nitrogen 32 mg/dL (9-20); Calcium 10.0 mg/dL (8.4-10.2); Carbon Dioxide 22 mmol/L (22-30); Chloride 104 mmol/L (98-107); Estimated Glomerular Filt Rate 58; Glucose 84 mg/dL (65-110); Osmolality Calculated 291 mOsm/kg (285-295); Potassium 5.0 mmol/L (3.4-5.0); Sodium 138 mmol/L (137-145); Total Protein 7.8 g/dL (6.3-8.2)
== END 2025-03-29 14:08 | disposition home or self-care (01) ==
LOC: CHSLAB 14:08
PROVIDERS: PCP Family Medicine; Visit Provider Student in an Organized Health Care Education/Training Program
DX: I11.0 Hypertensive heart disease with heart failure (principal); I50.33 Acute on chronic diastolic (congestive) heart failure; E87.1 Hypo-osmolality and hyponatremia; E87.70 Fluid overload, unspecified; D64.9 Anemia, unspecified
CPT/HCPCS: 36415; 80053; 85025; 85652

== ENCOUNTER 2025-05-24 07:27 | Outpatient (CLI) | payer MEDICARE, SELFPAY ==
--- OUTSIDE RECORDS SUMMARY | 2025-05-24 07:35 | XMS_ITS | Encounter Summary ---
Author Organization [facility] Healthcare Address [address] [place] [address] Care Team Providers Care Performance Architect Name Role Phone [place] Kurtis Yung MD Unavailable [phone] Hoda Oconnor MD Unavailable [phone] Rohith Flores MD Unavailable Valentina Young DO Primary Care Provider [phone] Encounter Details Date Type Department Care Team (Late st Contact Info) Description 04/25/2025 Results Follow-Up [facility] Medical Group Primary Care at [address] [address] Valentina Young DO [address] [place] [address] [address] Comprehensive metabolic panel, Hemoglobin A1c, CBC with auto differential, Additional followed-up results: 2 Social History Tobacco Use Types Packs/Day Years Used Date Smoking Tobacco: Never Smokeless Tobacco: Never Alcohol Use Standard Drinks/Week Comments Never 0 (1 standard drink = 0.6 oz pur e alcohol) Social Connection and Isolation Panel Answer Date Recorded In a typical week, how many times do you talk on the phone with family, friends, or neighbors? More than three times a week 09/11/2023 How often do you get togethe r with friends or relatives? More than three times a week 09/11/2023 How often do you attend chur ch or christian services? Never 09/11/2023 Do you belong to any clubs o r organizations such as alevism groups, unions, fraternal or athletic groups, or school groups? No 09/11/2023 How often do you attend meet ings of the clubs or organizations you belong to? Never 09/11/2023 Are you , , di vorced, , never , or living with a partner? 09/11/2023 Overall Financial Resource Strain (CARDIA) Answe r Date Recorded How hard is it for you to pa y for the very basics like food, housing, medical care, and heating? Not hard at all 09/11/2023 PHQ-2 Answer Date Recorded PHQ-2 Total Score (If total score is 3 or more points, staff should administer the PHQ-9) 0 04/21/2025 PRAPARE - Transportation Answer Date Re corded [...] place to sleep or slept in a detention (including now)? No 09/11/2023 Social Connection and Isolation Panel Answer Date Recorded In a typical week, how many times do you talk on the phone with family, friends, or neighbors? More than three times a week 04/04/2025 How often do you get togethe r with friends or relatives? Twice a week 04/04/2025 How often do you attend chur ch or christian services? Never 04/04/2025 Do you belong to any clubs o r organizations such as alevism groups, unions, fraternal or athletic groups, or school groups? Yes 04/04/2025 How often do you attend meet ings of the clubs or organizations you belong to? 1 to 4 times per year 04/04/2025 Are you , , di vorced, , never , or living with a partner? 04/04/2025 AUDIT-C Answer Date Recorded Q1: How often do you have a drink containing alcohol? Never 04/14/2025 Q2: How many drinks containi ng alcohol do you have on a typical day when you are drinking? Patient does not drink Q3: How often do you have si x or more drinks on one occasion? Never 04/14/2025 Overall Financial Resource Strain (CARDIA) Answe r Date Recorded How hard is it for you to pa y for the very basics like food, housing, medical care, and heating? Not hard at all 04/04/2025 Hunger Vital Sign Answer Date Recorded Within the past 12 months, y ou worried that your food would run out before you got the money to buy more. Never true 04/04/20 25 Within the past 12 months, t he food you bought just didn't last and you didn't have money to get more. Never true 04/04/2025 PRAPARE - Transportation Answer Date Re corded In the past 12 months, has l ack of transportation kept you from medical appointments or from getting medications? No 03/22 In the past 12 months, has l ack of transportation kept you from meetings, work, or from getting things needed for daily living? No 04/04/2025 Housing Stability Vital Sign Answer Harmeet e Recorded In the last 12 months, was t here a time when you were not able to pay the mortgage or rent on time? No 04/04/2025 In the past 12 months, how m any times have you moved where you were living? 0 04/04/2025 At any time in the past 12 m [facility], were you homeless or living in a detention (including now)? No 04/04/2025 [facility] Utilities Answer Date Recorded In the past 12 months has e electric, gas, oil, or water company threatened to shut off services in your home? No 04/04/2025 Personal Safety Answer Date Recorded Have you ever been in or are you currently in a harmful physical or emotional relationship or is someone making you feel afraid or unsafe? 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 Gender Identity Not on file Sexual Orientation Not on file documented as of this encounter Plan of Treatment Not on file documented as of this encounter Visit Diagnoses Not on filedocumented in this encounter Care Teams Performance Architect Relationship Specialty Start Date End Date Valentina Young DO [address] [place] [address] PCP - General Family Medicine 04/21/25 Kurtis Castellanos MD Referring Physician Cardiology 01/06/23 [place] [address] [place] [address] Consulting Physician Internal Medicine 08/14/23 [place] [address] [place] [address] Surgeon Trauma Surgery 08/14/23 documented as of this encounter
--- OUTSIDE RECORDS SUMMARY | 2025-05-24 07:35 | XMS_ITS | Encounter Summary ---
Author Organization [facility] Address [address] [place] [address] Care Team Providers Care Brazing Furnace Feeder Name Role Phone Kiesha Reynolds MD Primary Care Provider [phone] Kurtis Castellanos MD Unavailable [phone] Kiesha Reynolds MD Primary Care Provider [phone] Karol Aparicio RN Unavailable [phone] Hoda Oconnor MD Unavailable [phone] Rohith Flores MD Unavailable [phone] Valentina Young DO Primary Care Provider [phone] Encounter Details Date Type Department Care Team (Late st Contact Info) Description 03/25/2018 Orders Only [facility] Health Information Management [address] [place] [address] Scanning, Provider Social History Tobacco Use Types Packs/Day Years Used Date Smoking Tobacco: Never Smokeless Tobacco: Never Alcohol Use Standard Drinks/Week Comments No 0 (1 standard drink = 0.6 oz pur e alcohol) Sex and Gender Information Value Date Recorded Sex Assigned at Not on file Legal Sex Male 11:00 AM CERTIFIED PROSTHETIST Gender Identity Not on file Sexual Orientation [...] COVID: Suspected 07/26/2023 07/26/2023 07/26/2023 8:45 PM CERTIFIED PROSTHETIST MRSA Comment:Nares 07/26/23 Wound from R leg - 07/28/2023 07/26/2023 07/28/2023 01/24/2024 3:05 AM CDT documented as of this encounter Care Teams Brazing Furnace Feeder Relationship Specialty Start Date End Date Kiesha Reynolds MD PCP - General 08/22/15 02/12/23 Kiesha Reynolds MD PCP - General Family Medicine 02/13/23 04/20/25 Valentina Young DO [address] [address] PCP - General Family Medicine 04/21/25 Kurtis Castellanos MD Referring Physician Cardiology 01/06/23 Karol Aparicio, JESSICA [address] [facility] [address] [place] [address] SHOP Outpatient Manager Regional 07/20/23 08/16/23 [place] [address] [place] [address] Consulting Physician Internal Medicine 08/14/23 [place] [address] [address] [address] Surgeon Trauma Surgery 08/14/23 documented as of this encounter
--- OUTSIDE RECORDS SUMMARY | 2025-05-24 07:35 | XMS_ITS | Clinical Summary ---
Author Organization [facility] [address] [place] [address] Care Team Providers Care Book Editor Name Role Phone Kurtis Castellanos MD Unavailable Hoda Oconnor MD Unavailable [phone] Rohith Flores MD Unavailable Valentina Young DO Primary Care Provider Allergies Active Allergy Reactions Criticality Noted Date Comments Adhesive Rash Medium 12/04/2024 Adhesive Tape-Silicones Rash Medium Bacitracin Rash Medium 12/04/2024 rash Gramicidin D Rash Medium 12/04/2024 Lanolin Rash Medium Lisinopril Other (See comments) Medium 12/04/2024 Reaction: hyperkalemia, Neomycin Sulfate Rash Medium 12/04/2024 Nmnkdmvj-Pojctxxqma-Mz lymyxin Rash Medium Polymyxin B Rash Medium 12/04/2024 Sulfa (Sulfonamide Antibiotics) Unknown,Other (See comments) Low 09/05/2022 Medications latanoprost (XALATAN) 0.005 % ophthalmic solution One drop to the affected eye(s) one time per day 0 0 7 Active Additional Information Patient taking differently: 1 drop each eye Nightly, Informant: Self, Reported on 04/21/2025 cholecalcifero l (VITAMIN D-3) 2,000 unit tablet Take 1 tablet (2,000 Units total) by mouth daily Active tamsulosin (FLOMAX) 0.4 mg extended release capsule Take 1 capsule (0.4 mg total) by mouth nightly 3 Active cyanocobalamin (Vitamin B-12) 500 mcg tablet Take 1 tablet (500 mcg total) by mouth every other day Active levothyroxine (SYNTHROID) 50 mcg tablet Take 1 tablet (50 mcg total) by mouth machine carton marker before breakfast 30 tablet 2 3 Active acetaminophen (TYLENOL) 500 mg tablet Take 2 tablets (1,000 mg total) by mouth every 6 (six) hours as needed for pain Active empagliflozin (JARDIANCE) 10 mg tablet Take 1 tablet (10 mg total) by mouth daily 30 tablet 11 4 Active atorvastatin (LIPITOR) 10 mg tabletIndicati ons:Hyperchole sterolemia TAKE ONE TABLET BY MOUTH DAILY 90 tablet 3 5 Active Additional Information Patient taking differently:10 mg oralNightly, Informant: Self, Reported on 04/21/2025 allopurinoL (ZYLOPRIM) 100 mg tablet Take 0.5 tablets (50 mg total) by mouth daily Active cyclobenzaprin e (FLEXERIL) 10 mg tabletIndicati ons:Muscle Spasm Take 1 tablet (10 mg total) by mouth 3 (three) times a day 90 tablet 5 Active Additional Information Patient not taking.Reported on 05/03/2025 furosemide (LASIX) 40 mg tablet Take 0.5 tablets (20 mg total) by mouth daily 15 tablet 11 5 Active spironolactone (ALDACTONE) 25 mg tablet Take 0.5 tablets (12.5 mg total) by mouth daily 45 tablet 3 5 026 Active furosemide (LASIX) 40 mg tablet Take 1 tablet (40 mg total) by mouth daily 30 tablet 11 5 025 Discontinu ed(Reorder ) doxycycline (VIBRAMYCIN) 100 mg capsuleIndicat ions:Skin/Soft Tissue Infection Take 1 tablet/capsule (100 mg total) by mouth 2 (two) times a day for 14 days 28 tablet/capsu le 025 Active Problems Problem Noted Date Diagnosed Date Portal hypertension 04/21/2025 Assessment & Plan (04/25/2025 4:18 PM GRADES 1 THRU 6 VISITING TEACHER): Chronic, stable Last echo on 04/03/2025 showed an EF of 66% with moderate pulmonary hypertension and moderate tricuspid regurgitation Continue Jardiance 10 mg daily and Lasix 40 mg daily General Director Diversity - appointment with Lara Rater on 05/03 - Amlodipine and Spironolactone dced on discharge - may need to restart spironolactone - recheck CMP after increased lasix dose to 40 mg For pacemaker - cloth packer Dr. Melo - Patient instructed to make appointment Chronic diastolic heart failure 04/21/2025 Assessment & Plan (04/25/2025 4:18 PM GRADES 1 THRU 6 VISITING TEACHER): Chronic, stable Last echo on 04/03/2025 showed an EF of 66% with moderate pulmonary hypertension and moderate tricuspid regurgitation Continue Jardiance 10 mg daily and Lasix 40 mg daily General Director Diversity - appointment with Lara Rater on 05/03 - Amlodipine and Spironolactone dced on discharge - may need to restart spironolactone - recheck CMP after increased lasix dose to 40 mg For pacemaker - cloth packer Dr. Melo - Patient instructed to make appointment Vitamin D deficiency 04/21/2025 Lung nodule 04/21/2025 Glaucoma 04/21/2025 Anemia 04/21/2025 Knee effusion, right 03/31/2025 Acute blood loss anemia 03/20/2025 Assessment & Plan (04/25/2025 4:18 PM GRADES 1 THRU 6 VISITING TEACHER): Acute, improving Recheck CBC Orders: CBC with auto differential; Future Assessment & Plan (03/24/2025 10:05 AM CDT): - Hgb trend (03/19): 7.3g/dL -- 7.3g/dL -- 6.5g/dL - 03/19: transfuse 1u pRBC --> post transfusion Hgb 7.1g/dL - Hgb (03/20): 6.9g/dL - 03/20:Hgb 6.6 transfuse 1u pRBC --> post transfusion Hgb PENDING post-op 7.4 -03/21 Hgb 6.9, transfuse 1u PRBC-> post Hgb -10 Hgb 8.7, stable -03/23 Hgb 8.4, remains stable - 03/24: Hgb 8.7 - continue to trend Hgb Transfusion 03/19 1u PRBC 03/20 1u PRBC 03/21 1u PRBC Hypothyroidism 03/20/2025 Assessment & Plan (03/20/2025 10:13 AM CDT): - Continue Levothyroxine 50mcg daily Knee laceration, right, initial encounter 2024 Assessment & Plan (03/21/2025 2:12 PM CDT): 03/20 OR ([facility]):R knee laceration irrigated with 1L sterile saline closure with 4 simple 4-0 monocryl sutures and 4 horizontal mattress sutures 3-0 nylon - Gaping wound under significant tension. They would closure as above with layer of Monocryl deep sutures, 4 horizontal mattress sutures 3-0 nylon placed to relieve tension an approximate skin, additional 2 simple interrupted 3-0 nylon sutures placed and 2 simple interrupted 5-0 fast gut placed to approximate skin SEE KNEE HEMATOMA Hematoma of right knee region 03/17/2025 Assessment & Plan (04/25/2025 4:18 PM GRADES 1 THRU 6 VISITING TEACHER): Acute, improving Has wound VAC in place Appointment with wound today at 2:45 PM Continue follow-up with Wound Care Assessment & Plan (03/24/2025 10:03 AM CDT): - CTA abdominal aorta/bilateral iliofemoral runoff (03/18): Right anterior distal thigh hematoma with a small focus of active extravasation, likely from small branch of the superficial femoral artery. - IR consult - 03/18: IR-Quinn RLE angiogram with Bleeding branch off of SFA successfully embolized using coils 03/19: AM CBC stable hgb 7.3, continue Q6 hgb checks - Prep 2 units for OR - Noon Hgb 6.5 > 1 unit pRBCs - 03/20:OR ([facility]) Right lower extremity debridement with evacuation of 1L, closed and prevena wound vac dressing in place 03/21 POD#1, Prevena remains in place, SHELDON drain 123mL/24h bloody output, Hgb 6.9, provided 1u PRBC continue to monitor 03/22 POD#[address], SHELDON drain 100mL/24h bloody otuput, Hgb stable 8.7 03/23 POD#[address], SHELDON drain 124mL/24h bloody output, Hgb 8.4,will remove wound Vac prior to discharge, SHELDON teaching, referrals placed 03/24: iVAC removed (picture uploaded in Media). - WBAT RLE SEE ABLA ACCS follow up for suture removal and wound check on 04/04 at 2:45 PM. Empty the SHELDON drain daily and log the output. 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 Continue to hold Norvasc, Lasix and Spironolactone until follow up. Hold the Aspirin at discharge and evaluate the risk/ benefit of restarting with Director Diversity due to recent falls. Chronic atrial fibrillation 07/16/2023 Chronic edema 12/11/2022 Tricuspid regurgitation 10/01/2022 Venous stasis dermatitis of both lower extremiti es 05/31/2019 Coronary artery calcification seen on CAT scan 1 08/01/2018 H/O cardiac radiofrequency ablation 06/09/2018 Hyperkalemia 11/27/2015 Overview (09/26/2016): Hyperkalemia Assessment & Plan (03/20/2025 9:55 AM CDT): 03/19: K 5.5, repeat 5.9, given 20mg lasix, repeat serum 5.2 > WBK 4.8 - Potassium (03/20): 4.8mmol/L - Continue to trend Potassium Mitral insufficiency 07/20/2015 Overview (09/26/2016): Non-rheumatic mitral regurgitation Family history of coronary artery disease 2014 Overview (09/26/2016): Family history of coronary artery disease Hypertension 11/05/2013 Overview (09/25/2016): HYPERTENSION NOS Assessment & Plan (03/23/2025 1:28 PM CDT): - Hold Norvasc 5mg daily - Hold Lasix 20mg daily - Continue Spironolactone 25mg daily 03/21 BP 108/47 HR 50, continue to hold Norvasc, restarted home Lasix in the setting of receiving blood transfusions 03/22 noted BP 130/40s, continue to hold Norvasc, HOLD Lasix and Spironolactone continue to monitor 03/23 BP 130-110/40s, HR 40s, continue to hold Norvasc, HOLD Lasix and Spironolactone continue to monitor Follow up with Cardiology 05/03 at 1:30, continue to hold Norvasc, Lasix and Spironolactone, will also hold the Aspirin at discharge and evaluate the risk/ benefit of restarting BRAYDEN (obstructive sleep apnea) 11/05/2013 Overview (04/21/2025): OBSTRUCTIVE SLEEP APNEA CPAP Assessment & Plan (04/25/2025 4:18 PM GRADES 1 THRU 6 VISITING TEACHER): Chronic, not at goal Briefly discussed this at visits as he has not been using his CPAP for greater than 6 months. Will likely need a new sleep study Atrial flutter 11/05/2013 Overview (09/27/2016): ATRIAL FLUTTER Assessment & Plan (02/26/2024 11:56 AM CDT): Atrial flutter and reportedly underwent an atrial flutter ablation at [facility] in 10/2015 Mr. 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 Orders: Comprehensive metabolic panel; Future Assessment & Plan (03/24/2025 10:07 AM CDT): - Baseline Creatinine 1.4 - 1.7mg/dL - Creatinine (03/19): 2.77mg/dL - Creatinine (03/20): 2.94mg/dL - 03/20: transfuse 1u pRBC -03/21 sCr 1.67, UOP 1.8L -03/22 sCr 1.62, UOP 1.7L, continues to improve -03/23 sCr 1.28, OUP 2L - 03/24: Cr 1.15 - continue to trend creatinine + urine output Resolved Problems Problem Noted Date Diagnosed Date Resolved Date Abscess 04/21/2025 04/21/2025 Chronic renal insufficiency, stage IV (severe) 04/21/2025 04/21/2025 Acute on chronic diastolic heart failure 04/21/2025 04/21/2025 Sepsis 04/21/2025 04/21/2025 Recurrent epistaxis 04/21/2025 04/21/20 Positive blood culture 04/21/202504/21 Pneumonia 04/21/2025 04/21/2025 Nasal septum ulceration 04/21/202503/24 Nasal crusting 04/21/2025 04/21/2025 Lymphangitis 04/21/2025 04/21/2025 Lower respiratory tract infection 04/21/2025 04/21/2025 Hyponatremia 04/21/2025 04/21/2025 Fever and chills 04/21/2025 04/21/2025 Fatigue 04/21/2025 04/21/2025 Elevated blood sugar 04/21/2025 025 COPD exacerbation 04/21/2025 04/21/2025 Cellulitis 04/21/2025 04/21/2025 Bronchiectasis 04/21/2025 04/21/2025 Ascites 04/21/2025 04/21/2025 Allergic rhinitis 04/21/2025 04/21/2025 Acute bacterial bronchitis 04/21/2025 1 Acquired deviated nasal septum 04/21/2025 04/21/2025 Abnormal chest x-ray 04/21/2025 025 AV block 04/03/2025 04/21/[address] scan 03/20/2025 04/21/2025 Assessment & Plan (03/20/2025 10:17 AM CDT): CT cervical spine (03/18): Degenerative changes in the cervical spine resulting up to severe spinal canal stenosis at C5-C6. - continue to monitor for symptoms Second degree AV block 02/26/202404/21 Assessment & Plan (02/26/2024 11:55 AM CDT): [...] tricuspid valve could worsen Mr. Talley's TR Severe malnutrition 07/30/2023 04/21/20 25 History of bradycardia 10/03/202204/21 Sinus bradycardia 06/11/2020 04/21/2025 Morbid obesity with BMI of 40.0-44.9, adult 05/26/2017 04/21/2025 Malignant hypertension 06/03/201605/26 Overview (09/26/2016): Malignant hypertension with heart disease, w/o CHF, w/o renal disease History of open heart surgery 11/27/2015 06/09/2018 Overview (09/26/2016): S/P ablation of atrial flutter Mitral valve disease 11/05/2013 017 Overview (09/25/2016): MITRAL VALVE DISORDER Morbid obesity 11/05/2013 05/26/2017 Overview (09/25/2016): MORBID OBESITY Encounters Date Type Department Care Team Description 05/12/2025 2:15 PM GRADES 1 THRU 6 VISITING TEACHER Orders Only [facility] [address] [place] [address] 05/05/2025 1:15 PM GRADES 1 THRU 6 VISITING TEACHER Orders Only [facility] [address] [place] [address] 05/03/2025 1:30 PM GRADES 1 THRU 6 VISITING TEACHER Office Visit [facility] [address] [facility] Floor [address], [address] [place] [phone] RaterLara NP Bradycardia (Primary Dx); Atrial fibrillation, unspecified type (HCC); Shortness of breath; Hypertension, unspecified type 04/25/2025 Results Follow-Up [facility] Primary Care at [address] [phone] Valentina Young DO Comprehensive metabolic panel, Hemoglobin A1c, CBC with auto differential, Additional followed-up results: 2 04/21/2025 2:45 PM CDT Orders Only [facility] [address] [place] [address] 04/21/2025 12:30 PM CDT Lab [address] [address] Stage 3a chronic kidney disease (HCC); Screening for diabetes mellitus; Acute blood loss anemia 04/21/2025 11:30 AM CDT Office Visit [facility] Primary Care at [address] [phone] Valentina Young DO Hematoma of right knee region (Primary Dx); Acute blood loss anemia; Chronic diastolic heart failure (HCC); Portal hypertension (HCC); Bradycardia; CKD (chronic kidney disease) stage 2, GFR 60-89 ml/min; Obstructive sleep apnea syndrome; BMI 31.0-31.9,adult; Screening for diabetes mellitus 04/18/2025 12:06 PM CDT Anesthesia Event [facility] Operating Room [address] [place] [phone] Carol Garcia MD PhD Larisa Lewis MD PhD 04/18/2025 12:00 PM CDT - 04/18/2025 1:30 PM CDT Surgery [facility] Operating Room [address] [place] [address] Rohith Flores MD DEBRIDEMENT EXTREMITY RIGHT LOWER LEG WITH WOUND VAC PLACEMENT 04/18/2025 9:46 AM CDT - 04/18/2025 2:55 PM CDT Hospital Encounter [facility] Operating Room [address] [place] [id number] Rohith Flores MD Hematoma of right knee region (Primary Dx) Discharge Disposition: Discharge to home or self care 04/13/2025 9:30 AM CDT Orders Only [facility] [address] [place], [place] [id number] 04/13/2025 Orders Only [facility] [address] [place] [address] Caren Schuster NP 04/06/2025 8:03 AM CDT Anesthesia Event [facility] Electrophysiology Lab [address] [place] [address] Carol Garcia MD PhD German Navarrete NP 04/06/2025 8:00 AM CDT - 04/06/2025 10:00 AM CDT Surgery [facility] Electrophysiology Lab [address] [place] [phone] Hien Espinal MD LEADLESS, SINGLE CHAMBER PACEMAKER (PPM) INSERTION 04/03/2025 Orders Only [facility] Cardiac Catheterization Lab [address] [place] [id number] Hien Espinal MD AV block (Primary Dx) 03/31/2025 4:17 PM CDT - 04/07/2025 6:19 PM CDT Hospital Encounter [place] [id number] Italia Gannon MD Cloessner, MD Lizzie Ochoa, MD Oskar Soto, MD Anju Rosario Jude, MD Knee effusion, right (Primary Dx); Pain and swelling of right knee; Post-operative pain; AV block; Knee laceration, right, initial encounter; Wound, open; Hematoma of right knee region Discharge Disposition: Discharge to home, home health skilled care 03/31/2025 Telephone [facility] Acute and Critical Care Services [address] [place] [address] [address] [place] [address] Velma Singh MA 03/31/2025 Documentation General Surgery Diana Hazel NP 03/31/2025 Telephone [facility] [address] [place] [address] 3rd Floor [address] [place] [phone] Jeannie Fragoso drainage from wound/little white circles 03/20/2025 10:08 AM CDT Anesthesia Event [facility] Operating Room [address] [place] [address] Jose G Bustamante MD Niemeyer, Hunter Dalton Gibson, ALEJO 03/20/2025 9:40 AM CDT - 03/20/2025 11:23 AM CDT Surgery [facility] Operating Room [address] [place] [address] Ying Kim DO EXCISIONAL DEBRIDEMENT OF RIGHT KNEE, HEMATOMA EVACUATION, WOUND VAC PLACEMENT, CLOSURE 03/18/2025 Orders Only [facility] Radiology 1 [place] [address] Pallavi Luis RN 03/17/2025 10:17 PM CDT - 03/24/2025 1:45 PM CDT Hospital Encounter [address] [phone] Lorenzo Carlson Jr., MD Liss, MD Svitlana Fish, Ligia Oconnor MD Knee laceration, right, initial encounter (Primary Dx); Hematoma of right knee region; Fall, initial encounter; Closed head injury, initial encounter; Facial contusion, initial encounter; Near syncope; Bradycardia; Hematoma of leg, right, initial encounter; Laceration of right femoral artery Discharge Disposition: Discharge to home, home health skilled care 03/07/2025 11:30 AM CDT Office Visit [facility] [address] [facility] Medicine 8th [place] [address] [place] [phone] Janice Coello NP Chronic systolic heart failure (HCC) (Primary Dx); Second degree AV block; Sinus bradycardia 03/07/2025 Results Follow-Up [facility] [address] [facility] 8th [place] [address] [place] [phone] Janice Coello NP ECG 12 lead from Last 3 Months Immunizations Immunization Administration Dates Next Due Influenza, Quadrivalent, Renetta l Culture-based MDCK, Preservative Free, Antibiotic Free, Intramuscular 04/06/2020 Influenza, Quadrivalent, Hig h Dose, Preservative Free, Intrr 04/10/2023,04/14/2022,04/03/2021 Influenza, Trivalent, High D ose, Split, Preservative Free, Intramuscular 04/22/2024,04/10/2023,04/03/2021,03/31 Influenza, Unspecified 03/22/2023 foodjunky SARS-CoV-2 Monovalent Vaccination (12+ Yrs) PURPLE 03/20/2023,06/05/2021,08/31/2020,08/10 Pneumococcal Conjugate PCV 13 02/29/2016 RSV, Bivalent, Protein Subun it Rsvpref, Diluent (Abrysvo) 06/07/2024 Sars-cov-2 Covid-19 Mrna, Bi valent, Original/omicron Ba.1 03/20/2023 Tdap 11/08/2022 Surgical History Surgery Date Site/Laterality Comments OTHER SURGICAL HISTORY Sleep Apnea uses CPAP irregularly: APPENDECTOMY Appendectomy CARPAL TUNNEL RELEASE Left Surgery for Carpal Tunnel CATARACT EXTRACTION Right SKIN GRAFT 07/15/2023 in his knee CARDIAC ELECTROPHYSIOLOGY PROCEDURE 04/06/2025 N/A Procedure: LEADLESS, SINGLE CHAMBER PACEMAKER (PPM) INSERTION; Surgeon: Hien Espinal MD; Location: [facility]; Service: Cardiovascular; Laterality: N/A; Medical devices from this surgery are in the Medical Devices section. INSERT / REPLACE / REMOVE PACEMAKER KNEE SURGERY 02/20/2025 - 03/21/2025 Right EXCISIONAL DEBRIDEMENT OF RIGHT KNEE, HEMATOMA EVACUATION, WOUND VAC PLACEMENT, CLOSURE Medical History Medical History Date Comments Hx Other Medical 2006 Sleep Apnea use s CPAP irregularly Hx Other Medical Morbid Obesity Gout Gout Hx Other Medical DJD Glaucoma Glaucoma Hypothyroidism 2011 Hypothyroidism Sleep apnea Hypertension Arrhythmia Lung disease Chronic kidney disease Bradycardia Atrial fibrillation (HCC) COPD (chronic obstructive pu lmonary disease) History of transfusion Cataract Pneumonia 04/21/2025 Lymphangitis 04/21/2025 Nasal septum ulceration 04/21/2025 Abscess 04/21/2025 Sepsis (HCC) 04/21/2025 Acute on chronic diastolic h eart failure (HCC) 04/21/2025 Recurrent epistaxis 04/21/2025 Positive blood culture 04/21/2025 Chronic renal insufficiency, stage IV (severe) 04/21/2025 Nasal crusting 04/21/2025 Lower respiratory tract infection 04/21/2025 Cellulitis 04/21/2025 Ascites 04/21/2025 COPD exacerbation (HCC) 04/21/2025 Bronchiectasis 04/21/2025 Fatigue 04/21/2025 Acquired deviated nasal septum 04/21/2025 Fever and chills 04/21/2025 Hyponatremia 04/21/2025 Acute bacterial bronchitis 04/21/2025 Family History Medical History Relation Name Comments [...] Not Answered Alcohol Use Standard Drinks/Week Comments Never 0 [...] often do you attend chur ch or anabaptism services? Never 09/11/2023 Do you belong to any clubs o r organizations such as buddhism groups, unions, fraternal or athletic groups, or [...] place to sleep or slept in a mcfp (including now)? No 09/11/2023 Social Connection and Isolation Panel Answer Date Recorded In a typical week, how many times do you talk on the phone with family, friends, or neighbors? More than three times a week 04/04/2025 How often do you get togethe r with friends or relatives? Twice a week 04/04/2025 How often do you attend chur ch or anabaptism services? Never 04/04/2025 Do you belong to any clubs o r organizations such as buddhism groups, unions, fraternal or athletic groups, or [...] any time in the past 12 m [facility], were you homeless or living in a mcfp (including now)? No 04/04/2025 [facility] Utilities Answer Date Recorded In the past [...] on file Legal Sex Male 11:00 AM GRADES 1 THRU 6 VISITING TEACHER Gender Identity Not on file Sexual Orientation Not on file Last Filed Vital Signs Vital Sign Reading Time Taken Comments Blood Pressure 135/69 05/03/2025 1:08 PM GRADES 1 THRU 6 VISITING TEACHER Pulse 60 05/03/2025 1:08 PM GRADES 1 THRU 6 VISITING TEACHER Temperature 36.7 C (98 F) 05/03/2025 1:08 PM GRADES 1 THRU 6 VISITING TEACHER Respiratory Rate 18 05/03/2025 1:08 PM GRADES 1 THRU 6 VISITING TEACHER Oxygen Saturation 99% 05/03/2025 1:08 PM GRADES 1 THRU 6 VISITING TEACHER Inhaled Oxygen Concentration - - Weight 98.9 kg (218 lb) 05/03/2025 1:08 PM GRADES 1 THRU 6 VISITING TEACHER Height 172.6 cm (5' 7.95) 05/03/2025 1:08 PM CS T Body Mass Index 33.19 05/03/2025 1:08 PM GRADES 1 THRU 6 VISITING TEACHER Plan of Treatment Health Maintenance Due Date Last Done Comments Hepatitis B Screening 1963 Zoster Vaccine (1 of 2) 1997 Well Visit 65+ 2012 Pneumococcal vaccine 65+ (2 of 2 - PPSV23, PCV20, or PCV21) 04/25/2016 02/29/2016 Covid-19 Vaccine ( season) 2025 03/20/2023, 03/20/2023, 06/05/2021, Additional history exists Influenza Vaccine (#1) 2025 , 04/10/2023, 04/10/2023, Additional history exists Postponed from 02/20/2025 (Patient declined, but will receive in the future) Depression Screening 04/21/2026 04/21/2025 Fall Risk Assessment 04/21/2026 04/21/2025, 04/18/20 25 DTaP/Tdap/Td Vaccine (2 - Td or Tdap) 11/08/2032 11/08/2022 Hepatitis C Screening Completed 12/12/2022 Medical Devices Implanted Type Area Chrome Tanning Drum Operator Device Identifier Shelf Expiration Date Model / Serial / Lot [employer] Cytal [id number] Fenestrate Matrix 6 Layer Graft Skin [id number] - [id number] - [id number] Implanted:Qty: 1 on 08/06/2023 by Rohith Flores MD at [facility] Right: Leg [employer] 04/21/2024 [id number] / [id number] / [id number] [employer] Cytal [id number] Fenestrate Matrix 6 Layer Graft Skin [id number] - [id number] - [id number] Implanted:Qty: 1 on 08/06/2023 by Rohith Flores MD at [facility] Right: Leg [employer] 04/21/2024 [id number] / [id number] / [id number] [employer] Coil Embolization Coated Pushable Wilfrido [id number] [employer] [id number] - [id number] Implanted:Qty: 1 on 03/18/2025 at [facility] [employer] 12/19/2029 [id number] / / [id number] [employer] Coil Embolization Coated Pushable Wilfrido [id number] [employer] [id number] - [id number] Implanted:Qty: 1 on 03/18/2025 at [facility] [employer] 11/30/2029 [id number] / / [id number] [employer] Coil Embolization Coated Pushable Wilfrido [id number] [place]ult [id number] - [id number] Implanted:Qty: 1 on 03/18/2025 at [facility] [employer] 01/11/2030 [id number] / / [id number] [employer] Coil Embolization Coated Pushable Wilfrido [id number] [place] [id number] - [id number] Implanted:Qty: 1 on 03/18/2025 at [facility] [employer] 11/19/2029 [id number] / / [id number] Presdo Angio-Seal Vip 6fr Closere Device [id number] - [id number] Implanted:Qty: 1 on 03/18/2025 at [facility] [employer] 08/15/2025 [id number] / / [id number] [employer] Pacemaker Intracardiac 19.5fr 30.0mm Rv Aveir Strl Leadless [id number] - [id number] - [id number] Implanted:Qty: 1 on 04/06/2025 by Hien Espinal MD at [facility] [employer] 01/16/2027 [id number] / [id number] / Procedures Procedure Name Priority Date/Time Associated Diagnosis Comments EGFR Routine 04/21/2025 12:42 PM CDT Stage 3a chronic kidney disease (HCC) DIFFERENTIAL AUTO Routine 04/21/2025 12: 42 PM CDT Acute blood loss anemia CBC WITH AUTO DIFFERENTIAL Routine 04/21/2025 12:42 PM CDT Acute blood loss anemia HEMOGLOBIN A1C Routine 04/21/2025 12:42 PM CDT Screening for diabetes mellitus COMPREHENSIVE METABOLIC PANEL Routine 04/21/2025 12:42 PM CDT Stage 3a chronic kidney disease (HCC) DEBRIDEMENT EXTREMITY - LOWER 04/18/2025 12:05 PM CDT RIGHT LEG WOUND EGFR Timed 04/07/2025 5:28 AM CDT DIFFERENTIAL AUTO Routine 04/07/2025 5:2 8 AM CDT CREATININE Timed 04/07/2025 5:28 AM CDT CBC WITH AUTO DIFFERENTIAL Routine 04/07/2025 5:28 AM CDT VANCOMYCIN LEVEL TROUGH Timed 04/06/2025 6:22 PM CDT XR CHEST 1 VIEW Timed 04/06/2025 11:15 AM CDT ECG 12-LEAD STAT 04/06/2025 10:56 AM CDT LEADLESS, SINGLE CHAMBER PACEMAKER (PPM) INSERTION Routine 04/06/2025 9:38 AM CDT AV block DIFFERENTIAL AUTO Routine 04/06/2025 6:3 1 AM CDT CBC WITH AUTO DIFFERENTIAL Routine 04/06/2025 6:31 AM CDT EGFR Timed 04/05/2025 5:55 AM CDT DIFFERENTIAL AUTO Routine 04/05/2025 5:5 5 AM CDT CREATININE Timed 04/05/2025 5:55 AM CDT CBC WITH AUTO DIFFERENTIAL Routine 04/05/2025 5:55 AM CDT ECG 12-LEAD Routine 04/04/2025 7:46 AM CDT DIFFERENTIAL AUTO Routine 04/04/2025 6:3 3 AM CDT PRO B-TYPE NATRIURETIC PEPTIDE Routine 04/04/2025 6:33 AM CDT CBC WITH AUTO DIFFERENTIAL Routine 04/04/2025 6:33 AM CDT VANCOMYCIN LEVEL TROUGH Timed 04/03/2025 6:19 PM CDT TRANSTHORACIC ECHO (TTE) COMPLETE W DOPPLER/CF WO CONTRAST Routine 04/03/2025 1:10 PM CDT EGFR Routine 04/03/2025 6:44 AM CDT DIFFERENTIAL AUTO Routine 04/03/2025 6:4 4 AM CDT CBC WITH AUTO DIFFERENTIAL Routine 04/03/2025 6:44 AM CDT CREATININE Routine 04/03/2025 6:44 AM CDT THYROID FUNCTION CASCADE Routine 04/02/2025 6:39 PM CDT EGFR Routine 04/02/2025 1:16 PM CDT DIFFERENTIAL AUTO Routine 04/02/2025 1:1 6 PM CDT COMPREHENSIVE METABOLIC PANEL Routine 04/02/2025 1:16 PM CDT CBC WITH AUTO DIFFERENTIAL Routine 04/02/2025 1:16 PM CDT MAGNESIUM Routine 04/02/2025 1:16 PM CDT ECG 12-LEAD Routine 04/02/2025 9:00 AM CDT EGFR Routine 04/02/2025 6:25 AM CDT CREATININE Routine 04/02/2025 6:25 AM CDT EGFR Routine 04/01/2025 6:00 AM CDT DIFFERENTIAL AUTO Routine 04/01/2025 6:0 0 AM CDT CBC WITH AUTO DIFFERENTIAL Routine 04/01/2025 6:00 AM CDT BASIC METABOLIC PANEL Routine 04/01/2025 6:00 AM CDT EGFR Routine 03/31/2025 8:59 PM CDT CREATININE Routine 03/31/2025 8:59 PM CDT SEPSIS LACTATE WITH REFLEX STAT 03/31/2025 8:25 PM CDT BLOOD CULTURE Routine 03/31/2025 8:25 PM CDT BLOOD CULTURE Routine 03/31/2025 8:25 PM CDT US VEIN DUPLEX LOWER EXTREMITY RIGHT LIMITED ED 03/31/2025 7:52 PM CDT EGFR STAT 03/31/2025 4:34 PM CDT COMPREHENSIVE METABOLIC PANEL STAT 03/31/2025 4:34 PM CDT DIFFERENTIAL AUTO STAT 03/31/2025 4:3 3 PM CDT CBC WITH AUTO DIFFERENTIAL STAT 03/31/2025 4:33 PM CDT EGFR Routine 03/23/2025 8:38 PM CDT BASIC METABOLIC PANEL Routine 03/23/2025 8:38 PM CDT CBC WITHOUT DIFFERENTIAL Routine 03/23/2025 8:38 PM CDT EGFR Routine 03/22/2025 8:43 PM CDT BASIC METABOLIC PANEL Routine 03/22/2025 8:43 PM CDT CBC WITHOUT DIFFERENTIAL Routine 03/22/2025 8:43 PM CDT EGFR Routine 03/21/2025 8:40 PM CDT BASIC METABOLIC PANEL Routine 03/21/2025 8:40 PM CDT CBC WITHOUT DIFFERENTIAL Routine 03/21/2025 8:40 PM CDT DIFFERENTIAL AUTO STAT 03/21/2025 4:5 2 PM CDT CBC WITH AUTO DIFFERENTIAL STAT 03/21/2025 4:52 PM CDT TYPE AND SCREEN Timed 03/21/2025 4:52 PM CDT TRANSFUSE RED BLOOD CELLS Timed 03/21/2025 1:15 PM CDT TYPE AND SCREEN Timed 03/21/2025 9:51 AM CDT PREPARE RBC Timed 03/21/2025 9:29 AM CDT DIFFERENTIAL AUTO STAT 03/21/2025 8:0 6 AM CDT CBC WITH AUTO DIFFERENTIAL STAT 03/21/2025 8:06 AM CDT HEMOGLOBIN AND HEMATOCRIT Timed 03/21/2025 12:38 AM CDT TRANSFUSE RED BLOOD CELLS Timed 03/20/2025 9:25 PM CDT PREPARE RBC Timed 03/20/2025 8:39 PM CDT EGFR Routine 03/20/2025 7:59 PM CDT PHOSPHORUS Routine 03/20/2025 7:59 PM CDT MAGNESIUM Routine 03/20/2025 7:59 PM CDT BASIC METABOLIC PANEL Routine 03/20/2025 7:59 PM CDT CBC WITHOUT DIFFERENTIAL Routine 03/20/2025 7:59 PM CDT POCT GLUCOSE DEVICE Routine 03/20/2025 1 1:36 AM CDT TRANSFUSE RED BLOOD CELLS Timed 03/20/2025 11:21 AM CDT OK AN PROCEDURE PLACEHOLDER Routine 03/20/2025 10:54 AM CDT OK AN PROCEDURE PLACEHOLDER Routine 03/20/2025 10:41 AM CDT OK AN ELECTIVE SUPRAGLOTTIC AIRWAY Routine 03/20/2025 10:41 AM CDT DEBRIDEMENT WOUND - LEG 03/20/2025 10:12 AM CDT Hematoma of right knee region Case Notes [phone] Forrest POCT GLUCOSE DEVICE Routine 03/20/2025 8 :24 AM CDT TRANSFUSE RED BLOOD CELLS Timed 03/20/2025 8:24 AM CDT PREPARE RBC STAT 03/20/2025 8:14 AM CDT HEMOGLOBIN AND HEMATOCRIT STAT 03/20/2025 5:24 AM CDT EGFR Routine 03/19/2025 7:36 PM CDT CBC WITHOUT DIFFERENTIAL Routine 03/19/2025 7:36 PM CDT BASIC METABOLIC PANEL Routine 03/19/2025 7:36 PM CDT CBC WITHOUT DIFFERENTIAL Routine 03/19/2025 7:36 PM CDT POTASSIUM LEVEL Timed 03/19/2025 5:21 PM CDT TRANSFUSE RED BLOOD CELLS Timed 03/19/2025 3:48 PM CDT PREPARE RBC Timed 03/19/2025 1:34 PM CDT EGFR Timed 03/19/2025 12:36 PM CDT POTASSIUM, WHOLE BLOOD Routine 03/19/2025 12:36 PM CDT CBC WITHOUT DIFFERENTIAL Routine 03/19/2025 12:36 PM CDT BASIC METABOLIC PANEL Timed 03/19/2025 12:36 PM CDT PREPARE RBC Timed 03/19/2025 10:53 AM CDT POTASSIUM LEVEL Timed 03/19/2025 8:07 AM CDT CREATINE KINASE (CK), TOTAL Timed 03/19/2025 8:07 AM CDT POTASSIUM LEVEL Timed 03/19/2025 8:07 AM CDT EGFR STAT 03/19/2025 4:49 AM CDT BASIC METABOLIC PANEL STAT 03/19/2025 4:49 AM CDT CBC WITHOUT DIFFERENTIAL Timed 03/19/2025 4:49 AM CDT POTASSIUM, WHOLE BLOOD STAT 03/19/2025 12:39 AM CDT EGFR Routine 03/18/2025 9:34 PM CDT CBC WITHOUT DIFFERENTIAL Routine 03/18/2025 9:34 PM CDT PHOSPHORUS Routine 03/18/2025 9:34 PM CDT MAGNESIUM Routine 03/18/2025 9:34 PM CDT BASIC METABOLIC PANEL Routine 03/18/2025 9:34 PM CDT ANGIOGRAM LOWER EXTREMITY RIGHT ED Urgent/IP Urgent 03/18/2025 5:00 PM CDT HEMOGLOBIN AND HEMATOCRIT Timed 03/18/2025 3:04 PM CDT CBC WITHOUT DIFFERENTIAL Timed 03/18/2025 10:21 AM CDT ECG 12-LEAD STAT 03/18/2025 8:49 AM CDT OK REPAIR INTERMEDIATE S/A/T/E 2.6-7.5 CM Routine 03/18/2025 6:49 AM CDT POTASSIUM, WHOLE BLOOD STAT 03/18/2025 6:17 AM CDT LIPID PANEL STAT 03/18/2025 4:52 AM CDT EGFR STAT 03/18/2025 4:52 AM CDT DIFFERENTIAL AUTO STAT 03/18/2025 4:5 2 AM CDT COMPREHENSIVE METABOLIC PANEL STAT 03/18/2025 4:52 AM CDT CBC WITH AUTO DIFFERENTIAL STAT 03/18/2025 4:52 AM CDT ECG 12-LEAD STAT 03/18/2025 3:57 AM CDT URINALYSIS AND REFLEX TO MICROSCOPIC AND CULTURE STAT 03/18/2025 3:05 AM CDT OK CRITICAL CARE ILL/INJURED PATIENT INIT 30-74 MIN Routine 03/18/2025 2:58 AM CDT TROPONIN I HIGH-SENSITIVITY 2-HOUR Timed 03/18/2025 1:33 AM CDT CTA ABDOMINAL AORTA AND BILATERAL ILIOFEMORAL RUNOFF ED 03/18/2025 12:[address] HEAD CERVICAL FACIAL WO CONTRAST ED 03/18/2025 12:16 AM CDT XR KNEE RIGHT 4 OR MORE VIEWS ED 03/18/2025 12:04 AM CDT XR CHEST 1 VIEW ED 03/18/2025 12:04 AM CDT XR FEMUR RIGHT 2 OR MORE VIEWS ED 03/18/2025 12:03 AM CDT XR TIBIA FIBULA RIGHT2 VIEWS ED 03/18/2025 12:03 AM CDT XR PELVIS 1 OR 2 VIEWS ED 03/18/2025 12:03 AM CDT ECG 12-LEAD STAT 03/17/2025 11:56 PM CDT OK CRITICAL CARE ILL/INJURED PATIENT INIT 30-74 MIN Routine 03/17/2025 11:30 PM CDT POCT CREATININE - DEVICE Routine 03/17/2025 11:03 PM CDT PHOSPHORUS STAT 03/17/2025 11:01 PM CDT MAGNESIUM STAT 03/17/2025 11:01 PM CDT EGFR STAT 03/17/2025 11:01 PM CDT DIFFERENTIAL AUTO STAT 03/17/2025 11: 01 PM CDT TROPONIN I HIGH-SENSITIVITY SERIES (BASELINE, 2HR, 4HR, 6HR) STAT 03/17/2025 11:01 PM CDT CBC WITH AUTO DIFFERENTIAL STAT 03/17/2025 11:01 PM CDT COMPREHENSIVE METABOLIC PANEL STAT 03/17/2025 11:01 PM CDT TYPE AND SCREEN STAT 03/17/2025 11:01 PM CDT PROTIME-INR STAT 03/17/2025 11:01 PM CDT APTT STAT 03/17/2025 11:01 PM CDT POCT GLUCOSE DEVICE Routine 03/17/2025 1 0:36 PM CDT ECG 12-LEAD Routine 03/07/2025 11:14 AM CDT Chronic systolic heart failure (HCC) HEPATITIS PANEL, ACUTE Routine 12/12/2022 7:19 PM CDT from Last 3 Months or Most Recently Relevant to Health Maintenance Results * eGFR (04/21/2025 12:42 PM CDT) eGFR 66 >=60 mL/min/1. 73 m2 Comment: Interpretive Data Reference Interval Normal >/= 90 mL/min/1.73m2 Mildly decreased* 60 - 89 mL/min/1.73m2 Mildly to moderately decreased 45 - 59 mL/min/1.73m2 Moderately to severely decreased 30 - 44 mL/min/1.73m2 Severely decreased 15 - 29 mL/min/1.73m2 Kidney Failure < 15 mL/min/1.73m2 *Relative to young adult level Estimated glomerular filtration rate is determined by the 2020 CKD-EPI equation recommended by the National Kidney Foundation (A Unifying Approach to GFR Estimation: Recommendations of the NKF-ASK Task Force on Reassessing the Inclusion of Race in Diagnosing Kidney Disease, JASN 202). The CKD-EPI equation should not be used for patients with unstable renal function and has not been validated in children and those over 70. Current interpretive data was last reviewed 2021. Blood 04/21/2025 12:4 2 PM CDT 04/21/2025 6:53 PM CDT us Valentina Young DO LAB BLOOD ORDERABLES Final Resu lt ME[facility] [address] [facility] Department [place] [address] * Differential, auto (04/21/2025 12:42 PM CDT) Neutrophil abs 4.75 1.50 - 6.50 K/cumm Imm gran abs 0.02 0.00 - 0.10 K/cumm [facility] Lymphocyte abs 1.32 0.80 - 3.30 K/cumm [facility] Monocyte abs 0.41 0.20 - 0.80 K/cumm [facility] Eosinophil abs 0.01 0.00 - 0.50 K/cumm [facility] Basophil abs 0.04 0.00 - 0.10 K/cumm [facility] Neutrophil pct 72.4 % [facility] Comment: Interpretive Data Percent cell count reference ranges are not reported, since discordance with absolute values may lead to misinterpretation of CBC data. Current Interpretive Data was last revised on 2017. Imm gran pct 0.3 % [facility] Comment: Interpretive Data Percent cell count reference ranges are not reported, since discordance with absolute values may lead to misinterpretation of CBC data. Current Interpretive Data was last revised on 2017. Lymphocyte pct 20.2 % [facility] Comment: Interpretive Data Percent cell count reference ranges are not reported, since discordance with absolute values may lead to misinterpretation of CBC data. Current Interpretive Data was last revised on 2017. Monocyte pct 6.3 % [facility] Comment: Interpretive Data Percent cell count reference ranges are not reported, since discordance with absolute values may lead to misinterpretation of CBC data. Current Interpretive Data was last revised on 2017. Eosinophil pct 0.2 % [facility] Comment: Interpretive Data Percent cell count reference ranges are not reported, since discordance with absolute values may lead to misinterpretation of CBC data. Current Interpretive Data was last revised on 2017. Basophil pct 0.6 % [facility] Comment: Interpretive Data Percent cell count reference ranges are not reported, since discordance with absolute values may lead to misinterpretation of CBC data. Current Interpretive Data was last revised on 2017. Blood 04/21/2025 12:4 2 PM CDT 04/21/2025 1:50 PM CDT us Valentina Young DO LAB BLOOD ORDERABLES Final Resu lt MEY [address] [facility] [place] [address] * (ABNORMAL) CBC with auto differential (04/21/2025 12:42 PM CDT) [facility] WBC 6.55 3.80 - 9.90 K/cumm Hgb 11.0(L) 13.0 - 17.5 g/dL [facility] Hct 35.2(L) 38.9 - 50.3 % [facility] Plt 222 150 - 400 K/cumm [facility] MPV 10.3 9.1 - 12.3 fL [facility] RBC 3.63(L) 4.30 - 5.80 M/cumm [facility] MCV 97.0(H) 81.3 - 96.4 fL [facility] MCH 30.3 27.1 - 33.3 pg [facility] MCHC 31.3(L) 32.3 - 35.7 g/dL [facility] RDW CV 16.8(H) 11.1 - 14.9 % [facility] RDW SD 59.5(H) 35.7 - 48.1 fL [facility] NRBC abs 0.00 0.00 - 0.01 K/cumm [facility] Blood 04/21/2025 12:4 2 PM CDT 04/21/2025 1:50 PM CDT Valentina Young DO LAB BLOOD ORDERABLES Final Resu lt MEY [address] [facility] [place] [address] * Hemoglobin A1c (04/21/2025 12:42 PM CDT) [facility] Hgb A1C 4.9 4.0 - 5.6 % Estimated Average Glucose 94 mg/dL [facility] Comment: The ADA recommends reporting an estimated Average Glucose (eAG) with all Hemoglobin A1c results using the equation derived from a study of 507 normal and diabetic adults. Minority populations were underrepresented and children were not included. (Diabetes Care 31:4273-6512, 2008). The eAG is not equivalent to a fasting glucose. Blood 04/21/2025 12:4 2 PM CDT 04/21/2025 3:18 PM CDT Valentina Young DO LAB BLOOD ORDERABLES Final Resu lt [facility] [address] [facility] Department [place] [address] * Comprehensive metabolic panel (04/21/2025 12:42 PM CDT) Sodium 137 135 - 145 mmol/L Potassium, pl 4.9 3.3 - 4.9 mmol/L [facility] Comment:Hemolyzed; Potassium value may be falsely elevated by as much as 1.0 mmol/L. Suggest redraw and reanalysis. Chloride 102 97 - 110 mmol/L [facility] CO2 22 22 - 32 mmol/L [facility] Anion gap 13 2 - 15 mmol/L [facility] BUN 19 6 - 25 mg/dL [facility] Creatinine 1.14 0.80 - 1.30 mg/dL [facility] Glucose 91 70 - 199 mg/dL [facility] Comment: Interpretive Data Fasting glucose >/= 126 mg/dl is diagnostic for diabetes. Fasting is defined as no caloric intake for at least 8 hours. Fasting glucose between 100 mg/dl to 125 mg/dl is diagnostic of prediabetes. In a patient with classic symptoms of hyperglycemia or hyperglycemic crisis, a random glucose >/= 200 mg/dl is diagnostic for diabetes. In the absence of unequivocal hyperglycemia, results should be confirmed by repeat testing. The classification and Diagnosis of Diabetes Diabetes Care 202; 46: S19-S40. Current interpretive data was last revised 2022. Calcium 10.1 8.5 - 10.3 mg/dL [facility] Bilirubin, total 0.4 0.1 - 1.2 mg/dL [facility] Protein, pl 7.6 6.5 - 8.5 g/dL [facility] Albumin 3.6 3.5 - 5.0 g/dL [facility] Alk phos 107 40 - 130 Units/L [facility] ALT 13 7 - 55 Units/L [facility] AST 48 10 - 50 Units/L [facility] Comment:Hemolyzed; result ma y be falsely elevated Blood 04/21/2025 12:4 2 PM CDT 04/21/2025 6:53 PM CDT Valentina Young DO LAB BLOOD ORDERABLES Final Resu lt ME[facility] [address] [facility] Department [place] [address] * eGFR (04/07/2025 5:28 AM CDT) eGFR 89 >=60 mL/min/1. 73 m2 Comment: Interpretive Data Reference Interval Normal >/= 90 mL/min/1.73m2 Mildly decreased* 60 - 89 mL/min/1.73m2 Mildly to moderately decreased 45 - 59 mL/min/1.73m2 Moderately to severely decreased 30 - 44 mL/min/1.73m2 Severely decreased 15 - 29 mL/min/1.73m2 Kidney Failure < 15 mL/min/1.73m2 *Relative to young adult level Estimated glomerular filtration rate is determined by the 2020 CKD-EPI equation recommended by the National Kidney Foundation (A Unifying Approach to GFR Estimation: Recommendations of the NKF-ASK Task Force on Reassessing the Inclusion of Race in Diagnosing Kidney Disease, JASN 2020). The CKD-EPI equation should not be used for patients with unstable renal function and has not been validated in children and those over 70. Current interpretive data was last reviewed 2021. Blood 04/07/2025 5:28 AM CDT 04/07/2025 5:33 AM CDT Anthony Reese MD LAB BLOOD ORDERABLES Final Result ME[facility] [address] Department [place] [address] * Differential, auto (04/07/2025 5:28 AM CDT) Neutrophil abs 3.90 1.50 - 6.50 K/cumm Imm gran abs 0.03 0.00 - 0.10 K/cumm [facility] Lymphocyte abs 0.82 0.80 - 3.30 K/cumm [facility] Monocyte abs 0.32 0.20 - 0.80 K/cumm [facility] Eosinophil abs 0.02 0.00 - 0.50 K/cumm [facility] Basophil abs 0.01 0.00 - 0.10 K/cumm [facility] Neutrophil pct 76.4 % [facility] Comment: Interpretive Data Percent cell count reference ranges are not reported, since discordance with absolute values may lead to misinterpretation of CBC data. Current Interpretive Data was last revised on 2017. Imm gran pct 0.6 % [facility] Comment: Interpretive Data Percent cell count reference ranges are not reported, since discordance with absolute values may lead to misinterpretation of CBC data. Current Interpretive Data was last revised on 2017. Lymphocyte pct 16.1 % [facility] Comment: Interpretive Data Percent cell count reference ranges are not reported, since discordance with absolute values may lead to misinterpretation of CBC data. Current Interpretive Data was last revised on 2017. Monocyte pct 6.3 % [facility] Comment: Interpretive Data Percent cell count reference ranges are not reported, since discordance with absolute values may lead to misinterpretation of CBC data. Current Interpretive Data was last revised on 2017. Eosinophil pct 0.4 % [facility] Comment: Interpretive Data Percent cell count reference ranges are not reported, since discordance with absolute values may lead to misinterpretation of CBC data. Current Interpretive Data was last revised on 2017. Basophil pct 0.2 % [facility] Comment: Interpretive Data Percent cell count reference ranges are not reported, since discordance with absolute values may lead to misinterpretation of CBC data. Current Interpretive Data was last revised on 2017. Blood 04/07/2025 5:28 AM CDT 04/07/2025 5:33 AM CDT us Guerline Casey NP LAB BLOOD ORDERABLES Final Result MEY [address] Department [place] [address] * (ABNORMAL) CBC with auto differential (04/07/2025 5:28 AM CDT) WBC 5.10 3.80 - 9.90 K/cumm Hgb 9.0(L) 13.0 - 17.5 g/dL [facility] Hct 28.4(L) 38.9 - 50.3 % [facility] Plt 199 150 - 400 K/cumm [facility] MPV 9.8 9.1 - 12.3 fL [facility] RBC 2.91(L) 4.30 - 5.80 M/cumm [facility] MCV 97.6(H) 81.3 - 96.4 fL [facility] MCH 30.9 27.1 - 33.3 pg [facility] MCHC 31.7(L) 32.3 - 35.7 g/dL [facility] RDW CV 16.4(H) 11.1 - 14.9 % [facility] RDW SD 58.3(H) 35.7 - 48.1 fL [facility] NRBC abs 0.00 0.00 - 0.01 K/cumm [facility] Blood 04/07/2025 5:28 AM CDT 04/07/2025 5:33 AM CDT us Guerline Casey [employer] LAB BLOOD ORDERABLES Final Result MICHAELRAY GONZALEZ [address] [place] [address] * Creatinine (04/07/2025 5:28 AM CDT) Pathologist [facility] Creatinine 0.87 0.80 - 1.30 mg/dL Blood 04/07/2025 5:28 AM CDT 04/07/2025 5:33 AM CDT Narrative [facility] - 04/07/2025 6:00 AM CDT While on vancomycin. Can collect with morning labs us Anthony Reese MD LAB BLOOD ORDERABLES Final Result [facility] [address] [address] [place] [address] * Vancomycin level trough (04/06/2025 6:22 PM CDT) Vancomycin trough 13.5 10.0 - 20.0 mcg/mL Blood 04/06/2025 6:22 PM CDT 04/06/2025 6:25 PM CDT Anthony Reese MD LAB BLOOD ORDERABLES Final Result [facility] GONZALEZ [address] Department [place] [address] * XR Chest 1 View (04/06/2025 11:15 AM CDT) Anatomical Region Laterality Modality Body, Chest N/A Computed Radiogr aphy 04/06/2025 11:3 3 AM CDT Impressions 04/06/2025 11:33 AM CDT Cardiomegaly with no failure. Electronically signed by: Tyshawn Wagoner M.D. Narrative 04/06/2025 11:33 AM CDT EXAMINATION: XR CHEST 1 VIEW HISTORY: The patient is a 79-year-old male who has had placement of a lead less pacemaker. Comparison made with the previous study dated 03/17/2025. TECHNIQUE: AP portable view of the chest. FINDINGS: Cardiomegaly with aortic atherosclerosis. No failure. Lead less pacemaker noted. Lungs clear. Procedure Note Tyshawn Wagoner MD - 04/06/2025 EXAMINATION: XR CHEST 1 VIEW HISTORY: The patient is a 79-year-old male who has had placement of a lead less pacemaker. Comparison made with the previous study dated 03/17/2025. TECHNIQUE: AP portable view of the chest. FINDINGS: Cardiomegaly with aortic atherosclerosis. No failure. Lead less pacemaker noted. Lungs clear. IMPRESSION: Cardiomegaly with no failure. Electronically signed by: Tyshawn Wagoner M.D. Hien Espinal MD IMG XR PROCEDURES Final Res ult * ECG 12 lead (04/06/2025 10:56 AM CDT) 04/06/2025 10:5 6 AM CDT Narrative [facility] - 04/06/2025 11:50 AM CDT Vent Rate: 64 bpm RR Interval: 936 msec OK Interval: 0 msec QRS Duration: 202 msec QT Interval: 489 msec QTC Interval: 498 msec P-R-T [place]: 0 - -36 - 132 degrees IMPRESSION: VENTRICULAR PACED RHYTHM Electronically Signed By: Tay Montalvo MD, [facility] us Hien Espinal MD ECG ORDERABLES Final Resul t [facility] * LEADLESS, SINGLE CHAMBER PACEMAKER (PPM) INSERTION (04/06/2025 9:38 AM CDT) Anatomical Region Laterality Modality X-Ray Angiograph y Narrative 04/06/2025 2:38 PM CDT Table formatting from the original result was not included. 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 Initially 6 and 8 [place] sheaths were inserted into the left and right femoral veins. Due to severe bradycardia secondary to second-degree block and heart rate less than 40 beats per minute temporary pacemaker was placed through the left femoral approach with tip of the catheter position to the right ventricular apex. . It confirmed to be capturing at less than 1 milliamperes output. It was taped and left in place in left groin. After that 8 [place] sheath was used for placement of pigtail catheter. Right ventriculogram was performed at JIMENEZ 30 and URDU 40 degree views using cine imaging to delineate the anatomy of right ventricle and interventricular septum. Abloomyart kooaba delivery system was used for the insertion of leadless right ventricular pacemaker AVEIR VR-LP LS P 202 V SERIAL number [id number] Device was positioned in the mid interventricular septum of right ventricle. Good device function was confirmed initially and after the procedure Device Capture threshold was less than 1.0 volts at 0.4 milliseconds sensing was better than 5 mV pacing impedance being stable Setting VVI 60 beats per minute BEFORE SHEATHS WERE REMOVED TEMPORARY PACEMAKER THAT WAS PLACED IN THE RIGHT VENTRICULAR APEX WAS PULLED OUT OF THE CENTRAL CIRCULATION At the end all sheaths and catheters were removed hemostasis was obtained with a figure 8 Suture and manual compression. Patient tolerated procedure well No complications Operative Findings: Intermittent symptomatic bradycardia due to recurrent second-degree block Second-degree block intermittent causing severe bradycardia Normally functioning single chamber leadless ventricular pacemaker Estimated Blood Loss: 5 mL Intraoperative Fluids: SEE ANESTHESIA NOTE Specimens: No specimen collected in procedure Implants: Implant Name Type Inv. Item Serial No. Chrome Tanning Drum Operator Lot No. [id number] No. Used Action Veracode Aveir Leadless Pacemaker Pacemaker [id number] kooaba N/A 1 Implanted Blood/Blood Products Transfused: NONE Complications: None Condition on Discharge from the operating room was stable Hien Espinal MD Date: 04/06/2025 Time: 10:12 AM No Resident involved on case us Hien Espinal MD CV ELECTROPHYSIOLOGY PROCS Final Result * Differential, auto (04/06/2025 6:31 AM CDT) Neutrophil abs 3.50 1.50 - 6.50 K/cumm Imm gran abs 0.02 0.00 - 0.10 K/cumm [facility] Lymphocyte abs 1.29 0.80 - 3.30 K/cumm [facility] Monocyte abs 0.44 0.20 - 0.80 K/cumm [facility] Eosinophil abs 0.27 0.00 - 0.50 K/cumm [facility] Basophil abs 0.03 0.00 - 0.10 K/cumm [facility] Neutrophil pct 63.1 % [facility] Comment: Interpretive Data Percent cell count reference ranges are not reported, since discordance with absolute values may lead to misinterpretation of CBC data. Current Interpretive Data was last revised on 2017. Imm gran pct 0.4 % [facility] Comment: Interpretive Data Percent cell count reference ranges are not reported, since discordance with absolute values may lead to misinterpretation of CBC data. Current Interpretive Data was last revised on 2017. Lymphocyte pct 23.2 % [facility] Comment: Interpretive Data Percent cell count reference ranges are not reported, since discordance with absolute values may lead to misinterpretation of CBC data. Current Interpretive Data was last revised on 2017. Monocyte pct 7.9 % [facility] Comment: Interpretive Data Percent cell count reference ranges are not reported, since discordance with absolute values may lead to misinterpretation of CBC data. Current Interpretive Data was last revised on 2017. Eosinophil pct 4.9 % [facility] Comment: Interpretive Data Percent cell count reference ranges are not reported, since discordance with absolute values may lead to misinterpretation of CBC data. Current Interpretive Data was last revised on 2017. Basophil pct 0.5 % [facility] Comment: Interpretive Data Percent cell count reference ranges are not reported, since discordance with absolute values may lead to misinterpretation of CBC data. Current Interpretive Data was last revised on 2017. Blood 04/06/2025 6:31 AM CDT 04/06/2025 7:05 AM CDT us Guerline Casey NP LAB BLOOD ORDERABLES Final Result [facility] [address] [place] [address] * (ABNORMAL) CBC with auto differential (04/06/2025 6:31 AM CDT) WBC 5.55 3.80 - 9.90 K/cumm Hgb 9.4(L) 13.0 - 17.5 g/dL [facility] Hct 30.8(L) 38.9 - 50.3 % [facility] Plt 222 150 - 400 K/cumm [facility] MPV 9.9 9.1 - 12.3 fL [facility] RBC 3.11(L) 4.30 - 5.80 M/cumm [facility] MCV 99.0(H) 81.3 - 96.4 fL [facility] MCH 30.2 27.1 - 33.3 pg [facility] MCHC 30.5(L) 32.3 - 35.7 g/dL [facility] RDW CV 17.1(H) 11.1 - 14.9 % [facility] RDW SD 62.1(H) 35.7 - 48.1 fL [facility] NRBC abs 0.00 0.00 - 0.01 K/cumm [facility] Blood 04/06/2025 6:31 AM CDT 04/06/2025 7:05 AM CDT us Guerline Casey NP LAB BLOOD ORDERABLES Final Result ME[facility] [address] Department of Laboratories [place], [place] [id number] * eGFR (04/05/2025 5:55 AM CDT) eGFR 65 >=60 mL/min/1. 73 m2 Comment: Interpretive Data Reference Interval Normal >/= 90 mL/min/1.73m2 Mildly decreased* 60 - 89 mL/min/1.73m2 Mildly to moderately decreased 45 - 59 mL/min/1.73m2 Moderately to severely decreased 30 - 44 mL/min/1.73m2 Severely decreased 15 - 29 mL/min/1.73m2 Kidney Failure < 15 mL/min/1.73m2 *Relative to young adult level Estimated glomerular filtration rate is determined by the 2020 CKD-EPI equation recommended by the National Kidney Foundation (A Unifying Approach to GFR Estimation: Recommendations of the NKF-ASK Task Force on Reassessing the Inclusion of Race in Diagnosing Kidney Disease, JASN 2020). The CKD-EPI equation should not be used for patients with unstable renal function and has not been validated in children and those over 70. Current interpretive data was last reviewed 2021. Blood 04/05/2025 5:55 AM CDT 04/05/2025 6:54 AM CDT Anthony Reese MD LAB BLOOD ORDERABLES Final Result [facility] [address] Department [place] [address] * Differential, auto (04/05/2025 5:55 AM CDT) Neutrophil abs 3.47 1.50 - 6.50 K/cumm Imm gran abs 0.02 0.00 - 0.10 K/cumm [facility] Lymphocyte abs 1.29 0.80 - 3.30 K/cumm [facility] Monocyte abs 0.47 0.20 - 0.80 K/cumm [facility] Eosinophil abs 0.29 0.00 - 0.50 K/cumm [facility] Basophil abs 0.04 0.00 - 0.10 K/cumm [facility] Neutrophil pct 62.2 % [facility] Comment: Interpretive Data Percent cell count reference ranges are not reported, since discordance with absolute values may lead to misinterpretation of CBC data. Current Interpretive Data was last revised on 2017. Imm gran pct 0.4 % [facility] Comment: Interpretive Data Percent cell count reference ranges are not reported, since discordance with absolute values may lead to misinterpretation of CBC data. Current Interpretive Data was last revised on 2017. Lymphocyte pct 23.1 % [facility] Comment: Interpretive Data Percent cell count reference ranges are not reported, since discordance with absolute values may lead to misinterpretation of CBC data. Current Interpretive Data was last revised on 2017. Monocyte pct 8.4 % [facility] Comment: Interpretive Data Percent cell count reference ranges are not reported, since discordance with absolute values may lead to misinterpretation of CBC data. Current Interpretive Data was last revised on 2017. Eosinophil pct 5.2 % [facility] Comment: Interpretive Data Percent cell count reference ranges are not reported, since discordance with absolute values may lead to misinterpretation of CBC data. Current Interpretive Data was last revised on 2017. Basophil pct 0.7 % [facility] Comment: Interpretive Data Percent cell count reference ranges are not reported, since discordance with absolute values may lead to misinterpretation of CBC data. Current Interpretive Data was last revised on 2017. Blood 04/05/2025 5:55 AM CDT 04/05/2025 6:53 AM CDT Guerline Casey NP LAB BLOOD ORDERABLES Final Result [facility] [address] Department [place] [address] * (ABNORMAL) CBC with auto differential (04/05/2025 5:55 AM CDT) WBC 5.58 3.80 - 9.90 K/cumm Hgb 9.2(L) 13.0 - 17.5 g/dL [facility] Hct 30.2(L) 38.9 - 50.3 % [facility] Plt 215 150 - 400 K/cumm [facility] MPV 10.0 9.1 - 12.3 fL [facility] RBC 3.05(L) 4.30 - 5.80 M/cumm [facility] MCV 99.0(H) 81.3 - 96.4 fL [facility] MCH 30.2 27.1 - 33.3 pg [facility] MCHC 30.5(L) 32.3 - 35.7 g/dL [facility] RDW CV 17.2(H) 11.1 - 14.9 % [facility] RDW SD 62.3(H) 35.7 - 48.1 fL [facility] NRBC abs 0.00 0.00 - 0.01 K/cumm [facility] Blood 04/05/2025 5:55 AM CDT 04/05/2025 6:53 AM CDT Guerline Casey NP LAB BLOOD ORDERABLES Final Result Performing Organization Address [facility] Co de Phone Number [facility] [id number] Department [place] [address] * Creatinine (04/05/2025 5:55 AM CDT) Creatinine 1.16 0.80 - 1.30 mg/dL Blood 04/05/2025 5:55 AM CDT 04/05/2025 6:54 AM CDT Narrative [facility] - 04/05/2025 7:23 AM CDT While on vancomycin. Can collect with morning labs Anthony Reese MD LAB BLOOD ORDERABLES Final Result Performing Organization Address [facility] Phone Number [facility] [id number] Department [place] [address] * ECG 12 lead (04/04/2025 7:46 AM CDT) 04/04/2025 7:46 AM CDT Narrative [facility] - 04/04/2025 8:22 AM CDT Vent Rate: 49 bpm RR Interval: 1211 msec OK Interval: 267 msec QRS Duration: 122 msec QT Interval: 439 msec QTC Interval: 409 msec P-R-T [place]: -75 - 28 - 64 degrees IMPRESSION: ECTOPIC ATRIAL BRADYCARDIA WITH FIRST DEGREE AV BLOCK WITH FREQUENT SUPRAVENTRICULAR PREMATURE COMPLEXES IN A BIGEMINAL PATTERN LATERAL MYOCARDIAL INFARCTION , PROBABLY OLD [40+ ms Q WAVE AND/OR ST/T ABNORMALITY IN I/aVL/V5/V6] Right bundle branch block No change compared to prior EKG Electronically Signed By: Peewee Ferrari MD [facility] Hien Espinal MD ECG ORDERABLES Final Resul t Performing Organization Address [facility] Co de Phone Number [facility] [email or web address] [facility] * Differential, auto (04/04/2025 6:33 AM CDT) Neutrophil abs 3.43 1.50 - 6.50 K/cumm Imm gran abs 0.02 0.00 - 0.10 K/cumm [facility] Lymphocyte abs 1.06 0.80 - 3.30 K/cumm [facility] Monocyte abs 0.32 0.20 - 0.80 K/cumm [facility] Eosinophil abs 0.28 0.00 - 0.50 K/cumm [facility] Basophil abs 0.03 0.00 - 0.10 K/cumm [facility] Neutrophil pct 66.8 % [facility] Comment: Interpretive Data Percent cell count reference ranges are not reported, since discordance with absolute values may lead to misinterpretation of CBC data. Current Interpretive Data was last revised on 2017. Imm gran pct 0.4 % [facility] Comment: Interpretive Data Percent cell count reference ranges are not reported, since discordance with absolute values may lead to misinterpretation of CBC data. Current Interpretive Data was last revised on 2017. Lymphocyte pct 20.6 % [facility] Comment: Interpretive Data Percent cell count reference ranges are not reported, since discordance with absolute values may lead to misinterpretation of CBC data. Current Interpretive Data was last revised on 2017. Monocyte pct 6.2 % [facility] Comment: Interpretive Data Percent cell count reference ranges are not reported, since discordance with absolute values may lead to misinterpretation of CBC data. Current Interpretive Data was last revised on 2017. Eosinophil pct 5.4 % [facility] Comment: Interpretive Data Percent cell count reference ranges are not reported, since discordance with absolute values may lead to misinterpretation of CBC data. Current Interpretive Data was last revised on 2017. Basophil pct 0.6 % [facility] Comment: Interpretive Data Percent cell count reference ranges are not reported, since discordance with absolute values may lead to misinterpretation of CBC data. Current Interpretive Data was last revised on 2017. Blood 04/04/2025 6:33 AM CDT 04/04/2025 6:48 AM CDT us Guerline Casey NP LAB BLOOD ORDERABLES Final Result ME[facility] [address] [place] [address] * (ABNORMAL) Pro B-type natriuretic peptide (04/04/2025 6:33 AM CDT) NT-proBNP 1,036(H) <=450 pg/mL Comment: Interpretive Comments: A. Dyspnea [...] J. 2006:27:330-337. 2. Rosa Elena RW, Roxann AM. J. AM Ilya Cardiol: Cardiovasc Imag. 2009;2: 216- 225. Interpretive Data Last Revised Date: 2018. Blood 04/04/2025 6:33 AM CDT 04/04/2025 6:47 AM CDT us Kiesha Elaine NP LAB BLOOD ORDERABLES F inal Result [facility] GONZALEZ [address] Department [place] [address] * (ABNORMAL) CBC with auto differential (04/04/2025 6:33 AM CDT) [facility] WBC 5.14 3.80 - 9.90 K/cumm Hgb 9.4(L) 13.0 - 17.5 g/dL [facility] Hct 30.8(L) 38.9 - 50.3 % [facility] Plt 205 150 - 400 K/cumm [facility] MPV 9.3 9.1 - 12.3 fL [facility] RBC 3.12(L) 4.30 - 5.80 M/cumm [facility] MCV 98.7(H) 81.3 - 96.4 fL [facility] MCH 30.1 27.1 - 33.3 pg [facility] MCHC 30.5(L) 32.3 - 35.7 g/dL [facility] RDW CV 17.3(H) 11.1 - 14.9 % [facility] RDW SD 61.6(H) 35.7 - 48.1 fL [facility] NRBC abs 0.00 0.00 - 0.01 K/cumm [facility] Blood 04/04/2025 6:33 AM CDT 04/04/2025 6:48 AM CDT Guerline Casey NP LAB BLOOD ORDERABLES Final Result Performing Organization Address [facility]/ZIP Co de Phone Number MEY [phone] [place] [address] * Vancomycin level trough Draw trough 30 minutes prior to 4th dose. (04/03/2025 6:19 PM CDT) [facility] Vancomycin trough 15.6 10.0 - 20.0 mcg/mL Blood 04/03/2025 6:19 PM CDT 04/03/2025 7:06 PM CDT Narrative [facility] - 04/03/2025 7:34 PM CDT Draw trough 30 minutes prior to 4th dose. Colin Samuel MD LAB BLOOD ORDERABLES Final R esult Performing Organization Address City/[facility]/ZIP Co de Phone Number [facility] [address] [place] [address] * TRANSTHORACIC ECHO (TTE) COMPLETE W DOPPLER/CF WO CONTRAST (04/03/2025 1:10 PM CDT) EF Mod BP 66 % CONS SCIMAGE Anatomical Region Laterality Modality Ultrasound 04/03/2025 12:2 3 PM CDT Narrative 04/03/2025 1:24 PM CDT [place] [id number] Echocardiogram Report Patient Name: DREA TALLEYDeacon : 1945 Study Date: 04/03/2025 12:23:53 PM Sex: M Tech: BE Location: [id number] Ref Provider: GUERLINE CASEY Height(Cm): 177 BSA: 2.21 Weight(Kg): 99 Heart Rate: 54 BP: 125 / 50 Quality: Good Order Provider: GUERLINE CASEY PROCEDURES: Echocardiographic Report: Transthoracic echocardiogram with complete 2D, M-Mode, and color Doppler examination. INDICATIONS: Bradycardia. MEASUREMENTS: 2D/MM Value Range Doppler Value Range EF Teich 2D 66.1 percent [ 52.0 - 72.0 ] ILIANA Vmax 2.83 cm2 EF Mod BP 66 % [ 52 - 72 ] AV Mean PG 8 mmHg LVIDd 2D 5.86 cm [ 4.20 - 5.80 ] AV Peak Daniel 1.94 m/s [ 1.00 - 1.70 ] LVIDs 2D 3.69 cm [ 2.50 - 4.00 ] AV VTI 47.35 cm LVPWd 2D 0.76 cm [ 0.60 - 1.00 ] LVOT Diam 2.46 cm IVSd 2D 1.21 cm [ 0.60 - 1.00 ] LVOT Peak Daniel 1.00 m/s [ 0.70 - 1.10 ] LA Dimension 2D 4.37 cm [ 3.00 - 4.00 ] LVOT VTI 22.97 cm AoR Diam 2D 3.44 cm [ 3.10 - 3.70 ] SI LVOT 62.7 ml/m2 [ >= 35.0 ] LA Volume Index 56.30 cc/m2 [ 16.00 - 34.00 ] MV E Peak Daniel 1.15 m/s [ 0.60 - 1.30 ] MV A Peak Daniel 0.54 m/s [ 1.00 - 1.20 ] MV Mean PG 2 mmHg MV PHT 58 msec [ 20 - 100 ] MVA PHT 3.77 cm2 MV Decel Time 201 msec [ 104 - 258 ] PV Peak Daniel 1.49 m/s [ 0.40 - 0.80 ] TR Peak Daniel 3.56 m/s [ 1.00 - 2.80 ] TR Peak PG 51 mmHg E` 0.15 m/s E/E` 26.25 2D/MM Value Range Doppler Value Range - FINDINGS: Atrial Septum: Normal atrial septum. Left Ventricle: Normal left ventricular size. Normal left ventricular systolic function with no focal wall motion abnormalities. Mild concentric left ventricular hypertrophy. Ejection fraction is measured at 66 %. Left Atrium: There is mild enlargement of left atrium. Right Ventricle: Normal right ventricular size. Normal right ventricular systolic function. Right Atrium: The right atrium is normal in size. Aortic Valve: Trileaflet aortic valve. Aortic cusps appear mildly sclerotic. No evidence of hemodynamically significant aortic stenosis by Doppler. Trace to mild aortic valve regurgitation. Mitral Valve: Mitral valve leaflets appear mildly thickened. Mild to moderate mitral valve regurgitation. Pulmonic Valve: Normal structure of the pulmonic valve. Mild pulmonic regurgitation. Tricuspid Valve: Normal structure of the tricuspid valve. Moderate pulmonary hypertension based on right ventricular systolic pressure. Estimated peak RVSP is 56 mmHg. Moderate tricuspid regurgitation. Pericardium: Normal pericardium with no significant pericardial effusion. Aorta: Ascending aorta is normal. Descending aorta is normal. There is mild atherosclerosis in the aortic root. IVC: Dilated IVC without respiratory collapse consistent with elevated right atrial pressure (>15 mmHg). Pulmonary Artery: Pulmonary artery not well visualized. CONCLUSIONS: Normal left ventricular size. Normal left ventricular systolic function with no focal wall motion abnormalities. Mild concentric left ventricular hypertrophy. Ejection fraction is measured at 66 %. Normal right ventricular size. Normal right ventricular systolic function. There is mild enlargement of left atrium. Mitral valve leaflets appear mildly thickened. Mild to moderate mitral valve regurgitation. Trileaflet aortic valve. Aortic cusps appear mildly sclerotic. No evidence of hemodynamically significant aortic stenosis by Doppler. Trace to mild aortic valve regurgitation. Normal structure of the tricuspid valve. Moderate pulmonary hypertension based on right ventricular systolic pressure. Estimated peak RVSP is 56 mmHg. Moderate tricuspid regurgitation. Normal pericardium with no significant pericardial effusion. Patient appears to be in atrial fibrillation during this study. Electronically Signed By: Mimi Tariq MD 04/03/2025 1:24:14 PM CDT Procedure Note Mimi Tariq MD - 04/03/2025 [place] [address] Echocardiogram Report Patient Name: DREA TALLEY Deacon : 1945 Study Date: 04/03/2025 12:23:53 PM Sex: M Tech: Location: [id number] Ref Provider: GUERLINE CASEY Height(Cm): 177 BSA: 2.21 Weight(Kg): 99 Heart Rate: 54 BP: 125 / 50 Quality: Good Order Provider: GUERLINE CASEY PROCEDURES: Echocardiographic Report: Transthoracic echocardiogram with complete 2D, M-Mode, and color Dopplerexamination. INDICATIONS: Bradycardia. MEASUREMENTS: 2D/MM Value Range DopplerValue Range EF Teich 2D 66.1 percent [ 52.0 - 72.0 ] ILIANA Vmax2.83 cm2 EF Mod BP 66 % [ 52 - 72 ] AV Mean PG 8mmHg LVIDd 2D 5.86 cm [ 4.20 - 5.80 ] AV Peak Vel1.94 m/s [ 1.00 - 1.70 ] LVIDs 2D 3.69 cm [ 2.50 - 4.00 ] AV VTI47.35 cm LVPWd 2D 0.76 cm [ 0.60 - 1.00 ] LVOT Diam2.46 cm IVSd 2D 1.21 cm [ 0.60 - 1.00 ] LVOT Peak Vel1.00 m/s [ 0.70 - 1.10 ] LA Dimension 2D 4.37 cm [ 3.00 - 4.00 ] LVOT VTI22.97 cm AoR Diam 2D 3.44 cm [ 3.10 - 3.70 ] SI LVOT62.7 ml/m2 [ >= 35.0 ] LA Volume Index 56.30 cc/m2 [ 16.00 - 34.00 ] MV E Peak Vel1.15 m/s [ 0.60 - 1.30 ] MV A Peak Daniel 0.54 m/s [ 1.00 - 1.20 ] MV Mean PG 2 mmHg MV PHT 58 msec [ 20 - 100 ] MVA PHT 3.77 cm2 MV Decel Time 201 msec [ 104 - 258 ] PV Peak Daniel 1.49 m/s [ 0.40 - 0.80 ] TR Peak Daniel 3.56 m/s [ 1.00 - 2.80 ] TR Peak PG 51 mmHg E` 0.15 m/s E/E` 26.25 2D/MM Value Range DopplerValue Range - FINDINGS: Atrial Septum: Normal atrial septum. Left Ventricle: Normal left ventricular size. Normal left ventricular systolic functionwith no focal wall motion abnormalities. Mild concentric left ventricular hypertrophy.Ejection fraction is measured at 66 %. Left Atrium: There is mild enlargement of left atrium. Right Ventricle: Normal right ventricular size. Normal right ventricular systolicfunction. Right Atrium: The right atrium is normal in size. Aortic Valve: Trileaflet aortic valve. Aortic cusps appear mildly sclerotic. No evidenceof hemodynamically significant aortic stenosis by Doppler. Trace to mildaortic valve regurgitation. Mitral Valve: Mitral valve leaflets appear mildly thickened. Mild to moderate mitralvalve regurgitation. Pulmonic Valve: Normal structure of the pulmonic valve. Mild pulmonic regurgitation. Tricuspid Valve: Normal structure of the tricuspid valve. Moderate pulmonary hypertensionbased on right ventricular systolic pressure. Estimated peak RVSP is 56 mmHg. Moderatetricuspid regurgitation. Pericardium: Normal pericardium with no significant pericardial effusion. Aorta: Ascending aorta is normal. Descending aorta is normal. There is mildatherosclerosis in the aortic root. IVC: Dilated IVC without respiratory collapse consistent with elevated rightatrial pressure (>15 mmHg). Pulmonary Artery: Pulmonary artery not well visualized. CONCLUSIONS: Normal left ventricular size. Normal left ventricular systolic functionwith no focal wall motion abnormalities. Mild concentric left ventricular hypertrophy.Ejection fraction is measured at 66 %. Normal right ventricular size. Normal right ventricular systolicfunction. There is mild enlargement of left atrium. Mitral valve leaflets appear mildly thickened. Mild to moderate mitralvalve regurgitation. Trileaflet aortic valve. Aortic cusps appear mildly sclerotic. No evidenceof hemodynamically significant aortic stenosis by Doppler. Trace to mildaortic valve regurgitation. Normal structure of the tricuspid valve. Moderate pulmonary hypertensionbased on right ventricular systolic pressure. Estimated peak RVSP is 56 mmHg. Moderatetricuspid regurgitation. Normal pericardium with no significant pericardial effusion. Patient appears to be in atrial fibrillation during this study. Electronically Signed By: Mimi Tariq MD 04/03/2025 1:24:14 PM CDT Guerline Casey NP CV ECHO PROCEDURES Fi nal Result * eGFR (04/03/2025 6:44 AM CDT) eGFR 72 >=60 mL/min/1. 73 m2 Comment: Interpretive Data Reference Interval Normal >/= 90 mL/min/1.73m2 Mildly decreased* 60 - 89 mL/min/1.73m2 Mildly to moderately decreased 45 - 59 mL/min/1.73m2 Moderately to severely decreased 30 - 44 mL/min/1.73m2 Severely decreased 15 - 29 mL/min/1.73m2 Kidney Failure < 15 mL/min/1.73m2 *Relative to young adult level Estimated glomerular filtration rate is determined by the 2020 CKD-EPI equation recommended by the National Kidney Foundation (A Unifying Approach to GFR Estimation: Recommendations of the NKF-ASK Task Force on Reassessing the Inclusion of Race in Diagnosing Kidney Disease, JASN 2021). The CKD-EPI equation should not be used for patients with unstable renal function and has not been validated in children and those over 70. Current interpretive data was last reviewed 2021. Blood 04/03/2025 6:44 AM CDT 04/03/2025 7:16 AM CDT us Colin Samuel MD LAB BLOOD ORDERABLES Final R esult [facility] [id number] Department [place] [address] * Differential, auto (04/03/2025 6:44 AM CDT) Neutrophil abs 4.34 1.50 - 6.50 K/cumm Imm gran abs 0.02 0.00 - 0.10 K/cumm [facility] Lymphocyte abs 1.15 0.80 - 3.30 K/cumm [facility] Monocyte abs 0.46 0.20 - 0.80 K/cumm [facility] Eosinophil abs 0.36 0.00 - 0.50 K/cumm [facility] [facility] Basophil abs 0.03 0.00 - 0.10 K/cumm [facility] Neutrophil pct 68.2 % [facility] Comment: Interpretive Data Percent cell count reference ranges are not reported, since discordance with absolute values may lead to misinterpretation of CBC data. Current Interpretive Data was last revised on 2017. Imm gran pct 0.3 % [facility] Comment: Interpretive Data Percent cell count reference ranges are not reported, since discordance with absolute values may lead to misinterpretation of CBC data. Current Interpretive Data was last revised on 2017. Lymphocyte pct 18.1 % [facility] Comment: Interpretive Data Percent cell count reference ranges are not reported, since discordance with absolute values may lead to misinterpretation of CBC data. Current Interpretive Data was last revised on 2017. Monocyte pct 7.2 % [facility] Comment: Interpretive Data Percent cell count reference ranges are not reported, since discordance with absolute values may lead to misinterpretation of CBC data. Current Interpretive Data was last revised on 2017. Eosinophil pct 5.7 % [facility] Comment: Interpretive Data Percent cell count reference ranges are not reported, since discordance with absolute values may lead to misinterpretation of CBC data. Current Interpretive Data was last revised on 2017. Basophil pct 0.5 % [facility] Comment: Interpretive Data Percent cell count reference ranges are not reported, since discordance with absolute values may lead to misinterpretation of CBC data. Current Interpretive Data was last revised on 2017. Blood 04/03/2025 6:44 AM CDT 04/03/2025 7:16 AM CDT Guerline Casey [employer] LAB BLOOD ORDERABLES Final [facility] [address] [address] Department [place] [address] * (ABNORMAL) CBC with auto differential (04/03/2025 6:44 AM CDT) WBC 6.36 3.80 - 9.90 K/cumm Hgb 8.9(L) 13.0 - 17.5 g/dL [facility] Hct 28.9(L) 38.9 - 50.3 % [facility] Plt 216 150 - 400 K/cumm [facility] MPV 9.6 9.1 - 12.3 fL [facility] RBC 2.93(L) 4.30 - 5.80 M/cumm [facility] MCV 98.6(H) 81.3 - 96.4 fL [facility] MCH 30.4 27.1 - 33.3 pg [facility] MCHC 30.8(L) 32.3 - 35.7 g/dL [facility] RDW CV 17.2(H) 11.1 - 14.9 % [facility] RDW SD 61.7(H) 35.7 - 48.1 fL [facility] NRBC abs 0.00 0.00 - 0.01 K/cumm [facility] Blood 04/03/2025 6:44 AM CDT 04/03/2025 7:16 AM CDT Guerline Casey [employer] LAB BLOOD ORDERABLES Final Result MEY [address] [address] Department [place] [address] * Creatinine (04/03/2025 6:44 AM CDT) Pathologist [facility] Creatinine 1.06 0.80 - 1.30 mg/dL Blood 04/03/2025 6:44 AM CDT 04/03/2025 7:16 AM CDT Narrative MICHAELNER - 04/03/2025 7:48 AM CDT While on Vancomycin Pharmacy Protocol us Colin Samuel MD LAB BLOOD ORDERABLES Final R esult Performing Organization Address City/[facility]/ZIP Co de Phone Number MEY [phone] [address] Department [place] [address] * Thyroid Function [place] (04/02/2025 6:39 PM CDT) [facility] TSH 3.34 0.30 - 4.20 mcIUnit/mL Blood 04/02/2025 6:39 PM CDT 04/02/2025 6:43 PM CDT us Guerline Casey [employer] LAB BLOOD ORDERABLES Final Result Performing Organization Address City/[facility] Co de Phone Number MEY [phone] [address] Department of Laboratories [place], [place] [id number] * (ABNORMAL) eGFR (04/02/2025 1:16 PM CDT) Pathologist [facility] eGFR 59(L) >=60 mL/min/1. 73 m2 Comment: Interpretive Data Reference Interval Normal >/= 90 mL/min/1.73m2 Mildly decreased* 60 - 89 mL/min/1.73m2 Mildly to moderately decreased 45 - 59 mL/min/1.73m2 Moderately to severely decreased 30 - 44 mL/min/1.73m2 Severely decreased 15 - 29 mL/min/1.73m2 Kidney Failure < 15 mL/min/1.73m2 *Relative to young adult level Estimated glomerular filtration rate is determined by the 2020 CKD-EPI equation recommended by the National Kidney Foundation (A Unifying Approach to GFR Estimation: Recommendations of the NKF-ASK Task Force on Reassessing the Inclusion of Race in Diagnosing Kidney Disease, JASN 202). The CKD-EPI equation should not be used for patients with unstable renal function and has not been validated in children and those over 70. Current interpretive data was last reviewed 2021. Blood 04/02/2025 1:16 PM CDT 04/02/2025 1:26 PM CDT us Guerline Casey NP LAB BLOOD ORDERABLES Final Result [facility] [id number] [address] Department [place] [address] * Differential, auto (04/02/2025 1:16 PM CDT) Neutrophil abs 4.55 1.50 - 6.50 K/cumm Imm gran abs 0.02 0.00 - 0.10 K/cumm [facility] Lymphocyte abs 1.12 0.80 - 3.30 K/cumm [facility] Monocyte abs 0.40 0.20 - 0.80 K/cumm [facility] Eosinophil abs 0.30 0.00 - 0.50 K/cumm [facility] Basophil abs 0.04 0.00 - 0.10 K/cumm [facility] Neutrophil pct 70.8 % [facility] Comment: Interpretive Data Percent cell count reference ranges are not reported, since discordance with absolute values may lead to misinterpretation of CBC data. Current Interpretive Data was last revised on 2017. Imm gran pct 0.3 % [facility] Comment: Interpretive Data Percent cell count reference ranges are not reported, since discordance with absolute values may lead to misinterpretation of CBC data. Current Interpretive Data was last revised on 2017. Lymphocyte pct 17.4 % [facility] Comment: Interpretive Data Percent cell count reference ranges are not reported, since discordance with absolute values may lead to misinterpretation of CBC data. Current Interpretive Data was last revised on 2017. Monocyte pct 6.2 % [facility] Comment: Interpretive Data Percent cell count reference ranges are not reported, since discordance with absolute values may lead to misinterpretation of CBC data. Current Interpretive Data was last revised on 2017. Eosinophil pct 4.7 % [facility] Comment: Interpretive Data Percent cell count reference ranges are not reported, since discordance with absolute values may lead to misinterpretation of CBC data. Current Interpretive Data was last revised on 2017. Basophil pct 0.6 % [facility] Comment: Interpretive Data Percent cell count reference ranges are not reported, since discordance with absolute values may lead to misinterpretation of CBC data. Current Interpretive Data was last revised on 2017. Blood 04/02/2025 1:16 PM CDT 04/02/2025 1:26 PM CDT us Guerline Casey [employer] LAB BLOOD ORDERABLES Final Result [facility] [id number] [address] Department [place] [address] * (ABNORMAL) CBC with auto differential (04/02/2025 1:16 PM CDT) WBC 6.43 3.80 - 9.90 K/cumm Hgb 9.2(L) 13.0 - 17.5 g/dL [facility] Hct 29.7(L) 38.9 - 50.3 % [facility] Plt 239 150 - 400 K/cumm [facility] MPV 9.1 9.1 - 12.3 fL [facility] RBC 2.98(L) 4.30 - 5.80 M/cumm [facility] MCV 99.7(H) 81.3 - 96.4 fL [facility] MCH 30.9 27.1 - 33.3 pg [facility] MCHC 31.0(L) 32.3 - 35.7 g/dL [facility] RDW CV 17.4(H) 11.1 - 14.9 % [facility] RDW SD 62.5(H) 35.7 - 48.1 fL [facility] NRBC abs 0.00 0.00 - 0.01 K/cumm [facility] Blood 04/02/2025 1:16 PM CDT 04/02/2025 1:26 PM CDT Guerline Casey [employer] LAB BLOOD ORDERABLES Final Result MEY GONZALEZ [address] [address] Department [place] [address] * Magnesium (04/02/2025 1:16 PM CDT) Pathologist [facility] Magnesium 2.3 1.4 - 2.5 mg/dL Blood 04/02/2025 1:16 PM CDT 04/02/2025 1:26 PM CDT Guerline Casey [employer] LAB BLOOD ORDERABLES Final Result Performing Organization Address [facility] Co de Phone Number MEY [address] [address] Department [place] [address] * (ABNORMAL) Comprehensive metabolic panel (04/02/2025 1:16 PM CDT) Pathologist [facility] Sodium 139 135 - 145 mmol/L Potassium, pl 4.9 3.3 - 4.9 mmol/L [facility] Chloride 106 97 - 110 mmol/L [facility] CO2 23 22 - 32 mmol/L [facility] Anion gap 10 2 - 15 mmol/L [facility] BUN 26(H) 6 - 25 mg/dL [facility] Creatinine 1.26 0.80 - 1.30 mg/dL [facility] Glucose 100 70 - 199 mg/dL [facility] Comment: Interpretive Data Fasting glucose >/= 126 mg/dl is diagnostic for diabetes. Fasting is defined as no caloric intake for at least 8 hours. Fasting glucose between 100 mg/dl to 125 mg/dl is diagnostic of prediabetes. In a patient with classic symptoms of hyperglycemia or hyperglycemic crisis, a random glucose >/= 200 mg/dl is diagnostic for diabetes. In the absence of unequivocal hyperglycemia, results should be confirmed by repeat testing. The classification and Diagnosis of Diabetes Diabetes Care 2021; 46: S19-S40. Current interpretive data was last revised 2022. Calcium 9.1 8.5 - 10.3 mg/dL [facility] Bilirubin, total 0.7 0.1 - 1.2 mg/dL [facility] Protein, pl 6.2(L) 6.5 - 8.5 g/dL [facility] Albumin 3.4(L) 3.5 - 5.0 g/dL [facility] Alk phos 101 40 - 130 Units/L [facility] ALT 12 7 - 55 Units/L [facility] AST 20 10 - 50 Units/L [facility] Blood 04/02/2025 1:16 PM CDT 04/02/2025 1:26 PM CDT Guerline Casey NP LAB BLOOD ORDERABLES Final Result Performing Organization Address City/[facility] Co de Phone Number MEY [phone] [address] Department [place] [address] * ECG 12 lead (04/02/2025 9:00 AM CDT) 04/02/2025 9:00 AM CDT Narrative [facility] - 04/02/2025 10:34 AM CDT Vent Rate: 53 bpm RR Interval: 1112 msec OK Interval: 260 msec QRS Duration: 121 msec QT Interval: 433 msec QTC Interval: 417 msec P-R-T [place]: -64 - 58 - 81 degrees IMPRESSION: SINUS BRADYCARDIA WITH FIRST-DEGREE AV BLOCK. OCCASIONAL PREMATURE ATRIAL CONTRACTIONS. RIGHT BUNDLE-BRANCH BLOCK. Electronically Signed By: Dr. Bobo De La Cruz Guerline Casey NP ECG ORDERABLES Final Result Performing Organization Address City/[facility]/ZIP Co de Phone Number [facility] [email or web address] [facility] * eGFR (04/02/2025 6:25 AM CDT) eGFR 71 >=60 mL/min/1. 73 m2 Comment: Interpretive Data Reference Interval Normal >/= 90 mL/min/1.73m2 Mildly decreased* 60 - 89 mL/min/1.73m2 Mildly to moderately decreased 45 - 59 mL/min/1.73m2 Moderately to severely decreased 30 - 44 mL/min/1.73m2 Severely decreased 15 - 29 mL/min/1.73m2 Kidney Failure < 15 mL/min/1.73m2 *Relative to young adult level Estimated glomerular filtration rate is determined by the 2020 CKD-EPI equation recommended by the National Kidney Foundation (A Unifying Approach to GFR Estimation: Recommendations of the NKF-ASK Task Force on Reassessing the Inclusion of Race in Diagnosing Kidney Disease, JASN 202). The CKD-EPI equation should not be used for patients with unstable renal function and has not been validated in children and those over 70. Current interpretive data was last reviewed 2021. Blood 04/02/2025 6:25 AM CDT 04/02/2025 6:37 AM CDT Colin Samuel MD LAB BLOOD ORDERABLES Final R esult Performing Organization Address City/[facility]/ZIP Co de Phone Number MEY GONZALEZ [phone] [address] [place] [address] * Creatinine (04/02/2025 6:25 AM CDT) Creatinine 1.08 0.80 - 1.30 mg/dL Blood 04/02/2025 6:25 AM CDT 04/02/2025 6:37 AM CDT Priscila MATHIAS [facility] - 04/02/2025 7:13 AM CDT While on Vancomycin Pharmacy Protocol Colin Samuel MD LAB BLOOD ORDERABLES Final R esult MEY CARLOS [address] [address] Aguayo Department of [employer] [place], [place] [id number] * eGFR (04/01/2025 6:00 AM CDT) eGFR 75 >=60 mL/min/1. 73 m2 Comment: Interpretive Data Reference Interval Normal >/= 90 mL/min/1.73m2 Mildly decreased* 60 - 89 mL/min/1.73m2 Mildly to moderately decreased 45 - 59 mL/min/1.73m2 Moderately to severely decreased 30 - 44 mL/min/1.73m2 Severely decreased 15 - 29 mL/min/1.73m2 Kidney Failure < 15 mL/min/1.73m2 *Relative to young adult level Estimated glomerular filtration rate is determined by the 2020 CKD-EPI equation recommended by the National Kidney Foundation (A Unifying Approach to GFR Estimation: Recommendations of the NKF-ASK Task Force on Reassessing the Inclusion of Race in Diagnosing Kidney Disease, JASN 202). The CKD-EPI equation should not be used for patients with unstable renal function and has not been validated in children and those over 70. Current interpretive data was last reviewed 2021. Blood 04/01/2025 6:00 AM CDT 04/01/2025 6:34 AM CDT Colin Samuel MD LAB BLOOD ORDERABLES Final R esult [facility] [address] [address] Department [place] [address] * Differential, auto (04/01/2025 6:00 AM CDT) Neutrophil abs 5.29 1.50 - 6.50 K/cumm Imm gran abs 0.03 0.00 - 0.10 K/cumm [facility] Lymphocyte abs 0.97 0.80 - 3.30 K/cumm [facility] Monocyte abs 0.44 0.20 - 0.80 K/cumm [facility] Eosinophil abs 0.17 0.00 - 0.50 K/cumm [facility] Basophil abs 0.04 0.00 - 0.10 K/cumm [facility] Neutrophil pct 76.3 % [facility] Comment: Interpretive Data Percent cell count reference ranges are not reported, since discordance with absolute values may lead to misinterpretation of CBC data. Current Interpretive Data was last revised on 2017. Imm gran pct 0.4 % [facility] Comment: Interpretive Data Percent cell count reference ranges are not reported, since discordance with absolute values may lead to misinterpretation of CBC data. Current Interpretive Data was last revised on 2017. Lymphocyte pct 14.0 % [facility] Comment: Interpretive Data Percent cell count reference ranges are not reported, since discordance with absolute values may lead to misinterpretation of CBC data. Current Interpretive Data was last revised on 2017. Monocyte pct 6.3 % [facility] Comment: Interpretive Data Percent cell count reference ranges are not reported, since discordance with absolute values may lead to misinterpretation of CBC data. Current Interpretive Data was last revised on 2017. Eosinophil pct 2.4 % [facility] Comment: Interpretive Data Percent cell count reference ranges are not reported, since discordance with absolute values may lead to misinterpretation of CBC data. Current Interpretive Data was last revised on 2017. Basophil pct 0.6 % [facility] Comment: Interpretive Data Percent cell count reference ranges are not reported, since discordance with absolute values may lead to misinterpretation of CBC data. Current Interpretive Data was last revised on 2017. Blood 04/01/2025 6:00 AM CDT 04/01/2025 6:35 AM CDT Colin Samuel MD LAB BLOOD ORDERABLES Final R esult [facility] [id number] [address] Department of Laboratories [place], [place] [id number] * (ABNORMAL) CBC with auto differential (04/01/2025 6:00 AM CDT) WBC 6.94 3.80 - 9.90 K/cumm Hgb 8.7(L) 13.0 - 17.5 g/dL [facility] Hct 27.9(L) 38.9 - 50.3 % [facility] Plt 261 150 - 400 K/cumm [facility] MPV 9.4 9.1 - 12.3 fL [facility] RBC 2.84(L) 4.30 - 5.80 M/cumm [facility] MCV 98.2(H) 81.3 - 96.4 fL [facility] MCH 30.6 27.1 - 33.3 pg [facility] MCHC 31.2(L) 32.3 - 35.7 g/dL [facility] RDW CV 17.4(H) 11.1 - 14.9 % [facility] RDW SD 61.6(H) 35.7 - 48.1 fL [facility] NRBC abs 0.00 0.00 - 0.01 K/cumm [facility] Blood 04/01/2025 6:00 AM CDT 04/01/2025 6:35 AM CDT Colin Samuel MD LAB BLOOD ORDERABLES Final R esult [facility] [address] [address] Department [place] [address] * Basic metabolic panel (04/01/2025 6:00 AM CDT) Sodium 139 135 - 145 mmol/L Potassium, pl 4.1 3.3 - 4.9 mmol/L [facility] Chloride 106 97 - 110 mmol/L [facility] CO2 22 22 - 32 mmol/L [facility] Anion gap 11 2 - 15 mmol/L [facility] BUN 23 6 - 25 mg/dL [facility] Creatinine 1.03 0.80 - 1.30 mg/dL [facility] Glucose 86 70 - 199 mg/dL [facility] Comment: Interpretive Data Fasting glucose >/= 126 mg/dl is diagnostic for diabetes. Fasting is defined as no caloric intake for at least 8 hours. Fasting glucose between 100 mg/dl to 125 mg/dl is diagnostic of prediabetes. In a patient with classic symptoms of hyperglycemia or hyperglycemic crisis, a random glucose >/= 200 mg/dl is diagnostic for diabetes. In the absence of unequivocal hyperglycemia, results should be confirmed by repeat testing. The classification and Diagnosis of Diabetes Diabetes Care 202; 46: S19-S40. Current interpretive data was last revised 2022. Calcium 9.2 8.5 - 10.3 mg/dL [facility] Blood 04/01/2025 6:00 AM CDT 04/01/2025 6:34 AM CDT Colin Samuel MD LAB BLOOD ORDERABLES Final R esult MEY [address] [address] Department [place] [address] * eGFR (03/31/2025 8:59 PM CDT) eGFR 71 >=60 mL/min/1. 73 m2 Comment: Interpretive Data Reference Interval Normal >/= 90 mL/min/1.73m2 Mildly decreased* 60 - 89 mL/min/1.73m2 Mildly to moderately decreased 45 - 59 mL/min/1.73m2 Moderately to severely decreased 30 - 44 mL/min/1.73m2 Severely decreased 15 - 29 mL/min/1.73m2 Kidney Failure < 15 mL/min/1.73m2 *Relative to young adult level Estimated glomerular filtration rate is determined by the 2020 CKD-EPI equation recommended by the National Kidney Foundation (A Unifying Approach to GFR Estimation: Recommendations of the NKF-ASK Task Force on Reassessing the Inclusion of Race in Diagnosing Kidney Disease, JASN 2020). The CKD-EPI equation should not be used for patients with unstable renal function and has not been validated in children and those over 70. Current interpretive data was last reviewed 2021. Blood 03/31/2025 8:59 PM CDT 03/31/2025 8:59 PM CDT us Italia Gannon MD LAB BLOOD ORDERABLES Final Resu lt Performing Organization Address City/State/[facility] [place] [address] [address] Department [place] [address] * Creatinine (03/31/2025 8:59 PM CDT) Creatinine 1.07 0.80 - 1.30 mg/dL Comment:Icteric sample, test results may be affected. Blood 03/31/2025 8:59 PM CDT 03/31/2025 8:59 PM CDT Narrative MEY GONZALEZ - 03/31/2025 9:32 PM CDT While on Vancomycin Pharmacy Protocol Colin Samuel MD LAB BLOOD ORDERABLES Final R esult MEY GONZALEZ [address] [address] [place] [address] * Sepsis Lactate w/ Reflex (03/31/2025 8:25 PM CDT) Sepsis Lactate 1.1 0.7 - 2.0 mmol/L Blood 03/31/2025 8:25 PM CDT 03/31/2025 8:57 PM CDT Italia Gannon MD LAB BLOOD ORDERABLES Final Resu lt MEY GONZALEZ [address] [address] [place] [address] * Blood culture Blood (03/31/2025 8:25 PM CDT) Report Final Report: No growth Comment:Testing performed by : [facility], [address] [place]., [address] Blood 03/31/2025 8:25 PM CDT 03/31/2025 10:58 PM CDT Narrative MEY - 04/05/2025 7:00 AM CDT From a different site than #1. Collection->Peripheral 1. Blood cultures are incubated for 4 days on a continuously monitored blood culture system. The first report of a negative culture is issued within 24 hours of receipt of the specimen in the laboratory. 2. Positive culture results are reported as soon as they are detected. 3. The most important factor for detection of microbes in the setting of bloodstream infection is the volume of blood submitted for culture. Failure to collect an optimal blood volume can result in false negative blood cultures. 4. For pediatric patients, the recommended blood volume to collect follows a weight based strategy. See the electronic test catalog for collection instructions. 5. For positive blood cultures, a rapid molecular test may be performed for organism identification using the [employer] blood culture identification panel for gram positive (BCID-GP) and gram negative (BCID-GN) organisms. This nucleic acid amplification test detects microbial DNA in positive blood culture broth. This assay has been cleared by the [place] Food and Drug Administration and its performance characteristics have been verified by the [facility] Microbiology Laboratory. For questions about this culture, contact the Microbiology Laboratory at [phone]. Interpretive data was last revised on 24. Italia Gannon MD LAB MICROBIOLOGY - [facility] Final Result [facility] [address] [address] Department [place] [address] * Blood culture Blood (03/31/2025 8:25 PM CDT) Report Final Report: No growth Comment:Testing performed by : [facility], [address] [place]., [address] Blood 03/31/2025 8:25 PM CDT 03/31/2025 10:58 PM CDT [facility] MEY [facility] 04/05/2025 7:00 AM CDT Collection->Peripheral 1. Blood cultures are incubated for 4 days on a continuously monitored blood culture system. The first report of a negative culture is issued within 24 hours of receipt of the specimen in the laboratory. 2. Positive culture results are reported as soon as they are detected. 3. The most important factor for detection of microbes in the setting of bloodstream infection is the volume of blood submitted for culture. Failure to collect an optimal blood volume can result in false negative blood cultures. 4. For pediatric patients, the recommended blood volume to collect follows a weight based strategy. See the electronic test catalog for collection instructions. 5. For positive blood cultures, a rapid molecular test may be performed for organism identification using the [employer] blood culture identification panel for gram positive (BCID-GP) and gram negative (BCID-GN) organisms. This nucleic acid amplification test detects microbial DNA in positive blood culture broth. This assay has been cleared by the [place] Food and Drug Administration and its performance characteristics have been verified by the [facility] Microbiology Laboratory. For questions about this culture, contact the Microbiology Laboratory at [phone]. Interpretive data was last revised on 24. Italia Gannon MD [facility] Final Result MEY [address] [facility] Department [place] [address] * US Vein Duplex Lower Extremity Right Limited, Unilateral (03/31/2025 7:52 PM CDT) Anatomical Region Laterality Modality Vascular Right Ultrasound 03/31/2025 7:23 PM CDT Impressions 04/01/2025 9:14 AM CDT No deep venous thrombosis in the right lower extremity. Right thigh fluid collection. Electronically signed by: David Crandall M.D. Narrative 04/01/2025 9:14 AM CDT EXAMINATION: US VEIN DUPLEX LOWER EXTREMITY RIGHT LIMITED, UNILATERAL DATE: 03/31/2025 19:10 HISTORY: right leg pain FINDINGS: Grayscale, color Doppler and spectral Doppler images were obtained. The right common femoral, superficial femoral, deep femoral, popliteal, posterior tibial and peroneal veins have normal antegrade flow with normal compression and augmentation. 25 mm complex fluid collection is noted in the medial right thigh. Procedure Note David Crandall MD - 04/01/2025 EXAMINATION: US VEIN DUPLEX LOWER EXTREMITY RIGHT LIMITED, UNILATERAL DATE: 03/31/2025 19:10 HISTORY: right leg pain FINDINGS: Grayscale, color Doppler and spectral Doppler images were obtained. The right common femoral, superficial femoral, deep femoral, popliteal, posterior tibial and peroneal veins have normal antegrade flow with normal compression and augmentation. 25 mm complex fluid collection is noted in the medial right thigh. IMPRESSION: No deep venous thrombosis in the right lower extremity. Right thigh fluid collection. Electronically signed by: David Crandall M.D. Italia Gannon MD [facility] [place]ED[place] Final Result * eGFR (03/31/2025 4:34 PM CDT) eGFR 66 >=60 mL/min/1. 73 m2 Comment: Interpretive Data Reference Interval Normal >/= 90 mL/min/1.73m2 Mildly decreased* 60 - 89 mL/min/1.73m2 Mildly to moderately decreased 45 - 59 mL/min/1.73m2 Moderately to severely decreased 30 - 44 mL/min/1.73m2 Severely decreased 15 - 29 mL/min/1.73m2 Kidney Failure < 15 mL/min/1.73m2 *Relative to young adult level Estimated glomerular filtration rate is determined by the 2020 CKD-EPI equation recommended by the National Kidney Foundation (A Unifying Approach to GFR Estimation: Recommendations of the NKF-ASK Task Force on Reassessing the Inclusion of Race in Diagnosing Kidney Disease, JASN 2020). The CKD-EPI equation should not be used for patients with unstable renal function and has not been validated in children and those over 70. Current interpretive data was last reviewed 2021. Blood 03/31/2025 4:34 PM CDT 03/31/2025 4:34 PM CDT Eduar CONTEH LAB BLOOD ORDERABLES Final Result [facility] [id number] Department [place] [address] * (ABNORMAL) Comprehensive metabolic panel (03/31/2025 4:34 PM CDT) Sodium 136 135 - 145 mmol/L Potassium, pl 4.4 3.3 - 4.9 mmol/L [facility] Chloride 100 97 - 110 mmol/L [facility] CO2 20(L) 22 - 32 mmol/L [facility] Anion gap 16(H) 2 - 15 mmol/L [facility] BUN 26(H) 6 - 25 mg/dL [facility] Creatinine 1.15 0.80 - 1.30 mg/dL [facility] Comment:Icteric sample, test results may be affected. Glucose 98 70 - 199 mg/dL [facility] Comment: Interpretive Data Fasting glucose >/= 126 mg/dl is diagnostic for diabetes. Fasting is defined as no caloric intake for at least 8 hours. Fasting glucose between 100 mg/dl to 125 mg/dl is diagnostic of prediabetes. In a patient with classic symptoms of hyperglycemia or hyperglycemic crisis, a random glucose >/= 200 mg/dl is diagnostic for diabetes. In the absence of unequivocal hyperglycemia, results should be confirmed by repeat testing. The classification and Diagnosis of Diabetes Diabetes Care 202; 46: S19-S40. Current interpretive data was last revised 2022. Calcium 9.9 8.5 - 10.3 mg/dL [facility] Bilirubin, total 1.6(H) 0.1 - 1.2 mg/dL [facility] Protein, pl 7.8 6.5 - 8.5 g/dL [facility] Albumin 3.9 3.5 - 5.0 g/dL [facility] Alk phos 131(H) 40 - 130 Units/L [facility] ALT 20 7 - 55 Units/L [facility] AST 29 10 - 50 Units/L [facility] Blood 03/31/2025 4:34 PM CDT 03/31/2025 4:34 PM CDT Eduar CONTEH LAB BLOOD ORDERABLES Final Result [facility] [address] Department [place] [address] * (ABNORMAL) Differential, auto (03/31/2025 4:33 PM CDT) Neutrophil abs 6.56(H) 1.50 - 6.50 K/cumm Imm gran abs 0.03 0.00 - 0.10 K/cumm [facility] Lymphocyte abs 1.37 0.80 - 3.30 K/cumm [facility] Monocyte abs 0.50 0.20 - 0.80 K/cumm [facility] Eosinophil abs 0.20 0.00 - 0.50 K/cumm [facility] Basophil abs 0.04 0.00 - 0.10 K/cumm [facility] Neutrophil pct 75.5 % [facility] Comment: Interpretive Data Percent cell count reference ranges are not reported, since discordance with absolute values may lead to misinterpretation of CBC data. Current Interpretive Data was last revised on 2017. Imm gran pct 0.3 % [facility] Comment: Interpretive Data Percent cell count reference ranges are not reported, since discordance with absolute values may lead to misinterpretation of CBC data. Current Interpretive Data was last revised on 2017. Lymphocyte pct 15.7 % [facility] Comment: Interpretive Data Percent cell count reference ranges are not reported, since discordance with absolute values may lead to misinterpretation of CBC data. Current Interpretive Data was last revised on 2017. Monocyte pct 5.7 % [facility] Comment: Interpretive Data Percent cell count reference ranges are not reported, since discordance with absolute values may lead to misinterpretation of CBC data. Current Interpretive Data was last revised on 2017. Eosinophil pct 2.3 % [facility] Comment: Interpretive Data Percent cell count reference ranges are not reported, since discordance with absolute values may lead to misinterpretation of CBC data. Current Interpretive Data was last revised on 2017. Basophil pct 0.5 % [facility] Comment: Interpretive Data Percent cell count reference ranges are not reported, since discordance with absolute values may lead to misinterpretation of CBC data. Current Interpretive Data was last revised on 2017. Blood 03/31/2025 4:33 PM CDT 03/31/2025 4:33 PM CDT us Eduar CONTEH LAB BLOOD ORDERABLES Final Result [facility] [id number] Department [place] [address] * (ABNORMAL) CBC with auto differential (03/31/2025 4:33 PM CDT) WBC 8.70 3.80 - 9.90 K/cumm Hgb 11.1(L) 13.0 - 17.5 g/dL [facility] Hct 36.0(L) 38.9 - 50.3 % [facility] Plt 298 150 - 400 K/cumm [facility] MPV 9.4 9.1 - 12.3 fL [facility] RBC 3.66(L) 4.30 - 5.80 M/cumm [facility] MCV 98.4(H) 81.3 - 96.4 fL [facility] MCH 30.3 27.1 - 33.3 pg [facility] MCHC 30.8(L) 32.3 - 35.7 g/dL [facility] RDW CV 17.5(H) 11.1 - 14.9 % [facility] RDW SD 62.6(H) 35.7 - 48.1 fL [facility] NRBC abs 0.00 0.00 - 0.01 K/cumm [facility] Blood 03/31/2025 4:33 PM CDT 03/31/2025 4:33 PM CDT us Eduar CONTEH LAB BLOOD ORDERABLES Final Result [facility] [address] Department [place] [address] * eGFR (03/23/2025 8:38 PM CDT) eGFR 66 >=60 mL/min/1. 73 m2 Comment: Interpretive Data Reference Interval Normal >/= 90 mL/min/1.73m2 Mildly decreased* 60 - 89 mL/min/1.73m2 Mildly to moderately decreased 45 - 59 mL/min/1.73m2 Moderately to severely decreased 30 - 44 mL/min/1.73m2 Severely decreased 15 - 29 mL/min/1.73m2 Kidney Failure < 15 mL/min/1.73m2 *Relative to young adult level Estimated glomerular filtration rate is determined by the 2020 CKD-EPI equation recommended by the National Kidney Foundation (A Unifying Approach to GFR Estimation: Recommendations of the NKF-ASK Task Force on Reassessing the Inclusion of Race in Diagnosing Kidney Disease, JASN 2020). The CKD-EPI equation should not be used for patients with unstable renal function and has not been validated in children and those over 70. Current interpretive data was last reviewed 2021. Blood 03/23/2025 8:38 PM CDT 03/23/2025 9:10 PM CDT us Ligia Shane MD LAB BLOOD ORDERABLES F inal Result [facility] Department [place] [address] * (ABNORMAL) CBC without differential (03/23/2025 8:38 PM CDT) [facility] WBC 9.66 3.80 - 9.90 K/cumm Hgb 8.7(L) 13.0 - 17.5 g/dL [facility] Hct 26.4(L) 38.9 - 50.3 % [facility] Plt 193 150 - 400 K/cumm [facility] MPV 9.8 9.1 - 12.3 fL [facility] RBC 2.79(L) 4.30 - 5.80 M/cumm [facility] MCV 94.6 81.3 - 96.4 fL [facility] MCH 31.2 27.1 - 33.3 pg [facility] MCHC 33.0 32.3 - 35.7 g/dL [facility] RDW CV 17.4(H) 11.1 - 14.9 % [facility] RDW SD 57.3(H) 35.7 - 48.1 fL [facility] NRBC abs 0.03(H) 0.00 - 0.01 K/cumm [facility] Blood 03/23/2025 8:38 PM CDT 03/23/2025 9:10 PM CDT us Ligia Shane MD LAB BLOOD ORDERABLES F inal Result [facility] Department [place] [address] * Basic metabolic panel (03/23/2025 8:38 PM CDT) [facility] Sodium 137 135 - 145 mmol/L Potassium, pl 4.8 3.3 - 4.9 mmol/L [facility] Chloride 106 97 - 110 mmol/L [facility] CO2 23 22 - 32 mmol/L [facility] Anion gap 8 2 - 15 mmol/L [facility] BUN 22 6 - 25 mg/dL [facility] Creatinine 1.15 0.80 - 1.30 mg/dL [facility] Glucose 105 70 - 199 mg/dL [facility] Comment: Interpretive Data Fasting glucose >/= 126 mg/dl is diagnostic for diabetes. Fasting is defined as no caloric intake for at least 8 hours. Fasting glucose between 100 mg/dl to 125 mg/dl is diagnostic of prediabetes. In a patient with classic symptoms of hyperglycemia or hyperglycemic crisis, a random glucose >/= 200 mg/dl is diagnostic for diabetes. In the absence of unequivocal hyperglycemia, results should be confirmed by repeat testing. The classification and Diagnosis of Diabetes Diabetes Care 2021; 46: S19-S40. Current interpretive data was last revised 2022. Calcium 9.1 8.5 - 10.3 mg/dL [facility] Blood 03/23/2025 8:38 PM CDT 03/23/2025 9:10 PM CDT us Ligia Shane MD LAB BLOOD ORDERABLES F inal Result [facility] Department [place] [address] * (ABNORMAL) eGFR (03/22/2025 8:43 PM CDT) eGFR 58(L) >=60 mL/min/1. 73 m2 Comment: Interpretive Data Reference Interval Normal >/= 90 mL/min/1.73m2 Mildly decreased* 60 - 89 mL/min/1.73m2 Mildly to moderately decreased 45 - 59 mL/min/1.73m2 Moderately to severely decreased 30 - 44 mL/min/1.73m2 Severely decreased 15 - 29 mL/min/1.73m2 Kidney Failure < 15 mL/min/1.73m2 *Relative to young adult level Estimated glomerular filtration rate is determined by the 2020 CKD-EPI equation recommended by the National Kidney Foundation (A Unifying Approach to GFR Estimation: Recommendations of the NKF-ASK Task Force on Reassessing the Inclusion of Race in Diagnosing Kidney Disease, JASN 2020). The CKD-EPI equation should not be used for patients with unstable renal function and has not been validated in children and those over 70. Current interpretive data was last reviewed 2021. Blood 03/22/2025 8:43 PM CDT 03/22/2025 10:21 PM CDT Ligia Shane MD LAB BLOOD ORDERABLES F inal Result Performing Organization Address [facility] Co de Phone Number [facility] Department [place] [address] * (ABNORMAL) CBC without differential (03/22/2025 8:43 PM CDT) [facility] WBC 9.11 3.80 - 9.90 K/cumm Hgb 8.4(L) 13.0 - 17.5 g/dL [facility] Hct 25.3(L) 38.9 - 50.3 % [facility] Plt 196 150 - 400 K/cumm [facility] MPV 10.1 9.1 - 12.3 fL [facility] RBC 2.69(L) 4.30 - 5.80 M/cumm [facility] MCV 94.1 81.3 - 96.4 fL [facility] MCH 31.2 27.1 - 33.3 pg [facility] MCHC 33.2 32.3 - 35.7 g/dL [facility] RDW CV 18.3(H) 11.1 - 14.9 % [facility] RDW SD 59.2(H) 35.7 - 48.1 fL [facility] NRBC abs 0.04(H) 0.00 - 0.01 K/cumm [facility] Blood 03/22/2025 8:43 PM CDT 03/22/2025 10:23 PM CDT Ligia Shane MD LAB BLOOD ORDERABLES F inal Result Performing Organization Address [facility] Co de Phone Number [facility] Department [place] [address] * (ABNORMAL) Basic metabolic panel (03/22/2025 8:43 PM CDT) Pathologist [facility] Sodium 138 135 - 145 mmol/L Potassium, pl 5.0(H) 3.3 - 4.9 mmol/L [facility] Chloride 106 97 - 110 mmol/L [facility] CO2 26 22 - 32 mmol/L [facility] Anion gap 6 2 - 15 mmol/L [facility] BUN 24 6 - 25 mg/dL [facility] Creatinine 1.28 0.80 - 1.30 mg/dL [facility] Glucose 91 70 - 199 mg/dL [facility] Comment: Interpretive Data Fasting glucose >/= 126 mg/dl is diagnostic for diabetes. Fasting is defined as no caloric intake for at least 8 hours. Fasting glucose between 100 mg/dl to 125 mg/dl is diagnostic of prediabetes. In a patient with classic symptoms of hyperglycemia or hyperglycemic crisis, a random glucose >/= 200 mg/dl is diagnostic for diabetes. In the absence of unequivocal hyperglycemia, results should be confirmed by repeat testing. The classification and Diagnosis of Diabetes Diabetes Care 2021; 46: S19-S40. Current interpretive data was last revised 2022. Calcium 9.1 8.5 - 10.3 mg/dL [facility] Blood 03/22/2025 8:43 PM CDT 03/22/2025 10:21 PM CDT us Ligia Shane MD LAB BLOOD ORDERABLES F inal Result [facility] Department [place] [address] * (ABNORMAL) eGFR (03/21/2025 8:40 PM CDT) Pathologist [facility] eGFR 43(L) >=60 mL/min/1. 73 m2 Comment: Interpretive Data Reference Interval Normal >/= 90 mL/min/1.73m2 Mildly decreased* 60 - 89 mL/min/1.73m2 Mildly to moderately decreased 45 - 59 mL/min/1.73m2 Moderately to severely decreased 30 - 44 mL/min/1.73m2 Severely decreased 15 - 29 mL/min/1.73m2 Kidney Failure < 15 mL/min/1.73m2 *Relative to young adult level Estimated glomerular filtration rate is determined by the 2020 CKD-EPI equation recommended by the National Kidney Foundation (A Unifying Approach to GFR Estimation: Recommendations of the NKF-ASK Task Force on Reassessing the Inclusion of Race in Diagnosing Kidney Disease, JASN 2020). The CKD-EPI equation should not be used for patients with unstable renal function and has not been validated in children and those over 70. Current interpretive data was last reviewed 2021. Blood 03/21/2025 8:40 PM CDT 03/21/2025 10:02 PM CDT us Ligia Shane MD LAB BLOOD ORDERABLES F inal Result [facility] Department [place] [address] * (ABNORMAL) CBC without differential (03/21/2025 8:40 PM CDT) WBC 9.41 3.80 - 9.90 K/cumm Hgb 8.7(L) 13.0 - 17.5 g/dL [facility] Hct 26.6(L) 38.9 - 50.3 % [facility] Plt 164 150 - 400 K/cumm [facility] MPV 10.2 9.1 - 12.3 fL [facility] RBC 2.77(L) 4.30 - 5.80 M/cumm [facility] MCV 96.0 81.3 - 96.4 fL [facility] MCH 31.4 27.1 - 33.3 pg [facility] MCHC 32.7 32.3 - 35.7 g/dL [facility] RDW CV 18.3(H) 11.1 - 14.9 % [facility] RDW SD 62.0(H) 35.7 - 48.1 fL [facility] NRBC abs 0.05(H) 0.00 - 0.01 K/cumm [facility] Blood 03/21/2025 8:40 PM CDT 03/21/2025 10:01 PM CDT Ligia Shane MD LAB BLOOD ORDERABLES F inal Result Performing Organization Address [facility]/ZIP Co de Phone Number [facility] Department [place] [address] * (ABNORMAL) Basic metabolic panel (03/21/2025 8:40 PM CDT) [facility] Sodium 139 135 - 145 mmol/L Potassium, pl 4.9 3.3 - 4.9 mmol/L [facility] Chloride 107 97 - 110 mmol/L [facility] CO2 26 22 - 32 mmol/L [facility] Anion gap 6 2 - 15 mmol/L [facility] BUN 30(H) 6 - 25 mg/dL [facility] Creatinine 1.62(H) 0.80 - 1.30 mg/dL [facility] Glucose 109 70 - 199 mg/dL [facility] Comment: Interpretive Data Fasting glucose >/= 126 mg/dl is diagnostic for diabetes. Fasting is defined as no caloric intake for at least 8 hours. Fasting glucose between 100 mg/dl to 125 mg/dl is diagnostic of prediabetes. In a patient with classic symptoms of hyperglycemia or hyperglycemic crisis, a random glucose >/= 200 mg/dl is diagnostic for diabetes. In the absence of unequivocal hyperglycemia, results should be confirmed by repeat testing. The classification and Diagnosis of Diabetes Diabetes Care 202; 46: S19-S40. Current interpretive data was last revised 2022. Calcium 8.4(L) 8.5 - 10.3 mg/dL [facility] Blood 03/21/2025 8:40 PM CDT 03/21/2025 10:02 PM CDT Ligia Shane MD LAB BLOOD ORDERABLES F inal Result Performing Organization Address [facility] Co de Phone Number [facility] Department [place] [address] * (ABNORMAL) Differential, auto (03/21/2025 4:52 PM CDT) Neutrophil abs 8.35(H) 1.50 - 6.50 K/cumm Imm gran abs 0.17(H) 0.00 - 0.10 K/cumm [facility] Lymphocyte abs 1.51 0.80 - 3.30 K/cumm [facility] Monocyte abs 0.83(H) 0.20 - 0.80 K/cumm [facility] Eosinophil abs 0.04 0.00 - 0.50 K/cumm [facility] Basophil abs 0.03 0.00 - 0.10 K/cumm [facility] Neutrophil pct 76.3 % [facility] Comment: Interpretive Data Percent cell count reference ranges are not reported, since discordance with absolute values may lead to misinterpretation of CBC data. Current Interpretive Data was last revised on 2017. Imm gran pct 1.6 % [facility] Comment: Interpretive Data Percent cell count reference ranges are not reported, since discordance with absolute values may lead to misinterpretation of CBC data. Current Interpretive Data was last revised on 2017. Lymphocyte pct 13.8 % [facility] Comment: Interpretive Data Percent cell count reference ranges are not reported, since discordance with absolute values may lead to misinterpretation of CBC data. Current Interpretive Data was last revised on 2017. Monocyte pct 7.6 % [facility] Comment: Interpretive Data Percent cell count reference ranges are not reported, since discordance with absolute values may lead to misinterpretation of CBC data. Current Interpretive Data was last revised on 2017. Eosinophil pct 0.4 % [facility] Comment: Interpretive Data Percent cell count reference ranges are not reported, since discordance with absolute values may lead to misinterpretation of CBC data. Current Interpretive Data was last revised on 2017. Basophil pct 0.3 % [facility] Comment: Interpretive Data Percent cell count reference ranges are not reported, since discordance with absolute values may lead to misinterpretation of CBC data. Current Interpretive Data was last revised on 2017. Blood 03/21/2025 4:52 PM CDT 03/21/2025 5:54 PM CDT Xiomara Watkins NP LAB BLOOD ORDERABLES Final [facility] [place] [address] * (ABNORMAL) CBC with auto differential (03/21/2025 4:52 PM CDT) WBC 10.93(H) 3.80 - 9.90 K/cumm Hgb 8.3(L) 13.0 - 17.5 g/dL [facility] Hct 25.5(L) 38.9 - 50.3 % [facility] Plt 167 150 - 400 K/cumm [facility] MPV 10.6 9.1 - 12.3 fL [facility] RBC 2.65(L) 4.30 - 5.80 M/cumm [facility] MCV 96.2 81.3 - 96.4 fL [facility] MCH 31.3 27.1 - 33.3 pg [facility] MCHC 32.5 32.3 - 35.7 g/dL [facility] RDW CV 18.0(H) 11.1 - 14.9 % [facility] RDW SD 62.0(H) 35.7 - 48.1 fL [facility] NRBC abs 0.07(H) 0.00 - 0.01 K/cumm [facility] Blood 03/21/2025 4:52 PM CDT 03/21/2025 5:54 PM CDT us Xiomara Watkins NP LAB BLOOD ORDERABLES Final Result [facility] [place] [address] * Type and screen (03/21/2025 4:52 PM CDT) ABO Rh B Positive Yanci, indirect Negative [facility] Blood 03/21/2025 4:52 PM CDT 03/21/2025 5:55 PM CDT Narrative [facility] - 03/21/2025 6:49 PM CDT Has the patient had Daratumumab or Isatuximab in the past 6 months?->Unknown us Xiomara Watkins NP LAB BLOOD BANK TEST ORDERA BLES Final Result Performing Organization Address [facility]/ZIP Co de Phone Number [facility] [place], [place] [id number] * Transfuse RBC (03/21/2025 4:04 PM CDT) Blood Xiomara Watkins NP BLOOD TRANSFUSION ORDERABL ES Final Result Performing Organization Address [facility] Co de Phone Number [facility] [place], [place] [id number] * Type and screen (03/21/2025 9:51 AM CDT) Yanci, indirect Negative ABO Rh B Positive [facility] Blood 03/21/2025 9:51 AM CDT 03/21/2025 10:54 AM CDT Narrative [facility] - 03/21/2025 11:56 AM CDT Has the patient had Daratumumab or Isatuximab in the past 6 months?->Unknown us Xiomara Watkins NP LAB BLOOD BANK TEST ORDERA BLES Final Result Performing Organization Address [facility] Co de Phone Number [facility] [place] [address] * Prepare RBC: 1 Units (03/21/2025 9:29 AM CDT) Product code [id number] Unit Number [id number] N [facility] Product Blood Type BPOS [facility] Dispense Status PRESUMED TRANSFUSED [facility] Blood 03/21/2025 9:29 AM CDT 03/21/2025 9:28 AM CDT Narrative [facility] - 03/22/2025 12:56 AM CDT Are special requirements needed? (All products are leukoreduced and CMV- safe)- >No Date required:-[id number] LRRBC # of [id number] Reasons:-Hgb <7 g/dL} Xiomara Watkins NP BLOOD BANK PRODUCT ORDERAB LES Final Result [facility] Department [place] [address] * (ABNORMAL) Differential, auto (03/21/2025 8:06 AM CDT) Neutrophil abs 7.15(H) 1.50 - 6.50 K/cumm Imm gran abs 0.14(H) 0.00 - 0.10 K/cumm [facility] Lymphocyte abs 1.88 0.80 - 3.30 K/cumm [facility] Monocyte abs 0.80 0.20 - 0.80 K/cumm [facility] Eosinophil abs 0.07 0.00 - 0.50 K/cumm [facility] Basophil abs 0.03 0.00 - 0.10 K/cumm [facility] Neutrophil pct 71.0 % [facility] Comment: Interpretive Data Percent cell count reference ranges are not reported, since discordance with absolute values may lead to misinterpretation of CBC data. Current Interpretive Data was last revised on 2017. Imm gran pct 1.4 % [facility] Comment: Interpretive Data Percent cell count reference ranges are not reported, since discordance with absolute values may lead to misinterpretation of CBC data. Current Interpretive Data was last revised on 2017. Lymphocyte pct 18.7 % [facility] Comment: Interpretive Data Percent cell count reference ranges are not reported, since discordance with absolute values may lead to misinterpretation of CBC data. Current Interpretive Data was last revised on 2017. Monocyte pct 7.9 % [facility] Comment: Interpretive Data Percent cell count reference ranges are not reported, since discordance with absolute values may lead to misinterpretation of CBC data. Current Interpretive Data was last revised on 2017. Eosinophil pct 0.7 % [facility] Comment: Interpretive Data Percent cell count reference ranges are not reported, since discordance with absolute values may lead to misinterpretation of CBC data. Current Interpretive Data was last revised on 2017. Basophil pct 0.3 % [facility] Comment: Interpretive Data Percent cell count reference ranges are not reported, since discordance with absolute values may lead to misinterpretation of CBC data. Current Interpretive Data was last revised on 2017. Blood 03/21/2025 8:06 AM CDT 03/21/2025 8:25 AM CDT Xiomara Waktins NP LAB BLOOD ORDERABLES Final Result [facility] Department [place] [address] * (ABNORMAL) CBC with auto differential (03/21/2025 8:06 AM CDT) WBC 10.07(H) 3.80 - 9.90 K/cumm Hgb 6.9(L) 13.0 - 17.5 g/dL [facility] Hct 20.5(L) 38.9 - 50.3 % [facility] Plt 156 150 - 400 K/cumm [facility] MPV 10.1 9.1 - 12.3 fL [facility] RBC 2.14(L) 4.30 - 5.80 M/cumm [facility] MCV 95.8 81.3 - 96.4 fL [facility] MCH 32.2 27.1 - 33.3 pg [facility] MCHC 33.7 32.3 - 35.7 g/dL [facility] RDW CV 17.9(H) 11.1 - 14.9 % [facility] RDW SD 61.7(H) 35.7 - 48.1 fL [facility] NRBC abs 0.03(H) 0.00 - 0.01 K/cumm [facility] Blood 03/21/2025 8:06 AM CDT 03/21/2025 8:25 AM CDT us Xiomara Watkins NP LAB BLOOD ORDERABLES Final Result Performing Organization Address [facility] Co de Phone Number [facility] [place] [address] * (ABNORMAL) Hemoglobin and hematocrit (03/21/2025 12:38 AM CDT) Hgb 7.4(L) 13.0 - 17.5 g/dL Hct 22.3(L) 38.9 - 50.3 % [facility] Blood 03/21/2025 12:3 8 AM CDT 03/21/2025 1:32 AM CDT Narrative [facility] - 03/21/2025 1:44 AM CDT Post-transfusion H\T\H. Collect after blood transfusion. us Ligia Shane MD LAB BLOOD ORDERABLES F inal Result Performing Organization Address City/[facility]/ZIP Co de Phone Number [facility] [place] [address] * Transfuse RBC (03/20/2025 11:31 PM CDT) Blood us Ligia Shane MD BLOOD TRANSFUSION [facility]DE [facility] Final Result [facility] [place] [address] * Prepare RBC: 1 Units (03/20/2025 8:39 PM CDT) Product code [id number] Unit Number [id number]- A [facility] Product Blood Type BPOS [facility] Dispense Status PRESUMED TRANSFUSED [facility] Blood 03/20/2025 8:39 PM CDT 03/20/2025 8:38 PM CDT Narrative [facility] - 03/21/2025 4:00 PM CDT Are special requirements needed? (All products are leukoreduced and CMV- safe)- >No Date required:-[id number] LRRBC # of [id number] Reasons:-Hgb <7 g/dL} Ligia Shane MD BLOOD BANK PRODUCT ORD ERABLES Final Result Performing Organization Address [facility] Co de Phone Number [facility] Department [place] [address] * (ABNORMAL) eGFR (03/20/2025 7:59 PM CDT) Pathologist [facility] eGFR 42(L) >=60 mL/min/1. 73 m2 Comment: Interpretive Data Reference Interval Normal >/= 90 mL/min/1.73m2 Mildly decreased* 60 - 89 mL/min/1.73m2 Mildly to moderately decreased 45 - 59 mL/min/1.73m2 Moderately to severely decreased 30 - 44 mL/min/1.73m2 Severely decreased 15 - 29 mL/min/1.73m2 Kidney Failure < 15 mL/min/1.73m2 *Relative to young adult level Estimated glomerular filtration rate is determined by the 2020 CKD-EPI equation recommended by the National Kidney Foundation (A Unifying Approach to GFR Estimation: Recommendations of the NKF-ASK Task Force on Reassessing the Inclusion of Race in Diagnosing Kidney Disease, JASN 2020). The CKD-EPI equation should not be used for patients with unstable renal function and has not been validated in children and those over 70. Current interpretive data was last reviewed 2021. Blood 03/20/2025 7:59 PM CDT 03/20/2025 8:25 PM CDT Ligia Shane MD LAB BLOOD ORDERABLES F inal Result Performing Organization Address [facility] Co de Phone Number [facility] Department [place] [address] * (ABNORMAL) CBC without differential (03/20/2025 7:59 PM CDT) Pathologist [facility] WBC 11.66(H) 3.80 - 9.90 K/cumm Hgb 6.6(L) 13.0 - 17.5 g/dL [facility] Hct 19.7(L) 38.9 - 50.3 % [facility] Plt 166 150 - 400 K/cumm [facility] MPV 10.3 9.1 - 12.3 fL [facility] RBC 2.04(L) 4.30 - 5.80 M/cumm [facility] MCV 96.6(H) 81.3 - 96.4 fL [facility] MCH 32.4 27.1 - 33.3 pg [facility] MCHC 33.5 32.3 - 35.7 g/dL [facility] RDW CV 17.4(H) 11.1 - 14.9 % [facility] RDW SD 61.1(H) 35.7 - 48.1 fL [facility] NRBC abs 0.02(H) 0.00 - 0.01 K/cumm [facility] Blood 03/20/2025 7:59 PM CDT 03/20/2025 8:24 PM CDT us Ligia Shane MD LAB BLOOD ORDERABLES F inal Result Performing Organization Address City/[facility]/ZIP Co de Phone Number [facility] Department [place] [address] * Phosphorus (03/20/2025 7:59 PM CDT) Pathologist [facility] Phosphorus, pl 2.5 2.3 - 4.5 mg/dL Blood 03/20/2025 7:59 PM CDT 03/20/2025 8:24 PM CDT us Ysabel Olmedo NP LAB BLOOD ORDERABLES F inal Result Performing Organization Address City/[facility]/ZIP Co de Phone Number [facility] Department [place] [address] * (ABNORMAL) Magnesium (03/20/2025 7:59 PM CDT) Magnesium 2.6(H) 1.4 - 2.5 mg/dL Blood 03/20/2025 7:59 PM CDT 03/20/2025 8:24 PM CDT Ysabel Olmedo NP LAB BLOOD ORDERABLES F inal Result [facility] Department [place] [address] * (ABNORMAL) Basic metabolic panel (03/20/2025 7:59 PM CDT) Pathologist [facility] Sodium 139 135 - 145 mmol/L Potassium, pl 5.0(H) 3.3 - 4.9 mmol/L [facility] Chloride 106 97 - 110 mmol/L [facility] CO2 22 22 - 32 mmol/L [facility] Anion gap 11 2 - 15 mmol/L [facility] BUN 43(H) 6 - 25 mg/dL [facility] Creatinine 1.67(H) 0.80 - 1.30 mg/dL [facility] Glucose 127 70 - 199 mg/dL [facility] Comment: Interpretive Data Fasting glucose >/= 126 mg/dl is diagnostic for diabetes. Fasting is defined as no caloric intake for at least 8 hours. Fasting glucose between 100 mg/dl to 125 mg/dl is diagnostic of prediabetes. In a patient with classic symptoms of hyperglycemia or hyperglycemic crisis, a random glucose >/= 200 mg/dl is diagnostic for diabetes. In the absence of unequivocal hyperglycemia, results should be confirmed by repeat testing. The classification and Diagnosis of Diabetes Diabetes Care 202; 46: S19-S40. Current interpretive data was last revised 2022. Calcium 8.4(L) 8.5 - 10.3 mg/dL [facility] Blood 03/20/2025 7:59 PM CDT 03/20/2025 8:25 PM CDT us Ligia Shane MD LAB BLOOD ORDERABLES F inal Result Performing Organization Address City/[facility] Co de Phone Number [facility] [place] [address] * Transfuse RBC (03/20/2025 1:40 PM CDT) Blood us Ysabel Olmedo NP BLOOD TRANSFUSION ORDE R[facility] Final Result Performing Organization Address [facility] [place] [address] * POCT glucose (03/20/2025 11:36 AM CDT) Glucose, POC 119 70 - 199 mg/dL Blood 03/20/2025 11:3 6 AM CDT 03/20/2025 11:36 AM CDT Ligia Shane MD LAB POCT ORDERABLES - DEVICE Final Result Performing Organization Address [facility] Co de Phone Number [facility] [place] [address] * Transfuse RBC (03/20/2025 11:21 AM CDT) Blood us Jose G Bustamante MD BLOOD TRANSFUSION ORD ERABLES Final Result Performing Organization Address City/[facility]/[place] [address] * OK AN PROCEDURE PLACEHOLDER (03/20/2025 10:54 AM CDT) Narrative Dilshad Lizama Gibson, MASTER MECHANIC - 03/20/2025 10:54 AM CDT Dilshad Lizaman, MASTER MECHANIC 03/20/2025 11:28 AM Peripheral IV Catheter Patient location: OR Staff: Placed by: Anesthesiologist: Jose G Bustamante MD Preprocedure prep: Prep solution: chlorhexadine PPE: provider hat/mask and gloves PIV line: Laterality: left Site: upper arm Catheter size: 18 g Technique: ultrasound guided Procedure details: good blood return and occlusive dressing applied Number of attempts: 1 Assessment: Events: patient tolerated procedure well with no complications Additional comments: Midline Jose G Bustamante MD ANESTHESIA ORDERABLES Edited Result - Final * OK AN ELECTIVE SUPRAGLOTTIC AIRWAY, OK AN PROCEDURE PLACEHOLDER (03/20/2025 10:41 AM CDT) Narrative Dilshad Lizama CRNA - 03/20/2025 10:41 AM CDT Dilshad Lizama CRNA 03/20/2025 10:42 AM Airway Patient location: OR Urgency: elective Date/time: 03/20/2025 10:26 AM Indications for airway management: anesthesia Difficult airway: no Staff: Supervising provider: Jose G Bustamante MD Placed by: MASTER MECHANIC: Dilshad Lizama CRNA Emergent airway documentation: Risks and benefits discussed: yes Consent obtained: yes Consent given by: patient Airway prep: Preoxygenated: yes Patient position: sniffing Mask difficulty assessment: 1 - vent by mask Spontaneous ventilation during airway: absent Sedation level during airway: GA Final airway details: Final airway type: supraglottic airway Final supraglottic airway: IGel SGA size: 4 Number of attempts: 1 Planned trial extubation: yes Additional comments: Placed by EM resident. Jose G Bustamante MD ANESTHESIA ORDERABLES Final Result * POCT glucose (03/20/2025 8:24 AM CDT) Glucose, POC 81 70 - 199 mg/dL Blood 03/20/2025 8:24 AM CDT 03/20/2025 8:24 AM CDT Ligia Shane MD LAB POCT ORDERABLES - [place] [address] * Prepare RBC: 1 Units (03/20/2025 8:14 AM CDT) [facility] Product code [id number] Unit Number [id number]- L [facility] Product Blood Type BNEG [facility] Dispense Status PRESUMED TRANSFUSED [facility] Blood 03/20/2025 8:14 AM CDT 03/20/2025 8:14 AM CDT Narrative [facility] - 03/20/2025 9:00 PM CDT Are special requirements needed? (All products are leukoreduced and CMV- safe)- >No Date required:-[id number] LRRBC # of [id number] Reasons:-Intra-op transfusion} us Jose G Bustamante MD BLOOD BANK PRODUCT [place] [address] * (ABNORMAL) Hemoglobin and hematocrit (03/20/2025 5:24 AM CDT) [facility] Hgb 6.9(L) 13.0 - 17.5 g/dL Hct 21.1(L) 38.9 - 50.3 % [facility] Blood 03/20/2025 5:24 AM CDT 03/20/2025 5:39 AM CDT us Candida Bingham MD LAB BLOOD ORDERABLES [place] [address] * (ABNORMAL) eGFR (03/19/2025 7:36 PM CDT) [facility] eGFR 21(L) >=60 mL/min/1. 73 m2 Comment: Interpretive Data Reference Interval Normal >/= 90 mL/min/1.73m2 Mildly decreased* 60 - 89 mL/min/1.73m2 Mildly to moderately decreased 45 - 59 mL/min/1.73m2 Moderately to severely decreased 30 - 44 mL/min/1.73m2 Severely decreased 15 - 29 mL/min/1.73m2 Kidney Failure < 15 mL/min/1.73m2 *Relative to young adult level Estimated glomerular filtration rate is determined by the 2020 CKD-EPI equation recommended by the National Kidney Foundation (A Unifying Approach to GFR Estimation: Recommendations of the NKF-ASK Task Force on Reassessing the Inclusion of Race in Diagnosing Kidney Disease, JASN 2020). The CKD-EPI equation should not be used for patients with unstable renal function and has not been validated in children and those over 70. Current interpretive data was last reviewed 2021. Blood 03/19/2025 7:36 PM CDT 03/19/2025 9:16 PM CDT us Ligia Shane MD LAB BLOOD ORDERABLES F inal Result [facility] Department [place] [address] * (ABNORMAL) CBC without differential (03/19/2025 7:36 PM CDT) WBC 15.65(H) 3.80 - 9.90 K/cumm Hgb 7.0(L) 13.0 - 17.5 g/dL [facility] Hct 21.1(L) 38.9 - 50.3 % [facility] Plt 169 150 - 400 K/cumm [facility] MPV 10.5 9.1 - 12.3 fL [facility] RBC 2.14(L) 4.30 - 5.80 M/cumm [facility] MCV 98.6(H) 81.3 - 96.4 fL [facility] MCH 32.7 27.1 - 33.3 pg [facility] MCHC 33.2 32.3 - 35.7 g/dL [facility] RDW CV 17.3(H) 11.1 - 14.9 % [facility] RDW SD 61.4(H) 35.7 - 48.1 fL [facility] NRBC abs 0.02(H) 0.00 - 0.01 K/cumm [facility] Blood 03/19/2025 7:36 PM CDT 03/19/2025 9:16 PM CDT Ligia Shane MD LAB BLOOD ORDERABLES F inal Result Performing Organization Address [facility]/ZIP Co de Phone Number [facility] Department [place] [address] * (ABNORMAL) CBC without differential (03/19/2025 7:36 PM CDT) Pathologist [facility] WBC 15.62(H) 3.80 - 9.90 K/cumm Hgb 7.1(L) 13.0 - 17.5 g/dL [facility] Hct 21.3(L) 38.9 - 50.3 % [facility] Plt 174 150 - 400 K/cumm [facility] MPV 10.4 9.1 - 12.3 fL [facility] RBC 2.22(L) 4.30 - 5.80 M/cumm [facility] MCV 95.9 81.3 - 96.4 fL [facility] MCH 32.0 27.1 - 33.3 pg [facility] MCHC 33.3 32.3 - 35.7 g/dL [facility] RDW CV 17.4(H) 11.1 - 14.9 % [facility] RDW SD 60.7(H) 35.7 - 48.1 fL [facility] NRBC abs 0.00 0.00 - 0.01 K/cumm [facility] Blood 03/19/2025 7:36 PM CDT 03/19/2025 9:14 PM CDT Ligia Shane MD LAB BLOOD ORDERABLES F inal Result Performing Organization Address City/[facility]/ZIP Co de Phone Number [facility] Department [place] [address] * (ABNORMAL) Basic metabolic panel (03/19/2025 7:36 PM CDT) Sodium 135 135 - 145 mmol/L Potassium, pl 4.8 3.3 - 4.9 mmol/L [facility] Chloride 103 97 - 110 mmol/L [facility] CO2 24 22 - 32 mmol/L [facility] Anion gap 8 2 - 15 mmol/L [facility] BUN 61(H) 6 - 25 mg/dL [facility] Creatinine 2.94(H) 0.80 - 1.30 mg/dL [facility] Glucose 125 70 - 199 mg/dL [facility] Comment: Interpretive Data Fasting glucose >/= 126 mg/dl is diagnostic for diabetes. Fasting is defined as no caloric intake for at least 8 hours. Fasting glucose between 100 mg/dl to 125 mg/dl is diagnostic of prediabetes. In a patient with classic symptoms of hyperglycemia or hyperglycemic crisis, a random glucose >/= 200 mg/dl is diagnostic for diabetes. In the absence of unequivocal hyperglycemia, results should be confirmed by repeat testing. The classification and Diagnosis of Diabetes Diabetes Care 2021; 46: S19-S40. Current interpretive data was last revised 2022. Calcium 8.7 8.5 - 10.3 mg/dL [facility] Blood 03/19/2025 7:36 PM CDT 03/19/2025 9:16 PM CDT Ligia Shane MD LAB BLOOD ORDERABLES F inal Result [facility] Department [place] [address] * Transfuse RBC (03/19/2025 5:52 PM CDT) Blood Ligia Shane MD BLOOD TRANSFUSION ORDRaven GARCIA Final Result [facility] [place] [address] * Potassium (03/19/2025 5:21 PM CDT) [facility] Potassium, pl 4.9 3.3 - 4.9 mmol/L Blood 03/19/2025 5:21 PM CDT 03/19/2025 6:18 PM CDT Narrative [facility] - 03/19/2025 6:38 PM CDT Provider to discontinue after two normal results. Ligia Shane MD LAB BLOOD ORDERABLES F inal Result Performing Organization Address City/[facility]/[place] [address] * Prepare RBC: 1 Units (03/19/2025 1:34 PM CDT) [facility] Product code [id number] Unit Number [id number]- D [facility] Product Blood Type BPOS [facility] Dispense Status PRESUMED TRANSFUSED [facility] Blood 03/19/2025 1:34 PM CDT 03/19/2025 1:52 PM CDT Narrative [facility] - 03/20/2025 8:01 PM CDT Are special requirements needed? (All products are leukoreduced and CMV- safe)- >No Date required:-[id number] LRRBC # of [id number]-[id number]-[id number] Reasons:-Hgb <7 g/dL} Ligia Shane MD BLOOD BANK PRODUCT ORD [place]ABLES [place] [address] * Potassium, whole blood (03/19/2025 12:36 PM CDT) [facility] Potassium, bld 4.8 3.3 - 4.9 mmol/L Blood 03/19/2025 12:3 6 PM CDT 03/19/2025 1:08 PM CDT Ligia Shane MD LAB BLOOD ORDERABLES F inal Result Performing Organization Address [facility]/ZIP Co de Phone Number [facility] [place] [address] * (ABNORMAL) eGFR (03/19/2025 12:36 PM CDT) eGFR 23(L) >=60 mL/min/1. 73 m2 Comment: Interpretive Data Reference Interval Normal >/= 90 mL/min/1.73m2 Mildly decreased* 60 - 89 mL/min/1.73m2 Mildly to moderately decreased 45 - 59 mL/min/1.73m2 Moderately to severely decreased 30 - 44 mL/min/1.73m2 Severely decreased 15 - 29 mL/min/1.73m2 Kidney Failure < 15 mL/min/1.73m2 *Relative to young adult level Estimated glomerular filtration rate is determined by the 2020 CKD-EPI equation recommended by the National Kidney Foundation (A Unifying Approach to GFR Estimation: Recommendations of the NKF-ASK Task Force on Reassessing the Inclusion of Race in Diagnosing Kidney Disease, JASN 2020). The CKD-EPI equation should not be used for patients with unstable renal function and has not been validated in children and those over 70. Current interpretive data was last reviewed 2021. Blood 03/19/2025 12:3 6 PM CDT 03/19/2025 1:17 PM CDT Ligia Shane MD LAB BLOOD ORDERABLES F inal Result [facility] [place] [address] * (ABNORMAL) CBC without differential (03/19/2025 12:36 PM CDT) WBC 15.88(H) 3.80 - 9.90 K/cumm Hgb 6.5(L) 13.0 - 17.5 g/dL [facility] Hct 19.1(L) 38.9 - 50.3 % [facility] Plt 179 150 - 400 K/cumm [facility] MPV 10.7 9.1 - 12.3 fL [facility] RBC 1.92(L) 4.30 - 5.80 M/cumm [facility] MCV 99.5(H) 81.3 - 96.4 fL [facility] MCH 33.9(H) 27.1 - 33.3 pg [facility] MCHC 34.0 32.3 - 35.7 g/dL [facility] RDW CV 14.6 11.1 - 14.9 % [facility] RDW SD 52.7(H) 35.7 - 48.1 fL [facility] NRBC abs 0.00 0.00 - 0.01 K/cumm [facility] Blood 03/19/2025 12:3 6 PM CDT 03/19/2025 1:17 PM CDT us Ligia Shane MD LAB BLOOD ORDERABLES F inal Result [facility] Department [place] [address] * (ABNORMAL) Basic metabolic panel (03/19/2025 12:36 PM CDT) [facility] Sodium 135 135 - 145 mmol/L Potassium, pl 5.0(H) 3.3 - 4.9 mmol/L [facility] Chloride 103 97 - 110 mmol/L [facility] CO2 22 22 - 32 mmol/L [facility] Anion gap 10 2 - 15 mmol/L [facility] BUN 61(H) 6 - 25 mg/dL [facility] Creatinine 2.77(H) 0.80 - 1.30 mg/dL [facility] Glucose 132 70 - 199 mg/dL [facility] Comment: Interpretive Data Fasting glucose >/= 126 mg/dl is diagnostic for diabetes. Fasting is defined as no caloric intake for at least 8 hours. Fasting glucose between 100 mg/dl to 125 mg/dl is diagnostic of prediabetes. In a patient with classic symptoms of hyperglycemia or hyperglycemic crisis, a random glucose >/= 200 mg/dl is diagnostic for diabetes. In the absence of unequivocal hyperglycemia, results should be confirmed by repeat testing. The classification and Diagnosis of Diabetes Diabetes Care 2021; 46: S19-S40. Current interpretive data was last revised 2022. Calcium 8.3(L) 8.5 - 10.3 mg/dL [facility] Blood 03/19/2025 12:3 6 PM CDT 03/19/2025 1:17 PM CDT Ligia Shane MD LAB BLOOD ORDERABLES F inal Result Performing Organization Address [facility] Co de Phone Number [facility] [place] [address] * Prepare RBC: 2 Units (03/19/2025 10:53 AM CDT) [facility] Product code [id number] Unit Number [id number]- M [facility] Product Blood Type BPOS [facility] Dispense Status PRESUMED TRANSFUSED [facility] Blood 03/19/2025 10:5 3 AM CDT 03/19/2025 10:53 AM CDT Narrative [facility] - 03/20/2025 4:00 AM CDT Are special requirements needed? (All products are leukoreduced and CMV- safe)- >No Date required:-[id number] LRRBC # of Nloau-[id number] Reasons:-Active bleeding, Hgb <8 g/dL} Ligia Shane MD BLOOD BANK PRODUCT ORD ERABLES Final Result Performing Organization Address [facility] de Phone Number [facility] [place] [address] * (ABNORMAL) Potassium (03/19/2025 8:07 AM CDT) Potassium, pl 5.1(H) 3.3 - 4.9 mmol/L Blood 03/19/2025 8:07 AM CDT 03/19/2025 8:35 AM CDT Narrative [facility] 03/19/2025 9:06 AM CDT Provider to discontinue after two normal results. Ligai Shane MD LAB BLOOD ORDERABLES F inal Result Performing Organization Address City/[facility] Co de Phone Number [facility] [place] [address] * (ABNORMAL) Potassium (03/19/2025 8:07 AM CDT) [facility] Potassium, pl 5.2(H) 3.3 - 4.9 mmol/L Blood 03/19/2025 8:07 AM CDT 03/19/2025 8:34 AM CDT Narrative [facility] 03/19/2025 8:55 AM CDT Provider to discontinue after two normal results. Ligia Shane MD LAB BLOOD ORDERABLES F inal Result Performing Organization Address [facility] Co de Phone Number [facility] [place] [address] * Creatine kinase (CK), total (03/19/2025 8:07 AM CDT) [facility] CK 85 40 - 300 Units/L Blood 03/19/2025 8:07 AM CDT 03/19/2025 8:35 AM CDT Ligia Shane MD LAB BLOOD ORDERABLES F inal Result Performing Organization Address City/[facility] Co de Phone Number [facility] [place] [address] * (ABNORMAL) eGFR (03/19/2025 4:49 AM CDT) [facility] eGFR 23(L) >=60 mL/min/1. 73 m2 Comment: Interpretive Data Reference Interval Normal >/= 90 mL/min/1.73m2 Mildly decreased* 60 - 89 mL/min/1.73m2 Mildly to moderately decreased 45 - 59 mL/min/1.73m2 Moderately to severely decreased 30 - 44 mL/min/1.73m2 Severely decreased 15 - 29 mL/min/1.73m2 Kidney Failure < 15 mL/min/1.73m2 *Relative to young adult level Estimated glomerular filtration rate is determined by the 2020 CKD-EPI equation recommended by the National Kidney Foundation (A Unifying Approach to GFR Estimation: Recommendations of the NKF-ASK Task Force on Reassessing the Inclusion of Race in Diagnosing Kidney Disease, JASN 2020). The CKD-EPI equation should not be used for patients with unstable renal function and has not been validated in children and those over 70. Current interpretive data was last reviewed 2021. Blood 03/19/2025 4:49 AM CDT 03/19/2025 5:39 AM CDT us Storm Dalton MD LAB BLOOD ORDERABLES Sherry rosenbaum Result [facility] Department [place] [address] * (ABNORMAL) CBC without differential (03/19/2025 4:49 AM CDT) [facility] WBC 14.23(H) 3.80 - 9.90 K/cumm Hgb 7.3(L) 13.0 - 17.5 g/dL [facility] Hct 21.8(L) 38.9 - 50.3 % [facility] Plt 193 150 - 400 K/cumm [facility] MPV 10.8 9.1 - 12.3 fL [facility] RBC 2.19(L) 4.30 - 5.80 M/cumm [facility] MCV 99.5(H) 81.3 - 96.4 fL [facility] MCH 33.3 27.1 - 33.3 pg [facility] MCHC 33.5 32.3 - 35.7 g/dL [facility] RDW CV 14.6 11.1 - 14.9 % [facility] RDW SD 52.7(H) 35.7 - 48.1 fL [facility] NRBC abs 0.00 0.00 - 0.01 K/cumm [facility] Blood 03/19/2025 4:49 AM CDT 03/19/2025 5:39 AM CDT us Ligia Shane MD LAB BLOOD ORDERABLES F inal Result [facility] Department [place] [address] * (ABNORMAL) Basic metabolic panel (03/19/2025 4:49 AM CDT) Sodium 135 135 - 145 mmol/L Potassium, pl 5.9(H) 3.3 - 4.9 mmol/L [facility] Chloride 104 97 - 110 mmol/L [facility] CO2 22 22 - 32 mmol/L [facility] Anion gap 9 2 - 15 mmol/L [facility] BUN 63(H) 6 - 25 mg/dL [facility] Creatinine 2.73(H) 0.80 - 1.30 mg/dL [facility] Glucose 124 70 - 199 mg/dL [facility] Comment: Interpretive Data Fasting glucose >/= 126 mg/dl is diagnostic for diabetes. Fasting is defined as no caloric intake for at least 8 hours. Fasting glucose between 100 mg/dl to 125 mg/dl is diagnostic of prediabetes. In a patient with classic symptoms of hyperglycemia or hyperglycemic crisis, a random glucose >/= 200 mg/dl is diagnostic for diabetes. In the absence of unequivocal hyperglycemia, results should be confirmed by repeat testing. The classification and Diagnosis of Diabetes Diabetes Care 2021; 46: S19-S40. Current interpretive data was last revised 2022. Calcium 9.3 8.5 - 10.3 mg/dL [facility] Blood 03/19/2025 4:49 AM CDT 03/19/2025 5:39 AM CDT Storm Dalton MD LAB BLOOD ORDERABLES Sherry l Result Performing Organization Address City/[facility] Co de Phone Number [facility] Department [place] [address] * (ABNORMAL) Potassium, whole blood (03/19/2025 12:39 AM CDT) Potassium, bld 5.5(H) 3.3 - 4.9 mmol/L Blood 03/19/2025 12:3 9 AM CDT 03/19/2025 1:26 AM CDT Ligia Shane MD LAB BLOOD ORDERABLES F inal Result Performing Organization Address [facility] Co de Phone Number [facility] Department [place] [address] * (ABNORMAL) eGFR (03/18/2025 9:34 PM CDT) eGFR 25(L) >=60 mL/min/1. 73 m2 Comment: Interpretive Data Reference Interval Normal >/= 90 mL/min/1.73m2 Mildly decreased* 60 - 89 mL/min/1.73m2 Mildly to moderately decreased 45 - 59 mL/min/1.73m2 Moderately to severely decreased 30 - 44 mL/min/1.73m2 Severely decreased 15 - 29 mL/min/1.73m2 Kidney Failure < 15 mL/min/1.73m2 *Relative to young adult level Estimated glomerular filtration rate is determined by the 2020 CKD-EPI equation recommended by the National Kidney Foundation (A Unifying Approach to GFR Estimation: Recommendations of the NKF-ASK Task Force on Reassessing the Inclusion of Race in Diagnosing Kidney Disease, JASN 2020). The CKD-EPI equation should not be used for patients with unstable renal function and has not been validated in children and those over 70. Current interpretive data was last reviewed 2021. Blood 03/18/2025 9:34 PM CDT 03/18/2025 10:27 PM CDT Ligia Shane MD LAB BLOOD ORDERABLES F inal Result Performing Organization Address [facility] Co de Phone Number [facility] [place] [address] * (ABNORMAL) CBC without differential (03/18/2025 9:34 PM CDT) WBC 12.79(H) 3.80 - 9.90 K/cumm Hgb 7.3(L) 13.0 - 17.5 g/dL [facility] Hct 22.7(L) 38.9 - 50.3 % [facility] Plt 173 150 - 400 K/cumm [facility] MPV 10.5 9.1 - 12.3 fL [facility] RBC 2.23(L) 4.30 - 5.80 M/cumm [facility] MCV 101.8(H) 81.3 - 96.4 fL [facility] MCH 32.7 27.1 - 33.3 pg [facility] MCHC 32.2(L) 32.3 - 35.7 g/dL [facility] RDW CV 14.5 11.1 - 14.9 % [facility] RDW SD 52.9(H) 35.7 - 48.1 fL [facility] NRBC abs 0.00 0.00 - 0.01 K/cumm [facility] Blood 03/18/2025 9:34 PM CDT 03/18/2025 10:27 PM CDT Ligia Shane MD LAB BLOOD ORDERABLES F inal Result Performing Organization Address [facility] Co de Phone Number [facility] [place] [address] * (ABNORMAL) Phosphorus (03/18/2025 9:34 PM CDT) [facility] Phosphorus, pl 5.0(H) 2.3 - 4.5 mg/dL Comment:Reviewed Blood 03/18/2025 9:34 PM CDT 03/18/2025 10:27 PM CDT Ligia Shane MD LAB BLOOD ORDERABLES F inal Result Performing Organization Address City/[facility] Co de Phone Number [facility] Department [place] [address] * Magnesium (03/18/2025 9:34 PM CDT) [facility] Magnesium 2.5 1.4 - 2.5 mg/dL Blood 03/18/2025 9:34 PM CDT 03/18/2025 10:27 PM CDT Ligia Shane MD LAB BLOOD ORDERABLES F inal Result Performing Organization Address [facility] de Phone Number [facility] [place] [address] * (ABNORMAL) Basic metabolic panel (03/18/2025 9:34 PM CDT) [facility] Sodium 136 135 - 145 mmol/L Potassium, pl 5.7(H) 3.3 - 4.9 mmol/L [facility] Chloride 105 97 - 110 mmol/L [facility] CO2 22 22 - 32 mmol/L [facility] Anion gap 9 2 - 15 mmol/L [facility] BUN 62(H) 6 - 25 mg/dL [facility] Creatinine 2.59(H) 0.80 - 1.30 mg/dL [facility] Glucose 223(H) 70 - 199 mg/dL [facility] Comment: Interpretive Data Fasting glucose >/= 126 mg/dl is diagnostic for diabetes. Fasting is defined as no caloric intake for at least 8 hours. Fasting glucose between 100 mg/dl to 125 mg/dl is diagnostic of prediabetes. In a patient with classic symptoms of hyperglycemia or hyperglycemic crisis, a random glucose >/= 200 mg/dl is diagnostic for diabetes. In the absence of unequivocal hyperglycemia, results should be confirmed by repeat testing. The classification and Diagnosis of Diabetes Diabetes Care 2021; 46: S19-S40. Current interpretive data was last revised 2022. Calcium 8.8 8.5 - 10.3 mg/dL [facility] Blood 03/18/2025 9:34 PM CDT 03/18/2025 10:27 PM CDT us Ligia Shane MD LAB BLOOD ORDERABLES F inal Result [facility] Department [place] [address] * IR Angiogram Lower Extremity Right (03/18/2025 5:00 PM CDT) Anatomical Region Laterality Modality Extremity Right X-Ray Angiograph y 03/19/2025 11:3 2 PM CDT Impressions 03/20/2025 8:48 AM CDT Successful coil embolization of the bleeding branch off of the distal superficial femoral artery PLAN: Left leg straight for 2 hours post procedure Continue to trend hemoglobin Dictated by: Eduar Cline M.D. The radiology attending physician has personally reviewed this study, and had reviewed and/or edited this written report and agrees with it. Electronically signed by: Son Ball M.D. Narrative 03/20/2025 8:48 AM CDT EXAMINATION: DIAGNOSTIC ANGIOGRAPHY WITH EMBOLIZATION HISTORY/INDICATION: 79-year-old male with history of COPD, atrial fibrillation, sinus bradycardia, heart failure, and CKD, presenting after mechanical fall with right knee stripe resulting in laceration and a large right distal thigh hematoma. Hemoglobin has been decreasing and CTA shows active extravasation in the anteromedial distal right thigh. ATTENDING PRESENCE: Son Ball M.D., the attending radiologist was present from the beginning to the end of the procedure. SEDATION: Procedural sedation was administered under the attending physician's direction and continuous monitoring by a trained nurse specialist who was independent from those actually performing the procedure. Total monitored sedation time was 124 minutes. TECHNIQUE: The risks, benefits and alternatives were discussed and informed consent was obtained. Prior to beginning the procedure, [place] Protocol was performed to confirm the patient's identity and the planned procedure. The fluoroscopy time has been recorded in the electronic medical record. Maximum sterile barriers including cap, mask, hand hygiene, sterile gloves, sterile gown, large sterile drape and 2% chlorhexidine for cutaneous antisepsis were used. After sterile prep, the skin over the left common femoral artery was infiltrated with 1% Lidocaine. The artery was punctured under real time ultrasound guidance. An image of the patent vessel was recorded. A 6 Fr [place] sheath was placed and connected to a heparinized saline drip. After obtaining up and over access into the right common femoral artery, following arteries were catheterized in sequences: Right superficial femoral artery Branch off of the distal superficial femoral artery extending towards the anterior thigh The equipment used for catheterization was 5 [place] MPA catheter and a 0.035 Glidewire. The equipment used for selective catheterization was 2.7-[place]izen [place] Progreat catheter and multiple microwires. The following selective diagnostic angiograms were performed: Right superficial femoral artery Branch of the distal superficial femoral artery extending towards the anterior thigh After identifying contrast extravasation from a the target vessel arising off of the distal superficial femoral artery, embolization was performed using four 2 mm x 3 cm Wilfrido coils Post-embolization angiography was performed. After completion of embolization, a limited common femoral artery angiogram was performed to confirm satisfactory position of arterial puncture site. Angioseal device was deployed to accomplish successful closure of the arteriotomy. ESTIMATED BLOOD LOSS: Minimal. CONDITION: Stable DISCHARGED TO: patient care division. FINDINGS: Ultrasound image demonstrates a patent left common femoral artery. DIAGNOSTIC: Initial arteriography of right superficial femoral artery demonstrated no active extravasation. Selective arteriography of a branch off of the superficial femoral artery extending towards the anterior thigh demonstrated active extravasation. THERAPEUTIC: After coil embolization, no further extravasation was identified Procedure Note Son Ball MD - 03/20/2025 EXAMINATION: DIAGNOSTIC ANGIOGRAPHY WITH EMBOLIZATION HISTORY/INDICATION: 79-year-old male with history of COPD, atrial fibrillation, sinus bradycardia, heart failure, and CKD, presenting after mechanical fall with right knee stripe resulting in laceration and a large right distal thigh hematoma. Hemoglobin has been decreasing and CTA shows active extravasation in the anteromedial distal right thigh. ATTENDING PRESENCE: Son Ball M.D., the attending radiologist was present from the beginning to the end of the procedure. SEDATION: Procedural sedation was administered under the attending physician's direction and continuous monitoring by a trained nurse specialist who was independent from those actually performing the procedure. Total monitored sedation time was 124 minutes. TECHNIQUE: The risks, benefits and alternatives were discussed and informed consent was obtained. Prior to beginning the procedure, [place] Protocol was performed to confirm the patient's identity and the planned procedure. The fluoroscopy time has been recorded in the electronic medical record. Maximum sterile barriers including cap, mask, hand hygiene, sterile gloves, sterile gown, large sterile drape and 2% chlorhexidine for cutaneous antisepsis were used. After sterile prep, the skin over the left common femoral artery was infiltrated with 1% Lidocaine. The artery was punctured under real time ultrasound guidance. An image of the patent vessel was recorded. A 6 Fr [place] sheath was placed and connected to a heparinized saline drip. After obtaining up and over access into the right common femoral artery, following arteries were catheterized in sequences: Right superficial femoral artery Branch off of the distal superficial femoral artery extending towards the anterior thigh The equipment used for catheterization was 5 [place] MPA catheter and a 0.035 Glidewire. The equipment used for selective catheterization was 2.7-[place]izen [place] Progreat catheter and multiple microwires. The following selective diagnostic angiograms were performed: Right superficial femoral artery Branch of the distal superficial femoral artery extending towards the anterior thigh After identifying contrast extravasation from a the target vessel arising off of the distal superficial femoral artery, embolization was performed using four 2 mm x 3 cm Wilfrido coils Post-embolization angiography was performed. After completion of embolization, a limited common femoral artery angiogram was performed to confirm satisfactory position of arterial puncture site. Angioseal device was deployed to accomplish successful closure of the arteriotomy. ESTIMATED BLOOD LOSS: Minimal. CONDITION: Stable DISCHARGED TO: patient care division. FINDINGS: Ultrasound image demonstrates a patent left common femoral artery. DIAGNOSTIC: Initial arteriography of right superficial femoral artery demonstrated no active extravasation. Selective arteriography of a branch off of the superficial femoral artery extending towards the anterior thigh demonstrated active extravasation. THERAPEUTIC: After coil embolization, no further extravasation was identified IMPRESSION: Successful coil embolization of the bleeding branch off of the distal superficial femoral artery PLAN: Left leg straight for 2 hours post procedure Continue to trend hemoglobin Dictated by: Eduar Cline M.D. The radiology attending physician has personally reviewed this study, and had reviewed and/or edited this written report and agrees with it. Electronically signed by: Son Ball M.D. Ligia Shane MD IMG IR PROCEDURES Sherry l Result * (ABNORMAL) Hemoglobin and hematocrit (03/18/2025 3:04 PM CDT) [facility] Hgb 9.6(L) 13.0 - 17.5 g/dL Hct 28.9(L) 38.9 - 50.3 % [facility] Blood 03/18/2025 3:04 PM CDT 03/18/2025 4:33 PM CDT Ligia Shane MD LAB BLOOD ORDERABLES F inal Result [facility] Department [place] [address] * (ABNORMAL) CBC without differential (03/18/2025 10:21 AM CDT) [facility] WBC 13.37(H) 3.80 - 9.90 K/cumm Hgb 9.0(L) 13.0 - 17.5 g/dL [facility] Hct 25.9(L) 38.9 - 50.3 % [facility] Plt 199 150 - 400 K/cumm [facility] MPV 10.2 9.1 - 12.3 fL [facility] RBC 2.63(L) 4.30 - 5.80 M/cumm [facility] MCV 98.5(H) 81.3 - 96.4 fL [facility] MCH 34.2(H) 27.1 - 33.3 pg [facility] MCHC 34.7 32.3 - 35.7 g/dL [facility] RDW CV 14.1 11.1 - 14.9 % [facility] RDW SD 50.9(H) 35.7 - 48.1 fL [facility] NRBC abs 0.00 0.00 - 0.01 K/cumm [facility] Blood 03/18/2025 10:2 1 AM CDT 03/18/2025 10:41 AM CDT Ligai Shane MD LAB BLOOD ORDERABLES F inal Result Performing Organization Address City/[facility] Co de Phone Number [facility] Department [place] [address] * ECG 12 lead (03/18/2025 8:49 AM CDT) Pathologist [facility] Ventricular Rate EKG/Min 86 BPM [facility] Atrial Rate 86 BPM [facility] OK-Interval (MSEC) 280 ms [facility] QRS-Interval (MSEC) 144 ms [facility] QT-Interval (MSEC) 400 ms [facility] QTc 478 ms [facility] P [place] -63 degrees [facility] R [place] 69 degrees [facility] T [place] 47 degrees [facility] Diagnosis Unusual P axis, possible ectopic atrial rhythm Right bundle branch block First degree av-block Septal infarct , age undetermined Abnormal ECG When compared with ECG of 25-DEC-2022 11:01, Right bundle branch block has replaced Non-specific intra-ventricul ar conduction delay Septal infarct is now Present Confirmed by KIAH BOATENG M.D ([id number]) on 03/19/2025 5:33:05 PM [facility] 03/18/2025 8:49 AM CDT 03/19/2025 5:33 PM CDT us Ligia Shane MD ECG ORDERABLES Final Result Performing Organization Address City/[facility]/ZIP Co de Phone Number [facility] * OK REPAIR INTERMEDIATE S/A/T/E 2.6-7.5 CM (03/18/2025 6:49 AM CDT) Narrative Jerel Forte MD - 03/18/2025 6:49 AM CDT Jerel Forte MD 03/19/2025 10:14 PM Laceration Repair Date/Time: 03/18/2025 6:49 AM Performed by: Abhilash Garcia MD Authorized by: Jerel Forte MD RN Notified of Procedure: yes Informed consent: Risks, benefits, alternatives discussed and patient/factory representative/guardian agrees and accepts Patient's stated name/ matches armband: Yes Allergies confirmed: yes Procedure verified: Verbal consent. Imaging: Pertinent imaging reviewed, correctly oriented and match to patient identifiers Immediately prior to the procedure a time out was called: a verbal verification by the procedure participants confirmed correct patient identity, correct site/side marked and visible (if applicable); agreement on procedure to be done; and correct patient positioning Anesthesia method: Local infiltration Local anesthetic: Lidocaine 1% WITH epi Sedation used: no Location: Leg Leg location: R knee Length (cm): 6 Depth (mm): 15 Repair type: Intermediate Preparation: Patient was prepped and draped in usual sterile fashion Hemostasis achieved with: Direct pressure Wound exploration: wound explored through full range of motion and entire depth of wound probed and visualized Wound extent: no foreign body, no nerve damage and no underlying fracture Contaminated: no Area cleansed with: Saline Amount of cleaning: Extensive Irrigation solution: Sterile saline Irrigation volume: 1000 cc Irrigation method: Syringe Visualized foreign bodies/material removed: no Suture size: 4-0 Wound subcutaneous closure material used: Monocryl. Suture technique: Simple interrupted Number of sutures: 4 Repair method: Sutures Suture size: 3-0 Suture material: Nylon Suture technique: Horizontal mattress Number of sutures: 4 (total 8: 4 horizontal mattress, 4 simple interrupted) Approximation: Close Dressing: Non-adherent dressing Patient tolerance of procedure: Tolerated well, no immediate complications Gaping wound under significant tension. They would closure as above with layer of Monocryl deep sutures, 4 horizontal mattress sutures 3-0 nylon placed to relieve tension an approximate skin, additional 2 simple interrupted 3-0 nylon sutures placed and 2 simple interrupted 5-0 fast gut placed to approximate skin. us Jerel Forte MD IN CLINIC/BEDSIDE ORDERABL ES Final Result * Potassium, whole blood (03/18/2025 6:17 AM CDT) Potassium, bld 4.7 3.3 - 4.9 mmol/L Blood 03/18/2025 6:17 AM CDT 03/18/2025 6:26 AM CDT Abhilash Garcia MD LAB BLOOD ORDERABLES Fin al Result Performing Organization Address [facility] Co de Phone Number [facility] Department [place] [address] * (ABNORMAL) eGFR (03/18/2025 4:52 AM CDT) eGFR 38(L) >=60 mL/min/1. 73 m2 Comment: Interpretive Data Reference Interval Normal >/= 90 mL/min/1.73m2 Mildly decreased* 60 - 89 mL/min/1.73m2 Mildly to moderately decreased 45 - 59 mL/min/1.73m2 Moderately to severely decreased 30 - 44 mL/min/1.73m2 Severely decreased 15 - 29 mL/min/1.73m2 Kidney Failure < 15 mL/min/1.73m2 *Relative to young adult level Estimated glomerular filtration rate is determined by the 2020 CKD-EPI equation recommended by the National Kidney Foundation (A Unifying Approach to GFR Estimation: Recommendations of the NKF-ASK Task Force on Reassessing the Inclusion of Race in Diagnosing Kidney Disease, JASN 2020). The CKD-EPI equation should not be used for patients with unstable renal function and has not been validated in children and those over 70. Current interpretive data was last reviewed 2021. Blood 03/18/2025 4:52 AM CDT 03/18/2025 5:23 AM CDT us Ledy Lopez MD LAB BLOOD ORDERABLES Fi nal Result Performing Organization Address City/[facility]/ZIP Co de Phone Number [facility] Department [place] [address] * (ABNORMAL) Differential, auto (03/18/2025 4:52 AM CDT) Neutrophil abs 12.81(H) 1.50 - 6.50 K/cumm Imm gran abs 0.09 0.00 - 0.10 K/cumm [facility] Lymphocyte abs 0.58(L) 0.80 - 3.30 K/cumm [facility] Monocyte abs 0.40 0.20 - 0.80 K/cumm [facility] Eosinophil abs 0.00 0.00 - 0.50 K/cumm [facility] Basophil abs 0.03 0.00 - 0.10 K/cumm [facility] Neutrophil pct 92.1 % [facility] Comment: Interpretive Data Percent cell count reference ranges are not reported, since discordance with absolute values may lead to misinterpretation of CBC data. Current Interpretive Data was last revised on 2017. Imm gran pct 0.6 % [facility] Comment: Interpretive Data Percent cell count reference ranges are not reported, since discordance with absolute values may lead to misinterpretation of CBC data. Current Interpretive Data was last revised on 2017. Lymphocyte pct 4.2 % [facility] Comment: Interpretive Data Percent cell count reference ranges are not reported, since discordance with absolute values may lead to misinterpretation of CBC data. Current Interpretive Data was last revised on 2017. Monocyte pct 2.9 % [facility] Comment: Interpretive Data Percent cell count reference ranges are not reported, since discordance with absolute values may lead to misinterpretation of CBC data. Current Interpretive Data was last revised on 2017. Eosinophil pct 0.0 % [facility] Comment: Interpretive Data Percent cell count reference ranges are not reported, since discordance with absolute values may lead to misinterpretation of CBC data. Current Interpretive Data was last revised on 2017. Basophil pct 0.2 % [facility] Comment: Interpretive Data Percent cell count reference ranges are not reported, since discordance with absolute values may lead to misinterpretation of CBC data. Current Interpretive Data was last revised on 2017. Blood 03/18/2025 4:52 AM CDT 03/18/2025 5:23 AM CDT us Ledy Lopez MD LAB BLOOD ORDERABLES Fi nal Result [facility] Department [place] [address] * (ABNORMAL) CBC with auto differential (03/18/2025 4:52 AM CDT) [facility] WBC 13.91(H) 3.80 - 9.90 K/cumm Hgb 10.2(L) 13.0 - 17.5 g/dL [facility] Comment:Hemoglobin delta due to active bleeding. This result has been called to Iram Jang RN by [id number] on 03/18/2025 06:16:32. Hct 30.4(L) 38.9 - 50.3 % [facility] Plt 219 150 - 400 K/cumm [facility] MPV 10.5 9.1 - 12.3 fL [facility] RBC 3.07(L) 4.30 - 5.80 M/cumm [facility] MCV 99.0(H) 81.3 - 96.4 fL [facility] MCH 33.2 27.1 - 33.3 pg [facility] MCHC 33.6 32.3 - 35.7 g/dL [facility] RDW CV 14.1 11.1 - 14.9 % [facility] RDW SD 50.8(H) 35.7 - 48.1 fL [facility] NRBC abs 0.00 0.00 - 0.01 K/cumm [facility] Blood 03/18/2025 4:52 AM CDT 03/18/2025 5:23 AM CDT us Ledy Lopez MD LAB BLOOD ORDERABLES Fi nal Result [facility] Department [place] [address] * (ABNORMAL) Lipid panel (03/18/2025 4:52 AM CDT) [facility] Cholesterol 86 30 - 199 mg/dL Comment: Interpretive Data Ages < or = 19 years Acceptable: <170 mg/dL Borderline high: 170-199 mg/dL High: >or= 200 mg/dL Ages > or = 20 years Desirable: <200 mg/dL Borderline high: 200-239 mg/dL High: >or= 240 mg/dL Literature References: 1. Expert Panel on Integrated Guidelines for Cardiovascular Health and Risk Reduction in Children and Adolescents. Pediatrics 2011;128:S213 2. NCEP Expert Panel. Circulation 2004;110:227 Current Interpretive Data was last revised on 2018. Triglycerides 45 <=149 mg/dL [facility] Comment: Interpretive Data Ages < or = 9 years Acceptable: <75 mg/dL Borderline high: 75-99 mg/dL High: >or= 100 mg/dL Ages 10 to 20 years Acceptable: <90 mg/dL Borderline high: 90-129 mg/dL High: >or= 130 mg/dL Ages > or = 20 years Desirable: <150 mg/dL Borderline high: 150-199 mg/dL High: 200-499 mg/dL Very high: >or= 499 mg/dL Literature References: 1. Expert Panel on Integrated Guidelines for Cardiovascular Health and Risk Reduction in Children and Adolescents. Pediatrics 2011;128:S213 2. NCEP Expert Panel. Circulation 2004;110:227 Current Interpretive Data was last revised on 2018. HDL 36(L) >=40 mg/dL [facility] Comment: Interpretive Data Ages < or = 19 years Acceptable: >45 mg/dL Borderline low: 40-45 mg/dL Low: <40 mg/dL Ages > or = 20 years Desirable: >or= 60 mg/dL Low: <40 mg/dL Literature References: 1. Expert Panel on Integrated Guidelines for Cardiovascular Health and Risk Reduction in Children and Adolescents. Pediatrics 2011;128:S213 2. NCEP Expert Panel. Circulation 2004;110:227 Current Interpretive Data was last revised on 2018. LDL, calculated 38 <=129 mg/dL [facility] Comment: Interpretive Data Ages < or = 19 years Acceptable: <110 mg/dL Borderline high: 110-129 mg/dL High: >or= 130 mg/dL Ages > or = 20 years Optimal: <100 mg/dL Near optimal: 100-129 mg/dL Borderline high: 130-159 mg/dL High: >160 mg/dL Calculated using the Conti LDL-C estimating equation. This equation was implemented on 2024. Prior to this date LDL-C was estimated using the Friedewald equation. Literature References: 1. Expert Panel on Integrated Guidelines for Cardiovascular Health and Risk Reduction in Children and Adolescents. Pediatrics 2011;128:S213 2. NCEP Expert Panel. Circulation 2004;110:227 3. Gallito Jacob et al. ELIGIO Cardiol. 2020 October 20;5(5):540-548. doi: [email or web address] Current Interpretive Data was last revised on 2024. Non-HDL Cholesterol 50 mg/dL [facility] Comment: Interpretive Data Ages < or = 19 years Acceptable: <120 mg/dL Borderline high: 120-144 mg/dL High: >145 mg/dL Ages > or = 20 years When triglycerides are >200 mg/dL, Non-HDL cholesterol is a secondary target of therapy with treatment goals that are 30 mg/dL greater than the LDL cholesterol target. Literature References: 1. Expert Panel on Integrated Guidelines for Cardiovascular Health and Risk Reduction in Children and Adolescents. Pediatrics 2011;128:S213 2. NCEP Expert Panel. Circulation 2004;110:227 Current Interpretive Data was last revised on 2018. Chol/HDL ratio 2 [facility] Blood 03/18/2025 4:52 AM CDT 03/18/2025 5:23 AM CDT [facility]ative [facility] - 03/18/2025 4:58 PM CDT Reflex us Ligia Shane MD LAB BLOOD ORDERABLES F inal Result [facility] Department [place] [address] * (ABNORMAL) Comprehensive metabolic panel (03/18/2025 4:52 AM CDT) Sodium 137 135 - 145 mmol/L Potassium, pl 5.8(H) 3.3 - 4.9 mmol/L [facility] Comment: Hemolyzed; Potassium value may be falsely elevated by as much as 0.6-1.0 mmol/L. Suggest redraw and reanalysis. Repeated and Verified Chloride 106 97 - 110 mmol/L [facility] CO2 21(L) 22 - 32 mmol/L [facility] Anion gap 10 2 - 15 mmol/L [facility] BUN 52(H) 6 - 25 mg/dL [facility] Creatinine 1.83(H) 0.80 - 1.30 mg/dL [facility] Glucose 157 70 - 199 mg/dL [facility] Comment: Interpretive Data Fasting glucose >/= 126 mg/dl is diagnostic for diabetes. Fasting is defined as no caloric intake for at least 8 hours. Fasting glucose between 100 mg/dl to 125 mg/dl is diagnostic of prediabetes. In a patient with classic symptoms of hyperglycemia or hyperglycemic crisis, a random glucose >/= 200 mg/dl is diagnostic for diabetes. In the absence of unequivocal hyperglycemia, results should be confirmed by repeat testing. The classification and Diagnosis of Diabetes Diabetes Care 2021; 46: S19-S40. Current interpretive data was last revised 2022. Calcium 9.0 8.5 - 10.3 mg/dL [facility] Bilirubin, total 0.3 0.1 - 1.2 mg/dL [facility] Protein, pl 6.5 6.5 - 8.5 g/dL [facility] Albumin 3.5 3.5 - 5.0 g/dL [facility] Alk phos 86 40 - 130 Units/L [facility] Comment:Reviewed ALT 15 7 - 55 Units/L [facility] Comment:Reviewed AST 29 10 - 50 Units/L [facility] Comment: Hemolyzed; result may be falsely elevated Reviewed Blood 03/18/2025 4:52 AM CDT 03/18/2025 5:23 AM CDT us Ledy Lopez MD LAB BLOOD ORDERABLES Fi nal Result [facility] [place] [address] * ECG 12-LEAD (03/18/2025 3:57 AM CDT) Narrative [facility] - 03/18/2025 3:57 AM CDT Jerel Forte MD 03/18/2025 3:58 AM ECG 12 lead Date/Time: 03/18/2025 3:57 AM Performed by: Jerel Forte MD Authorized by: Jerel Forte MD Rate: ECG rate: 81 ECG rate assessment: normal Rhythm: Rhythm: sinus rhythm and A-V block Ectopy: Ectopy: none QRS: QRS axis: Normal QRS intervals: Normal Conduction: Conduction: abnormal Abnormal conduction: complete RBBB and 1st degree ST segments: ST segments: Normal T waves: T waves: normal Q waves: Q waves: V2 Previous ECG: Previous ECG: Compared to current Date of previous EC03/17/2025 Similarity: No change Interpretation: Interpretation: No significant change Recommended Follow-up: Recommended follow up: cardiac workup and further workup in the ED Jerel Forte MD ECG ORDERABLES Final Resu lt [facility] * (ABNORMAL) Urinalysis reflex to microscopic and culture Urine (03/18/2025 3:05 AM CDT) Color, ur Straw Yellow Clarity, ur Clear Clear [facility] Specific gravity, ur >1.042(H) 1.003 - 1.030 [facility] pH, urine 6.0 [facility] Comment: Interpretive Data U rine pH is affected by diet, medications, systemic acid-base disturbances, and renal tubular function. pH may affect urinary stone formation. For example, urine pH below 6.0 may help reduce the tendency for calcium phosphate stones and pH greater than 6.0 may reduce the tendency for uric acid stone formation. Source: [facility] Current Interpretive Data was last revised on 2017 Protein, ur ql Negative Negative [facility] Glucose, ur ql 4+(A) Negative [facility] Ketones, ur Negative Negative [facility] Bilirubin, ur Negative Negative [facility] Blood, ur Negative Negative [facility] Urobilinogen, ur <2.0 <2.0 mg/dL [facility] Nitrite, ur Negative Negative [facility] Leukocyte esterase, ur Negative Negative [facility] UA reflex comment Reflex conditions for microscopic UA and culture not met. [facility] Urine 03/18/2025 3:05 AM CDT 03/18/2025 3:18 AM CDT us Abhilash Garcia MD LAB MICROBIOLOGY - GENER AL ORDERABLES Final Result [facility] Department [place] [address] * OK CRITICAL CARE ILL/INJURED PATIENT INIT 30-74 MIN (03/18/2025 2:58 AM CDT) Narrative Jerel Forte MD - 03/18/2025 2:58 AM CDT Jerel Foret MD 03/18/2025 2:59 AM Critical Care Performed by: Jerel Forte MD Authorized by: Jerel Forte MD Critical care provider statement: As reflected in the history, physical exam, orders, notes, and/or MDM, I was personally present while the patient was critically ill and provided critical care services for 30 minutes, excluding time involved in separately billable procedures. Critical care was necessary to treat or prevent imminent or life-threatening deterioration of the following condition(s): Leg hematoma with active extravasation limb threatening condition Critical care was time spent by me providing the following: continuous telemetry, continuous pulse oximetry, interpretation of bedside monitors, imaging, and arterial/venous lab draws, serial bedside patient exams and serial laboratory checks management of limb weight bearing status acute pain control I provided emergent necessary critical care medicine services to this patient. I ordered and reviewed test results and/or imaging studies. I spent time discussing the management of this critically ill patient with consultants and the medical staff. I spent time discussing the management and therapeutic options for this critically ill patient with the patient themselves or with the appropriate designated surrogate decision-maker. I spent time documenting in the medical record. us Jerel Forte MD IN CLINIC/BEDSIDE ORDERABL ES Final Result * Troponin I high-sensitivity 2-hour (03/18/2025 1:33 AM CDT) Trop I hs 12 <=35 ng/L Comment: Interpretive Data For further hscTnI resources including the diagnostic algorithm and an aid in interpretation, copy and paste this link: [email or web address] Current Interpretive Data last revised 2020. Trop I hs delta -3 ng/L [facility] Trop I hs interp Insignificant [facility] Blood 03/18/2025 1:33 AM CDT 03/18/2025 1:47 AM CDT us Abhilash Garcia MD LAB BLOOD ORDERABLES [facility] al Result [facility] Department [place] [address] * CT Head Cervical Face WO Contrast (03/18/2025 12:16 AM CDT) Anatomical Region Laterality Modality Head and Neck N/A Computed Tomogra phy 03/18/2025 1:28 AM CDT Impressions 03/18/2025 10:40 AM CDT 1. No acute intracranial process. 2. No evidence of acute fracture in the maxillofacial bones, orbits, or paranasal sinuses. 3. No evidence of acute fracture in the cervical spine. 4. Degenerative changes in the cervical spine resulting up to severe spinal canal stenosis at C5-C6. Dictated by: Thomas Harden MD The radiology attending physician has personally reviewed this study, and had reviewed and/or edited this written report and agrees with it. Electronically signed by: Shlomo Upton M.D. Narrative 03/18/2025 10:40 AM CDT EXAMINATION: 1. CT head without contrast 2. CT of the maxillofacial bones, orbits, and paranasal sinuses without contrast 3. CT of the cervical spine without contrast HISTORY: 79-year-old male presenting after fall TECHNIQUE: CT of the head was performed with images acquired from skull base to vertex without intravenous contrast. Computed tomography of the maxillofacial bones, orbits, and paranasal sinuses was performed without intravenous contrast according to the standard protocol. CT of the cervical spine was performed according to the standard protocol without intravenous contrast. COMPARISON: None Available. FINDINGS: HEAD: Scattered ill-defined hypodensities in the periventricular and subcortical white matter are nonspecific, likely on the basis of chronic small vessel ischemic change. There is parenchymal volume loss. There are atherosclerotic calcifications of the intracranial vessels. Right lens replacement. There is no acute intracranial hemorrhage. Ventricles are of normal size and morphology. No mass effect or midline shift is present. The visualized portions of the mastoids are normal. No fractures are identified. FACE: Probable old right nasal bone fracture. The patient is prominently edentulous with only mandibular teeth. Soft tissue contusion over the right cheek. No evidence of acute fracture. Small amount of fluid within the right sphenoid sinus. The frontal, ethmoid, and sphenoid sinuses are normal. The maxillary sinuses are normal The mandible is normal. The remaining maxillofacial bones are unremarkable. The mastoid air cells are normal. There is no acute fracture. CERVICAL SPINE: Multilevel degenerative changes through the cervical spine resulting in varying levels of neuroforaminal stenosis, worst and severe at the right C3-C6 neural foramen. There is likely severe spinal canal stenosis at C5-C6. Osssification of the nuchal ligament with extensive calcification soft tissue thickening around the C7 and T1 spinous processes. The alignment of the cervical spine is normal. There is no acute fracture. Vertebral bodies are normal in height without compression fractures. The craniocervical junction is normal. Procedure Note Shlomo Upton MD - 03/18/2025 EXAMINATION: 1. CT head without contrast 2. CT of the maxillofacial bones, orbits, and paranasal sinuses without contrast 3. CT of the cervical spine without contrast HISTORY: 79-year-old male presenting after fall TECHNIQUE: CT of the head was performed with images acquired from skull base to vertex without intravenous contrast. Computed tomography of the maxillofacial bones, orbits, and paranasal sinuses was performed without intravenous contrast according to the standard protocol. CT of the cervical spine was performed according to the standard protocol without intravenous contrast. COMPARISON: None Available. FINDINGS: HEAD: Scattered ill-defined hypodensities in the periventricular and subcortical white matter are nonspecific, likely on the basis of chronic small vessel ischemic change. There is parenchymal volume loss. There are atherosclerotic calcifications of the intracranial vessels. Right lens replacement. There is no acute intracranial hemorrhage. Ventricles are of normal size and morphology. No mass effect or midline shift is present. The visualized portions of the mastoids are normal. No fractures are identified. FACE: Probable old right nasal bone fracture. The patient is prominently edentulous with only mandibular teeth. Soft tissue contusion over the right cheek. No evidence of acute fracture. Small amount of fluid within the right sphenoid sinus. The frontal, ethmoid, and sphenoid sinuses are normal. The maxillary sinuses are normal The mandible is normal. The remaining maxillofacial bones are unremarkable. The mastoid air cells are normal. There is no acute fracture. CERVICAL SPINE: Multilevel degenerative changes through the cervical spine resulting in varying levels of neuroforaminal stenosis, worst and severe at the right C3-C6 neural foramen. There is likely severe spinal canal stenosis at C5-C6. Osssification of the nuchal ligament with extensive calcification soft tissue thickening around the C7 and T1 spinous processes. The alignment of the cervical spine is normal. There is no acute fracture. Vertebral bodies are normal in height without compression fractures. The craniocervical junction is normal. IMPRESSION: 1. No acute intracranial process. 2. No evidence of acute fracture in the maxillofacial bones, orbits, or paranasal sinuses. 3. No evidence of acute fracture in the cervical spine. 4. Degenerative changes in the cervical spine resulting up to severe spinal canal stenosis at C5-C6. Dictated by: Thomas Harden MD The radiology attending physician has personally reviewed this study, and had reviewed and/or edited this written report and agrees with it. Electronically signed by: Shlomo Upton M.D. [facility] IMG CT PROCEDURES Final Result * CTA Abdominal Aorta And Bilateral Iliofemoral Runoff (03/18/2025 12:16 AM CDT) Anatomical Region Laterality Modality Body Bilateral Computed Tomogra phy 03/18/2025 2:12 AM CDT Impressions 03/18/2025 9:20 AM CDT 1. Right anterior distal thigh hematoma with a small focus of active extravasation, likely from small branch of the superficial femoral artery. 2. No significant flow-limiting stenosis. 3. No acute fracture. The Critical results were discussed with Dr. Garcia by Dr. Emanuel Son M.D. on 03/18/2025 1:58 AM. Dictated by: Emanuel Son M.D. The radiology attending physician has personally reviewed this study, and had reviewed and/or edited this written report and agrees with it. Electronically signed by: Tate Green M.D. Narrative 03/18/2025 9:20 AM CDT EXAMINATION: CT ANGIOGRAPHY OF THE ABDOMEN, PELVIS, AND LOWER EXTREMITIES WITH CONTRAST HISTORY: Tripped over wire TECHNIQUE: CT angiography of the abdomen, pelvis, and lower extremities was performed following the intravenous administration of 114 ml Optiray-350. Vascular 3D images were generated on a dedicated workstation and also reviewed. COMPARISON: 07/27/2023 FINDINGS: VASCULAR FINDINGS: Abdominal Aorta and Branches: Celiac axis: no significant stenosis SMA: no significant stenosis ROXANA: no significant stenosis Right renal vessels: no significant stenosis Left renal vessels: no significant stenosis Infrarenal aorta: no significant stenosis. No aneurysm. Pelvic Vessels: R. Common iliac artery: no significant stenosis R. External iliac artery: no significant stenosis R. Internal iliac artery: no significant stenosis L. Common iliac artery: no significant stenosis L. External iliac artery: no significant stenosis L. Internal iliac artery: no significant stenosis Right Lower Extremity: R. Common femoral artery: no significant stenosis R. Profunda femoris artery: no significant stenosis R. Superficial femoral artery: no significant stenosis R. Popliteal artery: no significant stenosis R. Anterior tibial artery: no significant stenosis R. Tibioperoneal trunk: no significant stenosis R. Posterior tibial artery: no significant stenosis R. Peroneal artery: no significant stenosis R. Dorsalis pedis artery: no significant stenosis R. Plantar artery: no significant stenosis Left Lower Extremity: L. Common femoral artery: no significant stenosis L. Profunda femoris artery: no significant stenosis L. Superficial femoral artery: no significant stenosis L. Popliteal artery: no significant stenosis L. Anterior tibial artery: no significant stenosis L. Tibioperoneal trunk: no significant stenosis L. Posterior tibial artery: no significant stenosis L. Peroneal artery: no significant stenosis L. Dorsalis pedis artery: no significant stenosis L. Plantar artery: no significant stenosis NON-VASCULAR FINDINGS: In the partially imaged chest, diffuse bronchiectasis. No pneumothorax, pleural effusion, or consolidation. Normal heart size without pericardial effusion. No suspicious liver lesions. Normal gallbladder, adrenals, spleen, and pancreas. Bilateral renal cysts. Normal course and caliber of the small and large bowel without evidence of obstruction. Colonic diverticulosis without diverticulitis. No pneumoperitoneum or ascites. No suspicious abdominal or pelvic lymphadenopathy. Moderate-sized right anterior distal thigh hematoma measuring 10.3 x 4.6 x 16 cm. Anterior thigh laceration. There is a small focus of extravasation, likely from small branch of the superficial femoral artery (series 5, image 767). Severe osteoarthritis of the knees and ankles. No acute fractures or suspicious osseous lesions. Procedure Note Tate Green MD - 03/18/2025 EXAMINATION: CT ANGIOGRAPHY OF THE ABDOMEN, PELVIS, AND LOWER EXTREMITIES WITH CONTRAST HISTORY: Tripped over wire TECHNIQUE: CT angiography of the abdomen, pelvis, and lower extremities was performed following the intravenous administration of 114 ml Optiray-350. Vascular 3D images were generated on a dedicated workstation and also reviewed. COMPARISON: 07/27/2023 FINDINGS: VASCULAR FINDINGS: Abdominal Aorta and Branches: Celiac axis: no significant stenosis SMA: no significant stenosis ROXANA: no significant stenosis Right renal vessels: no significant stenosis Left renal vessels: no significant stenosis Infrarenal aorta: no significant stenosis. No aneurysm. Pelvic Vessels: R. Common iliac artery: no significant stenosis R. External iliac artery: no significant stenosis R. Internal iliac artery: no significant stenosis L. Common iliac artery: no significant stenosis L. External iliac artery: no significant stenosis L. Internal iliac artery: no significant stenosis Right Lower Extremity: R. Common femoral artery: no significant stenosis R. Profunda femoris artery: no significant stenosis R. Superficial femoral artery: no significant stenosis R. Popliteal artery: no significant stenosis R. Anterior tibial artery: no significant stenosis R. Tibioperoneal trunk: no significant stenosis R. Posterior tibial artery: no significant stenosis R. Peroneal artery: no significant stenosis R. Dorsalis pedis artery: no significant stenosis R. Plantar artery: no significant stenosis Left Lower Extremity: L. Common femoral artery: no significant stenosis L. Profunda femoris artery: no significant stenosis L. Superficial femoral artery: no significant stenosis L. Popliteal artery: no significant stenosis L. Anterior tibial artery: no significant stenosis L. Tibioperoneal trunk: no significant stenosis L. Posterior tibial artery: no significant stenosis L. Peroneal artery: no significant stenosis L. Dorsalis pedis artery: no significant stenosis L. Plantar artery: no significant stenosis NON-VASCULAR FINDINGS: In the partially imaged chest, diffuse bronchiectasis. No pneumothorax, pleural effusion, or consolidation. Normal heart size without pericardial effusion. No suspicious liver lesions. Normal gallbladder, adrenals, spleen, and pancreas. Bilateral renal cysts. Normal course and caliber of the small and large bowel without evidence of obstruction. Colonic diverticulosis without diverticulitis. No pneumoperitoneum or ascites. No suspicious abdominal or pelvic lymphadenopathy. Moderate-sized right anterior distal thigh hematoma measuring 10.3 x 4.6 x 16 cm. Anterior thigh laceration. There is a small focus of extravasation, likely from small branch of the superficial femoral artery (series 5, image 767). Severe osteoarthritis of the knees and ankles. No acute fractures or suspicious osseous lesions. IMPRESSION: 1. Right anterior distal thigh hematoma with a small focus of active extravasation, likely from small branch of the superficial femoral artery. 2. No significant flow-limiting stenosis. 3. No acute fracture. The Critical results were discussed with Dr. Garcia by Dr. Emanuel Son M.D. on 03/18/2025 1:58 AM. Dictated by: Emanuel Son M.D. The radiology attending physician has personally reviewed this study, and had reviewed and/or edited this written report and agrees with it. Electronically signed by: Tate Green M.D. Abhilash Garcia [place] [facility] [place]ED[place] Final Result * XR Knee Right 4 or More Views (03/18/2025 12:04 AM CDT) Anatomical Region Laterality Modality Lower Extremities, Knee Right Computed Radiography 03/18/2025 2:04 AM CDT Impressions 03/18/2025 9:21 AM CDT No acute fracture or dislocation. Dictated by: Emanuel Son M.D. The radiology attending physician has personally reviewed this study, and had reviewed and/or edited this written report and agrees with it. Electronically signed by: Tate Green M.D. Narrative 03/18/2025 9:21 AM CDT EXAMINATION: XR PELVIS 1 OR 2 VIEWS, XR CHEST 1 VIEW, XR TIBIA FIBULA RIGHT2 VIEWS, XR FEMUR RIGHT 2 OR MORE VIEWS, XR KNEE RIGHT 4 OR MORE VIEWS HISTORY: Tripping over wire Age: 79 years Gender: Male COMPARISON: None FINDINGS: Pelvis: No fracture or dislocation. The femoral heads are well-seated within the acetabula. Chest: No pneumothorax, pleural effusion, or focal consolidation. Normal cardiomediastinal silhouette. Right tibia/fibula: Diffuse osseous demineralization. Severe degenerative changes of the knee and ankle. No fracture or dislocation. Atherosclerotic disease. Mild diffuse edema. Right knee: No fracture or dislocation. Severe tricompartmental osteoarthritis. Swelling of the anterior distal thigh. Anterior laceration. Right femur: No fracture or dislocation. Mild swelling of the anterior distal thigh. Diffuse atherosclerotic calcifications. Moderate soft tissue edema. Procedure Note Tate Green MD - 03/18/2025 EXAMINATION: XR PELVIS 1 OR 2 VIEWS, XR CHEST 1 VIEW, XR TIBIA FIBULA RIGHT2 VIEWS, XR FEMUR RIGHT 2 OR MORE VIEWS, XR KNEE RIGHT 4 OR MORE VIEWS HISTORY: Tripping over wire Age: 79 years Gender: Male COMPARISON: None FINDINGS: Pelvis: No fracture or dislocation. The femoral heads are well-seated within the acetabula. Chest: No pneumothorax, pleural effusion, or focal consolidation. Normal cardiomediastinal silhouette. Right tibia/fibula: Diffuse osseous demineralization. Severe degenerative changes of the knee and ankle. No fracture or dislocation. Atherosclerotic disease. Mild diffuse edema. Right knee: No fracture or dislocation. Severe tricompartmental osteoarthritis. Swelling of the anterior distal thigh. Anterior laceration. Right femur: No fracture or dislocation. Mild swelling of the anterior distal thigh. Diffuse atherosclerotic calcifications. Moderate soft tissue edema. IMPRESSION: No acute fracture or dislocation. Dictated by: Emanuel Son M.D. The radiology attending physician has personally reviewed this study, and had reviewed and/or edited this written report and agrees with it. Electronically signed by: Tate Green M.D. Abhilash Garcia MD IMG XR PROCEDURES Final Result * XR Chest 1 View (03/18/2025 12:04 AM CDT) Anatomical Region Laterality Modality Body, Chest N/A Computed Radiogr aphy 03/18/2025 2:04 AM CDT Impressions 03/18/2025 9:21 AM CDT No acute fracture or dislocation. Dictated by: Emanuel Son M.D. The radiology attending physician has personally reviewed this study, and had reviewed and/or edited this written report and agrees with it. Electronically signed by: Tate Green M.D. Narrative 03/18/2025 9:21 AM CDT EXAMINATION: XR PELVIS 1 OR 2 VIEWS, XR CHEST 1 VIEW, XR TIBIA FIBULA RIGHT2 VIEWS, XR FEMUR RIGHT 2 OR MORE VIEWS, XR KNEE RIGHT 4 OR MORE VIEWS HISTORY: Tripping over wire Age: 79 years Gender: Male COMPARISON: None FINDINGS: Pelvis: No fracture or dislocation. The femoral heads are well-seated within the acetabula. Chest: No pneumothorax, pleural effusion, or focal consolidation. Normal cardiomediastinal silhouette. Right tibia/fibula: Diffuse osseous demineralization. Severe degenerative changes of the knee and ankle. No fracture or dislocation. Atherosclerotic disease. Mild diffuse edema. Right knee: No fracture or dislocation. Severe tricompartmental osteoarthritis. Swelling of the anterior distal thigh. Anterior laceration. Right femur: No fracture or dislocation. Mild swelling of the anterior distal thigh. Diffuse atherosclerotic calcifications. Moderate soft tissue edema. Procedure Note Tate Green MD - 03/18/2025 EXAMINATION: XR PELVIS 1 OR 2 VIEWS, XR CHEST 1 VIEW, XR TIBIA FIBULA RIGHT2 VIEWS, XR FEMUR RIGHT 2 OR MORE VIEWS, XR KNEE RIGHT 4 OR MORE VIEWS HISTORY: Tripping over wire Age: 79 years Gender: Male COMPARISON: None FINDINGS: Pelvis: No fracture or dislocation. The femoral heads are well-seated within the acetabula. Chest: No pneumothorax, pleural effusion, or focal consolidation. Normal cardiomediastinal silhouette. Right tibia/fibula: Diffuse osseous demineralization. Severe degenerative changes of the knee and ankle. No fracture or dislocation. Atherosclerotic disease. Mild diffuse edema. Right knee: No fracture or dislocation. Severe tricompartmental osteoarthritis. Swelling of the anterior distal thigh. Anterior laceration. Right femur: No fracture or dislocation. Mild swelling of the anterior distal thigh. Diffuse atherosclerotic calcifications. Moderate soft tissue edema. IMPRESSION: No acute fracture or dislocation. Dictated by: Emanuel Son M.D. The radiology attending physician has personally reviewed this study, and had reviewed and/or edited this written report and agrees with it. Electronically signed by: Tate Green M.D. Abhilash Garcia MD IM XR PROCEDURES Final Result * XR Femur Right 2 or More Views (03/18/2025 12:03 AM CDT) Anatomical Region Laterality Modality Lower Extremities, Thigh, Femur Right Computed Radiography 03/18/2025 2:04 AM CDT Impressions 03/18/2025 9:21 AM CDT No acute fracture or dislocation. Dictated by: Emanuel Son M.D. The radiology attending physician has personally reviewed this study, and had reviewed and/or edited this written report and agrees with it. Electronically signed by: Tate Green M.D. Narrative 03/18/2025 9:21 AM CDT EXAMINATION: XR PELVIS 1 OR 2 VIEWS, XR CHEST 1 VIEW, XR TIBIA FIBULA RIGHT2 VIEWS, XR FEMUR RIGHT 2 OR MORE VIEWS, XR KNEE RIGHT 4 OR MORE VIEWS HISTORY: Tripping over wire Age: 79 years Gender: Male COMPARISON: None FINDINGS: Pelvis: No fracture or dislocation. The femoral heads are well-seated within the acetabula. Chest: No pneumothorax, pleural effusion, or focal consolidation. Normal cardiomediastinal silhouette. Right tibia/fibula: Diffuse osseous demineralization. Severe degenerative changes of the knee and ankle. No fracture or dislocation. Atherosclerotic disease. Mild diffuse edema. Right knee: No fracture or dislocation. Severe tricompartmental osteoarthritis. Swelling of the anterior distal thigh. Anterior laceration. Right femur: No fracture or dislocation. Mild swelling of the anterior distal thigh. Diffuse atherosclerotic calcifications. Moderate soft tissue edema. Procedure Note Tate Green MD - 03/18/2025 EXAMINATION: XR PELVIS 1 OR 2 VIEWS, XR CHEST 1 VIEW, XR TIBIA FIBULA RIGHT2 VIEWS, XR FEMUR RIGHT 2 OR MORE VIEWS, XR KNEE RIGHT 4 OR MORE VIEWS HISTORY: Tripping over wire Age: 79 years Gender: Male COMPARISON: None FINDINGS: Pelvis: No fracture or dislocation. The femoral heads are well-seated within the acetabula. Chest: No pneumothorax, pleural effusion, or focal consolidation. Normal cardiomediastinal silhouette. Right tibia/fibula: Diffuse osseous demineralization. Severe degenerative changes of the knee and ankle. No fracture or dislocation. Atherosclerotic disease. Mild diffuse edema. Right knee: No fracture or dislocation. Severe tricompartmental osteoarthritis. Swelling of the anterior distal thigh. Anterior laceration. Right femur: No fracture or dislocation. Mild swelling of the anterior distal thigh. Diffuse atherosclerotic calcifications. Moderate soft tissue edema. IMPRESSION: No acute fracture or dislocation. Dictated by: Emanuel Son M.D. The radiology attending physician has personally reviewed this study, and had reviewed and/or edited this written report and agrees with it. Electronically signed by: Tate Green M.D. Abhilash Garcia MD IMG XR PROCEDURES Final Result * XR Tibia Fibula Right 2 Views (03/18/2025 12:03 AM CDT) Anatomical Region Laterality Modality Lower Extremities, Lower Leg Right Com puted Radiography 03/18/2025 2:04 AM CDT Impressions 03/18/2025 9:21 AM CDT No acute fracture or dislocation. Dictated by: Emanuel Son M.D. The radiology attending physician has personally reviewed this study, and had reviewed and/or edited this written report and agrees with it. Electronically signed by: Tate Green M.D. Narrative 03/18/2025 9:21 AM CDT EXAMINATION: XR PELVIS 1 OR 2 VIEWS, XR CHEST 1 VIEW, XR TIBIA FIBULA RIGHT2 VIEWS, XR FEMUR RIGHT 2 OR MORE VIEWS, XR KNEE RIGHT 4 OR MORE VIEWS HISTORY: Tripping over wire Age: 79 years Gender: Male COMPARISON: None FINDINGS: Pelvis: No fracture or dislocation. The femoral heads are well-seated within the acetabula. Chest: No pneumothorax, pleural effusion, or focal consolidation. Normal cardiomediastinal silhouette. Right tibia/fibula: Diffuse osseous demineralization. Severe degenerative changes of the knee and ankle. No fracture or dislocation. Atherosclerotic disease. Mild diffuse edema. Right knee: No fracture or dislocation. Severe tricompartmental osteoarthritis. Swelling of the anterior distal thigh. Anterior laceration. Right femur: No fracture or dislocation. Mild swelling of the anterior distal thigh. Diffuse atherosclerotic calcifications. Moderate soft tissue edema. Procedure Note Tate Green MD - 03/18/2025 EXAMINATION: XR PELVIS 1 OR 2 VIEWS, XR CHEST 1 VIEW, XR TIBIA FIBULA RIGHT2 VIEWS, XR FEMUR RIGHT 2 OR MORE VIEWS, XR KNEE RIGHT 4 OR MORE VIEWS HISTORY: Tripping over wire Age: 79 years Gender: Male COMPARISON: None FINDINGS: Pelvis: No fracture or dislocation. The femoral heads are well-seated within the acetabula. Chest: No pneumothorax, pleural effusion, or focal consolidation. Normal cardiomediastinal silhouette. Right tibia/fibula: Diffuse osseous demineralization. Severe degenerative changes of the knee and ankle. No fracture or dislocation. Atherosclerotic disease. Mild diffuse edema. Right knee: No fracture or dislocation. Severe tricompartmental osteoarthritis. Swelling of the anterior distal thigh. Anterior laceration. Right femur: No fracture or dislocation. Mild swelling of the anterior distal thigh. Diffuse atherosclerotic calcifications. Moderate soft tissue edema. IMPRESSION: No acute fracture or dislocation. Dictated by: Emanuel Son M.D. The radiology attending physician has personally reviewed this study, and had reviewed and/or edited this written report and agrees with it. Electronically signed by: Tate Green M.D. Abhilash Garcia MD IMG XR PROCEDURES Final Result * XR Pelvis 1 or 2 Views (03/18/2025 12:03 AM CDT) Anatomical Region Laterality Modality Body, Pelvis N/A Computed Radiogr aphy 03/18/2025 2:04 AM CDT Impressions 03/18/2025 9:21 AM CDT No acute fracture or dislocation. Dictated by: Emanuel Son M.D. The radiology attending physician has personally reviewed this study, and had reviewed and/or edited this written report and agrees with it. Electronically signed by: Tate Green M.D. Narrative 03/18/2025 9:21 AM CDT EXAMINATION: XR PELVIS 1 OR 2 VIEWS, XR CHEST 1 VIEW, XR TIBIA FIBULA RIGHT2 VIEWS, XR FEMUR RIGHT 2 OR MORE VIEWS, XR KNEE RIGHT 4 OR MORE VIEWS HISTORY: Tripping over wire Age: 79 years Gender: Male COMPARISON: None FINDINGS: Pelvis: No fracture or dislocation. The femoral heads are well-seated within the acetabula. Chest: No pneumothorax, pleural effusion, or focal consolidation. Normal cardiomediastinal silhouette. Right tibia/fibula: Diffuse osseous demineralization. Severe degenerative changes of the knee and ankle. No fracture or dislocation. Atherosclerotic disease. Mild diffuse edema. Right knee: No fracture or dislocation. Severe tricompartmental osteoarthritis. Swelling of the anterior distal thigh. Anterior laceration. Right femur: No fracture or dislocation. Mild swelling of the anterior distal thigh. Diffuse atherosclerotic calcifications. Moderate soft tissue edema. Procedure Note Tate Green MD - 03/18/2025 EXAMINATION: XR PELVIS 1 OR 2 VIEWS, XR CHEST 1 VIEW, XR TIBIA FIBULA RIGHT2 VIEWS, XR FEMUR RIGHT 2 OR MORE VIEWS, XR KNEE RIGHT 4 OR MORE VIEWS HISTORY: Tripping over wire Age: 79 years Gender: Male COMPARISON: None FINDINGS: Pelvis: No fracture or dislocation. The femoral heads are well-seated within the acetabula. Chest: No pneumothorax, pleural effusion, or focal consolidation. Normal cardiomediastinal silhouette. Right tibia/fibula: Diffuse osseous demineralization. Severe degenerative changes of the knee and ankle. No fracture or dislocation. Atherosclerotic disease. Mild diffuse edema. Right knee: No fracture or dislocation. Severe tricompartmental osteoarthritis. Swelling of the anterior distal thigh. Anterior laceration. Right femur: No fracture or dislocation. Mild swelling of the anterior distal thigh. Diffuse atherosclerotic calcifications. Moderate soft tissue edema. IMPRESSION: No acute fracture or dislocation. Dictated by: Emanuel Son M.D. The radiology attending physician has personally reviewed this study, and had reviewed and/or edited this written report and agrees with it. Electronically signed by: Tate Green M.D. Abhilash Garcia MD IMG XR PROCEDURES Final Result * (ABNORMAL) ECG 12-LEAD (03/17/2025 11:56 PM CDT) Narrative [facility] - 03/17/2025 11:56 PM CDT Lorenzo Carlson Jr., MD 03/17/2025 11:57 PM ECG 12 lead Date/Time: 03/17/2025 11:56 PM Performed by: Lorenzo Carlson Jr., MD Authorized by: Abhilash Garcia MD Quality: Tracing quality: Limited by artifact Rate: ECG rate: 69 ECG rate assessment: normal Rhythm: Rhythm: sinus rhythm Ectopy: Ectopy: none QRS: QRS axis: Right QRS intervals: Wide Conduction: Conduction: abnormal Abnormal conduction: complete RBBB and 1st degree ST segments: ST segments: Non-specific T waves: T waves: peaked Peaked: II, V3 and V4 Q waves: Q waves: AVR Previous ECG: Previous ECG: Compared to current Date of previous EC08/30/2024 Similarity: No change Interpretation: Interpretation: abnormal Recommended Follow-up: Recommended follow up: further workup in the ED Abhilash Garcia MD ECG ORDERABLES Final Re sult [facility] * OK CRITICAL CARE ILL/INJURED PATIENT INIT 30-74 MIN (03/17/2025 11:30 PM CDT) Narrative Lorenzo Carlson Jr., MD - 03/17/2025 11:30 PM CDT Lorenzo Carlson Jr., MD 03/18/2025 4:08 AM Critical Care Performed by: Lorenzo Carlson Jr., MD Authorized by: Jerel Forte MD Critical care provider statement: As reflected in the history, physical exam, orders, notes, and/or MDM, I was personally present while the patient was critically ill and provided critical care services for 31 minutes, excluding time involved in separately billable procedures. Critical care was necessary to treat or prevent imminent or life-threatening deterioration of the following condition(s): unstable vital signs Episodes of bradycardia and hypotension and near syncope closely monitored and addressed. severe traumatic condition Critical care was time spent by me providing the following: continuous telemetry, continuous pulse oximetry, continuous capnography, interpretation of bedside monitors, imaging, and arterial/venous lab draws, serial bedside patient exams, serial laboratory checks and resuscitation with fluids frequent neurologic exams initiation of inotropic medication and initiation and active titration of vasoactive medications Eval and reeval, d/w EMS, d/w patient, d/w son present, d/w ortho, d/w GTS, reviewing previous epic records, ordering, documenting, IV epi given, close monitoring, decision regarding NPO status, active monitoring of intake/output status and serial abdominal exams spinal immobilization, serial neurovascular exams and management of limb weight bearing status I provided emergent necessary critical care medicine services to this patient. I ordered and reviewed test results and/or imaging studies. I spent time discussing the management of this critically ill patient with consultants and the medical staff. I spent time discussing the management and therapeutic options for this critically ill patient with the patient themselves or with the appropriate designated surrogate decision-maker. I spent time documenting in the medical record. us Jerel Forte MD IN CLINIC/BEDSIDE ORDERABL ES Final Result * (ABNORMAL) POCT creatinine (03/17/2025 11:03 PM CDT) [facility] Creatinine POC 2.3(H) 0.8 - 1.3 mg/dL Blood 03/17/2025 11:0 3 PM CDT 03/17/2025 11:03 PM CDT us Lorenzo Carlson Jr., MD LAB POCT ORDERABLES - DEVICE Final Result [facility] Department [place] [address] * Troponin I high-sensitivity series (baseline, 2hr, 4hr, 6hr) (03/17/2025 11:01 PM CDT) [facility] Trop I hs 15 <=35 ng/L Comment: Interpretive Data For further hscTnI resources including the diagnostic algorithm and an aid in interpretation, copy and paste this link: [email or web address] Current Interpretive Data last revised 2020. Blood 03/17/2025 11:0 1 PM CDT 03/17/2025 11:25 PM CDT Abhilash Garcia MD LAB BLOOD ORDERABLES Fin al Result Performing Organization Address City/[facility] Co de Phone Number [facility] [place] [address] * (ABNORMAL) eGFR (03/17/2025 11:01 PM CDT) eGFR 34(L) >=60 mL/min/1. 73 m2 Comment: Interpretive Data Reference Interval Normal >/= 90 mL/min/1.73m2 Mildly decreased* 60 - 89 mL/min/1.73m2 Mildly to moderately decreased 45 - 59 mL/min/1.73m2 Moderately to severely decreased 30 - 44 mL/min/1.73m2 Severely decreased 15 - 29 mL/min/1.73m2 Kidney Failure < 15 mL/min/1.73m2 *Relative to young adult level Estimated glomerular filtration rate is determined by the 2020 CKD-EPI equation recommended by the National Kidney Foundation (A Unifying Approach to GFR Estimation: Recommendations of the NKF-ASK Task Force on Reassessing the Inclusion of Race in Diagnosing Kidney Disease, JASN 2020). The CKD-EPI equation should not be used for patients with unstable renal function and has not been validated in children and those over 70. Current interpretive data was last reviewed 2021. Blood 03/17/2025 11:0 1 PM CDT 03/17/2025 11:26 PM CDT Abhilash Garcia MD LAB BLOOD ORDERABLES Fin al Result Performing Organization Address City/[facility] Co de Phone Number [facility] [place] [address] * Differential, auto (03/17/2025 11:01 PM CDT) Neutrophil abs 4.77 1.50 - 6.50 K/cumm Imm gran abs 0.03 0.00 - 0.10 K/cumm [facility] Lymphocyte abs 2.20 0.80 - 3.30 K/cumm [facility] Monocyte abs 0.45 0.20 - 0.80 K/cumm [facility] Eosinophil abs 0.09 0.00 - 0.50 K/cumm [facility] Basophil abs 0.04 0.00 - 0.10 K/cumm [facility] Neutrophil pct 63.0 % [facility] Comment: Interpretive Data Percent cell count reference ranges are not reported, since discordance with absolute values may lead to misinterpretation of CBC data. Current Interpretive Data was last revised on 2017. Imm gran pct 0.4 % [facility] Comment: Interpretive Data Percent cell count reference ranges are not reported, since discordance with absolute values may lead to misinterpretation of CBC data. Current Interpretive Data was last revised on 2017. Lymphocyte pct 29.0 % [facility] Comment: Interpretive Data Percent cell count reference ranges are not reported, since discordance with absolute values may lead to misinterpretation of CBC data. Current Interpretive Data was last revised on 2017. Monocyte pct 5.9 % [facility] Comment: Interpretive Data Percent cell count reference ranges are not reported, since discordance with absolute values may lead to misinterpretation of CBC data. Current Interpretive Data was last revised on 2017. Eosinophil pct 1.2 % [facility] Comment: Interpretive Data Percent cell count reference ranges are not reported, since discordance with absolute values may lead to misinterpretation of CBC data. Current Interpretive Data was last revised on 2017. Basophil pct 0.5 % [facility] Comment: Interpretive Data Percent cell count reference ranges are not reported, since discordance with absolute values may lead to misinterpretation of CBC data. Current Interpretive Data was last revised on 2017. Blood 03/17/2025 11:0 1 PM CDT 03/17/2025 11:25 PM CDT Abhilash Garcia MD LAB BLOOD ORDERABLES Fin al Result Performing Organization Address [facility] Co de Phone Number [facility] [place] [address] * (ABNORMAL) CBC with auto differential (03/17/2025 11:01 PM CDT) [facility] WBC 7.58 3.80 - 9.90 K/cumm Hgb 14.0 13.0 - 17.5 g/dL [facility] Hct 40.7 38.9 - 50.3 % [facility] Plt 204 150 - 400 K/cumm [facility] MPV 11.7 9.1 - 12.3 fL [facility] RBC 4.22(L) 4.30 - 5.80 M/cumm [facility] MCV 96.4 81.3 - 96.4 fL [facility] MCH 33.2 27.1 - 33.3 pg [facility] MCHC 34.4 32.3 - 35.7 g/dL [facility] RDW CV 14.3 11.1 - 14.9 % [facility] RDW SD 50.2(H) 35.7 - 48.1 fL [facility] NRBC abs 0.00 0.00 - 0.01 K/cumm [facility] Blood 03/17/2025 11:0 1 PM CDT 03/17/2025 11:25 PM CDT Abhilash Garcia MD LAB BLOOD ORDERABLES Fin al Result Performing Organization Address [facility] Co de Phone Number [facility] [place] [address] * aPTT (03/17/2025 11:01 PM CDT) [facility] aPTT 26 26 - 38 sec Comment: Interpretive Data Heparin therapeutic range: 66.0 - 100.0 seconds. Range based on correlation with therapeutic heparin activity range of 0.3 - 0.7 Units/mL. Current interpretive data was last revised on 2023. Blood 03/17/2025 11:0 1 PM CDT 03/17/2025 11:18 PM CDT Abhilash Garcia MD LAB BLOOD ORDERABLES Fin al Result Performing Organization Address [facility] de Phone Number [facility] [place] [address] * Protime-INR (03/17/2025 11:01 PM CDT) PT 12.1 10.2 - 13.5 sec INR 1.07 0.90 - 1.20 [facility] Comment: Interpretive data Oral anticoagulant therapeutic ranges: Venous thromboembolism prophylaxis or treatment: 2.0-3.0 CARDIOLOGY Standard range: 2.0-3.0 High-intensity range: 2.5-3.5 Refer to indication-specific guidelines for appropriate target ranges for prosthetic heart valve replacement. Current interpretive data was last revised on 2019. Blood 03/17/2025 11:0 1 PM CDT 03/17/2025 11:18 PM CDT Abhilash Garcia MD LAB BLOOD ORDERABLES Fin al Result Performing Organization Address [facility] [place] [address] * Type and screen (03/17/2025 11:01 PM CDT) ABO Rh B Positive Yanci, indirect Negative [facility] Blood 03/17/2025 11:0 1 PM CDT 03/17/2025 11:37 PM CDT Narrative [facility] - 03/18/2025 12:45 AM CDT Has the patient had Daratumumab or Isatuximab in the past 6 months?->Unknown Abhilash Garcia MD LAB BLOOD BANK TEST ORDE RABLES Final Result Performing Organization Address City/[facility] de Phone Number [facility] [place] [address] * Phosphorus (03/17/2025 11:01 PM CDT) [facility] Phosphorus, pl See Comment 2.3 - 4.5 mg/dL Comment:Credited; Hemolyzed Specimen Blood 03/17/2025 11:0 1 PM CDT 03/17/2025 11:26 PM CDT Lorenzo Carlson Jr., MD LAB BLOOD ORDERABLES F inal Result Performing Organization Address [facility] [place] [address] * (ABNORMAL) Magnesium (03/17/2025 11:01 PM CDT) [facility] Magnesium 2.8(H) 1.4 - 2.5 mg/dL Blood 03/17/2025 11:0 1 PM CDT 03/17/2025 11:26 PM CDT Lorenzo Carlson Jr., MD LAB BLOOD ORDERABLES F inal Result Performing Organization Address [facility] de Phone Number [facility] [place] [address] * (ABNORMAL) Comprehensive metabolic panel (03/17/2025 11:01 PM CDT) [facility] Sodium 135 135 - 145 mmol/L Potassium, pl See Comment 3.3 - 4.9 mmol/L [facility] Comment:Credited; Hemolyzed Specimen Chloride 102 97 - 110 mmol/L [facility] CO2 21(L) 22 - 32 mmol/L [facility] Comment:Hemolyzed; result ma y be falsely decreased Anion gap 12 2 - 15 mmol/L [facility] BUN 52(H) 6 - 25 mg/dL [facility] Creatinine 1.97(H) 0.80 - 1.30 mg/dL [facility] Glucose 105 70 - 199 mg/dL [facility] Comment: Interpretive Data Fasting glucose >/= 126 mg/dl is diagnostic for diabetes. Fasting is defined as no caloric intake for at least 8 hours. Fasting glucose between 100 mg/dl to 125 mg/dl is diagnostic of prediabetes. In a patient with classic symptoms of hyperglycemia or hyperglycemic crisis, a random glucose >/= 200 mg/dl is diagnostic for diabetes. In the absence of unequivocal hyperglycemia, results should be confirmed by repeat testing. The classification and Diagnosis of Diabetes Diabetes Care 2021; 46: S19-S40. Current interpretive data was last revised 2022. Calcium 10.1 8.5 - 10.3 mg/dL [facility] Bilirubin, total 0.6 0.1 - 1.2 mg/dL [facility] Protein, pl 8.5 6.5 - 8.5 g/dL [facility] Comment:Hemolyzed; result ma y be falsely elevated Albumin 4.3 3.5 - 5.0 g/dL [facility] Alk phos See Comment 40 - 130 Units/L [facility] Comment:Credited; Hemolyzed Specimen ALT See Comment 7 - 55 Units/L [facility] [facility] Comment:Credited; Hemolyzed Specimen AST See Comment 10 - 50 Units/L [facility] Comment:Credited; Hemolyzed Specimen Blood 03/17/2025 11:0 1 PM CDT 03/17/2025 11:26 PM CDT Abhilash Garcia MD LAB BLOOD ORDERABLES Fin al Result [facility] [place] [address] * POCT glucose (03/17/2025 10:36 PM CDT) Glucose, POC 132 70 - 199 mg/dL Blood 03/17/2025 10:3 6 PM CDT 03/17/2025 10:36 PM CDT us Lorenzo Carlson Jr., MD LAB POCT ORDERABLES - DEVICE Final Result Performing Organization Address City/[facility]/ZIP Co de Phone Number [facility] Department [place] [address] * ECG 12 lead (03/07/2025 11:14 AM CDT) us Janice Coello [employer] HELPER ECG ORDERABLES Edited R esult - Final * Hepatitis panel, acute (12/12/2022 7:19 PM CDT) Hep A IgM Nonreactive Nonreactive [facility] Hep B core IgM Nonreactive Nonreactive [facility] Hep C Ab Nonreactive Nonreactive [facility] Comment:Antibodies to HCV no t detected. Does NOT exclude the possibility of recent exposure to HCV. Current interpretive data was last revised on 22 HepBsAg Nonreactive Nonreactive [facility] Blood 12/12/2022 7:19 PM CDT 12/12/2022 7:28 PM CDT us Kurtis Castellanos MD LAB MICROBIOLOGY - GENERAL OR DERABLES Final Result Performing Organization Address [facility] Co de Phone Number [facility] Department [place] [address] from Last 3 Months or Most Recently Relevant to Health Maintenance Insurance [facility] MEDICARE ADVANTAGE [employer] MEDICARE ADVANTAGE Advance Directives For more information, please contact: [phone] Documents on File Type Date Recorded 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 ADVANCE DIRECTIVE 08/17/2023 11:27 AM YOMI R OF AIR POLLUTION ANALYST-MEDICAL ADVANCE DIRECTIVE 07/20/2023 10:18 AM YOMI R OF AIR POLLUTION ANALYST-MEDICAL ADVANCE DIRECTIVE 07/17/2023 3:00 PM POWER OF AIR POLLUTION ANALYST-MEDICAL * Full Code (Latest Code Status on File) Date Activated Date Inactivated Comments 03/31/2025 8:49 PM 04/07/2025 10:19 PM * Full Code Date Activated Date Inactivated Comments 03/18/2025 7:53 AM 03/24/2025 5:55 PM * Full Code Date Activated Date Inactivated Comments 09/10/2023 7:37 PM 09/14/2023 6:45 PM * Full Code Date Activated Date Inactivated Comments 07/26/2023 5:02 PM 08/14/2023 6:33 PM * Full Code Date Activated Date Inactivated Comments 07/16/2023 11:41 AM 07/19/2023 9:03 PM Healthcare Agents on File Name Relationship Healthcare Agent Relationshi p Communication April Talley Spouse Health Care Agent [email or web address] Gianni Talley Son Second Alternate Health Care Agent Janice Kincaidt Daughter Second Alternate Health Care Agent Care Teams Book Editor Relationship Specialty Start Date End Date Valentina Young DO [address] [place] [address] PCP - General Family Medicine 04/21/25 Kurtis Castellanos MD Referring Physician Cardiology 01/06/23 [place] [id number] [place] [address] Consulting Physician Internal Medicine 08/14/23 [place] [id number] [place] [address] Surgeon Trauma Surgery 08/14/23
[2025-05-24 08:09] LABS: Anion Gap 12 mmol/L (4-12); Blood Urea Nitrogen 26 mg/dL (9-20); Calcium 10.1 mg/dL (8.4-10.2); Carbon Dioxide 24 mmol/L (22-30); Chloride 105 mmol/L (98-107); Estimated Glomerular Filt Rate > 60; Glucose 89 mg/dL (65-110); Osmolality Calculated 295 mOsm/kg (285-295); Potassium 5.1 mmol/L (3.4-5.0); Sodium 141 mmol/L (137-145)
== END 2025-05-24 07:28 | disposition home or self-care (01) ==
LOC: CHSLAB 07:33
DX: R00.1 Bradycardia, unspecified (principal); I48.91 Unspecified atrial fibrillation; R06.02 Shortness of breath; I10 Essential (primary) hypertension
CPT/HCPCS: 36415; 80048